=== PATIENT | male | born 1940 | race Caucasian/White ===

== ENCOUNTER 2017-01-26 09:11 | Emergency (ER) | payer OTHER, BC ==
[~2017-01-26] VITALS: Ht 175.3 cm; Wt 82.1 kg
[~2017-01-26 09:11] MED LIST: ASCAUNK PO; ATOR-24 PO; DLN100 PO; DXY100 PO; FINA5TAB PO; FLV1 PO; LISI5TAB3 PO; METO25TA56 PO; NTRGSL/4 UT; OMEG10007 PO; SOLI10TA2 PO
[2017-01-26 09:19] VITALS: TEMP 36.5; Ht 175.3 cm; Wt 82.1 kg
[2017-01-26] MEDS ORDERED: PHN/100 PO (09:37)
[2017-01-26] MEDS ORDERED: FOLI1TAB7 PO (09:37)
[2017-01-26] MEDS ORDERED: LISI-729 PO (09:37)
[2017-01-26] MEDS ORDERED: XYLOCAINE 1%/SOD BICARB 20 ML VIAL INFIL ONE (10:30)
--- NOTE | 2017-01-26 12:14 | EMERGENCY ROOM VISIT NOTE ---
ED Visit Note First contact with patient: 09:59 I have personally seen and evaluated the patient with the physician accounts receivable assistant. I agree with the diagnostic/management decisions and have personally been involved in these decisions and agree with the diagnosis.
[2017-01-26 12:15] VITALS: BP 144/85; PULSE 58; O2SAT 97
--- NOTE | 2017-01-27 13:07 | EMERGENCY ROOM VISIT NOTE ---
ED Visit Note First contact with patient: 09:59 Chief Complaint: I cut my right hand. History of Present Illness: Mr. Rogers is a 78-year-old white male who ambulates into the ED accompanied by his complaining of a laceration on the palmar aspect of the right hand. Patient reports approximately one hour ago he was attempting to pull a plank out from under his lawnmower when he started to lose his balance. He reached for the lawnmower to stable his balance and cut his hand on the low lawnmower handle. Before coming to the ED he did control bleeding and wash the wound with water. Associated with his pain he reports he is having a throbbing and pain pain in the area of his laceration. He rates his discomfort 6/10. The pain is nonradiating. The pain worsens with palpation. He has not identified any alleviating factors related to the pain. He has not taken medications for pain prior to arrival at the hospital. Patient is right-handed. Patient denies any associated symptoms including forearm pain, wrist pain, other hand pain, other finger pain, finger weakness/numbness/tingling. Review of Systems: As noted above in history of present illness. Past Medical History: (1) Aortic valve insufficiency (2) BPH (benign prostatic hypertrophy) (3) CAD (coronary artery disease) (4) Cerebrovascular disease, arteriosclerotic, post-stroke (5) DVT (deep venous thrombosis) (6) Dyslipidemia (7) H/O nonmelanoma skin cancer (8) HTN (hypertension) (9) Hx of sinus bradycardia (10) Malignant neoplasm of kidney (11) OAB (overactive bladder) (12) S/p nephrectomy (13) Seizure disorder (14) Spinal stenosis Surgical Problems: (1) H/O colonoscopy (2) S/P CABG x 4 (3) S/P inguinal hernia repair (4) S/p prostate laser coagulation Current Medications: Medications Dose Route/Sig Max Daily Dose Days Date Category Dilantin (Phenytoin Sodium) 100 Mg Cap 300 Mg PO HS 01/26/17 Reported Zestril (Lisinopril) 5 Mg Tab 5 Mg PO BID 01/26/17 Reported Folvite (Folic Acid) 1 Mg Tab 1 Mg PO BID 01/26/17 Reported Lopressor (Metoprolol Tartrate) 25 Mg Tab 12.5 Mg PO BID 04/04/16 Reported Vesicare (Solifenacin) 10 Mg Tab 10 Mg PO DAILY 11/03/15 Reported Lipitor (Atorvastatin Calcium) 40 Mg Tab 40 Mg PO DAILY 11/26/08 Reported Proscar (Finasteride) 5 Mg Tab 5 Mg PO QAM 05/10/08 Reported [place]-3 (Fish Oil) 1 Ea Cap 1 Cap PO DAILY 05/10/08 Reported Nitrostat (Nitroglycerin) 0.4 Mg Tab 0.4 Mg UT PRN 05/10/08 Reported Allergies to Medications: Patient denies. Social History: Patient is currently retired and lives with his ; he feels safe in his home environment; he denies tobacco use. Tetanus Immunization Status: Patient reports up-to-date. Physical Examination: Vital Signs: Date Time Temp Pulse Resp B/P (MAP) Pulse Ox O2 Delivery O2 Flow Rate FiO2 01/26/17 12:15 58 18 144/85 97 01/26/17 11:30 60 18 142/84 96 01/26/17 09:19 36.5 50 16 154/72 98 Room Air GENERAL: 76-year-old male in mild distress due to pain, nontoxic-appearing, afebrile and hemodynamically stable. NEUROLOGICAL: Awake, alert and oriented to person, place and time. Answering questions appropriately and following commands. SKIN: Warm, dry and pink. Right Hand: Over the palmar surface of the hand patient has a laceration extending just inferior to the webspace between the middle and ring finger laterally into the anterior webspace between the thumb and the index finger. No active bleeding. The wound is 4.5 cm and is full- thickness. Laceration as a flap RIGHT UPPER EXTREMITY: No gross bony deformity. Soft tissue injury as noted above in SKIN. No tenderness in the forearm, wrist or fingers. Full range of motion in all movements of the wrist and fingers against resistance. Throughout the fingers and hand the skin is warm and pink and capillary refill is brisk. He was able to distinguish light sensations to all dermatomes. 4/5 muscle strength in flexion and extension of the MCP, PIP and DIP joints. ED Course: Patient is assessed as noted above. Since medication list was reviewed. Wound Repair: Complexity: Basic Verbal consent was obtained after the risks and benefits were explained. The skin was prepped with betadine and a sterile field set. Wound edges of the wound was anesthetized with 4.8 ml buffered 1% lidocaine. The wound was explored for foreign bodies and none found. Copious irrigation was performed using sterile saline. With direct pressure the bleeding subsided. Debridement was not performed. Wound was sure wasn't 2 steps with the subcuticular layer closed with 6-0 control with a total of 3 simple interrupted stitchs and the external tissues closed with 4-0 Ethilon with a total of 11 simple interrupted sutures. After the suturing was performed a a few strips of Steri-Strips were added to the lacerations for additional support. Hemostasis and excellent approximation was achieved. Sterile dressing applied. No complications and the patient tolerated the procedure well. Patient was educated about tonight's findings and instructed on his treatment plan; he verbalizes understanding and agreement with this plan. Clinical Impression: Laceration of the right hand. Disposition: Patient discharged home in stable condition; prior to departure he was reassessed and subjectively reported he was pain-free. Plan: Comfort measures, wound care, and signs of infection were discussed with the patient. Patient was encouraged to follow-up with PCP or return to the ED for any signs of infection and/or suture removal in 10-12 days.
== END 2017-01-26 12:15 | disposition home or self-care (01) ==
LOC: C.EDB 09:13 → C.EDA 12:15
DX: S61.421A Laceration with foreign body of right hand, initial encounter (principal); W28.XXXA Contact with powered lawn mower, initial encounter

== ENCOUNTER 2017-05-20 05:26 | Observation (INO) | payer OTHER, BC ==
[2017-05-10 09:18] VITALS: Ht 175.3 cm; Wt 82.8 kg
--- NOTE | 2017-05-10 10:04 | PAT Medication Instructions ---
Service Date May 10, 2017. Current Home Medication List Amoxicillin (Amoxil), 4 CAP PO UD PRN for RN Ascorbic Acid (Vitamin C), 100 MG PO BID Aspirin (Aspirin Ec), 81 MG PO QAM Atorvastatin (Lipitor), 40 MG PO QPM [place] (Dolomite), 1 TAB PO PRN Finasteride (Proscar), 5 MG PO QAM Fish Oil ([place]-3), 1 CAP PO QAM Folic Acid (Folvite), 1 MG PO BID Lisinopril (Zestril), 5 MG PO BID Metoprolol Tartrate (Lopressor) (Lopressor), 12.5 MG PO BID Multivitamin (Multivitamin), 1 TAB PO QAM Nitroglycerin (Nitrostat), 0.4 MG UT PRN Phenytoin Sodium (Dilantin), 300 MG PO HS Solifenacin (Vesicare), 10 MG PO QAM Warfarin Sod (Jantoven), 7.5 MG PO 0.5-1 PRN for M Medication Instructions For Your Scheduled Surgery - Continue as directed: Amoxicillin (Amoxil), 4 CAP PO UD PRN for RN (prior to dental procedures) - Check with surgeon and prescribing physician for instructions: Warfarin Sod (Jantoven), 7.5 MG PO 0.5-1 PRN for M Aspirin (Aspirin Ec), 81 MG PO QAM - Hold the following medications starting 05/11/17: Fish Oil ([place]-3), 1 CAP PO QAM - Hold the following medications 24 hours prior to surgery: Lisinopril (Zestril), 5 MG PO BID - Hold the following medications the morning of surgery: Ascorbic Acid (Vitamin C), 100 MG PO BID [place] ([place]), 1 TAB PO PRN Finasteride (Proscar), 5 MG PO QAM Folic Acid (Folvite), 1 MG PO BID Multivitamin (Multivitamin), 1 TAB PO QAM Solifenacin (Vesicare), 10 MG PO QAM - Take the following medications the morning of surgery with a sip of water: Nitroglycerin (Nitrostat), 0.4 MG UT PRN (if needed) Metoprolol Tartrate (Lopressor) (Lopressor), 12.5 MG PO BID - Take the following medications as scheduled the night before surgery: Phenytoin Sodium (Dilantin), 300 MG PO HS Nitroglycerin (Nitrostat), 0.4 MG UT PRN (if needed) Metoprolol Tartrate (Lopressor) (Lopressor), 12.5 MG PO BID Atorvastatin (Lipitor), 40 MG PO QPM Ascorbic Acid (Vitamin C), 100 MG PO BID Dolomite (Dolomite), 1 TAB PO PRN (if needed) If you have any questions please call us at [phone] or [phone] or [phone]
[2017-05-10 10:52] LABS: BASO % 0.5 %; BASO ABS # 0.03 K/uL (0-0.2); EOS % 3.2 %; EOS ABS # 0.18 K/uL (0-0.5); HEMATOCRIT 42.8 % (42-52); HEMOGLOBIN 13.8 g/dL (14.0-18.0); LYMPH % 20.7 %; LYMPH ABS # 1.18 K/uL (1.2-3.4); MEAN CELL VOLUME 95.5 fL (80-100); MEAN CORPUSCULAR HEMOGLOBIN 30.8 pg (25-34); MEAN CORPUSCULAR HGB CONC 32.2 g/dl (32-36); MEAN PLATELET VOLUME 10.7 fL (7.4-10.4); MONO % 11.2 %; MONO ABS # 0.64 K/uL (0.11-0.59); NEUT % 64.4 %; NEUT ABS # 3.66 K/uL (1.4-6.5); PLATELET COUNT 188 K/uL (130-400); RED CELL DISTRIBUTION WIDTH CV 13.7 % (11.5-14.5); RED CELL DISTRIBUTION WIDTH SD 47.6 fL (36.4-46.3); WHITE BLOOD COUNT 5.69 K/uL (4.8-10.8)
--- NOTE | 2017-05-10 11:08 | DIAGNOSTIC IMAGING REPORT ---
CHEST 2 VIEWS ROUTINE HISTORY: Preop. COMPARISON: Chest 04/04/2016. FINDINGS: Punctate calcified granuloma within the left lung apex. No focal lung consolidations to suggest pneumonia. No evidence for pulmonary edema. The heart remains mildly enlarged. There is a tortuous thoracic aorta, unchanged. There are poststernotomy changes. The lungs remain mildly hyperexpanded. IMPRESSION: No significant change compared to the prior study. No acute process. Electronically signed by: Thomas Marrero M.D. 05/10/2017 11:07 AM Dictated Date/Time: 05/10/2017 11:05 AM
[2017-05-10 11:18] LABS: ALBUMIN 3.1 gm/dl (3.4-5.0); ALT/SGPT 29 U/L (12-78); AST/SGOT 27 U/L (15-37); BLOOD UREA NITROGEN 21 mg/dl (7-18); CALCIUM 8.7 mg/dl (8.5-10.1); CARBON DIOXIDE 27 mmol/L (21-32); CREATININE 0.94 mg/dl (0.60-1.40); GLUCOSE 92 mg/dl (70-99); POTASSIUM 5.1 mmol/L (3.5-5.1); SODIUM 140 mmol/L (136-145)
[2017-05-10 11:20] LABS: ALKALINE PHOSPHATASE 99 U/L (45-117); TOTAL PROTEIN 6.2 gm/dl (6.4-8.2)
[2017-05-20] VITALS (11 sets, daily range): BP systolic 145–188; BP diastolic 67–89; PULSE 50–104; TEMP 36.5–36.8; O2SAT 91–96
[~2017-05-20] VITALS: Ht 175.3 cm; Wt 82.8 kg
[~2017-05-20 05:26] MED LIST changes: +AMOX500C3 PO; -ASCAUNK PO; +ASCO100C2 PO; +ASPI81TA28 PO; -DLN100 PO; +DOLO10TA PO; -DXY100 PO; -FLV1 PO; +FOLI1TAB8 PO; +LISI-729 PO; -LISI5TAB3 PO; +MISSING PHYSICIAN SIGNATURE ON ORDER SCH; +MULT-506 PO; +PHN/100 PO; +WARF7.5T4 PO
[2017-05-20] MEDS ORDERED: LACTATED RINGER'S 1000ML 1,000 ML IV SCH ×2 (06:00→09:00)
[2017-05-20] MEDS ORDERED: ENOX60IN SQ (06:23)
[2017-05-20 06:41] LABS: PTT PATIENT 31.2 SECONDS (21.0-31.0)
[2017-05-20] MEDS ORDERED: FENTANYL CITRATE INJ 50 MCG/1 ML 2 ML VIAL ONE (06:51)
[2017-05-20] MEDS ORDERED: MIDAZOLAM HCL 1 MG/ML 2ML VIAL ONE (06:51)
[2017-05-20] MEDS ORDERED: CEFAZOLIN SOD 2000MG/15 ML IV PUSH IV ONE (06:55)
[2017-05-20] MEDS ORDERED: BUPIVACAINE 0.5 % 5 MG/1 ML MPF 30ML VIAL ONE (06:58)
[2017-05-20] MEDS ORDERED: DEXAMETHASONE SOD INJ 4 MG/ML VIAL ONE (07:01)
[2017-05-20] MEDS ORDERED: PROPOFOL IV EMULSION 10 MG/ML 20 ML VIAL IV ONE (07:01)
[2017-05-20] MEDS ORDERED: LIDOCAINE HCL 2% 2 ML VIAL (20MG/ML) ONE (07:01)
[2017-05-20] MEDS ORDERED: ONDANSETRON INJ 2 MG/ML 2 ML VIAL ONE (07:01)
[2017-05-20] MEDS ORDERED: EpHEDrine SULFATE INJ 50 MG/ML AMP IV PRN (07:15)
[2017-05-20] MEDS ORDERED: FENTANYL CITRATE INJ 50 MCG/1 ML 2 ML VIAL IV PRN (07:15)
[2017-05-20] MEDS ORDERED: HYDROmorphone INJ 1 MG/ML SYR IV PRN (07:15)
[2017-05-20] MEDS ORDERED: ONDANSETRON INJ 2 MG/ML 2 ML VIAL IV PRN ×2 (07:15→09:00)
[2017-05-20] MEDS ORDERED: FLUMAZENIL 0.1 MG/1 ML 10 ML VIAL IV PRN (07:15)
[2017-05-20] MEDS ORDERED: MEPERIDINE HCL 25 MG/ML CARP IV PRN (07:15)
[2017-05-20] MEDS ORDERED: ATROPINE SULFATE 0.1 MG/ML 5ML SYR IV PRN (07:15)
[2017-05-20] MEDS ORDERED: LABETALOL HCL IV 5 MG/ML 20ML IV PRN (07:15)
[2017-05-20] MEDS ORDERED: PHENYLEPHRINE 100MCG/ML 5ML SYR IV PRN (07:15)
[2017-05-20] MEDS ORDERED: NALOXONE HCL 0.4 MG/1 ML VIAL/CARP IV PRN (07:15)
--- NOTE | 2017-05-20 07:23 | History & Physical Bridge Note ---
H&P Re-Evaluation Bridge Note: I have examined the patient, reviewed the History & Physical and in the interval since the performance of the History & Physical I have noted the following changes of clinical significance: No changes noted
[2017-05-20] MEDS ORDERED: LIDOCAINE/EPINEPHRINE 1% 20 ML VIAL ONE (07:35)
--- NOTE | 2017-05-20 08:49 | [facility] Post Operative Brief Note ---
Immediate Operative Summary Operative Date May 20, 2017. Pre-Operative Diagnosis Left Inguinal Hernia Post-Operative Diagnosis Left Inguinal Hernia Procedure(s) Performed Open Left Inguinal Hernia Repair with Mesh Surgeon Dr. Gus Garcia Steel Pickler Surgeon(s) None Estimated Blood Loss 3ML Findings indirect hernia and cord lipoma, high ligation of hernia sac, atrium mesh placed. Specimens Permanent Solution: A.) Hernia Sac Drains None Anesthesia LMA Complication(s) None Disposition Recovery Room / PACU
--- NOTE | 2017-05-20 08:55 | [facility] Operative Report ---
Operative Report Operative Date May 20, 2017. Pre-Operative Diagnosis Left Inguinal Hernia Post-Operative Diagnosis indirect left inguinal hernia and cord lipoma Procedure(s) Performed Left inguinal hernia with mesh Surgeon Dr. Gus Garcia Principal Research Economist Surgeon(s) None Estimated Blood Loss 3ML Findings indirect hernia and cord lipoma, high ligation of hernia sac, atrium mesh placed. Specimens Permanent Solution: A.) Hernia Sac Drains None Anesthesia LMA Complication(s) None Disposition Recovery Room / PACU Indications 76-year-old male with multiple medical problems and symptomatic left inguinal hernia. He was deemed a moderate risk for surgery by his incident commander, plan for open left inguinal hernia repair with mesh. The risks of the procedure were discussed, all questions were answered, and the patient agreed to proceed with surgery as planned. Description of Procedure The patient was properly identified, consented, and taken to the operating room where he was placed in the supine position. Laryngeal mask anesthesia was induced. SCDs and a safety belt were placed. Preoperative antibiotics were administered. The patient's groins and abdomen were prepped and draped in the standard sterile fashion. A surgical timeout was performed and all parties were in agreement that this was the correct patient and procedure to be performed and we continued as planned. Local anesthetic was injected along the proposed incision site. An oblique incision was made in the left groin and deepened down to subcutaneous tissue with electrocautery. The aponeurosis of the external oblique muscle was cleared of investing tissue. A small incision was made in the aponeurosis of the external oblique muscle with a knife and lengthened under direct visualization with Metzenbaum scissors. Flaps were raised cephalad and caudad on the posterior portion of the external oblique. The ilioinguinal nerve was identified divided. The cord structures were circumferentially dissected and encircled with a [place] drain. A moderate sized indirect hernia and a cord lipoma were noted. The hernia sac was dissected away from the cord structures. The hernia sac was opened, high ligation was performed, and the hernia sac remnant was reduced back into the abdomen. The hernia sac was sent for pathology. The cord lipoma was ligated and divided and allowed to reduce back into the abdomen. Hemostasis was achieved within the wound. A piece of atrium inguinal hernia mesh was sewn into place using interrupted 0 Nurolon sutures. It was secured to the pubic tubercle medially, the inguinal ligament caudad, and the conjoined tendon cephalad. The internal ring was recreated by securing the tails and could accommodate the tip of the surgeons fifth digit. The wound was irrigated and hemostasis confirmed. The aponeurosis of the external oblique was then closed with a running 3-0 Vicryl suture. The wound was irrigated. Terri's fascia was reapproximated with interrupted 3-0 Vicryl suture. The skin was closed with a running 4-0 Monocryl subcuticular suture, and Dermabond was placed over the incision. The patient was extubated in the operating room and taken to the PACU for recovery without apparent incident. All sponge, instrument, and needle counts were correct at the conclusion of the procedure. The patient tolerated the procedure well. I attest to the content of the Intraoperative Record and any orders documented therein. Any exceptions are noted below.
[2017-05-20] MEDS ORDERED: MoRPHine SULFATE 2 MG/ML CARP IV PRN (09:00)
[2017-05-20] MEDS ORDERED: MoRPHine SULFATE 4 MG/ML 1 ML CARP\\VIAL IV PRN ×2 (09:00)
[2017-05-20] MEDS ORDERED: OXYCODONE/ACETAMINOPHEN 5-325 TAB PO PRN ×2 (09:00)
[2017-05-20] MEDS ORDERED: NITROGLYCERIN 0.4 MG SL PER TAB CHARGE UT PRN (09:15)
--- NOTE | 2017-05-20 09:23 | Anesthesiology Progress Note ---
Anesthesia Post Op Note Date & Time May 20, 2017 at 09:23 Vital Signs Pain Intensity: 0 Vital Signs Past 12 Hours Date Time Temp Pulse Resp B/P (MAP) Pulse Ox O2 Delivery O2 Flow Rate FiO2 05/20/17 09:15 63 15 157/79 99 Oxymask 5 05/20/17 09:05 65 17 159/63 99 Oxymask 10 05/20/17 08:57 36.6 66 14 173/81 100 Oxymask 10 05/20/17 06:07 36.7 67 20 188/83 (118) 91 Room Air Notes Mental Status: alert / awake / arousable, participated in evaluation Pt Amnestic to Procedure: Yes Nausea / Vomiting: adequately controlled Pain: adequately controlled Airway Patency, RR, SpO2: stable & adequate BP & HR: stable & adequate Hydration State: stable & adequate Anesthetic Complications: no major complications apparent The patient is doing well. He is awake, comfortable, and his vitals are stable.
[2017-05-20] MEDS ORDERED: IV FLUIDS COMPLETED PRN (10:00)
--- NOTE | 2017-05-20 10:37 | NUR ---
A Note: Patient arrived to floor at 0945, present with patient, pt resting comfortably in bed, oriented to room, lights and call higgins system, patient instructed to ring for assistance, call higgins in reach, report given to primary nurse to resume care.
[2017-05-20] MEDS ORDERED: WARF7.5T4 PO (11:13)
[2017-05-20] MEDS: KETOROLAC TROMETHAMINE 15 MG/ML VIAL IV SCH ×3 (11:32→23:04)
--- NOTE | 2017-05-20 11:42 | NUR ---
OBS NOTE: pt is alert and oriented x4. vitals stable on room air. tolerating regular diet tray at this time. denies pain. at bedside. voiding in the urinal clear yellow. IV fluids infusing as ordered. call higgins in reach at this time
[2017-05-20] MEDS ORDERED: NURSING VERBAL MED ORDER ONE ×2 (12:45→19:45)
[2017-05-20] MEDS ORDERED: ENOX80IN SQ (13:48)
[2017-05-20] MEDS ORDERED: WARFARIN SOD 7.5 MG TAB PO SCH (16:00)
--- NOTE | 2017-05-20 20:00 | NUR ---
OBS note: pt alert and oriented x4. OOB with 1 assist. Ambulated in the guerrero this shift. Tolerated a regular. Reported pain as tolerable this shift. Dermabond to left lower abdomen is clean and intact. Lungs clear on room air. Pt will continue to be monitored and assessed throughout the shift.
[2017-05-20] MEDS: METOPROLOL TARTRATE 25 MG TAB PO SCH (20:59)
[2017-05-20] MEDS ORDERED: ATORVASTATIN 20 MG TAB PO SCH (21:00)
[2017-05-20] MEDS: LISINOPRIL 5 MG TAB PO SCH (21:00)
[2017-05-20] MEDS ORDERED: PHENYTOIN SODIUM ER 100 MG CAP PO SCH (21:00)
--- NOTE | 2017-05-21 | NUR ---
OBS: Patient resting comfortably at this time. VSS. Denies pain. Ambulates independently without difficulties. SL dry and intact. Will continue to monitor.
[2017-05-21 03:50] VITALS: BP 152/67; PULSE 53; TEMP 36.6; O2SAT 97
--- NOTE | 2017-05-21 04:00 | NUR ---
OBS: Patient asleep at this time. No change in assessment. Will continue to monitor.
--- NOTE | 2017-05-21 05:01 | Discharge Instructions ---
Discharge Instructions Date of Service May 21, 2017. Admission Reason for Admission: Left Inguinal Hernia Discharge Discharge Diagnosis / Problem: Left Inguinal Hernia Discharge Goals Goal(s): Decrease discomfort, Improve function Activity Recommendations Activity Limitations: as noted below Lifting Limitations: no more than 10 pounds, until after follow-up appointment Exercise/Sports Limitations: until after follow-up appointment May Resume Sexual Activity: after follow-up appointment Shower/Bathe: no limitations Driving or Machine Use: resume 3 days after discharge (Please do not drive while using narcotic pain medication) . Instructions / Follow-Up Instructions / Follow-Up You have surgical glue covering your incision. Please allow this to fall off on its own. You have been prescribed Percocet for pain relief as needed. You may alternate this with Ibuprofen for better pain relief as well. You may Ice your incision site as needed to reduce pain and swelling. 20 minutes on, 20 minutes off. Follow up with Dr. Garcia in 1-2 weeks. Please contact our office at to schedule an appointment if you have not done so already. Please contact our office with any questions or concerns. [facility] [address] [place] [id number]. Current Hospital Diet Patient's current hospital diet: Regular Diet Discharge Diet Recommended Diet: Regular Diet Procedures Procedures Performed: Open Left Inguinal Hernia Repair with Mesh Pending Studies Studies pending at discharge: yes List of pending studies: Pathology Medical Emergencies . Who to Call and When: Medical Emergencies: If at any time you feel your situation is an emergency, please call 911 immediately. . Non-Emergent Contact Non-Emergency issues call your: Primary Care Provider, Surgeon Call Non-Emergent contact if: you have a fever, temperature is above 101.5, your pain is not controlled, your pain is worsening, wound has increased drainage, wound has increased redness, you have any medication questions . "Provider Documentation" section prepared by Agusitn Liriano. . VTE Core Measure Inpt VTE Proph given/why not?: Enoxaparin (Lovenox)SQ, Warfarin (Coumadin) [place] Drug Monitoring Program Search Results: patient reviewed within database, no issues identified
[2017-05-21] MEDS: KETOROLAC TROMETHAMINE 15 MG/ML VIAL IV SCH ×2 (05:24→12:00)
--- NOTE | 2017-05-21 06:23 | Surgery Progress Note ---
Surgery Progress Note Date of Service May 21, 2017. Subjective Post OP Day: 1 + feeling well, + ambulating, + flatus, + pain controlled, + diet (Tolerating regular diet), No complaints, No bowel movement, No nausea, No vomiting Objective Vital Signs: Date Time Temp Pulse Resp B/P (MAP) Pulse Ox O2 Delivery O2 Flow Rate FiO2 05/21/17 03:50 36.6 53 18 152/67 (95) 97 Room Air 05/20/17 23:00 Room Air 05/20/17 22:53 36.8 50 16 155/67 (96) 96 Room Air 05/20/17 20:55 64 158/79 (105) 96 Room Air 05/20/17 20:10 36.5 61 18 145/71 (95) 96 Room Air 05/20/17 16:00 Room Air 05/20/17 15:15 36.8 72 18 158/79 (105) 95 Room Air 05/20/17 12:35 66 16 153/67 (95) 95 Room Air 05/20/17 11:45 60 18 177/86 (116) 94 Room Air 05/20/17 11:20 73 16 163/80 (107) 96 Room Air 05/20/17 10:45 65 18 157/79 (105) 94 Room Air 05/20/17 10:15 104 16 159/78 (105) 94 Room Air 05/20/17 09:45 36.5 59 18 173/89 (117) 94 Room Air 05/20/17 09:45 94 Room Air 05/20/17 09:45 94 Room Air 05/20/17 09:25 36.6 63 20 148/80 99 Room Air 05/20/17 09:15 63 15 157/79 99 Oxymask 5 05/20/17 09:05 65 17 159/63 99 Oxymask 10 05/20/17 08:57 36.6 66 14 173/81 100 Oxymask 10 General Appearance: WD/WN, no apparent distress Head: normocephalic, atraumatic Respiratory/Chest: no respiratory distress, no accessory muscle use Abdomen: normal bowel sounds, non distended, soft, no organomegaly, + tenderness Incision(s): clean, dry, intact, no erythema, no drainage Laboratory Results: Results Past 24 Hours Test 05/21/17 04:44 Range/Units Assessment & Plan POD #1 s/p Left inguinal hernia repair with mesh doing well, pain controlled tolerating regular diet - no nausea/vomiting Urinating without trouble, +flatus Anticoagulation plan provided to patient via [facility] anticoagulation clinic. Likely d/c home today.
[2017-05-21] MEDS ORDERED: OXYC-57 PO (06:31)
[2017-05-21 07:32] VITALS: BP 149/73; PULSE 54; TEMP 36.6; O2SAT 97
[2017-05-21] MEDS ORDERED: ENOXAPARIN 80 MG/0.8 ML SYR SQ SCH (08:00)
[2017-05-21] MEDS ORDERED: ENOXAPARIN 60 MG/0.6 ML SYR SQ SCH (08:00)
--- NOTE | 2017-05-21 08:00 | NUR ---
OBS NOTE: pt is alert and oriented x4. ambulating independently. denies pain. saline locked. tolerating diet. Dermabond sites intact to abdomen. call higgins in reach at this time.
--- NOTE | 2017-05-21 08:15 | Anesthesiology Progress Note ---
Anesthesia Post Op Note Date & Time May 21, 2017 at 08:14 Vital Signs Pain Intensity: 0.0 Vital Signs Past 12 Hours Date Time Temp Pulse Resp B/P (MAP) Pulse Ox O2 Delivery O2 Flow Rate FiO2 05/21/17 07:32 36.6 54 17 149/73 (98) 97 Room Air 05/21/17 03:50 36.6 53 18 152/67 (95) 97 Room Air 05/20/17 23:00 Room Air 05/20/17 22:53 36.8 50 16 155/67 (96) 96 Room Air 05/20/17 20:55 64 158/79 (105) 96 Room Air Notes Mental Status: alert / awake / arousable, participated in evaluation Pt Amnestic to Procedure: Yes Nausea / Vomiting: adequately controlled Pain: adequately controlled Airway Patency, RR, SpO2: stable & adequate BP & HR: stable & adequate Hydration State: stable & adequate Anesthetic Complications: no major complications apparent
[2017-05-21] MEDS: LISINOPRIL 5 MG TAB PO SCH (08:28)
[2017-05-21] MEDS: METOPROLOL TARTRATE 25 MG TAB PO SCH (08:29)
[2017-05-21 08:34] VITALS: BP 158/66; PULSE 54
[2017-05-21] MEDS ORDERED: ASPIRIN 81 MG ECTAB PO SCH (09:00)
[2017-05-21] MEDS ORDERED: FINASTERIDE 5 MG TAB PO SCH (09:00)
--- NOTE | 2017-05-21 10:12 | NUR ---
Case Management: Met with pt at bedside. Pt states he lives with his . He is independent with ADLs and ambulation. Pt plans to return home on discharge. No needs identified. Case Management to follow.
--- NOTE | 2017-05-21 12:00 | NUR ---
OBS NOTE: pt is alert and oriented x4. clear lung sounds on room. active bowel sounds. reports he has the presence of flatus. tolerating diet. denies pain. ambulating independently. call higgins in reach. anticipated d/c later this afternoon.
[2017-05-21 12:22] VITALS: BP 158/66; PULSE 54; TEMP 36.6; O2SAT 97
[2017-05-21] MEDS ORDERED: WARFARIN SOD 7.5 MG TAB PO SCH (16:00)
--- NOTE | 2017-05-27 08:13 | Discharge Summary ---
Discharge Summary Date of Service May 27, 2017. Admission Date/Reason May 20, 2017 at 09:06 Left Inguinal Hernia. Discharge Date/Disposition May 21, 2017 Home Diagnosis Principal Diagnosis: Left Inguinal Hernia Procedure(s) Performed Open Left Inguinal Hernia Repair with Mesh- Indirect hernia and cord lipoma, high ligation of hernia sac, atrium mesh placed with Dr. Garcia. Medication Reconciliation Continued Medications: Amoxicillin (Amoxil) 500 Mg Cap 4 CAP PO UD PRN for RN for 10 Days, CAP BEFORE DENTAL WORK Ascorbic Acid (Vitamin C) 100 Mg Chw 100 MG PO BID Aspirin (Aspirin Ec) 81 Mg Tab 81 MG PO QAM Atorvastatin (Lipitor) 40 Mg Tab 40 MG PO QPM Dolomite (Dolomite) 1 Tab Tab 1 TAB PO PRN Enoxaparin (Lovenox) 80 Mg/0.8 Ml Inj 80 MG SQ Q12H, SYR Finasteride (Proscar) 5 Mg Tab 5 MG PO QAM, 0 Refills Fish Oil ([place]-3) 1 Ea Cap 1 CAP PO QAM, CAP Folic Acid (Folvite) 1 Mg Tab 1 MG PO BID, TAB Lisinopril (Zestril) 5 Mg Tab 5 MG PO BID, TAB Metoprolol Tartrate (Lopressor) (Lopressor) 25 Mg Tab 12.5 MG PO BID, TAB Multivitamin (Multivitamin) Tab 1 TAB PO QAM, TAB Nitroglycerin (Nitrostat) 0.4 Mg Tab 0.4 MG UT PRN, 0 Refills Phenytoin Sodium (Dilantin) 100 Mg Cap 300 MG PO HS, CAP Solifenacin (Vesicare) 10 Mg Tab 10 MG PO QAM, TAB Warfarin Sod (Jantoven) 7.5 Mg Tab 7.5 MG PO 2XWK, TAB TAKE 7.5MG TWICE A WEEK ON WEDNESDAY AND WEDNESDAY. ON ALL OTHER DAYS TAKE 3.75MG Warfarin Sod (Jantoven) 7.5 Mg Tab 3.75 MG PO 5XWK, TAB TAKE 3.75MG 5 TIMES A WEEK ON WEDNESDAY, WEDNESDAY, WEDNESDAY, WEDNESDAY AND WEDNESDAY Percocet 5/325 Take 1-2 tab PO every 4-6 hrs PRN pain #30 Admission Physical Exam As per Admitting History & Physical. Hospital Course Patient presented to [facility] for elective Open Left Inguinal Hernia Repair with Mesh with Dr. Garcia- Indirect hernia and cord lipoma, high ligation of hernia sac, atrium mesh placed. Patient was kept overnight under observation. POD #1 patient did well, pain was controlled, no trouble with urination. Patient tolerated diet. Patient was discharged with pain medication. He has a follow-up appointment with Dr. Garcia in the general surgery office. Patient was given both verbal and written discharge instructions. Return precautions discussed with patient. Discharge Instructions Please refer to the electronic Patient Visit Report (Discharge Instructions) for additional information.
[2017-11-24] MEDS ORDERED: ACET-1256 PO (10:45)
[2017-11-24] MEDS ORDERED: DOXY100C76 PO (12:34)
[2017-11-24] MEDS ORDERED: CEPH500C PO (12:34)
[2017-12-13] MEDS ORDERED: DXY100 PO (12:56)
== END 2017-05-21 14:19 | disposition home or self-care (01) ==
LOC: C.ACU 05:26 → C.MSN 09:06 → ENRESERV 09:14
PROVIDERS: ADMIT Surgery; ATTEND Surgery
DX: K40.90 Unilateral inguinal hernia, without obstruction or gangrene, not specified as recurrent (principal); I35.9 Nonrheumatic aortic valve disorder, unspecified; I25.10 Atherosclerotic heart disease of native coronary artery without angina pectoris; N40.1 Benign prostatic hyperplasia with lower urinary tract symptoms; N13.8 Other obstructive and reflux uropathy; E78.5 Hyperlipidemia, unspecified; I10 Essential (primary) hypertension; I25.2 Old myocardial infarction; Z86.718 Personal history of other venous thrombosis and embolism; Z85.828 Personal history of other malignant neoplasm of skin; Z79.82 Long term (current) use of aspirin; Z79.01 Long term (current) use of anticoagulants; Z85.528 Personal history of other malignant neoplasm of kidney; Z90.5 Acquired absence of kidney; Z87.891 Personal history of nicotine dependence

== ENCOUNTER 2017-05-23 20:28 | Emergency (ER) | payer OTHER, BC ==
[~2017-05-23] VITALS: Ht 175.3 cm; Wt 82.7 kg
[~2017-05-23 20:28] MED LIST changes: +ENOX80IN SQ; -MISSING PHYSICIAN SIGNATURE ON ORDER SCH; +OXYC-57 PO
[2017-05-23 20:31] VITALS: TEMP 36.5; Ht 175.3 cm; Wt 82.7 kg
[2017-05-23] MEDS ORDERED: POLYETHYLENE (MIRALAX) 17 GM PACK PO STA (21:28)
[2017-05-23] MEDS ORDERED: MILK AND MOLASSES ENEMA PR STA (21:28)
[2017-05-23] MEDS ORDERED: CYAN10005 PO (21:32)
--- NOTE | 2017-05-23 21:34 | DIAGNOSTIC IMAGING REPORT ---
ABDOMEN 2VIEW W/PA CHEST RTN CLINICAL HISTORY: eval for obstruction pain. Nausea. COMPARISON STUDY: 05/10/2017 FINDINGS: Mild stable cardia megaly. Tortuosity thoracic aorta. Prior median sternotomy. Lungs are considered clear. The bowel pattern is nonobstructive. No significant bowel distention. Mild fecal impaction. IMPRESSION: 1. No acute process the chest. 2. Moderate stable cardiomegaly. 3. Mild fecal impaction The above report was generated using voice recognition software. It may contain grammatical, syntax or spelling errors. Electronically signed by: Edwin Wang M.D. 05/23/2017 9:33 PM Dictated Date/Time: 05/23/2017 9:32 PM
[2017-05-23 23:26] VITALS: BP 133/76; PULSE 77; O2SAT 98
--- NOTE | 2017-05-23 23:44 | EMERGENCY ROOM VISIT NOTE ---
History Report prepared by Edwar: Mary Thorpe Under the Supervision of: Dr. Milton Luis M.D. First contact with patient: 20:40 Chief Complaint: CONSTIPATION Stated Complaint: CONSTIPATION, S/P SURGERY History of Present Illness The patient is a 76 year old male who presents to the Emergency Room with complaints of constant constipation beginning three days ago. The patient had a left inguinal hernia repair by on May 20. He reports he has been unable to had a bowel movement since his surgery. The patient notes taking Dulcolax today with no relief. He denies any vomiting, abdominal pain, or fever. The patient is currently taking oxycodone. He denies taking any laxatives. He has only been taking stool softeners. Source of History: patient Onset: three days ago Position: other (generalized) Quality: other (constipation) Timing: constant Modifying Factors (Relieving): other (none) Associated Symptoms: No fevers, No vomiting, No abdominal pain Review of Systems See HPI for pertinent positives & negatives. A total of 10 systems reviewed and were otherwise negative. Past Medical & Surgical Medical Problems: (1) Aortic valve insufficiency (2) BPH (benign prostatic hypertrophy) (3) CAD (coronary artery disease) (4) Cerebrovascular disease, arteriosclerotic, post-stroke (5) DVT (deep venous thrombosis) (6) Dyslipidemia (7) H/O nonmelanoma skin cancer (8) HTN (hypertension) (9) Hx of sinus bradycardia (10) Malignant neoplasm of kidney (11) OAB (overactive bladder) (12) S/p nephrectomy (13) Seizure disorder (14) Spinal stenosis Surgical Problems: (1) H/O colonoscopy (2) S/P CABG x 4 (3) S/P inguinal hernia repair (4) S/p prostate laser coagulation Family History Patient reports no known family medical history. Social History Smoking Status: Former Smoker Drug Use: none Marital Status: Housing Status: lives with family Occupation Status: retired Current/Historical Medications Scheduled Ascorbic Acid (Vitamin C), 100 MG PO BID Aspirin (Aspirin Ec), 81 MG PO QAM Atorvastatin (Lipitor), 40 MG PO QPM Cyanocobalamin (Vitamin B-12), 1 TAB PO DAILY Dolomite (Dolomite), 1 TAB PO PRN Enoxaparin (Lovenox), 80 MG SQ Q12H Finasteride (Proscar), 5 MG PO QAM Fish Oil ([place]-3), 1 CAP PO QAM Folic Acid (Folvite), 1 MG PO BID Lisinopril (Zestril), 5 MG PO BID Metoprolol Tartrate (Lopressor) (Lopressor), 12.5 MG PO BID Multivitamin (Multivitamin), 1 TAB PO QAM Nitroglycerin (Nitrostat), 0.4 MG UT PRN Phenytoin Sodium (Dilantin), 300 MG PO HS Solifenacin (Vesicare), 10 MG PO QAM Warfarin Sod (Jantoven), 7.5 MG PO 2XWK Warfarin Sod (Jantoven), 3.75 MG PO 5XWK Scheduled PRN Amoxicillin (Amoxil), 4 CAP PO UD PRN for RN Oxycodone/Acetaminophen 5MG/325MG (Percocet 5MG/325MG), 1-2 TABLETS PO Q4H PRN for Pain Allergies Coded Allergies: No Known Allergies (Verified , 05/23/17) Physical Exam Vital Signs Date Time Temp Pulse Resp B/P (MAP) Pulse Ox O2 Delivery O2 Flow Rate FiO2 05/23/17 23:26 77 16 133/76 98 05/23/17 20:31 36.5 117 18 150/65 97 Room Air Physical Exam Constitutional: Vital signs reviewed. Eyes: Pupils are equal round reactive to light. Conjunctiva are noninjected. ENT: Pharynx is clear without erythema or exudate. Mucous membranes are moist. Neck supple without meningeal signs. Respiratory: Clear to auscultation bilaterally. Breath sounds are equal bilaterally. Cardiovascular: Regular rate and rhythm. No rubs or gallops. GI: Soft, nondistended and nontender. Bowel sounds are present. Left lower quadrant incision clean and dry and intact. Ecchymosis to the testicles and left inguinal region. No signs of cellulitis or infection. Musculoskeletal: No peripheral edema. No lower extremity tenderness. Integumentary: No cyanosis. Neurological: The patient is awake and alert. No focal deficits. Psychiatric: Normal affect. Medical Decision & Procedures ER Provider Diagnostic Interpretation: Radiology results as stated below per my review and the radiologist's interpretation: ABDOMEN 2VIEW W/PA CHEST RTN FINDINGS: Mild stable cardia megaly. Tortuosity thoracic aorta. Prior median sternotomy. Lungs are considered clear. The bowel pattern is nonobstructive. No significant bowel distention. Mild fecal impaction. IMPRESSION: 1. No acute process the chest. 2. Moderate stable cardiomegaly. 3. Mild fecal impaction The above report was generated using voice recognition software. It may contain grammatical, syntax or spelling errors. Electronically signed by: Edwin Wang M.D. Medications Administered Medications (Trade) Dose Ordered Sig/Thomas Route Start Time Stop Time Status Last Admin Dose Admin Polyethylene (Miralax Powder Packet) 17 gm NOW STAT PO 05/23/17 21:28 05/23/17 21:29 DC 05/23/17 21:40 17 GM Miscellaneous Medication (Milk And Molasses Enema) 1 ea ONE STAT NC 05/23/17 21:28 05/23/17 21:29 DC 05/23/17 22:22 1 EA ED Course 2042: The patient was evaluated in room C1B. A complete history and physical exam was performed. 2127: Milk and Molasses Enema 1 ea. NC, Polyethylene 17 gm PO. 2223: The patient is getting his enema now. 2318: The patient had a large bowel movement and now feels much better. He is ready to go home. 2324: Upon reevaluation, the patient appeared to have improvement of his symptoms. I discussed jase's findings with the patient. He verbalized agreement of the treatment plan. The patient was discharged home. Medical Decision This is a 76-year-old male who presents with difficulty with bowel movements. Differential diagnosis includes ileus, narcotic induced constipation, fecal impaction, bowel obstruction. I did perform a limited focused review of portions of the patient's old chart on the electronic medical record. The patient had left inguinal by dr trejo May 20 I did evaluate the patient as noted above. Patient is presenting with constipation. He does not have any abdominal pain or tenderness. He is on opiates. I did order and personally review the patient's abdominal and chest x- ray as described above. There is no signs of obstruction. He does have fecal impaction. He was given MiraLAX as well as a milk and molasses enema. He did have a large bowel movement and felt much better. He was discharged home and advised follow with his doctor. Medication Reconcilliation Current Medication List: was personally reviewed by me Blood Pressure Screening Patient's blood pressure: Elevated blood pressure Blood pressure disposition: Referred to PCP Impression Primary Impression: Fecal impaction Additional Impression: Constipation Scribe Attestation The scribe's documentation has been prepared under my direct and personally reviewed by me in its entirety. I confirm that the note above accurately reflects all work, treatment, procedures, and medical decision making performed by me. Departure Information Dispostion Home / Self-Care Referrals Philipp Thurston D.O. (PCP) Forms HOME CARE DOCUMENTATION FORM, IMPORTANT VISIT INFORMATION Patient Instructions ED Constipation, My [facility] Additional Instructions You have been examined and treated today on an emergency basis only. This is not a substitute for, or an effort to provide, complete comprehensive medical care. It is impossible to recognize and treat all injuries or illnesses in a single emergency department visit. It is therefore important that you follow up closely with your physician. Call as soon as possible for an appointment. Return for worsening symptoms or if you develop fever, vomiting, abdominal pain or any other concerning symptoms. Problem Qualifiers Additional Impression: Constipation Constipation type: unspecified constipation type Qualified Codes: K59.00 - Constipation, unspecified
[2017-11-24] MEDS ORDERED: ACET-1256 PO (10:45)
[2017-11-24] MEDS ORDERED: CEPH500C PO (12:34)
[2017-11-24] MEDS ORDERED: DOXY100C76 PO (12:34)
[2017-12-13] MEDS ORDERED: DXY100 PO (12:56)
== END 2017-05-23 23:27 | disposition home or self-care (01) ==
LOC: C.EDB 20:28 → C.EDC 23:27
DX: K59.00 Constipation, unspecified (principal); N40.0 Benign prostatic hyperplasia without lower urinary tract symptoms; I25.10 Atherosclerotic heart disease of native coronary artery without angina pectoris; Z86.718 Personal history of other venous thrombosis and embolism; E78.5 Hyperlipidemia, unspecified; I10 Essential (primary) hypertension; M48.00 Spinal stenosis, site unspecified; G40.909 Epilepsy, unspecified, not intractable, without status epilepticus; I35.1 Nonrheumatic aortic (valve) insufficiency; Z95.1 Presence of aortocoronary bypass graft; Z87.891 Personal history of nicotine dependence; Z79.01 Long term (current) use of anticoagulants; Z79.82 Long term (current) use of aspirin; Z79.899 Other long term (current) drug therapy

== ENCOUNTER → 2017-07-12 | Outpatient (CLI) | payer OTHER, BC ==
[~2017-07-12] MED LIST changes: +CYAN10005 PO; -OXYC-57 PO
--- NOTE | 2017-07-12 11:41 | DIAGNOSTIC IMAGING REPORT ---
ULTRASOUND RIGHT LOWER EXTREMITY VENOUS CLINICAL HISTORY: Right leg pain and swelling. COMPARISON STUDY: Right lower extremity venous ultrasound dated 11/03/2015. TECHNIQUE: Real-time, grayscale, and color Doppler sonography of the deep veins of the right lower extremity was performed from the inguinal crease to the calf. Compression and augmentation were utilized. FINDINGS: There is age indeterminant and nonocclusive deep venous thrombosis seen within the distal superficial femoral vein and the popliteal vein. This likely extends into the peroneal vein in the calf. The, femoral vein and the proximal to mid portions of the superficial femoral vein are patent and normally compressible. The greater saphenous vein and the profunda femoris vein at the junction with the common femoral vein are clear. IMPRESSION: Age indeterminant and nonocclusive deep venous thrombosis as above. Electronically signed by: Thomas Lee M.D. 07/12/2017 11:40 AM Dictated Date/Time: 07/12/2017 11:38 AM
== END | disposition home or self-care (01) ==
LOC: C.ULTRBC 11:05
PROVIDERS: ATTEND Nurse Practitioner
DX: Z86.718 Personal history of other venous thrombosis and embolism (principal); S89.91XA Unspecified injury of right lower leg, initial encounter; M79.661 Pain in right lower leg; M79.89 Other specified soft tissue disorders

== ENCOUNTER 2017-10-13 11:06 | Emergency (ER) | payer OTHER, BC ==
[~2017-10-13] VITALS: Ht 175.3 cm; Wt 83.0 kg
[2017-10-13 11:20] VITALS: TEMP 36.7; Ht 175.3 cm; Wt 83.0 kg
[2017-10-13] MEDS ORDERED: CYAN100T PO (11:47)
[2017-10-13 11:59] LABS: BASO % 0.4 %; BASO ABS # 0.03 K/uL (0-0.2); EOS % 2.2 %; EOS ABS # 0.15 K/uL (0-0.5); HEMATOCRIT 37.8 % (42-52); HEMOGLOBIN 12.1 g/dL (14.0-18.0); IG# 0.01 K/uL (0.00-0.02); LYMPH % 20.2 %; LYMPH ABS # 1.36 K/uL (1.2-3.4); MEAN CELL VOLUME 90.4 fL (80-100); MEAN CORPUSCULAR HEMOGLOBIN 28.9 pg (25-34); MEAN PLATELET VOLUME 9.8 fL (7.4-10.4); MONO % 9.8 %; MONO ABS # 0.66 K/uL (0.11-0.59); NEUT % 67.3 %; NEUT ABS # 4.51 K/uL (1.4-6.5); PLATELET COUNT 209 K/uL (130-400); RED CELL DISTRIBUTION WIDTH CV 13.4 % (11.5-14.5); RED CELL DISTRIBUTION WIDTH SD 43.9 fL (36.4-46.3); WHITE BLOOD COUNT 6.72 K/uL (4.8-10.8)
[2017-10-13 12:09] LABS: INR 1.7 (0.9-1.1); PTT PATIENT 42.9 SECONDS (21.0-31.0)
[2017-10-13 12:15] LABS: CALCIUM 8.3 mg/dl (8.5-10.1); CREATININE 0.97 mg/dl (0.60-1.40); POTASSIUM 4.2 mmol/L (3.5-5.1)
--- NOTE | 2017-10-13 12:15 | DIAGNOSTIC IMAGING REPORT ---
L ANKLE MIN 3 VIEWS ROUTINE CLINICAL HISTORY: Left leg pain following fall. COMPARISON: None FINDINGS: Alignment of the left ankle is anatomic. Talar dome is intact. There is no acute fracture. There is moderate diffuse soft tissue swelling. IMPRESSION: 1. No acute fracture or dislocation of the left ankle. 2. Moderate diffuse ankle soft tissue swelling. Electronically signed by: Stas Oviedo M.D. 10/13/2017 12:14 PM Dictated Date/Time: 10/13/2017 12:13 PM
--- NOTE | 2017-10-13 12:17 | DIAGNOSTIC IMAGING REPORT ---
L TIBIA/FIBULA 2 VIEWS ROUTINE CLINICAL HISTORY: fall; L lower leg, ankle and foot pain COMPARISON: None FINDINGS: No acute fracture of the left tibia or fibula is identified. The distal left tibia and fibula are depicted on the left ankle radiographs which were performed concurrently. Surgical clips medial to the left knee are noted. There is moderate osteophytosis of the left knee. Left lower leg soft tissue swelling is present. IMPRESSION: No acute fracture of the left tibia or fibula. Electronically signed by: Stas Oviedo M.D. 10/13/2017 12:15 PM Dictated Date/Time: 10/13/2017 12:14 PM
--- NOTE | 2017-10-13 12:20 | DIAGNOSTIC IMAGING REPORT ---
L FOOT MIN 3 VIEWS ROUTINE CLINICAL HISTORY: Left leg pain following fall. COMPARISON: None FINDINGS: Tarsometatarsal joints are intact. Alignment of the left foot is anatomic. There is diffuse soft tissue swelling, greater dorsally. No acute fracture within the left foot is identified. Mild osteoarthritis is noted within multiple articulations of the left foot. IMPRESSION: No acute fracture or dislocation within the left foot. Electronically signed by: Stas Oviedo M.D. 10/13/2017 12:19 PM Dictated Date/Time: 10/13/2017 12:17 PM
--- NOTE | 2017-10-13 13:11 | EMERGENCY ROOM VISIT NOTE ---
ED Visit Note First contact with patient: 11:29 The patient was seen and examined with Oswaldo Arauz PA-C. I agree with the history, physical and findings. Please see the note for disposition and details.
[2017-10-13 13:19] VITALS: BP 132/70; PULSE 49; O2SAT 99
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
== END 2017-10-13 13:25 | disposition home or self-care (01) ==
LOC: C.EDB 11:07 → C.EDA 13:25
DX: S80.12XA Contusion of left lower leg, initial encounter (principal); S80.812A Abrasion, left lower leg, initial encounter; W18.41XA Slipping, tripping and stumbling without falling due to stepping on object, initial encounter; R79.1 Abnormal coagulation profile; Z79.01 Long term (current) use of anticoagulants; Z79.82 Long term (current) use of aspirin; G40.909 Epilepsy, unspecified, not intractable, without status epilepticus; I10 Essential (primary) hypertension; E78.5 Hyperlipidemia, unspecified; N40.0 Benign prostatic hyperplasia without lower urinary tract symptoms; Z95.1 Presence of aortocoronary bypass graft

== ENCOUNTER 2017-12-08 14:53 | Inpatient (IN) | payer OTHER, BC ==
[~2017-12-08] VITALS: Ht 175.3 cm; Wt 79.7 kg
[~2017-12-08 14:53] MED LIST changes: +ACET-1256 PO; +CEPH500C PO; -CYAN10005 PO; +CYAN100T PO; +DOXY100C76 PO; -ENOX80IN SQ; -SOLI10TA2 PO
[2017-12-08 16:31] VITALS: BP 158/64; PULSE 87; TEMP 36.5; O2SAT 93; Ht 175.3 cm; Wt 79.7 kg
[2017-12-08] MEDS ORDERED: ACETAMINOPHEN 325 MG TAB PO PRN (16:45)
[2017-12-08] MEDS ORDERED: ONDANSETRON INJ 2 MG/ML 2 ML VIAL IV PRN (16:45)
[2017-12-08] MEDS ORDERED: POLYETHYLENE (MIRALAX) 17 GM PACK PO PRN (16:45)
[2017-12-08] MEDS ORDERED: CYAN10004 PO (17:39)
[2017-12-08] MEDS ORDERED: FRRS300 PO (17:39)
[2017-12-08 17:48] LABS: ALBUMIN 2.8 gm/dl (3.4-5.0); CALCIUM 8.1 mg/dl (8.5-10.1); CREATININE 1.07 mg/dl (0.60-1.40); POTASSIUM 4.3 mmol/L (3.5-5.1); TOTAL PROTEIN 6.2 gm/dl (6.4-8.2)
[2017-12-08 17:49] LABS: BASO % 1.1 %; BASO ABS # 0.07 K/uL (0-0.2); EOS % 3.5 %; EOS ABS # 0.22 K/uL (0-0.5); HEMATOCRIT 34.2 % (42-52); HEMOGLOBIN 10.5 g/dL (14.0-18.0); IG# 0.02 K/uL (0.00-0.02); LYMPH % 23.7 %; LYMPH ABS # 1.49 K/uL (1.2-3.4); MEAN CELL VOLUME 89.5 fL (80-100); MEAN CORPUSCULAR HEMOGLOBIN 27.5 pg (25-34); MEAN CORPUSCULAR HGB CONC 30.7 g/dl (32-36); MEAN PLATELET VOLUME 9.7 fL (7.4-10.4); MONO % 9.5 %; NEUT % 61.9 %; PLATELET COUNT 326 K/uL (130-400); RED CELL DISTRIBUTION WIDTH CV 14.6 % (11.5-14.5); RED CELL DISTRIBUTION WIDTH SD 47.5 fL (36.4-46.3)
[2017-12-08 17:55] LABS: INR 2.9 (0.9-1.1)
[2017-12-08] MEDS ORDERED: NITROGLYCERIN 0.4 MG SL PER TAB CHARGE UT SCH (18:00)
[2017-12-08 18:02] LABS: PTT PATIENT 46.9 SECONDS (21.0-31.0)
[2017-12-08] MEDS ORDERED: CONSULT PHARMACY STA (18:09)
[2017-12-08] MEDS ORDERED: VANCOMYCIN CONSULT ACTIVE PRN (18:30)
[2017-12-08] MEDS ORDERED: VANCOMYCIN IV 2,000 MG in SODIUM CHLORIDE 0.9% 500ML 500 ML IV SCH (18:30)
--- NOTE | 2017-12-08 18:43 | DIAGNOSTIC IMAGING REPORT ---
R TIBIA/FIBULA 2 VIEWS ROUTINE CLINICAL HISTORY: hematoma/cellulitis trauma. Pain. COMPARISON: None. DISCUSSION: Generalized degenerative change of the right lower leg including knee and ankle. Soft tissue edema adjacent to the mid tibia as well as fibula. No acute bony abnormality. IMPRESSION: Focal soft tissue edema mid lower leg. 2. Degenerative change. 3. No acute bony abnormality. The above report was generated using voice recognition software. It may contain grammatical, syntax or spelling errors. Electronically signed by: Edwin Wang M.D. 12/08/2017 6:42 PM Dictated Date/Time: 12/08/2017 6:41 PM
[2017-12-08] MEDS: CEFTRIAXONE SOD INJ 1 GM in DEXTROSE 5% ADD-VANTAGE 50ML 50 ML IV SCH (19:07)
--- NOTE | 2017-12-08 19:36 | History and Physical ---
History & Physical Date & Time of Service: Dec 08, 2017 at 17:41 Chief Complaint: Left Leg Cellulitis Primary Care Physician: Philipp Thurston D.O. History of Present Illness Source: patient, spouse, clinic records, hospital records Pt is 77 y/o M with PMH CAD/P CABG, HTN, dyslipidemia, CVA, seizure disorder, left partial nephrectomy secondary to renal cell CA, chronic hematuria, chronic DVT on Coumadin since 2016, aortic valve regurgitation, mitral valve regurgitation seen as direct admission secondary to right leg hematoma and cellulitis. Patient reports 11/17/17 piece of wood hit his right calf and patient states no open skin at that time however had a lump to leg. He was seen in ER that day and had ultrasound extremity: 6 x 5 x 2.9 cm fluid collection within subcutaneous soft tissue right calf. His INR was 2.1 at that time. 11/21/17 seen in ER again, ultrasound: Age-indeterminate nonocclusive DVT right distal. Her femoral vein, popliteal vein, peroneal vein. INR was 2.7. Compression stocking applied. 11/23/17: Patient reports seeing surgery-Dr. Garcia, no change in treatment plan at that time. 11/24/17: In ER again as patient had bleeding from hematoma site, had I&D, given Rocephin and doxycycline and discharged home on Keflex and doxycycline. Recheck of leg on 11/25/17 and had packing change. Patient reports finishing doxycycline last week, and finishing Keflex approximately 4 days ago. He reports waxing and waning edema and erythema to right lower leg. Initially he was applying ice and heat. Most recently has been applying ice. Initially like was quite painful and he had to use a crutch or walker to help ambulate. Patient states recently with no pain and is able to ambulate without assistance. Patient states over the past week has been keeping legs elevated as much as possible and noticed overall decreased edema. He has noticed some surrounding erythema. Changing dressing daily with some blood noted on dressing. Denies any noted purulent discharge. Today patient seen in wound clinic referred to hospital for further assessment and treatment. Patient denies any chest pains or shortness of breath. He reports is able to walk 2 flights of stairs without SOB/CP. He reports not having to use nitroglycerin for several years. History nuclear stress test 04/2017- negative for ischemia. History echo 08/2017: EF: 55-59%, grade 1 diastolic dysfunction, moderate aortic valve regurgitation, mild mitral valve regurgitation, mild tricuspid regurgitation, aortic root and proximal ascending aorta moderately enlarged (no change from prior). Denies fever/chills, diaphoresis, N/V/D/C, PRIETO, dizziness, syncope, vision changes, neck pain, CP, SOB, orthopnea, palpitations, cough, sore throat, choking, otalgia, rhinorrhea, abdominal pain, paresthesias, other rashes, dysuria, weight changes. Past Medical/Surgical History Medical Problems: (1) Aortic valve insufficiency Status: Chronic (2) BPH (benign prostatic hypertrophy) Status: Chronic (3) CAD (coronary artery disease) Status: Chronic (4) Cerebrovascular disease, arteriosclerotic, post-stroke Status: Chronic (5) DVT (deep venous thrombosis) Status: Chronic (6) Dyslipidemia Status: Chronic (7) H/O nonmelanoma skin cancer Status: Chronic (8) HTN (hypertension) Status: Chronic (9) Hx of sinus bradycardia Status: Chronic (10) Malignant neoplasm of kidney Status: Chronic (11) OAB (overactive bladder) Status: Chronic (12) S/p nephrectomy Status: Chronic (13) Seizure disorder Status: Chronic (14) Spinal stenosis Status: Chronic Surgical Problems: (1) H/O colonoscopy Status: Chronic (2) S/P CABG x 4 Permanent Comment: 10/25/01 Status: Chronic (3) S/P inguinal hernia repair Status: Chronic (4) S/p prostate laser coagulation Status: Chronic Family History Hypertension Social History Smoking Status: Former Smoker Smokeless Tobacco Use: No Alcohol Use: none Drug Use: none Marital Status: Housing status: lives with family Occupational Status: retired Allergies Coded Allergies: No Known Allergies (Verified , 11/21/17) Home Medications Scheduled Ascorbic Acid (Vitamin C), 100 MG PO BID Aspirin (Aspirin Ec), 81 MG PO QAM Atorvastatin (Lipitor), 40 MG PO QPM Cyanocobalamin (Vitamin B-12 1000 Mcg), 1 TAB PO DAILY Dolomite (Dolomite), 1 TAB PO PRN Doxycycline Hyclate (Doxycycline Hyclate), 100 MG PO BID Ferrous Sulfate (Ferrous Sulfate), 1 TAB PO DAILY Finasteride (Proscar), 5 MG PO QAM Fish Oil ([place]-3), 1 CAP PO QAM Folic Acid (Folvite), 1 MG PO BID Lisinopril (Zestril), 5 MG PO BID Metoprolol Tartrate (Lopressor) (Lopressor), 12.5 MG PO BID Multivitamin (Multivitamin), 1 TAB PO QAM Nitroglycerin (Nitrostat), 0.4 MG UT PRN Phenytoin Sodium (Dilantin), 300 MG PO HS Warfarin Sod (Jantoven), 7.5 MG PO WK Warfarin Sod (Jantoven), 3.75 MG PO [id number] Scheduled PRN Acetaminophen (Tylenol), 1,000 MG PO Q6 PRN for Pain or Fever Review of Systems See HPI for pertinent positives & negatives. All other systems reviewed and were otherwise negative Physical Exam Vital Signs Date Time Temp Pulse Resp B/P (MAP) Pulse Ox O2 Delivery O2 Flow Rate FiO2 12/08/17 16:31 36.5 87 16 158/64 93 Room Air General Appearance: WD/WN, no apparent distress Head: normocephalic, atraumatic Eyes: normal inspection, sclerae normal ENT: hearing grossly normal, pharynx normal, + pertinent finding (mucous membranes moist) Neck: supple, trachea midline Respiratory/Chest: lungs clear, normal breath sounds, no respiratory distress Cardiovascular: regular rate, rhythm, normal peripheral pulses Abdomen/GI: normal bowel sounds, non tender, soft Extremities/Musculoskelatal: + pertinent finding (+venous stasis changes noted bilateral lower extremities. RLE: medial calf with small open area scant bloody drainage with palpation with surrounding fluctuant edema, erythema without significant tenderness to palpation, limited flexion R knee, distal pulses palpable, sensation to light touch intact) Skin: warm/dry Diagnostics Laboratory Results Last 24 Hours Test 12/08/17 17:07 White Blood Count 6.30 K/uL Red Blood Count 3.82 M/uL Hemoglobin 10.5 g/dL Hematocrit 34.2 % Mean Corpuscular Volume 89.5 fL Mean Corpuscular Hemoglobin 27.5 pg Mean Corpuscular Hemoglobin Concent 30.7 g/dl Platelet Count 326 K/uL Mean Platelet Volume 9.7 fL Neutrophils (%) (Auto) 61.9 % Lymphocytes (%) (Auto) 23.7 % Monocytes (%) (Auto) 9.5 % Eosinophils (%) (Auto) 3.5 % Basophils (%) (Auto) 1.1 % Neutrophils # (Auto) 3.90 K/uL Lymphocytes # (Auto) 1.49 K/uL Monocytes # (Auto) 0.60 K/uL Eosinophils # (Auto) 0.22 K/uL Basophils # (Auto) 0.07 K/uL RDW Standard Deviation 47.5 fL RDW Coefficient of Variation 14.6 % Immature Granulocyte % (Auto) 0.3 % Immature Granulocyte # (Auto) 0.02 K/uL Prothrombin Time 30.0 SECONDS Prothromb Time International Ratio 2.9 Activated Partial Thromboplast Time 46.9 SECONDS Partial Thromboplastin Ratio 1.8 Sodium Level 141 mmol/L Potassium Level 4.3 mmol/L Chloride Level 108 mmol/L Carbon Dioxide Level 29 mmol/L Anion Gap 4.0 mmol/L Blood Urea Nitrogen 25 mg/dl Creatinine 1.07 mg/dl Est Creatinine Clear Calc Drug Dose 57.8 ml/min Estimated GFR () 77.2 Estimated GFR (Non- 66.6 BUN/Creatinine Ratio 23.2 Random Glucose 79 mg/dl Calcium Level 8.1 mg/dl Total Bilirubin 0.2 mg/dl Aspartate Amino Transf (AST/SGOT) 19 U/L Alanine Aminotransferase (ALT/SGPT) 23 U/L Alkaline Phosphatase 91 U/L Total Protein 6.2 gm/dl Albumin 2.8 gm/dl Globulin 3.4 gm/dl Albumin/Globulin Ratio 0.8 Diagnostic Radiology RIGHT TIB/FIB XRAY: IMPRESSION: 1. Focal soft tissue edema mid lower leg. 2. Degenerative change. 3. No acute bony abnormality. EKG EKG: sinus bradycardia, rate 51 Impression Assessment and Plan Pt is 77 y/o M with PMH CAD/P CABG, HTN, dyslipidemia, CVA, seizure disorder, left partial nephrectomy secondary to renal cell CA, chronic hematuria, chronic DVT on Coumadin since 2016, aortic valve regurgitation, mitral valve regurgitation direct admission secondary to right leg hematoma and cellulitis. Initial injury on 11/17/17. Recurrent [facility] ER visits for this, Had bleeding from area and ultimately had I&D in ER on 11/24/17. Pt finished course doxycycline, keflex with continued edema, erythema and mild bloody drainage. RIGHT LEG HEMATOMA/RLE CELLULITIS Pt afebrile, No leukocytosis. -R tib/fib xray: Focal soft tissue edema mid lower leg. No acute bony abnormality. -pending blood cultures -Rocephin, vancomycin -ortho consult -wound nurse consult CHRONIC RLE DVT ON COUMADIN INR: 2.9 -will hold coumadin dose tonight as pt receiving antibiotics -INR in am CAD S/P CABG x 4 Denies CP, SOB. Has not needed nitro for years. He reports is able to walk 2 flights of stairs without SOB/CP. -Hx nuclear stress test 04/2017- negative for ischemia. -Hx echo 08/2017: EF: 55-59%, grade 1 diastolic dysfunction, moderate aortic valve regurgitation, mild mitral valve regurgitation, mild tricuspid regurgitation, aortic root and proximal ascending aorta moderately enlarged (no change from prior). -continue ASA, atorvastatin, metoprolol HX L RENAL CELL CA S/P PARTIAL NEPHRECTOMY HX SEIZURE DISORDER AFTER CARDIAC ARREST S/P NEPHRECTOMY No recurrent seizures since -pending Dilantin level -continue Dilantin CHRONIC ANEMIA Hgb: 10.5 (has been in 10's since hematoma formation since 11/21/17). (Baseline 12 -13). Slight bleeding noted on dressing at this time. -continue ferrous sulfate, B12, folic acid -monitor H&H Hx CVA No residual effects -continue ASA HTN Stable -continue lisinopril, metoprolol DYSLIPIDEMIA -continue atorvastatin BPH -continue finasteride DVT Prophylaxis -On coumadin -therapeutic INR 2.9 Disposition admit medsur Full Code as per discussion with pt Follows with Dr Thurston for routine care Pt was seen with Dr Galeano. See addendum Attending Addendum Pt was seen andf examined. Agreed with Lazara PAC assessment and plan. 77 y/o M with PMH CAD/P CABG, HTN, dyslipidemia, CVA, seizure disorder, left partial nephrectomy secondary to renal cell CA, chronic hematuria, chronic DVT on Coumadin since 2015, aortic valve regurgitation, mitral valve regurgitation seen as direct admission secondary to right leg hematoma and cellulitis. Will start on Vanco and Rocephin IV. Check blood culture. Hold Coumadin and consult ortho. MD Waleska Advanced Directives Existing Living Will: Yes Existing Power of Nail Making Machine Setter: Yes Resuscitation Status VTE Prophylaxis Will order VTE Prophylaxis: Yes Additional Copies To Philipp Thurston D.O.
[2017-12-08] MEDS: METOPROLOL TARTRATE 25 MG TAB PO SCH (20:29)
[2017-12-08] MEDS: ATORVASTATIN 40 MG TAB PO SCH (20:31)
[2017-12-08] MEDS: PHENYTOIN SODIUM ER 100 MG CAP PO SCH (20:31)
[2017-12-08] MEDS: LISINOPRIL 5 MG TAB PO SCH (20:32)
--- NOTE | 2017-12-08 20:36 | Pharmacy Progress Note ---
Pharmacy Abx Initial Consult Date of Service Dec 08, 2017. Pharmacy Dosing Scope Date of Consult: 12/08/17 Consultation requested by: Dr. Nicholson Pharmacy is consulted to initiate Vancomycin IV dosing therapy, order appropriate labs and adjust drug dose/frequency. Subjective The patient is a 77 year old male admitted on Dec 08, 2017 at 15:49. Objective Height (Feet): 5 Height (Inches): 9.00 Weight (Kilograms): 79.700 (BMI 25.9) Vital Signs (Past 12Hrs) Vital Signs Past 12 Hours Date Time Temp Pulse Resp B/P (MAP) Pulse Ox O2 Delivery O2 Flow Rate FiO2 12/08/17 16:31 36.5 87 16 158/64 93 Room Air Lab Results (24Hrs) Laboratory Tests (24 Hours) Item Value Date Time Creatinine 1.07 mg/dl 12/08/171706 Est Creatinine Clear Calc Drug Dose 57.8 ml/min 12/08/171706 Test 12/08/17 17:07 White Blood Count 6.30 K/uL (4.8-10.8) Red Blood Count 3.82 M/uL (4.7-6.1) L Hemoglobin 10.5 g/dL (14.0-18.0) L Hematocrit 34.2 % (42-52) L Mean Corpuscular Volume 89.5 fL (80-100) Mean Corpuscular Hemoglobin 27.5 pg (25-34) Mean Corpuscular Hemoglobin Concent 30.7 g/dl (32-36) L Platelet Count 326 K/uL (130-400) Mean Platelet Volume 9.7 fL (7.4-10.4) Neutrophils (%) (Auto) 61.9 % Lymphocytes (%) (Auto) 23.7 % Monocytes (%) (Auto) 9.5 % Eosinophils (%) (Auto) 3.5 % Basophils (%) (Auto) 1.1 % Neutrophils # (Auto) 3.90 K/uL (1.4-6.5) Lymphocytes # (Auto) 1.49 K/uL (1.2-3.4) Monocytes # (Auto) 0.60 K/uL (0.11-0.59) H Eosinophils # (Auto) 0.22 K/uL (0-0.5) Basophils # (Auto) 0.07 K/uL (0-0.2) Micro Results Date/Time Source Procedure Growth Status 12/08/17 17:17 Blood Blood Culture Pending Received 12/08/17 17:07 Blood Blood Culture Pending Received Risk Factors for Resistance * Antimicrobial use within the last 90 days Doxycycline/Keflex Assessment & Plan Assessment 77 year old male admitted for small open area on RLE with scant drainage with edema. Has erythema without tenderness. Has had multiple visits over the last month to the ER for problems with edema and erythema to RLE. Has been keeping legs elevated and noticed overall decreased edema. Has been changing the dressing daily with some blood noted on the dressing. No purulent discharge. Seen in wound clinic today and referred to hospital. Plan Vancomycin for treatment of cellulitis Vancomycin IV * Estimated Pkineteics: Vd 0.7 L/kg; Bridger ~0.052 hr-1; T1/2 13.3 hr; CrCl 57.8 * Loading dose: 2000 mg (~25 mg/kg) * Maintenance dose: 1250 mg IV (~15.7 mg/kg) every 16 hours * Goal trough level for cellulitis : 15 to 20 mcg/mL * Trough level ordered for 12/10/17 Pharmacy will continue to follow and will adjust dose/frequency as necessary. Thank you.
[2017-12-08 22:56] VITALS: BP 146/70; PULSE 51; TEMP 36.4; O2SAT 96
[2017-12-09] VITALS (7 sets, daily range): BP systolic 140–156; BP diastolic 63–75; PULSE 50–69; TEMP 36.6–37.1; O2SAT 93–98
[2017-12-09 06:56] LABS: CREATININE 0.85 mg/dl (0.60-1.40)
[2017-12-09] MEDS: FERROUS SULFATE 325 MG TAB PO SCH (08:37)
[2017-12-09] MEDS: CYANOCOBALAMIN 500 MCG TAB (VIT B-12) PO SCH (08:37)
[2017-12-09] MEDS: LISINOPRIL 5 MG TAB PO SCH ×2 (08:37→21:08)
[2017-12-09] MEDS: FINASTERIDE 5 MG TAB PO SCH (08:38)
[2017-12-09] MEDS: METOPROLOL TARTRATE 25 MG TAB PO SCH ×2 (08:41→20:48)
[2017-12-09] MEDS ORDERED: ASPIRIN 81 MG ECTAB PO SCH (09:00)
[2017-12-09 09:27] LABS: INR 2.2 (0.9-1.1)
[2017-12-09] MEDS: VANCOMYCIN IV 1,250 MG in SODIUM CHLORIDE 0.9% 250ML 250 ML IV SCH (11:39)
--- NOTE | 2017-12-09 16:17 | CONSULTATION REPORT ---
DATE OF CONSULTATION: 12/09/2017 CHIEF COMPLAINT: Right calf hematoma. HISTORY OF PRESENT ILLNESS: Toward the end of October, the patient dropped a piece of wood, it bounced up. He states he did not get hit that hard, did not break the skin, but he noticed pain and swelling in his right calf. Patient is chronically on Coumadin. He is not aware what his current INR is. PHYSICAL EXAMINATION: Examination reveals a swollen but minimally tender hematoma on the right calf. ASSESSMENT: Hematoma, right calf. PLAN: Obtain an ultrasound to evaluate the size of the hematoma. Consider reversal of Coumadin, evacuation of hematoma, and placement of a wound VAC. Thank you for the consult.
--- NOTE | 2017-12-09 16:33 | DIAGNOSTIC IMAGING REPORT ---
R EXTREMITY NONVASCULAR LIMITED CLINICAL HISTORY: Recheck size of Right medial calf hematoma/abscess collection TECHNIQUE: Ultrasound COMPARISON STUDY: 11/17/2017 FINDINGS: Complex collection within the soft tissues medial calf. This measures 7 x 6 x 3 cm. No evidence for abnormal vascular flow. This is similar to and are slightly increased in volume from the prior study. IMPRESSION: Complex collection within the soft tissues of the medial calf. Dimensions are slightly increased from the prior exam. The above report was generated using voice recognition software. It may contain grammatical, syntax or spelling errors. Electronically signed by: Edwin Wang M.D. 12/09/2017 4:32 PM Dictated Date/Time: 12/09/2017 4:30 PM
--- NOTE | 2017-12-09 18:15 | Progress Note ---
Medicine Progress Note Date & Time of Visit: Dec 09, 2017 at 18:01. Subjective Pt was seen and examined Lying in bed with no distress Pt said that he does have some discomfort in the right leg Denies any chest pain, palpitation, dizziness, fever, chills and SOB Objective Last 8 Hrs Date Time Temp Pulse Resp B/P (MAP) Pulse Ox O2 Delivery O2 Flow Rate FiO2 12/09/17 15:30 37.1 50 16 156/65 (95) 96 Room Air Physical Exam: General- No acute distress Head- atraumatic Eyes- PERRL, EOMI ENT- oropharynx clear Neck- supple, no JVD Lungs- clear to auscultation Heart- regular rhythm Abdomen- normal bowel sounds, soft Extremities- Open wound in the right calf tenderness with minimal oozing, + tender of the right calf with palpation Neuro- alert, oriented, PERRL, EOMI Skin- warm & dry Laboratory Results: Last 24 Hours Test 12/09/17 05:52 12/09/17 09:01 Creatinine 0.85 mg/dl Est Creatinine Clear Calc Drug Dose 72.8 ml/min Estimated GFR () 97.4 Estimated GFR (Non- 84.0 Prothrombin Time 22.7 SECONDS Prothromb Time International Ratio 2.2 Assessment & Plan RIGHT LEG HEMATOMA/RLE CELLULITIS R tib/fib xray showed focal soft tissue edema mid lower leg. No acute bony abnormality. U/S of the RLE showed complex collection within the soft tissues of the medial calf with slightly increased size from the prior exam. Will continue holding Coumadin for now Will hold aspirin Blood cultures pending Continue Rocephin and vancomycin IV Ortho on board Continue daily wound care CHRONIC RLE DVT ON COUMADIN INR: 2.2 Hold Coumadin due to slightly increase size in the hematoma Continue monitor INR CAD S/P CABG x 4. Had nuclear stress test done on 04/2017- negative for ischemia. Echo on 08/2017 showed EF: 55-59%, grade 1 diastolic dysfunction, moderate aortic valve regurgitation, mild mitral valve regurgitation, mild tricuspid regurgitation, aortic root and proximal ascending aorta moderately enlarged (no change from prior). Continue atorvastatin, metoprolol Will hold aspirin for now due to increase hematoma size HX L RENAL CELL CA S/P PARTIAL NEPHRECTOMY Stable HX SEIZURE DISORDER AFTER CARDIAC ARREST S/P NEPHRECTOMY No recurrent seizures since Continue Dilantin Stable CHRONIC ANEMIA Hgb: 10.5 (has been in 10's since hematoma formation since 11/21/17). (Baseline 12 -13). Continue monitor CBC Hx CVA No residual effects Will hold aspirin HTN Stable continue lisinopril, metoprolol DYSLIPIDEMIA continue atorvastatin BPH continue finasteride DVT Prophylaxis INR 2.2 Hold coumadin due to hematoma SCDs contraindication due to wound in RLE Disposition Discharge once medically stable Current Inpatient Medications: Current Inpatient Medications Medications (Trade) Dose Ordered Sig/Thomas Route Start Time Stop Time Status Last Admin Dose Admin Acetaminophen (Tylenol Tab) 650 mg Q4H PRN PO 12/08/17 16:45 01/07/18 16:44 Polyethylene (Miralax Powder Packet) 17 gm DAILY PRN PO 12/08/17 16:45 01/07/18 16:44 Ondansetron HCl (Zofran Inj) 4 mg Q6H PRN IV 12/08/17 16:45 01/07/18 16:44 Aspirin (Ecotrin Tab) 81 mg QAM PO 12/09/17 09:00 01/08/18 08:59 12/09/17 08:37 81 MG Atorvastatin Calcium (Lipitor Tab) 40 mg QPM PO 12/08/17 21:00 01/07/18 20:59 12/08/17 20:31 40 MG Cyanocobalamin (Vitamin B-12 Tab) 1,000 mcg DAILY PO 12/09/17 09:00 01/08/18 08:59 12/09/17 08:37 1,000 MCG Ferrous Sulfate (Feosol Tab) 325 mg DAILY PO 12/09/17 09:00 01/08/18 08:59 12/09/17 08:37 325 MG Finasteride (Proscar Tab) 5 mg QAM PO 12/09/17 09:00 01/08/18 08:59 12/09/17 08:38 5 MG Folic Acid (Folvite Tab) 1 mg BID PO 12/08/17 21:00 01/07/18 20:59 12/09/17 08:37 1 MG Lisinopril (Zestril Tab) 5 mg BID PO 12/08/17 21:00 01/07/18 20:59 12/09/17 08:37 5 MG Metoprolol Tartrate (Lopressor Tab) 12.5 mg BID PO 12/08/17 21:00 01/07/18 20:59 12/09/17 08:41 12.5 MG Nitroglycerin (Nitrostat Tab) 0.4 mg PRN UT 12/08/17 18:00 01/07/18 17:59 Phenytoin Sodium (Dilantin Er Cap) 300 mg HS PO 12/08/17 21:00 01/07/18 20:59 12/08/17 20:31 300 MG Ceftriaxone Sodium 1 gm/ Dextrose 50 ml @ 100 mls/hr Q24H IV 12/08/17 19:00 12/18/17 18:59 12/08/17 19:07 100 MLS/HR Vancomycin HCl (Consult) 1 ea UD PRN N/A 12/08/17 18:30 01/07/18 18:29 Vancomycin HCl 1250 mg/Sodium Chloride 275 ml @ 125 mls/hr Q16H IV 12/09/17 12:00 12/19/17 11:59 12/09/17 11:39 125 MLS/HR
[2017-12-09] MEDS: CEFTRIAXONE SOD INJ 1 GM in DEXTROSE 5% ADD-VANTAGE 50ML 50 ML IV SCH (18:52)
[2017-12-09] MEDS: ATORVASTATIN 40 MG TAB PO SCH (21:08)
[2017-12-09] MEDS: PHENYTOIN SODIUM ER 100 MG CAP PO SCH (21:08)
[2017-12-10] VITALS (8 sets, daily range): BP systolic 134–176; BP diastolic 60–76; PULSE 47–71; TEMP 36.6–37.2; O2SAT 91–97
[2017-12-10] MEDS: VANCOMYCIN IV 1,250 MG in SODIUM CHLORIDE 0.9% 250ML 250 ML IV SCH ×2 (04:59→20:29)
[2017-12-10 06:14] LABS: HEMATOCRIT 36.5 % (42-52); HEMOGLOBIN 11.2 g/dL (14.0-18.0); MEAN CELL VOLUME 88.4 fL (80-100); MEAN CORPUSCULAR HEMOGLOBIN 27.1 pg (25-34); MEAN CORPUSCULAR HGB CONC 30.7 g/dl (32-36); MEAN PLATELET VOLUME 9.4 fL (7.4-10.4); PLATELET COUNT 276 K/uL (130-400); RED CELL DISTRIBUTION WIDTH CV 14.8 % (11.5-14.5); RED CELL DISTRIBUTION WIDTH SD 47.6 fL (36.4-46.3); WHITE BLOOD COUNT 6.96 K/uL (4.8-10.8)
[2017-12-10 06:20] LABS: INR 1.5 (0.9-1.1)
[2017-12-10 06:42] LABS: CALCIUM 8.5 mg/dl (8.5-10.1); CREATININE 0.97 mg/dl (0.60-1.40); POTASSIUM 4.1 mmol/L (3.5-5.1)
[2017-12-10] MEDS: CYANOCOBALAMIN 500 MCG TAB (VIT B-12) PO SCH (08:02)
[2017-12-10] MEDS: METOPROLOL TARTRATE 25 MG TAB PO SCH ×2 (08:04→20:30)
[2017-12-10] MEDS: LISINOPRIL 5 MG TAB PO SCH ×2 (08:04→20:31)
[2017-12-10] MEDS: FERROUS SULFATE 325 MG TAB PO SCH (08:04)
[2017-12-10] MEDS: FINASTERIDE 5 MG TAB PO SCH (08:05)
[2017-12-10] MEDS ORDERED: FENTANYL CITRATE INJ 50 MCG/1 ML 2 ML VIAL ONE ×2 (14:59→16:58)
[2017-12-10] MEDS ORDERED: MIDAZOLAM HCL 1 MG/ML 2ML VIAL ONE (14:59)
--- NOTE | 2017-12-10 15:36 | Progress Note ---
Medicine Progress Note Date & Time of Visit: Dec 10, 2017 at 15:33. Subjective Pt was seen and examined Lying in bed with no distress with at bedside Pt said that he feels fine Denies any fever, chills, sob, and chest pain Objective Last 8 Hrs Date Time Temp Pulse Resp B/P (MAP) Pulse Ox O2 Delivery O2 Flow Rate FiO2 12/10/17 15:09 36.7 47 16 155/68 (97) 93 Room Air 12/10/17 08:00 Room Air 12/10/17 07:34 36.7 58 18 134/76 (95) 94 Room Air Physical Exam: General- No acute distress Head- atraumatic Eyes- PERRL, EOMI ENT- oropharynx clear Neck- supple, no JVD Lungs- clear to auscultation Heart- regular rhythm Abdomen- normal bowel sounds, soft Extremities- Open wound in the right calf with minimal oozing, dressing on, + tender of the right calf with palpation Neuro- alert, oriented, PERRL, EOMI Skin- warm & dry Laboratory Results: Last 24 Hours Test 12/10/17 05:58 White Blood Count 6.96 K/uL Red Blood Count 4.13 M/uL Hemoglobin 11.2 g/dL Hematocrit 36.5 % Mean Corpuscular Volume 88.4 fL Mean Corpuscular Hemoglobin 27.1 pg Mean Corpuscular Hemoglobin Concent 30.7 g/dl RDW Standard Deviation 47.6 fL RDW Coefficient of Variation 14.8 % Platelet Count 276 K/uL Mean Platelet Volume 9.4 fL Prothrombin Time 16.1 SECONDS Prothromb Time International Ratio 1.5 Sodium Level 141 mmol/L Potassium Level 4.1 mmol/L Chloride Level 109 mmol/L Carbon Dioxide Level 27 mmol/L Anion Gap 6.0 mmol/L Blood Urea Nitrogen 22 mg/dl Creatinine 0.97 mg/dl Est Creatinine Clear Calc Drug Dose 63.8 ml/min Estimated GFR () 86.9 Estimated GFR (Non- 75.0 BUN/Creatinine Ratio 22.2 Random Glucose 84 mg/dl Calcium Level 8.5 mg/dl Assessment & Plan RIGHT LEG HEMATOMA/RLE CELLULITIS R tib/fib xray showed focal soft tissue edema mid lower leg. No acute bony abnormality. U/S of the RLE showed complex collection within the soft tissues of the medial calf with slightly increased size from the prior exam. Hgb stable Continue holding Coumadin Continue holding aspirin Blood cultures no growth Continue Rocephin and vancomycin IV for now Ortho on board case discussed with ortho team, consider draining and lavage of the area Keep pt NPO for now Continue daily wound care CHRONIC RLE DVT ON COUMADIN INR: 1.5 today Coumadin on hold due to slightly increase size in the hematoma Continue monitor INR CAD S/P CABG x 4. Had nuclear stress test done on 04/2017- negative for ischemia. Echo on 08/2017 showed EF: 55-59%, grade 1 diastolic dysfunction, moderate aortic valve regurgitation, mild mitral valve regurgitation, mild tricuspid regurgitation, aortic root and proximal ascending aorta moderately enlarged (no change from prior). Continue atorvastatin, metoprolol Will hold aspirin for now due to increase hematoma size HX L RENAL CELL CA S/P PARTIAL NEPHRECTOMY Stable HX SEIZURE DISORDER AFTER CARDIAC ARREST S/P NEPHRECTOMY No recurrent seizures since Continue Dilantin Stable CHRONIC ANEMIA Hgb: 10.5 (has been in 10's since hematoma formation since 11/21/17). (Baseline 12 -13). Continue monitor CBC Hx CVA No residual effects Will hold aspirin HTN Stable continue lisinopril, metoprolol DYSLIPIDEMIA continue atorvastatin BPH continue finasteride DVT Prophylaxis INR 1.5 Hold coumadin due to hematoma SCDs contraindication due to wound in RLE Disposition Discharge once medically stable Consultants: ortho Current Inpatient Medications: Current Inpatient Medications Medications (Trade) Dose Ordered Sig/Thomas Route Start Time Stop Time Status Last Admin Dose Admin Acetaminophen (Tylenol Tab) 650 mg Q4H PRN PO 12/08/17 16:45 01/07/18 16:44 Polyethylene (Miralax Powder Packet) 17 gm DAILY PRN PO 12/08/17 16:45 01/07/18 16:44 Ondansetron HCl (Zofran Inj) 4 mg Q6H PRN IV 12/08/17 16:45 01/07/18 16:44 Aspirin (Ecotrin Tab) 81 mg QAM PO 12/09/17 09:00 01/08/18 08:59 Future Hold 12/09/17 08:37 81 MG Atorvastatin Calcium (Lipitor Tab) 40 mg QPM PO 12/08/17 21:00 01/07/18 20:59 12/09/17 21:08 40 MG Cyanocobalamin (Vitamin B-12 Tab) 1,000 mcg DAILY PO 12/09/17 09:00 01/08/18 08:59 12/10/17 08:02 1,000 MCG Ferrous Sulfate (Feosol Tab) 325 mg DAILY PO 12/09/17 09:00 01/08/18 08:59 12/10/17 08:04 325 MG Finasteride (Proscar Tab) 5 mg QAM PO 12/09/17 09:00 01/08/18 08:59 12/10/17 08:05 5 MG Folic Acid (Folvite Tab) 1 mg BID PO 12/08/17 21:00 01/07/18 20:59 12/10/17 08:05 1 MG Lisinopril (Zestril Tab) 5 mg BID PO 12/08/17 21:00 01/07/18 20:59 12/10/17 08:04 5 MG Metoprolol Tartrate (Lopressor Tab) 12.5 mg BID PO 12/08/17 21:00 01/07/18 20:59 12/10/17 08:04 12.5 MG Nitroglycerin (Nitrostat Tab) 0.4 mg PRN UT 12/08/17 18:00 01/07/18 17:59 Phenytoin Sodium (Dilantin Er Cap) 300 mg HS PO 12/08/17 21:00 01/07/18 20:59 12/09/17 21:08 300 MG Ceftriaxone Sodium 1 gm/ Dextrose 50 ml @ 100 mls/hr Q24H IV 12/08/17 19:00 12/18/17 18:59 12/09/17 18:52 100 MLS/HR Vancomycin HCl (Consult) 1 ea UD PRN N/A 12/08/17 18:30 01/07/18 18:29 Vancomycin HCl 1250 mg/Sodium Chloride 275 ml @ 125 mls/hr Q16H IV 12/09/17 12:00 12/19/17 11:59 12/10/17 04:59 125 MLS/HR
[2017-12-10] MEDS ORDERED: BACITRACIN 50000 UNIT VIAL ONE (16:00)
[2017-12-10] MEDS ORDERED: BUPIVACAINE/EPINEPHRINE 0.5% MPF 1:200,000 30 ML VIAL ONE (17:04)
[2017-12-10] MEDS ORDERED: ONDANSETRON INJ 2 MG/ML 2 ML VIAL ONE (17:20)
[2017-12-10] MEDS ORDERED: GLYCOPYRROLATE INJ 0.2 MG/ML VIAL ONE (17:20)
[2017-12-10] MEDS ORDERED: DEXAMETHASONE SOD INJ 4 MG/ML VIAL ONE (17:20)
[2017-12-10] MEDS ORDERED: PROPOFOL IV EMULSION 10 MG/ML 20 ML VIAL ONE (17:20)
[2017-12-10] MEDS ORDERED: LIDOCAINE HCL 2% 2 ML VIAL (20MG/ML) ONE (17:20)
--- NOTE | 2017-12-10 17:36 | [facility] Post Operative Brief Note ---
Immediate Operative Summary Operative Date Dec 10, 2017. Pre-Operative Diagnosis Hematoma right medial calf Post-Operative Diagnosis Hematoma right medial calf, Fasciitis gastrocnemius, Muscle necrosis medial gastrocnemius muscle Procedure(s) Performed 1. Incision and drainage right lower leg, 2. Evacuation hematoma right calf 3. Debridement gastrocnemius muscle 4. Debridement Gastrocnemius Fascia Surgeon Dr Giovanny Ayala Loft Patternmaker Surgeon(s) none Estimated Blood Loss 10 ml Findings Consistent with Post-Op Diagnosis Specimens Routine and anaerobic culture, and gram stain right calf hematoma Drains HV x 2 Anesthesia Type General (local) Complication(s) none Disposition Accompanied Pt To Recover: no Disposition: Recovery Room / PACU
[2017-12-10] MEDS ORDERED: MoRPHine SULFATE 2 MG/ML CARP IV PRN (17:45)
[2017-12-10] MEDS ORDERED: FENTANYL CITRATE INJ 50 MCG/1 ML 2 ML VIAL IV PRN (18:00)
[2017-12-10] MEDS ORDERED: ONDANSETRON INJ 2 MG/ML 2 ML VIAL IV PRN (18:00)
[2017-12-10] MEDS ORDERED: ATROPINE SULFATE 0.1 MG/ML 5ML SYR IV PRN (18:00)
[2017-12-10] MEDS ORDERED: EpHEDrine SULFATE INJ 50 MG/ML AMP IV PRN (18:00)
--- NOTE | 2017-12-10 18:01 | Anesthesiology Progress Note ---
Anesthesia Post Op Note Date & Time Dec 10, 2017 at 18:00 Vital Signs Pain Intensity: 0 Vital Signs Past 12 Hours Date Time Temp Pulse Resp B/P (MAP) Pulse Ox O2 Delivery O2 Flow Rate FiO2 12/10/17 17:55 62 20 158/74 98 Nasal Cannula 3 12/10/17 17:45 61 14 170/88 97 Nasal Cannula 3 12/10/17 17:37 36.4 68 16 171/79 97 Nasal Cannula 4 12/10/17 16:00 Room Air 12/10/17 15:48 37.2 63 16 160/60 (93) 95 Room Air 12/10/17 15:09 36.7 47 16 155/68 (97) 93 Room Air 12/10/17 08:00 Room Air 12/10/17 07:34 36.7 58 18 134/76 (95) 94 Room Air Notes Mental Status: alert / awake / arousable, participated in evaluation Pt Amnestic to Procedure: Yes Nausea / Vomiting: adequately controlled Pain: adequately controlled Airway Patency, RR, SpO2: stable & adequate BP & HR: stable & adequate Hydration State: stable & adequate Anesthetic Complications: no major complications apparent
[2017-12-10] MEDS: CEFTRIAXONE SOD INJ 1 GM in DEXTROSE 5% ADD-VANTAGE 50ML 50 ML IV SCH (18:58)
--- NOTE | 2017-12-10 19:06 | OPERATIVE REPORT ---
DATE OF OPERATION: 12/10/2017 PREOPERATIVE DIAGNOSIS: Right medial calf hematoma. POSTOPERATIVE DIAGNOSES: 1. Right medial calf hematoma. 2. Hematoma right lower leg. 3. Fasciitis of the gastrocnemius. 4. Muscle necrosis of the gastrocnemius. PROCEDURES: 1. Incision and drainage of right lower leg. 2. Evacuation of hematoma, right medial calf musculature. 3. Debridement of medial gastrocnemius fascia. 4. Debridement of gastrocnemius muscle. SURGEON: Dr. Ayala. HEAD FIELD HOCKEY COACH: None. ANESTHESIA: General LMA with local. SPECIMENS: Aerobic, anaerobic, Gram stain. DRAINS: Hemovac x2. COMPLICATIONS: None. BLOOD LOSS: 5 mL PERTINENT HISTORY: This is a 77-year-old gentleman who struck his right medial leg while working at home approximately a month ago. He had undergone conservative management for the last several weeks; however, continued to have significant pain. One of the ER physicians tried to mariaa this region and he had scant discharge and drainage, most likely because it became an organized clot. The patient presented again 2 days ago at [facility], under the care of the medical service and after further evaluation today, it was decided patient should benefit from formal incision and drainage with evacuation of hematoma, right medial lower leg. All potential risks, benefits, complications, alternatives, rehab, potential for incomplete relief of symptoms, need for further surgery, DVT, PE, , persistent pain, swelling, scarring, weakness, neurovascular injury, wound complications, and need for further surgery discussed with patient, possible need for skin graft or other soft tissue procedures. DETAILS OF PROCEDURE: Patient was taken to the operative suite, placed supine on the operating room table. After review of the consent and identification of proper operative site, patient was anesthetized, LMA was placed. Tourniquet was placed high on the right thigh over cast padding. Right lower extremity was then elevated and tourniquet inflated to 325 mmHg. There was no exsanguination performed. Next, approximately 15 mL of 0.25% Marcaine with epinephrine was injected around the planned incision site and then a 15 blade scalpel was used to make an incision along the mid lateral line along the medial aspect of the right lower leg down to superior border of the soft tissue collection and presumed hematoma. This incision was deepened to the subcutaneous tissue. Meticulous hemostasis was achieved with electrocautery. Next, through the subcutaneous tissue, the fascia was pierced and then organized clot approximately 150 mL in total was then extruded from the right medial calf. The mass had decreased significantly in size and then a pulsatile lavage of 6 liters with bacitracin was then used to cleanse the right medial calf and lower leg. Upon further inspection, noted to be hematoma and organized clot. This was cultured, aerobic, anaerobic, Gram stain and sent for specimen. Next, the fascia was examined and noted to have some regions of fasciitis and softening of the fascia. There appeared to be no evidence of infection with no hyper-inflammatory response; however, there was some local fasciitis with slight thickening of the fascia. This was debrided carefully back to more healthy-appearing fascia. This was most likely due to just local pressure necrosis from the hematoma. After this was completed with a rongeur, the gastrocnemius muscle was assessed. This was tested for contractility with a Bovie. There were 2 small areas where it appeared to be some muscle necrosis with loss of contractility. At this point, these 2 regions of gastrocnemius along the medial aspect then sharply excised using a 15 blade scalpel and a rongeur. Once this was completed, the rest of the gastroc then contracted accordingly with normal color and consistency. Then further irrigation with pulsatile lavage was performed until clear and then 2 Hemovac drains were then placed, 10 Tajik exiting the anterior medial aspect of the right lower extremity. Next, a loose skin closure was performed with interrupted 3-0 nylon sutures using horizontal mattress fashion and then a sterile compressive dressing was applied to the right lower extremity extending from the knee down to the toes overwrapped with an Rashi wrap. Next, the tourniquet was released, the patient was awakened and taken to recovery in stable condition. I attest to the content of the Intraoperative Record and any orders documented therein. Any exception s are noted below.
[2017-12-10] MEDS ORDERED: VANCOMYCIN TROUGH ONE (19:30)
[2017-12-10] MEDS: OXYCODONE/ACETAMINOPHEN 5-325 TAB PO PRN (20:28)
[2017-12-10] MEDS: PHENYTOIN SODIUM ER 100 MG CAP PO SCH (20:30)
[2017-12-10] MEDS: ATORVASTATIN 40 MG TAB PO SCH (20:30)
--- NOTE | 2017-12-10 21:03 | Pharmacy Progress Note ---
Pharmacy Antibiotic Prog Note Date of Service Dec 10, 2017. Subjective The patient is currently receiving vancomycin 1250 mg iv q 16 hrs The patient is currently on day #3 of IV therapy. Objective Height (Feet): 5 Height (Inches): 9.00 Weight (Kilograms): 79.700 (BMI 25.9) Levels: Item Value Date Time Vancomycin Level Trough 13.3 mcg/ml 12/10/17 1938 Lab Results (24hrs): Test 12/10/17 05:58 12/10/17 19:38 White Blood Count 6.96 K/uL (4.8-10.8) Red Blood Count 4.13 M/uL (4.7-6.1) Hemoglobin 11.2 g/dL (14.0-18.0) Hematocrit 36.5 % (42-52) Mean Corpuscular Volume 88.4 fL (80-100) Mean Corpuscular Hemoglobin 27.1 pg (25-34) Mean Corpuscular Hemoglobin Concent 30.7 g/dl (32-36) RDW Standard Deviation 47.6 fL (36.4-46.3) RDW Coefficient of Variation 14.8 % (11.5-14.5) Platelet Count 276 K/uL (130-400) Mean Platelet Volume 9.4 fL (7.4-10.4) Prothrombin Time 16.1 SECONDS (9.0-12.0) Prothromb Time International Ratio 1.5 (0.9-1.1) Sodium Level 141 mmol/L (136-145) Potassium Level 4.1 mmol/L (3.5-5.1) Chloride Level 109 mmol/L (98-107) Carbon Dioxide Level 27 mmol/L (21-32) Anion Gap 6.0 mmol/L (3-11) Blood Urea Nitrogen 22 mg/dl (7-18) Creatinine 0.97 mg/dl (0.60-1.40) Est Creatinine Clear Calc Drug Dose 63.8 ml/min Estimated GFR () 86.9 Estimated GFR (Non- 75.0 BUN/Creatinine Ratio 22.2 (10-20) Random Glucose 84 mg/dl (70-99) Calcium Level 8.5 mg/dl (8.5-10.1) Vancomycin Level Trough 13.3 mcg/ml (SEE COMMENT) Assessment & Plan Patient on vancomycin and rocephin for a RLE cellulitis. Blood cultures x 2 are no growth. Drainage cultures are still pending. Vancomycin: * Trough level came back slightly subtherapeutic at ~13 mcg/ml (now s/p I&D today), previous dose given late, so actual level possibly lower. Also trough drawn before steady state so not reflective of true trough - previous pharmacokinetic data suggest q14 hr dosing produced therapeutic levels; patient with similar renal function on that regimen * Will adjust to Q14 hr interval to target trough closer to ~15 mcg/ml * Scr continues to be stable today, CrCl ~64 ml/min * Will continue with current regimen for now and await I&D cultures - will plan to reorder trough if vancomycin is to be continued Pharmacy will continue to follow and will adjust dose/frequency as necessary. Thank you
[2017-12-11 02:25] VITALS: BP 128/68; PULSE 60; TEMP 37; O2SAT 96
[2017-12-11] MEDS: OXYCODONE/ACETAMINOPHEN 5-325 TAB PO PRN ×3 (05:22→18:49)
[2017-12-11 06:52] LABS: HEMATOCRIT 35.1 % (42-52); HEMOGLOBIN 10.8 g/dL (14.0-18.0); MEAN CELL VOLUME 88.9 fL (80-100); MEAN CORPUSCULAR HEMOGLOBIN 27.3 pg (25-34); MEAN CORPUSCULAR HGB CONC 30.8 g/dl (32-36); MEAN PLATELET VOLUME 9.9 fL (7.4-10.4); PLATELET COUNT 274 K/uL (130-400); RED CELL DISTRIBUTION WIDTH CV 14.8 % (11.5-14.5); RED CELL DISTRIBUTION WIDTH SD 48.1 fL (36.4-46.3); WHITE BLOOD COUNT 7.53 K/uL (4.8-10.8)
[2017-12-11 07:00] LABS: INR 1.2 (0.9-1.1)
[2017-12-11 07:16] VITALS: BP 118/63; PULSE 60; TEMP 36.9; O2SAT 96
[2017-12-11 07:27] LABS: CREATININE 0.88 mg/dl (0.60-1.40)
[2017-12-11] MEDS: FERROUS SULFATE 325 MG TAB PO SCH (07:51)
[2017-12-11] MEDS: CYANOCOBALAMIN 500 MCG TAB (VIT B-12) PO SCH (07:51)
[2017-12-11] MEDS: LISINOPRIL 5 MG TAB PO SCH ×2 (07:51→20:53)
[2017-12-11] MEDS: FINASTERIDE 5 MG TAB PO SCH (07:51)
[2017-12-11] MEDS: METOPROLOL TARTRATE 25 MG TAB PO SCH ×2 (07:51→20:52)
[2017-12-11 08:00] VITALS: O2SAT 96
--- NOTE | 2017-12-11 10:21 | Orthopedic Progress Note ---
Orthopedic Progress Note Date of Service Dec 11, 2017. Subjective Post OP Day: 1 Reports: feeling well, pain controlled w PO medications, Denies: chest pain, SOB , nausea / vomiting, light headedness, calf pain Objective calves soft nontender, N/V intact, capillary refill less than 2 sec., dressing C /D/I, A&O x3, toes mobile Date Time Temp Pulse Resp B/P (MAP) Pulse Ox O2 Delivery O2 Flow Rate FiO2 12/11/17 08:00 96 Room Air 12/11/17 07:16 36.9 60 18 118/63 (81) 96 Room Air 12/11/17 02:25 37.0 60 20 128/68 (88) 96 Room Air 12/11/17 00:01 Room Air 12/10/17 22:21 37.2 68 16 139/71 (93) 97 Room Air 12/10/17 21:49 36.6 66 16 154/72 (99) 91 Room Air 12/10/17 20:48 36.6 66 16 162/74 (103) 91 Room Air 12/10/17 19:50 36.6 65 16 176/60 (98) 92 Room Air 12/10/17 19:20 36.7 57 16 163/72 (102) 92 Room Air 12/10/17 18:50 36.7 71 16 168/75 (106) 97 Room Air 12/10/17 18:30 57 15 163/91 96 Nasal Cannula 2 12/10/17 18:15 64 18 167/73 96 Nasal Cannula 2 12/10/17 18:05 36.4 59 17 155/68 96 Nasal Cannula 2 12/10/17 17:55 62 20 158/74 98 Nasal Cannula 3 12/10/17 17:45 61 14 170/88 97 Nasal Cannula 3 12/10/17 17:37 36.4 68 16 171/79 97 Nasal Cannula 4 12/10/17 16:00 Room Air 12/10/17 15:48 37.2 63 16 160/60 (93) 95 Room Air 12/10/17 15:09 36.7 47 16 155/68 (97) 93 Room Air Laboratory Results 24 Hours: Test 12/11/17 06:24 Hematocrit 35.1 % Hemoglobin 10.8 g/dL Prothromb Time International Ratio 1.2 Prothrombin Time 12.9 SECONDS Assessment & Plan Assessment: s/p right lower leg I & D Evac hematoma Plan: Plan for drain removal tomorrow am Continue dressing for now. Continue to monitor Cx, no growth at this time DC plan uncertain at this time Inhouse Planning Pain Management: Percocet, PO Tylenol
[2017-12-11] MEDS: VANCOMYCIN IV 1,250 MG in SODIUM CHLORIDE 0.9% 250ML 250 ML IV SCH ×2 (10:23→23:37)
[2017-12-11 15:25] VITALS: BP 133/64; PULSE 54; TEMP 36.9; O2SAT 93
[2017-12-11 16:00] VITALS: BP 133/64; PULSE 54; TEMP 36.9; O2SAT 93
[2017-12-11] MEDS: CEFTRIAXONE SOD INJ 1 GM in DEXTROSE 5% ADD-VANTAGE 50ML 50 ML IV SCH (18:47)
--- NOTE | 2017-12-11 18:49 | Progress Note ---
Medicine Progress Note Date & Time of Visit: Dec 11, 2017 at 18:43. Subjective Pt was seen and examined Lying in bed with no distress Pt said that he feels fine Denies any chest pain, palpitation and SOB Objective Last 8 Hrs Date Time Temp Pulse Resp B/P (MAP) Pulse Ox O2 Delivery O2 Flow Rate FiO2 12/11/17 16:00 36.9 54 18 133/64 (87) 93 Room Air 12/11/17 16:00 Room Air 12/11/17 15:25 36.9 54 18 133/64 (87) 93 Room Air Physical Exam: General- No acute distress Head- atraumatic Eyes- PERRL, EOMI ENT- oropharynx clear Neck- supple, no JVD Lungs- clear to auscultation Heart- regular rhythm Abdomen- normal bowel sounds, soft Extremities- wraps with dressing with hemovac, +tender of the right calf with palpation Neuro- alert, oriented, PERRL, EOMI Skin- warm & dry Laboratory Results: Last 24 Hours Test 12/10/17 19:38 12/11/17 06:24 Vancomycin Level Trough 13.3 mcg/ml White Blood Count 7.53 K/uL Red Blood Count 3.95 M/uL Hemoglobin 10.8 g/dL Hematocrit 35.1 % Mean Corpuscular Volume 88.9 fL Mean Corpuscular Hemoglobin 27.3 pg Mean Corpuscular Hemoglobin Concent 30.8 g/dl RDW Standard Deviation 48.1 fL RDW Coefficient of Variation 14.8 % Platelet Count 274 K/uL Mean Platelet Volume 9.9 fL Prothrombin Time 12.9 SECONDS Prothromb Time International Ratio 1.2 Creatinine 0.88 mg/dl Est Creatinine Clear Calc Drug Dose 70.3 ml/min Estimated GFR () 96.0 Estimated GFR (Non- 82.9 Assessment & Plan RIGHT LEG HEMATOMA/RLE CELLULITIS R tib/fib xray showed focal soft tissue edema mid lower leg. No acute bony abnormality. U/S of the RLE showed complex collection within the soft tissues of the medial calf with slightly increased size from the prior exam. S/P day 1 Incision and drainage of right lower leg performed by Dr. Ayala Hemoglobin stable Will resume Coumadin Continue holding aspirin Blood cultures no growth Wound cx growth staph species Continue Rocephin and vancomycin IV for now Ortho on board Continue daily wound care CHRONIC RLE DVT ON COUMADIN INR: 1.2 today Will resume Coumadin Continue monitor INR CAD S/P CABG x 4. Had nuclear stress test done on 04/2017- negative for ischemia. Echo on 08/2017 showed EF: 55-59%, grade 1 diastolic dysfunction, moderate aortic valve regurgitation, mild mitral valve regurgitation, mild tricuspid regurgitation, aortic root and proximal ascending aorta moderately enlarged (no change from prior). 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 (Baseline 12 -13). Continue monitor CBC Hx CVA No residual effects Will hold aspirin HTN Stable continue lisinopril, metoprolol DYSLIPIDEMIA continue atorvastatin BPH continue finasteride DVT Prophylaxis INR 1.2 Will resume coumadin SCDs contraindication due to wound in RLE Disposition Discharge once medically stable Consultants: ortho Current Inpatient Medications: Current Inpatient Medications Medications (Trade) Dose Ordered Sig/Thomas Route Start Time Stop Time Status Last Admin Dose Admin Acetaminophen (Tylenol Tab) 650 mg Q4H PRN PO 12/08/17 16:45 01/07/18 16:44 Polyethylene (Miralax Powder Packet) 17 gm DAILY PRN PO 12/08/17 16:45 01/07/18 16:44 Ondansetron HCl (Zofran Inj) 4 mg Q6H PRN IV 12/08/17 16:45 01/07/18 16:44 Aspirin (Ecotrin Tab) 81 mg QAM PO 12/09/17 09:00 01/08/18 08:59 Future Hold 12/09/17 08:37 81 MG Atorvastatin Calcium (Lipitor Tab) 40 mg QPM PO 12/08/17 21:00 01/07/18 20:59 12/10/17 20:30 40 MG Cyanocobalamin (Vitamin B-12 Tab) 1,000 mcg DAILY PO 12/09/17 09:00 01/08/18 08:59 12/11/17 07:51 1,000 MCG Ferrous Sulfate (Feosol Tab) 325 mg DAILY PO 12/09/17 09:00 01/08/18 08:59 12/11/17 07:51 325 MG Finasteride (Proscar Tab) 5 mg QAM PO 12/09/17 09:00 01/08/18 08:59 12/11/17 07:51 5 MG Folic Acid (Folvite Tab) 1 mg BID PO 12/08/17 21:00 01/07/18 20:59 12/11/17 07:51 1 MG Lisinopril (Zestril Tab) 5 mg BID PO 12/08/17 21:00 01/07/18 20:59 12/11/17 07:51 5 MG Metoprolol Tartrate (Lopressor Tab) 12.5 mg BID PO 12/08/17 21:00 01/07/18 20:59 12/11/17 07:51 12.5 MG Nitroglycerin (Nitrostat Tab) 0.4 mg PRN UT 12/08/17 18:00 01/07/18 17:59 Phenytoin Sodium (Dilantin Er Cap) 300 mg HS PO 12/08/17 21:00 01/07/18 20:59 12/10/17 20:30 300 MG Ceftriaxone Sodium 1 gm/ Dextrose 50 ml @ 100 mls/hr Q24H IV 12/08/17 19:00 12/18/17 18:59 12/10/17 18:58 100 MLS/HR Vancomycin HCl (Consult) 1 ea UD PRN N/A 12/08/17 18:30 01/07/18 18:29 Oxycodone/ Acetaminophen (Percocet 5-325mg Tab) 1-2 TABLETS 1 TABLET ... Q6H PRN PO 12/10/17 17:45 12/24/17 17:44 12/11/17 12:32 1 TAB Morphine Sulfate (MoRPHine SULFATE INJ) 2 mg Q4HWA PRN IV 12/10/17 17:45 12/24/17 17:44 Vancomycin HCl 1250 mg/Sodium Chloride 275 ml @ 125 mls/hr Q14H IV 12/11/17 10:00 12/19/17 09:59 12/11/17 10:23 125 MLS/HR
[2017-12-11] MEDS ORDERED: WARFARIN SOD 2.5 MG TAB PO ONE (19:00)
[2017-12-11] MEDS: ATORVASTATIN 40 MG TAB PO SCH (20:48)
[2017-12-11 20:51] VITALS: BP 142/69; PULSE 62; O2SAT 91
[2017-12-11] MEDS: PHENYTOIN SODIUM ER 100 MG CAP PO SCH (20:54)
[2017-12-12] VITALS: BP 144/63; PULSE 52; TEMP 36.5; O2SAT 94
[2017-12-12 06:39] LABS: HEMATOCRIT 34.4 % (42-52); HEMOGLOBIN 10.7 g/dL (14.0-18.0); MEAN CELL VOLUME 88.9 fL (80-100); MEAN CORPUSCULAR HEMOGLOBIN 27.6 pg (25-34); MEAN CORPUSCULAR HGB CONC 31.1 g/dl (32-36); MEAN PLATELET VOLUME 9.9 fL (7.4-10.4); PLATELET COUNT 249 K/uL (130-400); RED CELL DISTRIBUTION WIDTH CV 15.1 % (11.5-14.5); RED CELL DISTRIBUTION WIDTH SD 48.5 fL (36.4-46.3); WHITE BLOOD COUNT 6.39 K/uL (4.8-10.8)
[2017-12-12 06:44] LABS: INR 1.2 (0.9-1.1)
[2017-12-12 07:05] VITALS: BP 153/72; PULSE 54; TEMP 36.6; O2SAT 95
[2017-12-12] MEDS: FINASTERIDE 5 MG TAB PO SCH (08:39)
[2017-12-12] MEDS: LISINOPRIL 5 MG TAB PO SCH ×2 (08:39→20:16)
[2017-12-12] MEDS: FERROUS SULFATE 325 MG TAB PO SCH (08:39)
[2017-12-12] MEDS: CYANOCOBALAMIN 500 MCG TAB (VIT B-12) PO SCH (08:39)
[2017-12-12] MEDS: METOPROLOL TARTRATE 25 MG TAB PO SCH ×2 (08:40→20:18)
[2017-12-12 08:41] VITALS: PULSE 62
--- NOTE | 2017-12-12 09:34 | Orthopedic Progress Note ---
Orthopedic Progress Note Date of Service Dec 12, 2017. Subjective Post OP Day: 2 Reports: feeling well, pain controlled w PO medications, Denies: chest pain, SOB , nausea / vomiting, light headedness, calf pain Objective calves soft nontender, N/V intact, capillary refill less than 2 sec., dressing C /D/I, A&O x3, toes mobile Date Time Temp Pulse Resp B/P (MAP) Pulse Ox O2 Delivery O2 Flow Rate FiO2 12/12/17 08:41 62 12/12/17 07:05 36.6 54 16 153/72 (99) 95 Room Air 12/12/17 00:00 36.5 52 20 144/63 (90) 94 Room Air 12/11/17 20:51 62 18 142/69 (93) 91 Room Air 12/11/17 20:00 Room Air 12/11/17 16:00 36.9 54 18 133/64 (87) 93 Room Air 12/11/17 16:00 Room Air 12/11/17 15:25 36.9 54 18 133/64 (87) 93 Room Air Laboratory Results 24 Hours: Test 12/12/17 06:13 Hematocrit 34.4 % Hemoglobin 10.7 g/dL Prothromb Time International Ratio 1.2 Prothrombin Time 12.2 SECONDS Assessment & Plan Assessment: s/p right lower leg I & D Evac hematoma pod #2 Plan: Hemovac removed today and dressing changed. No signs infection, no active drainage Continue to monitor Cx, prelim Staph Inhouse Planning Pain Management: Percocet, PO Tylenol
[2017-12-12] MEDS ORDERED: VANCOMYCIN TROUGH ONE (13:30)
[2017-12-12] MEDS: VANCOMYCIN IV 1,250 MG in SODIUM CHLORIDE 0.9% 250ML 250 ML IV SCH (14:12)
--- NOTE | 2017-12-12 14:31 | Pharmacy Progress Note ---
Pharmacy Abx Dose Short Note Date of Service Dec 12, 2017. Assessment & Plan Assessment 77 year old male receiving Vancomycin & Rocephin for treatment of cellulitis Day # 5 of antimicrobial therapy. Item Value Date Time Vancomycin Level Trough 16.9 mcg/ml 12/12/17 1308 Plan Vancomycin * Trough level of 16.9 mcg/mL is therapeutic * Continue dose of 1250 mg IV every 14 hours * Goal trough level for cellulitis : 15 to 20 mcg/mL * Will check additional trough in 2-3 days if patient remains on Vancomycin Pharmacy will continue to follow and will adjust dose/frequency as necessary. Thank you.
[2017-12-12 15:17] VITALS: BP 127/63; PULSE 48; TEMP 36.7; O2SAT 97
--- NOTE | 2017-12-12 17:16 | Progress Note ---
Medicine Progress Note Date & Time of Visit: Dec 12, 2017 at 17:10. Subjective Pt was seen and examined Lying in bed with no distress talking to his high school friend Pt said that he feels fine Denies any chest pain, palpitation, dizziness and SOB Objective Last 8 Hrs Date Time Temp Pulse Resp B/P (MAP) Pulse Ox O2 Delivery O2 Flow Rate FiO2 12/12/17 16:00 Room Air 12/12/17 15:17 36.7 48 18 127/63 (84) 97 Room Air Physical Exam: General- No acute distress Head- atraumatic Eyes- PERRL, EOMI ENT- oropharynx clear Neck- supple, no JVD Lungs- clear to auscultation Heart- regular rhythm Abdomen- normal bowel sounds, soft Extremities- wraps with dressing with hemovac, +tender of the right calf with palpation Neuro- alert, oriented, PERRL, EOMI Skin- warm & dry Laboratory Results: Last 24 Hours Test 12/12/17 06:13 12/12/17 13:08 White Blood Count 6.39 K/uL Red Blood Count 3.87 M/uL Hemoglobin 10.7 g/dL Hematocrit 34.4 % Mean Corpuscular Volume 88.9 fL Mean Corpuscular Hemoglobin 27.6 pg Mean Corpuscular Hemoglobin Concent 31.1 g/dl RDW Standard Deviation 48.5 fL RDW Coefficient of Variation 15.1 % Platelet Count 249 K/uL Mean Platelet Volume 9.9 fL Prothrombin Time 12.2 SECONDS Prothromb Time International Ratio 1.2 Vancomycin Level Trough 16.9 mcg/ml Assessment & Plan RIGHT LEG HEMATOMA/RLE CELLULITIS R tib/fib xray showed focal soft tissue edema mid lower leg. No acute bony abnormality. U/S of the RLE showed complex collection within the soft tissues of the medial calf with slightly increased size from the prior exam. S/P day 1 Incision and drainage of right lower leg performed by Dr. Ayala Hemoglobin stable Continue Coumadin will resume aspirin in am Blood cultures no growth Wound cx growth gram negative staph species On Rocephin and vancomycin IV Ortho on board Hemovac removed Continue daily wound care CHRONIC RLE DVT ON COUMADIN INR: 1.2 today Continue Coumadin Continue monitor INR CAD S/P CABG x 4. Had nuclear stress test done on 04/2017- negative for ischemia. Echo on 08/2017 showed EF: 55-59%, grade 1 diastolic dysfunction, moderate aortic valve regurgitation, mild mitral valve regurgitation, mild tricuspid regurgitation, aortic root and proximal ascending aorta moderately enlarged (no change from prior). 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 (Baseline 12 -13). Continue monitor CBC Hx CVA No residual effects Will resume aspirin in am HTN Stable continue lisinopril, metoprolol DYSLIPIDEMIA continue atorvastatin BPH continue finasteride DVT Prophylaxis INR 1.2 Continue coumadin SCDs contraindication due to wound in RLE Disposition Discharge once medically stable Consultants: ortho Current Inpatient Medications: Current Inpatient Medications Medications (Trade) Dose Ordered Sig/Thomas Route Start Time Stop Time Status Last Admin Dose Admin Acetaminophen (Tylenol Tab) 650 mg Q4H PRN PO 12/08/17 16:45 01/07/18 16:44 Polyethylene (Miralax Powder Packet) 17 gm DAILY PRN PO 12/08/17 16:45 01/07/18 16:44 Ondansetron HCl (Zofran Inj) 4 mg Q6H PRN IV 12/08/17 16:45 01/07/18 16:44 Aspirin (Ecotrin Tab) 81 mg QAM PO 12/09/17 09:00 01/08/18 08:59 Future Hold 12/09/17 08:37 81 MG Atorvastatin Calcium (Lipitor Tab) 40 mg QPM PO 12/08/17 21:00 01/07/18 20:59 12/11/17 20:48 40 MG Cyanocobalamin (Vitamin B-12 Tab) 1,000 mcg DAILY PO 12/09/17 09:00 01/08/18 08:59 12/12/17 08:39 1,000 MCG Ferrous Sulfate (Feosol Tab) 325 mg DAILY PO 12/09/17 09:00 01/08/18 08:59 12/12/17 08:39 325 MG Finasteride (Proscar Tab) 5 mg QAM PO 12/09/17 09:00 01/08/18 08:59 12/12/17 08:39 5 MG Folic Acid (Folvite Tab) 1 mg BID PO 12/08/17 21:00 01/07/18 20:59 12/12/17 08:39 1 MG Lisinopril (Zestril Tab) 5 mg BID PO 12/08/17 21:00 01/07/18 20:59 12/12/17 08:39 5 MG Metoprolol Tartrate (Lopressor Tab) 12.5 mg BID PO 12/08/17 21:00 01/07/18 20:59 12/12/17 08:40 12.5 MG Nitroglycerin (Nitrostat Tab) 0.4 mg PRN UT 12/08/17 18:00 01/07/18 17:59 Phenytoin Sodium (Dilantin Er Cap) 300 mg HS PO 12/08/17 21:00 01/07/18 20:59 12/11/17 20:54 300 MG Ceftriaxone Sodium 1 gm/ Dextrose 50 ml @ 100 mls/hr Q24H IV 12/08/17 19:00 12/18/17 18:59 12/11/17 18:47 100 MLS/HR Vancomycin HCl (Consult) 1 ea UD PRN N/A 12/08/17 18:30 01/07/18 18:29 Oxycodone/ Acetaminophen (Percocet 5-325mg Tab) 1-2 TABLETS 1 TABLET ... Q6H PRN PO 12/10/17 17:45 12/24/17 17:44 12/11/17 18:49 1 TAB Morphine Sulfate (MoRPHine SULFATE INJ) 2 mg Q4HWA PRN IV 12/10/17 17:45 12/24/17 17:44 Vancomycin HCl 1250 mg/Sodium Chloride 275 ml @ 125 mls/hr Q14H IV 12/11/17 10:00 12/19/17 09:59 12/12/17 14:12 125 MLS/HR
[2017-12-12] MEDS ORDERED: WARFARIN SOD 5 MG TAB PO ONE (17:17)
[2017-12-12] MEDS: CEFTRIAXONE SOD INJ 1 GM in DEXTROSE 5% ADD-VANTAGE 50ML 50 ML IV SCH (18:44)
[2017-12-12] MEDS: PHENYTOIN SODIUM ER 100 MG CAP PO SCH (20:15)
[2017-12-12] MEDS: ATORVASTATIN 40 MG TAB PO SCH (20:15)
[2017-12-12 23:00] VITALS: BP 164/62; PULSE 49; TEMP 36.4; O2SAT 97
[2017-12-13] MEDS: VANCOMYCIN IV 1,250 MG in SODIUM CHLORIDE 0.9% 250ML 250 ML IV SCH (03:25)
[2017-12-13 07:41] LABS: HEMATOCRIT 40.7 % (42-52); HEMOGLOBIN 12.3 g/dL (14.0-18.0); MEAN CELL VOLUME 89.6 fL (80-100); MEAN CORPUSCULAR HEMOGLOBIN 27.1 pg (25-34); MEAN CORPUSCULAR HGB CONC 30.2 g/dl (32-36); MEAN PLATELET VOLUME 10.2 fL (7.4-10.4); PLATELET COUNT 289 K/uL (130-400); RED CELL DISTRIBUTION WIDTH CV 15.2 % (11.5-14.5); RED CELL DISTRIBUTION WIDTH SD 49.4 fL (36.4-46.3); WHITE BLOOD COUNT 7.59 K/uL (4.8-10.8)
[2017-12-13 07:49] VITALS: BP 127/78; PULSE 65; TEMP 36.6; O2SAT 95
[2017-12-13 07:54] LABS: INR 1.1 (0.9-1.1)
--- NOTE | 2017-12-13 08:03 | Anesthesiology Progress Note ---
Anesthesia Post Op Note Date & Time Dec 13, 2017 at 08:01 Vital Signs Pain Intensity: 0.0 Vital Signs Past 12 Hours Date Time Temp Pulse Resp B/P (MAP) Pulse Ox O2 Delivery O2 Flow Rate FiO2 12/13/17 07:49 36.6 65 18 127/78 (94) 95 Room Air 12/13/17 00:00 Room Air 12/12/17 23:00 36.4 49 18 164/62 (96) 97 Room Air Notes Mental Status: alert / awake / arousable, participated in evaluation Pt Amnestic to Procedure: Yes Nausea / Vomiting: adequately controlled Pain: adequately controlled Airway Patency, RR, SpO2: stable & adequate BP & HR: stable & adequate Hydration State: stable & adequate Anesthetic Complications: no major complications apparent
[2017-12-13 08:12] LABS: CREATININE 1.05 mg/dl (0.60-1.40)
[2017-12-13] MEDS: METOPROLOL TARTRATE 25 MG TAB PO SCH (08:21)
[2017-12-13] MEDS: CYANOCOBALAMIN 500 MCG TAB (VIT B-12) PO SCH (08:22)
[2017-12-13] MEDS: LISINOPRIL 5 MG TAB PO SCH (08:22)
[2017-12-13] MEDS: FERROUS SULFATE 325 MG TAB PO SCH (08:22)
[2017-12-13] MEDS: FINASTERIDE 5 MG TAB PO SCH (08:22)
--- NOTE | 2017-12-13 11:20 | Orthopedic Progress Note ---
Orthopedic Progress Note Date of Service Dec 13, 2017. Subjective Post OP Day: 3 Reports: feeling well, complaints, pain controlled w PO medications Objective Dressing removed. Wound benign. Minimal drainage. Minimal erythema. Date Time Temp Pulse Resp B/P (MAP) Pulse Ox O2 Delivery O2 Flow Rate FiO2 12/13/17 08:00 Room Air 12/13/17 07:49 36.6 65 18 127/78 (94) 95 Room Air 12/13/17 00:00 Room Air 12/12/17 23:00 36.4 49 18 164/62 (96) 97 Room Air 12/12/17 16:00 Room Air 12/12/17 15:17 36.7 48 18 127/63 (84) 97 Room Air Laboratory Results 24 Hours: Test 12/13/17 07:18 Hematocrit 40.7 % Hemoglobin 12.3 g/dL Prothromb Time International Ratio 1.1 Prothrombin Time 11.6 SECONDS Assessment & Plan Assessment: s/p right lower leg I & D Evac hematoma pod #3 Plan: Stable per orthopedics Plan to transition to oral antibx as per Dr Galeano [facility] will sign off. Instructions placed in EMR. Inhouse Planning Pain Management: Percocet, PO Tylenol
--- NOTE | 2017-12-13 11:24 | Consultant Recommendations ---
Technician Telecommunication Systems Recommendations Date of Service Dec 13, 2017. Technician [employer]communication Systems Recommendations Daily dressing changes until you have no drainage. You then can change every other day. Do not put any salves or ointment on the wound. No showers until wound drainage has stopped. You can wrap the dressing in plastic wrap or a a garbage bag to shower. Keep dressing clean and dry. Follow up with Dr Ayala in 10-14 days from the day of your surgery. Call for an appointment to see him. [phone].
--- NOTE | 2017-12-13 12:35 | Progress Note ---
Medicine Progress Note Date & Time of Visit: Dec 13, 2017 at 12:22. Subjective Pt was seen and examined Lying in bed with no distress Pt said that he feels fine He said that he does not have any pain Denies any chest pain, palpitation, dizziness and SOB Objective Last 8 Hrs Date Time Temp Pulse Resp B/P (MAP) Pulse Ox O2 Delivery O2 Flow Rate FiO2 12/13/17 08:00 Room Air 12/13/17 07:49 36.6 65 18 127/78 (94) 95 Room Air Physical Exam: General- No acute distress Head- atraumatic Eyes- PERRL, EOMI ENT- oropharynx clear Neck- supple, no JVD Lungs- clear to auscultation Heart- regular rhythm Abdomen- normal bowel sounds, soft Extremities- Wound showed no hematoma collection, no drainage or pus Neuro- alert, oriented, PERRL, EOMI Skin- warm & dry Laboratory Results: Last 24 Hours Test 12/12/17 13:08 12/13/17 07:18 Vancomycin Level Trough 16.9 mcg/ml White Blood Count 7.59 K/uL Red Blood Count 4.54 M/uL Hemoglobin 12.3 g/dL Hematocrit 40.7 % Mean Corpuscular Volume 89.6 fL Mean Corpuscular Hemoglobin 27.1 pg Mean Corpuscular Hemoglobin Concent 30.2 g/dl RDW Standard Deviation 49.4 fL RDW Coefficient of Variation 15.2 % Platelet Count 289 K/uL Mean Platelet Volume 10.2 fL Prothrombin Time 11.6 SECONDS Prothromb Time International Ratio 1.1 Creatinine 1.05 mg/dl Est Creatinine Clear Calc Drug Dose 58.9 ml/min Estimated GFR () 79.0 Estimated GFR (Non- 68.1 Assessment & Plan RIGHT LEG HEMATOMA/RLE CELLULITIS R tib/fib xray showed focal soft tissue edema mid lower leg. No acute bony abnormality. U/S of the RLE showed complex collection within the soft tissues of the medial calf with slightly increased size from the prior exam. S/P day 1 Incision and drainage of right lower leg performed by Dr. Ayala Hemoglobin stable Continue Coumadin will resume aspirin in am Blood cultures no growth Wound cx growth gram negative staph species On Rocephin and vancomycin IV Ortho on board Hemovac removed Continue daily wound care 12/13 No hematoma accumulation Continue daily wound care Will change abx to doxy Follow up with the wound care clinic Case discussed with ortho team and stable from ortho standpoint to d/c Will need to follow with ortho between 7-10 days CHRONIC RLE DVT ON COUMADIN INR: 1.1 today Continue Coumadin Continue monitor INR Follow up with the coag clinic CAD S/P CABG x 4. Had nuclear stress test done on 04/2017- negative for ischemia. Echo on 08/2017 showed EF: 55-59%, grade 1 diastolic dysfunction, moderate aortic valve regurgitation, mild mitral valve regurgitation, mild tricuspid regurgitation, aortic root and proximal ascending aorta moderately enlarged (no change from prior). 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 (Baseline 12 -13). Continue monitor CBC Hx CVA No residual effects Aspirin resumed HTN Stable continue lisinopril, metoprolol DYSLIPIDEMIA continue atorvastatin BPH continue finasteride DVT Prophylaxis INR 1.1 Continue Coumadin SCDs contraindication due to wound in RLE Disposition Discharge home today Consultants: ortho Current Inpatient Medications: Current Inpatient Medications Medications (Trade) Dose Ordered Sig/Thomas Route Start Time Stop Time Status Last Admin Dose Admin Acetaminophen (Tylenol Tab) 650 mg Q4H PRN PO 12/08/17 16:45 01/07/18 16:44 Polyethylene (Miralax Powder Packet) 17 gm DAILY PRN PO 12/08/17 16:45 01/07/18 16:44 Ondansetron HCl (Zofran Inj) 4 mg Q6H PRN IV 12/08/17 16:45 01/07/18 16:44 Aspirin (Ecotrin Tab) 81 mg QAM PO 12/09/17 09:00 01/08/18 08:59 Future hold 12/09/17 08:37 81 MG Atorvastatin Calcium (Lipitor Tab) 40 mg QPM PO 12/08/17 21:00 01/07/18 20:59 12/12/17 20:15 40 MG Cyanocobalamin (Vitamin B-12 Tab) 1,000 mcg DAILY PO 12/09/17 09:00 01/08/18 08:59 12/13/17 08:22 1,000 MCG Ferrous Sulfate (Feosol Tab) 325 mg DAILY PO 12/09/17 09:00 01/08/18 08:59 12/13/17 08:22 325 MG Finasteride (Proscar Tab) 5 mg QAM PO 12/09/17 09:00 01/08/18 08:59 12/13/17 08:22 5 MG Folic Acid (Folvite Tab) 1 mg BID PO 12/08/17 21:00 01/07/18 20:59 12/13/17 08:22 1 MG Lisinopril (Zestril Tab) 5 mg BID PO 12/08/17 21:00 01/07/18 20:59 12/13/17 08:22 5 MG Metoprolol Tartrate (Lopressor Tab) 12.5 mg BID PO 12/08/17 21:00 01/07/18 20:59 12/13/17 08:21 12.5 MG Nitroglycerin (Nitrostat Tab) 0.4 mg PRN UT 12/08/17 18:00 01/07/18 17:59 Phenytoin Sodium (Dilantin Er Cap) 300 mg HS PO 12/08/17 21:00 01/07/18 20:59 12/12/17 20:15 300 MG Ceftriaxone Sodium 1 gm/ Dextrose 50 ml @ 100 mls/hr Q24H IV 12/08/17 19:00 12/18/17 18:59 12/12/17 18:44 100 MLS/HR Vancomycin HCl (Consult) 1 ea UD PRN N/A 12/08/17 18:30 01/07/18 18:29 Oxycodone/ Acetaminophen (Percocet 5-325mg Tab) 1-2 TABLETS 1 TABLET ... Q6H PRN PO 12/10/17 17:45 12/24/17 17:44 12/11/17 18:49 1 TAB Morphine Sulfate (MoRPHine SULFATE INJ) 2 mg Q4HWA PRN IV 12/10/17 17:45 12/24/17 17:44 Vancomycin HCl 1250 mg/Sodium Chloride 275 ml @ 125 mls/hr Q14H IV 12/11/17 10:00 12/19/17 09:59 12/13/17 03:25 125 MLS/HR Warfarin Sodium (Coumadin Tab) 5 mg DAILY@16 PO 12/13/17 16:00 01/12/18 15:59
[2017-12-13] MEDS ORDERED: DXY100 PO (12:56)
--- NOTE | 2017-12-13 13:12 | Discharge Instructions ---
Discharge Instructions Date of Service Dec 13, 2017. Admission Reason for Admission: Left Leg Cellulitis Discharge Discharge Diagnosis / Problem: RIGHT LEG HEMATOMA/Right LOWER CELLULITIS Discharge Goals Goal(s): Decrease discomfort, Improve function, Improve disease control Activity Recommendations Activity Limitations: resume your previous activity (As tolerated) . Instructions / Follow-Up Instructions / Follow-Up Follow up with your primary care provider Dr. Sinclair on 12/17 @ 11:30 AM Follow up with orthopedic Dr. Ayala in 7 to 10 days. Call to schedule for the appointment to see him. [phone] Follow up with wound care clinic ( Please call the wound care clinic at [phone] to schedule for the appointment) Daily dressing changes until you have no drainage. You then can change every other day. Do not put any salves or ointment on the wound. No showers until wound drainage has stopped. You can wrap the dressing in plastic wrap or a a garbage bag to shower. Keep dressing clean and dry. Continue daily wound care Follow up with the Coumadin clinic Continue Coumadin Complete course of antibiotic with doxycycline OK to use Tylenol for pain Current Hospital Diet Patient's current hospital diet: AHA Diet (Heart Healthy) Discharge Diet Recommended Diet: AHA Diet (Heart Healthy) Procedures Procedures Performed: 1. Incision and drainage right lower leg, 2. Evacuation hematoma right calf 3. Debridement gastrocnemius muscle 4. Debridement Gastrocnemius Fascia Pending Studies Studies pending at discharge: no Medical Emergencies . Who to Call and When: Medical Emergencies: If at any time you feel your situation is an emergency, please call 911 immediately. . Non-Emergent Contact Non-Emergency issues call your: Primary Care Provider Call Non-Emergent contact if: you have a fever, your pain is worsening, wound has increased drainage, wound has increased redness, wound has increased pain, you have any medication questions . . "Provider Documentation" section prepared by Lauren Galeano. . Drum Filler Recommendations Drum Filler Recommendations: Daily dressing changes until you have no drainage. You then can change every other day. Do not put any salves or ointment on the wound. No showers until wound drainage has stopped. You can wrap the dressing in plastic wrap or a a garbage bag to shower. Keep dressing clean and dry. Follow up with Dr Ayala in 10-14 days from the day of your surgery. Call for an appointment to see him. [phone].
[2017-12-13] MEDS ORDERED: DOXYCYCLINE HYCLATE 100 MG CAP PO ONE (13:30)
[2017-12-13 15:18] VITALS: BP 127/78; PULSE 65; TEMP 36.6; O2SAT 95
[2017-12-13] MEDS ORDERED: WARFARIN SOD 5 MG TAB PO SCH (16:00)
--- NOTE | 2017-12-13 19:38 | Discharge Summary ---
Discharge Summary Date of Service Dec 13, 2017. Discharge Summary Admission Date: Dec 08, 2017 at 15:49 Discharge Date: Dec 13, 2017 Discharge Disposition: Home Principal Diagnosis: RIGHT LEG HEMATOMA/RLE CELLULITIS Secondary Diagnoses/Problems: CHRONIC RLE DVT ON COUMADIN CAD S/P CABG x 4. 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 Incision and drainage right lower leg, 2. Evacuation hematoma right calf 3. Debridement gastrocnemius muscle 4. Debridement Gastrocnemius Fascia R EXTREMITY NONVASCULAR LIMITED CLINICAL HISTORY: Recheck size of Right medial calf hematoma/abscess collection TECHNIQUE: Ultrasound COMPARISON STUDY: 11/17/2017 FINDINGS: Complex collection within the soft tissues medial calf. This measures 7 x 6 x 3 cm. No evidence for abnormal vascular flow. This is similar to and are slightly increased in volume from the prior study. IMPRESSION: Complex collection within the soft tissues of the medial calf. Dimensions are slightly increased from the prior exam. The above report was generated using voice recognition software. It may contain grammatical, syntax or spelling errors. Electronically signed by: Edwin Wang M.D. 12/09/2017 4:32 PM Dictated Date/Time: 12/09/2017 4:30 PM Consultations: ortho Medication Reconciliation New Medications: Doxycycline Hyclate (Doxycycline Hyclate) 100 Mg Cap 100 MG PO BID for 7 Days, #14 CAP Continued Medications: Acetaminophen (Tylenol) 500 Mg Tab 1000 MG PO Q6 PRN for Pain or Fever, TAB Ascorbic Acid (Vitamin C) 100 Mg Chw 100 MG PO BID Aspirin (Aspirin Ec) 81 Mg Tab 81 MG PO QAM Atorvastatin (Lipitor) 40 Mg Tab 40 MG PO QPM Cyanocobalamin (Vitamin B-12 1000 Mcg) 1,000 Mcg Tab 1 TAB PO DAILY for 30 Days, #30 TAB 2 Refills Dolomite (Dolomite) 1 Tab Tab 1 TAB PO PRN Ferrous Sulfate (Ferrous Sulfate) 325 Mg Tab 1 TAB PO DAILY Finasteride (Proscar) 5 Mg Tab 5 MG PO QAM, 0 Refills Fish Oil ([place]-3) 1 Ea Cap 1 CAP PO QAM, CAP Folic Acid (Folvite) 1 Mg Tab 1 MG PO BID, TAB Lisinopril (Zestril) 5 Mg Tab 5 MG PO BID, TAB Metoprolol Tartrate (Lopressor) (Lopressor) 25 Mg Tab 12.5 MG PO BID, TAB Multivitamin (Multivitamin) Tab 1 TAB PO QAM, TAB Nitroglycerin (Nitrostat) 0.4 Mg Tab 0.4 MG UT PRN, 0 Refills Phenytoin Sodium (Dilantin) 100 Mg Cap 300 MG PO HS, CAP Warfarin Sod (Jantoven) 7.5 Mg Tab 7.5 MG PO WK TAKE 7.5MG ON FRIDAYS ONLY Warfarin Sod (Jantoven) 7.5 Mg Tab 3.75 MG PO 6XWK, TAB TAKE 3.75MG 6 TIMES A WEEK ON WEDNESDAY, WEDNESDAY, WEDNESDAY, WEDNESDAY, WEDNESDAY AND WEDNESDAY Discontinued Medications: Amoxicillin (Amoxil) 500 Mg Cap 4 CAP PO UD PRN for RN for 10 Days, CAP BEFORE DENTAL WORK Admission Information HPI (per Admitting provider): Pt is 77 y/o M with PMH CAD/P CABG, HTN, dyslipidemia, CVA, seizure disorder, left partial nephrectomy secondary to renal cell CA, chronic hematuria, chronic DVT on Coumadin since 2015, aortic valve regurgitation, mitral valve regurgitation seen as direct admission secondary to right leg hematoma and cellulitis. Patient reports 11/17/17 piece of wood hit his right calf and patient states no open skin at that time however had a lump to leg. He was seen in ER that day and had ultrasound extremity: 6 x 5 x 2.9 cm fluid collection within subcutaneous soft tissue right calf. His INR was 2.1 at that time. 11/21/17 seen in ER again, ultrasound: Age-indeterminate nonocclusive DVT right distal. Her femoral vein, popliteal vein, peroneal vein. INR was 2.7. Compression stocking applied. 11/23/17: Patient reports seeing surgery-Dr. Garcia, no change in treatment plan at that time. 11/24/17: In ER again as patient had bleeding from hematoma site, had I&D, given Rocephin and doxycycline and discharged home on Keflex and doxycycline. Recheck of leg on 11/25/17 and had packing change. Patient reports finishing doxycycline last week, and finishing Keflex approximately 4 days ago. He reports waxing and waning edema and erythema to right lower leg. Initially he was applying ice and heat. Most recently has been applying ice. Initially like was quite painful and he had to use a crutch or walker to help ambulate. Patient states recently with no pain and is able to ambulate without assistance. Patient states over the past week has been keeping legs elevated as much as possible and noticed overall decreased edema. He has noticed some surrounding erythema. Changing dressing daily with some blood noted on dressing. Denies any noted purulent discharge. Today patient seen in wound clinic referred to hospital for further assessment and treatment. Patient denies any chest pains or shortness of breath. He reports is able to walk 2 flights of stairs without SOB/CP. He reports not having to use nitroglycerin for several years. History nuclear stress test 04/2017- negative for ischemia. History echo 08/2017: EF: 55-59%, grade 1 diastolic dysfunction, moderate aortic valve regurgitation, mild mitral valve regurgitation, mild tricuspid regurgitation, aortic root and proximal ascending aorta moderately enlarged (no change from prior). Denies fever/chills, diaphoresis, N/V/D/C, PRIETO, dizziness, syncope, vision changes, neck pain, CP, SOB, orthopnea, palpitations, cough, sore throat, choking, otalgia, rhinorrhea, abdominal pain, paresthesias, other rashes, dysuria, weight changes. Physical Exam (per Admitting): General Appearance: WD/WN, no apparent distress Head: normocephalic, atraumatic Eyes: normal inspection, sclerae normal ENT: hearing grossly normal, pharynx normal, + pertinent finding Neck: supple, trachea midline Respiratory/Chest: lungs clear, normal breath sounds, no respiratory distress Cardiovascular: regular rate, rhythm, normal peripheral pulses Abdomen/GI: normal bowel sounds, non tender, soft Extremities/Musculoskelatal: + pertinent finding Skin: warm/dry Hospital Course RIGHT LEG HEMATOMA/RLE CELLULITIS R tib/fib xray showed focal soft tissue edema mid lower leg. No acute bony abnormality. U/S of the RLE showed complex collection within the soft tissues of the medial calf with slightly increased size from the prior exam. S/P day 1 Incision and drainage of right lower leg performed by Dr. Ayala Hemoglobin stable Continue Coumadin will resume aspirin in am Blood cultures no growth Wound cx growth gram negative staph species On Rocephin and vancomycin IV Ortho on board Hemovac removed Continue daily wound care 12/13 No hematoma accumulation Continue daily wound care Will change abx to doxy Follow up with the wound care clinic Case discussed with ortho team and stable from ortho standpoint to d/c Will need to follow with ortho between 7-10 days CHRONIC RLE DVT ON COUMADIN INR: 1.1 today Continue Coumadin Continue monitor INR Follow up with the coag clinic CAD S/P CABG x 4. Had nuclear stress test done on 04/2017- negative for ischemia. Echo on 08/2017 showed EF: 55-59%, grade 1 diastolic dysfunction, moderate aortic valve regurgitation, mild mitral valve regurgitation, mild tricuspid regurgitation, aortic root and proximal ascending aorta moderately enlarged (no change from prior). 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 (Baseline 12 -13). Continue monitor CBC Hx CVA No residual effects Aspirin resumed HTN Stable continue lisinopril, metoprolol DYSLIPIDEMIA continue atorvastatin BPH continue finasteride DVT Prophylaxis INR 1.1 Continue Coumadin SCDs contraindication due to wound in RLE Disposition Discharge home today Total time spent on discharge = 35 minutes This includes examination of the patient, discharge planning, medication reconciliation, and communication with other providers. Discharge Instructions Discharge Instructions Date of Service Dec 13, 2017. Admission Reason for Admission: Left Leg Cellulitis Discharge Discharge Diagnosis / Problem: RIGHT LEG HEMATOMA/Right LOWER CELLULITIS Discharge Goals Goal(s): Decrease discomfort, Improve function, Improve disease control Activity Recommendations Activity Limitations: resume your previous activity (As tolerated) . Instructions / Follow-Up Instructions / Follow-Up Follow up with your primary care provider Dr. Sinclair on 12/17 @ 11:30 AM Follow up with orthopedic Dr. Ayala in 7 to 10 days. Call to schedule for the appointment to see him. [phone] Follow up with wound care clinic ( Please call the wound care clinic at [phone] to schedule for the appointment) Daily dressing changes until you have no drainage. You then can change every other day. Do not put any salves or ointment on the wound. No showers until wound drainage has stopped. You can wrap the dressing in plastic wrap or a a garbage bag to shower. Keep dressing clean and dry. Continue daily wound care Follow up with the Coumadin clinic Continue Coumadin Complete course of antibiotic with doxycycline OK to use Tylenol for pain Current Hospital Diet Patient's current hospital diet: AHA Diet (Heart Healthy) Discharge Diet Recommended Diet: AHA Diet (Heart Healthy) Procedures Procedures Performed: 1. Incision and drainage right lower leg, 2. Evacuation hematoma right calf 3. Debridement gastrocnemius muscle 4. Debridement Gastrocnemius Fascia Pending Studies Studies pending at discharge: no Medical Emergencies . Who to Call and When: Medical Emergencies: If at any time you feel your situation is an emergency, please call 911 immediately. . Non-Emergent Contact Non-Emergency issues call your: Primary Care Provider Call Non-Emergent contact if: you have a fever, your pain is worsening, wound has increased drainage, wound has increased redness, wound has increased pain, you have any medication questions . . "Provider Documentation" section prepared by Lauren Galeano. . Solar Energy Systems Designer Recommendations Solar Energy Systems Designer Recommendations: Daily dressing changes until you have no drainage. You then can change every other day. Do not put any salves or ointment on the wound. No showers until wound drainage has stopped. You can wrap the dressing in plastic wrap or a a garbage bag to shower. Keep dressing clean and dry. Follow up with Dr Ayala in 10-14 days from the day of your surgery. Call for an appointment to see him. [phone]. Additional Copies To Philipp Thurston D.O.
[2017-12-13] MEDS ORDERED: DOXYCYCLINE HYCLATE 100 MG CAP PO SCH (21:00)
== END 2017-12-13 16:15 | disposition home health service (06) | DRG 580 ==
LOC: C.MS2W 15:49
PROVIDERS: ADMIT Family Medicine; ATTEND Internal Medicine
PROC: 0KBS0ZZ Excision of Right Lower Leg Muscle, Open Approach (ICD-10-PCS; principal; 2017-12-10 12:15)
PROC: 0KCS0ZZ Extirpation of Matter from Right Lower Leg Muscle, Open Approach (ICD-10-PCS; principal; 2017-12-10 12:15)
PROC: 0KDS0ZZ Extraction of Right Lower Leg Muscle, Open Approach (ICD-10-PCS; principal; 2017-12-10 12:15)
DX: S80.11XA Contusion of right lower leg, initial encounter (principal); L03.116 Cellulitis of left lower limb; I96 Gangrene, not elsewhere classified; I82.5Z1 Chronic embolism and thrombosis of unspecified deep veins of right distal lower extremity; I25.10 Atherosclerotic heart disease of native coronary artery without angina pectoris; Z95.1 Presence of aortocoronary bypass graft; E78.5 Hyperlipidemia, unspecified; Z86.73 Personal history of transient ischemic attack (TIA), and cerebral infarction without residual deficits; G40.909 Epilepsy, unspecified, not intractable, without status epilepticus; Z85.528 Personal history of other malignant neoplasm of kidney; Z79.01 Long term (current) use of anticoagulants; Z87.891 Personal history of nicotine dependence; I08.0 Rheumatic disorders of both mitral and aortic valves; I10 Essential (primary) hypertension; Z86.74 Personal history of sudden cardiac arrest; B95.8 Unspecified staphylococcus as the cause of diseases classified elsewhere; D64.9 Anemia, unspecified; N40.0 Benign prostatic hyperplasia without lower urinary tract symptoms; W22.8XXA Striking against or struck by other objects, initial encounter; Y92.89 Other specified places as the place of occurrence of the external cause

== ENCOUNTER 2018-12-31 12:20 | Inpatient (IN) ==
[2018-12-31 12:53] LABS: Basophils # (auto) 0.01 K/uL (0-0.2); Basophils % (auto) 0.1 %; Eosinophils # (auto) 0.02 K/uL (0-0.5); Eosinophils % (auto) 0.2 %; Hematocrit (blood only) 35.7 % (42-52); Hemoglobin 11.5 g/dL (14.0-18.0); Immature Granulocytes # (auto) 0.02 K/uL (0.00-0.02); Immature Granulocytes % (auto) 0.2 %; Lymphocytes # (auto) 0.64 K/uL (1.2-3.4); Lymphocytes % (auto) 5.9 %; Mean Corpuscular Hgb Conc 32.2 g/dL (32-36); Mean Corpuscular Volume 94.2 fL (80-100); Mean Platelet Volume 10.5 fL (7.4-10.4); Monocytes # (auto) 0.52 K/uL (0.11-0.59); Monocytes % (auto) 4.8 %; Neutrophils # (auto) 9.55 K/uL (1.4-6.5); Neutrophils % (auto) 88.8 %; Platelet Count 205 K/uL (130-400); RDW Coefficient of Variation 13.9 % (11.5-14.5); RDW Standard Deviation 47.7 fL (36.4-46.3); Red Blood Count 3.79 M/uL (4.7-6.1); White Blood Count 10.76 K/uL (4.8-10.8)
[2018-12-31 13:15] LABS: Albumin Level 2.9 gm/dl (3.4-5.0); BUN Creatinine Ratio 20.3 (10-20); Calcium 8.2 mg/dl (8.5-10.1); Creatinine Clr Calc Pharmacy 54.8 ml/min; Est GFR (African American) 65.4; Est GFR (Non-African American) 56.4; Magnesium 2.1 mg/dl (1.8-2.4); Potassium 4.6 mmol/L (3.5-5.1)
--- NOTE | 2018-12-31 13:20 | XRay Report ---
LEFT FEMUR 3 VIEWS CLINICAL HISTORY: Left leg pain. FINDINGS: AP, frog-leg, and crosstable lateral views of the left femur are obtained. No prior studies are available for comparison at the time of dictation. The skeletal structures are osteopenic. There is no radiographic evidence of left femoral fracture. Mild degenerative joint space narrowing seen i n the left hip. The left knee joint is grossly maintained. The visualized left hemipelvis appears int act. The overlying soft tissues are normal in appearance. Atherosclerotic calcification is noted in t he popliteal artery. Surgical clips are seen posterior to the knee. IMPRESSION: Osteopenia with no radiographic evidence of left femoral fracture. Electronically signed by: Thomas Lee M.D. 12/31/2018 1:19 PM
[2018-12-31 13:26] LABS: Albumin Globulin Ratio 0.9 (0.9-2); Bilirubin,Total 0.4 mg/dl (0.2-1); Globulin 3.2 gm/dl (2.5-4.0); Total Protein 6.1 gm/dl (6.4-8.2); Troponin I 0.016 ng/ml (0-0.045)
--- NOTE | 2018-12-31 13:26 | XRay Report ---
TWO VIEW CHEST CLINICAL HISTORY: Syncope. FINDINGS: AP and lateral chest radiographs are compared to study dated 05/23/2017. The AP view is deg raded by patient rotation. The patient is status post midline sternotomy. The heart is markedly enlar ged and there is atherosclerotic calcification of the thoracic aorta. The pulmonary vasculature is no ncongested. Chronic interstitial thickening is similar to previous. There is bibasilar scarring/atele ctasis. No airspace consolidation or pleural effusion is identified. There is no pneumothorax. The sk eletal structures are osteopenic. Degenerative change is noted in the shoulders and thoracic spine. IMPRESSION: Cardiomegaly with no acute cardiopulmonary abnormality. Electronically signed by: Thomas Lee M.D. 12/31/2018 1:24 PM
[2018-12-31 14:28] LABS: Appearance Urine Clear (Clear); Bacteria Urine Automated Negative (Negative); Bilirubin Urine Negative (Negative); Blood Urine Trace (Negative); Color Urine Dark Yellow; Glucose Urine UA Negative (Negative); Ketones Urine Trace (Negative); Leukocyte Esterase Urine Negative (Negative); Nitrite Urine Positive (Negative); Protein Urine 2+ (Negative); Specific Gravity Urine 1.022 (1.000-1.030); Urobilinogen Urine Negative (Negative)
[2018-12-31 14:38] LABS: Mucus Urine Present (None Prsent)
--- NOTE | 2018-12-31 14:51 | History & Physical Report ---
Date of Service December 31, 2018 Assessment & Plan (1) Postural dizziness with near syncope: Blurred vision with dizziness happening by eating on the ground without any loss of consciousness Blood pressure was noted to be low at presentation Condition seems to be secondary to dehydration and could be cardiac arrhythmias Doubt any seizure and/or neurological events No signs or symptoms of infection Will admit to telemetry unit for observation Intravenous fluid with normal saline and Clinically improving in the emergency room with improvement in blood pressure (2) Seizure disorder: History of seizure disorder We will continue Dilantin Dilantin level is minimally low (3) CAD (coronary artery disease): History of CAD status post CABG x4 Also history of aortic insufficiency Will get echocardiogram to evaluate cardiac function Initial troponin is negative will get serial troponins to rule out any ACS Echocardiogram to evaluate valvular heart disease We will monitor in telemetry (4) S/P CABG x 4: (5) Aortic valve insufficiency: (6) HTN (hypertension): Has been on blood pressure medications We will hold blood pressure for now We will hold beta-gabo Blood pressure has been improving with intravenous fluid DVT prophylaxis Has been on Coumadin INR is 1.9 Continue Coumadin Cortistat Full Discussed with family members. and daughters History of Present Illness Chief Complaint: Dizziness with syncope Primary Care Provider: Philipp Thurston DO Is a 78-year-old male with significant past medical history of CAD status post CABG x4, aortic valve insufficiency, hypertension, seizure disorder and other medical conditions as mentioned in medical history apparently was not brought into the emergency room following an episode of dizziness and presyncope. Apparently he was sitting on the ground for about 15 to 20 minutes in the sun when he noted to have dizziness, he was helped to sit on a chair by the daughter and the dizziness continued with blurred vision he was almost about to fall to wards his left side at that time paramedics came in and he was noted to have a very low blood pressure of systolic around 70 from that point he was rushed to the emergency room. There is no definite loss of consciousness, no seizure-like activities, no fever and/or chills, no chest pain and/or palpitation, no abdominal pain and no nausea or vomiting and no numbness or tingling involving any of the extremities. His blood pressure improved with intravenous fluid in the emergency room. He was noted to be bradycardic without any significant EKG changes. He was admitted to telemetry unit to rule out possible bradyarrhythmia as the cause of syncope. Doubt any neurological events. Allergies Allergy/AdvReac Type Severity Reaction Status Date / Time No Known Allergies Allergy Verified 12/31/18 13:22 Home Medications Home Medications Medication Instructions Recorded Confirmed Type aspirin 81 mg tablet,delayed 81 mg PO QAM tab 01/19/18 12/31/18 History release atorvastatin 40 mg tablet 40 mg PO QPM tab 01/19/18 12/31/18 History cyanocobalamin (vit B-12) 1,000 1,000 mcg PO QAM 01/19/18 12/31/18 History mcg tablet ferrous sulfate 325 mg (65 mg 325 mg PO QAM tab 01/19/18 12/31/18 History iron) tablet,delayed release finasteride 5 mg tablet 5 mg PO QAM tab 01/19/18 12/31/18 History folic acid 1 mg tablet 1 mg PO BID 01/19/18 12/31/18 History lisinopril 5 mg tablet 5 mg PO BID tab 01/19/18 12/31/18 History multivitamin tablet 1 tab PO QAM 01/19/18 12/31/18 History omega-3 fatty acids 1,000 mg 1,000 mg PO QAM 01/19/18 12/31/18 History capsule phenytoin sodium extended 100 mg 300 mg PO HS cap 01/19/18 12/31/18 History capsule warfarin 7.5 mg tablet 3.75 mg PO 6XWK tab 01/19/18 12/31/18 History warfarin 7.5 mg tablet 7.5 mg PO WK tab 01/19/18 12/31/18 History ascorbic acid (vitamin C) [Vitamin 500 mg PO QAM 12/05/18 12/31/18 History C] nitroglycerin [Nitrostat] 0.4 mg SUBLINGUAL UD PRN 12/05/18 12/31/18 History metoprolol tartrate 12.5 mg PO BID 12/09/18 12/31/18 History Past Med/Surg History Medical History ASCVD (arteriosclerotic cardiovascular disease) (Chronic) Aortic valve insufficiency (Chronic) BPH (benign prostatic hyperplasia) (Chronic) CAD (coronary artery disease) (Chronic) CVA (cerebral vascular accident) (Chronic) Cellulitis, leg (Chronic) DVT (deep venous thrombosis) (Chronic) Dyslipidemia (Chronic) H/O nonmelanoma skin cancer (Chronic) H/O sinus bradycardia (Chronic) HTN (hypertension) (Chronic) Hematoma of leg (Chronic) Malignant neoplasm of kidney (Chronic) OAB (overactive bladder) (Chronic) S/p nephrectomy (Chronic) Seizure disorder (Chronic) Spinal stenosis (Chronic) Surgical History H/O colonoscopy (Chronic) S/P CABG x 4 (Chronic) S/P inguinal hernia repair (Chronic) Family History Other No significant family history Social History Preferred Language: Bulgarian Communication Ability: Effective Visual Impairment: Limited Hearing Ability: Normal Medical Observer Required: No Beliefs That Will Affect Care: Scientologist Scientologist Beliefs: Donnie marital status: Current Living Situation: Spouse current occupational status: retired Other Information That Helps Us Care for You: No Feels Safe at Home: Yes Safety Concerns: Feels Safe At This Time Smoking Status: Former smoker Tobacco Type: cigarettes ; Do You Dip or Chew Tobacco: No ; Smoking End Date: 1970 ; Second Hand Exposure: No ; Hx Alcohol Use: No Hx Substance Use: No Childhood Exposure to Second-Hand Smoke: No Review of Systems Review of Systems: All systems reviewed & are unremarkable except as noted in HPI & below Physical Exam Physical Exam: No apparent distress at rest Constitutional: well developed and well nourished; no acute distress Eyes: PERRL, conjunctivae normal, anicteric sclerae ENMT: external ear and nose normal, oropharynx normal Neck: trachea midline, no thyromegaly Respiratory: normal respiratory effort Cardiovascular: Rate/Rhythm: regular rate and regular rhythm Heart Sounds: + murmur (2/6 precordial ejection systolic murmur) Extremities: + edema (Trace edema bilaterally) Gastrointestinal (Abdomen): Inspection/Auscultation: abdomen normal to inspection and normal bowel sounds Percussion/Palpation: abdomen soft Musculoskeletal: No acute arthritis in any joints. Left lateral thigh swelling, minimal likely secondary to edema/hematoma due to fall on 12/30 Neurologic: moves all extremities No focal sensory and/or motor deficit appreciated Lymphatic: no cervical or axillary lymphadenopathy Results & Data Vital Signs (Past 12 Hours) Vital Signs Temp Pulse Resp BP Pulse Ox 12/31/18 12:49 54 L 20 95 12/31/18 12:20 36.6 C 54 L 20 130/57 L 95 Laboratory Results Short CBC 12/31/18 Range/Units 12:44 WBC 10.76 (4.8-10.8) K/uL Hgb 11.5 L (14.0-18.0) g/dL Hct 35.7 L (42-52) % Plt Count 205 (130-400) K/uL BMP 12/31/18 12:44 Sodium 139 Potassium 4.6 Chloride 108 H Carbon Dioxide 26 BUN 25 H Creatinine 1.22 Glucose 137 H Calcium 8.2 L Cardiac Enzymes 12/31/18 Range/Units 12:44 Troponin I 0.016 (0-0.045) ng/ml Liver Function 12/31/18 Range/Units 12:44 Total Bilirubin 0.4 (0.2-1) mg/dl AST 22 (15-37) U/L ALT 25 (12-78) U/L Alkaline Phosphatase 126 H (45-117) U/L Albumin 2.9 L (3.4-5.0) gm/dl Urine 12/31/18 Range/Units 14:00 Urine Color Dark Yellow Urine Appearance Clear (Clear) Urine pH 6.0 (4.5-7.5) Ur Specific [place] 1.022 (1.000-1.030) Urine Protein 2+ H (Negative) Urine Glucose (UA) Negative (Negative) Medications Administered Current Inpatient Medications Heparin Sodium (Porcine) (Heparin Sodium (Porcine)) 5,000 units SQ Q12 REBECCA Stop: 01/30/19 20:59 Sodium Chloride (Nss 1000ml) 1,000 mls @ 125 mls/hr IV .Q8H REBECCA Stop: 01/01/19 14:44 Code Status & VTE Plan VTE Prophylaxis Plan VTE Prophylaxis will be ordered: Yes
[2018-12-31] MEDS ORDERED: NITROGLYCERIN SL 0.4 MG/TAB TAB SL PRN (15:44)
[2018-12-31] MEDS: SODIUM CHLORIDE 0.9% 1000ML 1,000 ML IV SCH ×2 (16:06→23:31)
[2018-12-31 16:24] LABS: Prothrombin Time 38.1 Seconds (9.0-12.0)
[2018-12-31 16:27] LABS: INR 4.1 (0.9-1.1)
[2018-12-31] MEDS: ASCORBIC ACID 500 MG TAB PO SCH (16:39)
[2018-12-31] MEDS: FINASTERIDE 5 MG TAB PO SCH (16:39)
--- NOTE | 2018-12-31 16:56 | Emergency Department Note ---
Entered by Carli Smith acting as a scribe for Milton Luis MD History of Present Illness General Chief complaint: Syncope Stated complaint: syncope Time Seen by Provider: 12/31/18 12:21 Source: patient and EMS Mode of arrival: EMS History of Present Illness Provider complaint: syncope Onset (ago): hour(s) 1 Location: head Pain Consistency: + other (episode ) Associated symptoms: + denies other symptoms (abdominal pain, back pain, black stool, seizure activity) and + other (hematuria, light-headedness); no nausea/vomiting Treatments prior to arrival: other (300cc of normal saline ) The patient is a 78 year old male who presents to the ED via EMS with complaints of an episode of syncope that occurred 1 hour prior to arrival. EMS report that the patient was standing on a fire apparatus when he felt light-headed. They state that the patient sat down and passed out for 5 seconds upon arrival of the EMS. They report that his blood pressure was 70 systolic and it shira to 110 systolic after receiving 300 cc of normal saline. EMS deny that the patient had any seizure activity, chest pain, and shortness of breath. They states that they gave him 300 cc normal saline to improve his blood pressure. They state that his heart rate was in the 50s the entire time. The patient states that he has soreness in his left leg from cutting the wood. He states a piece of wood hit it. He denies any other injuries. The patient states that he is on Coumadin for a history of a deep vein thrombosis. He reports that he has been peeing blood for years. The patient denies chest pain, shortness of breath, palpitations, abdominal pain, back pain, vomiting, diarrhea, and black stool. Home Medications Home Medications Medication Instructions Recorded Confirmed Type aspirin 81 mg tablet,delayed 81 mg PO QAM tab 01/19/18 12/31/18 History release atorvastatin 40 mg tablet 40 mg PO QPM tab 01/19/18 12/31/18 History cyanocobalamin (vit B-12) 1,000 1,000 mcg PO QAM 01/19/18 12/31/18 History mcg tablet ferrous sulfate 325 mg (65 mg 325 mg PO QAM tab 01/19/18 12/31/18 History iron) tablet,delayed release finasteride 5 mg tablet 5 mg PO QAM tab 01/19/18 12/31/18 History folic acid 1 mg tablet 1 mg PO BID 01/19/18 12/31/18 History lisinopril 5 mg tablet 5 mg PO BID tab 01/19/18 12/31/18 History multivitamin tablet 1 tab PO QAM 01/19/18 12/31/18 History omega-3 fatty acids 1,000 mg 1,000 mg PO QAM 01/19/18 12/31/18 History capsule phenytoin sodium extended 100 mg 300 mg PO HS cap 01/19/18 12/31/18 History capsule warfarin 7.5 mg tablet 3.75 mg PO [id number] tab 01/19/18 12/31/18 History warfarin 7.5 mg tablet 7.5 mg PO WK tab 01/19/18 12/31/18 History ascorbic acid (vitamin C) [Vitamin 500 mg PO QAM 12/05/18 12/31/18 History C] nitroglycerin [Nitrostat] 0.4 mg SUBLINGUAL UD PRN 12/05/18 12/31/18 History metoprolol tartrate 12.5 mg PO BID 12/09/18 12/31/18 History Allergies Allergy/AdvReac Type Severity Reaction Status Date / Time No Known Allergies Allergy Verified 12/31/18 13:22 Past Med/Surg History Medical History ASCVD (arteriosclerotic cardiovascular disease) (Chronic) Aortic valve insufficiency (Chronic) BPH (benign prostatic hyperplasia) (Chronic) CAD (coronary artery disease) (Chronic) CVA (cerebral vascular accident) (Chronic) Cellulitis, leg (Chronic) DVT (deep venous thrombosis) (Chronic) Dyslipidemia (Chronic) H/O nonmelanoma skin cancer (Chronic) H/O sinus bradycardia (Chronic) HTN (hypertension) (Chronic) Hematoma of leg (Chronic) Malignant neoplasm of kidney (Chronic) OAB (overactive bladder) (Chronic) S/p nephrectomy (Chronic) Seizure disorder (Chronic) Spinal stenosis (Chronic) Surgical History H/O colonoscopy (Chronic) S/P CABG x 4 (Chronic) S/P inguinal hernia repair (Chronic) Family History Other No significant family history Social History Preferred Language: [place] Communication Ability: Effective Visual Impairment: Limited Hearing Ability: Normal Doctor Assistant Required: No Beliefs That Will Affect Care: Scientologist Scientologist Beliefs: Donnie marital status: Current Living Situation: Spouse current occupational status: retired Other Information That Helps Us Care for You: No Feels Safe at Home: Yes Safety Concerns: Feels Safe At This Time Smoking Status: Former smoker Tobacco Type: cigarettes ; Do You Dip or Chew Tobacco: No ; Smoking End Date: 1970 ; Second Hand Exposure: No ; Hx Alcohol Use: No Hx Substance Use: No Childhood Exposure to Second-Hand Smoke: No Review of Systems See HPI for pertinent positives & negatives. and A total of 10 systems reviewed and were otherwise negative Physical Exam Vital Signs Vital Signs - 24 hr 12/31/18 12:20 12/31/18 12:27 12/31/18 12:49 Temperature 36.6 C Temperature Source Oral Sepsis Recent Fever Within 48 Hours No Sepsis New/Unexplained Change in Mental Status No Sepsis Action Taken by Nursing No Action Required Pulse Rate - Lying Pulse Rate - Sitting Pulse Rate - Standing Pulse Rate 54 L 54 L 54 L Pulse Rate from SpO2 Sensor Pulse Rhythm Regular Respiratory Rate 20 22 20 Respiratory Effort / Characteristics Non-Labored Respiratory Depth Normal Respiratory Pattern Regular Blood Pressure - Lying Blood Pressure - Sitting Blood Pressure- Standing Blood Pressure 130/57 L 130/57 L Blood Pressure Mean 81 81 Pulse Oximetry 95 95 Oxygen Delivery Method Room Air Room Air 12/31/18 13:19 12/31/18 13:30 12/31/18 13:53 Temperature Temperature Source Sepsis Recent Fever Within 48 Hours Sepsis New/Unexplained Change in Mental Status Sepsis Action Taken by Nursing Pulse Rate - Lying 55 L Pulse Rate - Sitting 68 Pulse Rate - Standing 67 Pulse Rate 57 L 51 L Pulse Rate from SpO2 Sensor 57 L 53 L Pulse Rhythm Respiratory Rate 18 16 Respiratory Effort / Characteristics Respiratory Depth Respiratory Pattern Blood Pressure - Lying 122/59 L Blood Pressure - Sitting 128/56 L Blood Pressure- Standing 127/64 Blood Pressure 105/58 L 129/63 Blood Pressure Mean 73 85 Pulse Oximetry 98 96 Oxygen Delivery Method Room Air Room Air 12/31/18 13:54 12/31/18 13:57 12/31/18 14:00 Temperature Temperature Source Sepsis Recent Fever Within 48 Hours Sepsis New/Unexplained Change in Mental Status Sepsis Action Taken by Nursing Pulse Rate - Lying Pulse Rate - Sitting Pulse Rate - Standing Pulse Rate 56 L 63 53 L Pulse Rate from SpO2 Sensor 52 L 54 L Pulse Rhythm Respiratory Rate 24 20 20 Respiratory Effort / Characteristics Respiratory Depth Respiratory Pattern Blood Pressure - Lying Blood Pressure - Sitting Blood Pressure- Standing Blood Pressure 122/59 L 128/56 L 143/70 H Blood Pressure Mean 80 80 94 Pulse Oximetry 96 96 96 Oxygen Delivery Method Room Air Room Air Room Air 12/31/18 14:30 Temperature Temperature Source Sepsis Recent Fever Within 48 Hours Sepsis New/Unexplained Change in Mental Status Sepsis Action Taken by Nursing Pulse Rate - Lying Pulse Rate - Sitting Pulse Rate - Standing Pulse Rate 60 Pulse Rate from SpO2 Sensor 57 L Pulse Rhythm Respiratory Rate 18 Respiratory Effort / Characteristics Respiratory Depth Respiratory Pattern Blood Pressure - Lying Blood Pressure - Sitting Blood Pressure- Standing Blood Pressure 147/66 H Blood Pressure Mean 93 Pulse Oximetry 95 Oxygen Delivery Method Room Air Constitutional: Vital signs reviewed. Eyes: Pupils are equal round reactive to light. Conjunctiva are noninjected. ENT: Pharynx is clear without erythema or exudate. Mucous membranes are moist. Neck supple without meningeal signs. Respiratory: Clear to auscultation bilaterally. Breath sounds are equal bilaterally. Cardiovascular: Regular rate and rhythm. No rubs or gallops. GI: Soft, nondistended and nontender. Bowel sounds are present. Musculoskeletal: No peripheral edema. Tenderness to the anterior upper left thigh with soft tissue. Integumentary: No cyanosis. Neurological: The patient is awake and alert. Cranial nerves II-XII are intact. Motor is 5 out of 5 all extremities. Sensation is intact to light touch all extremities. Normal speech. No pronator drift. Psychiatric: Normal affect. Course 1225: Past medical records reviewed. The patient was evaluated in room C7. A complete history and physical exam was performed. 1342: I reevaluated the patient at this time and he had no complaints. His heart rate was in the 60's and he is stable. I discussed the patient's test results and recommended hospitalization. 1530: I discussed the patients case with Tabitha Roberts PA-C. She informed me that Dr. Rodriguez, [facility], agreed to evaluate the patient for f urther management. Consultations Consultation #1: I discussed the patients case with Tabitha Roberts PA-C. She informed me that Dr. Sinclair, [facility]ist, agreed to evaluate the patient for further management. Time: 15:30 Administered Medications Ascorbic Acid (Vitamin C) 500 mg PO QAM [facility] Stop: 01/30/19 15:43 Last Admin: 12/31/18 16:39 Dose: 500 mg Documented by: [id number] Finasteride (Proscar) 5 mg PO QAM [facility] Stop: 01/30/19 15:43 Last Admin: 12/31/18 16:39 Dose: 5 mg Documented by: [id number] Sodium Chloride (Nss 1000ml) 1,000 mls @ 125 mls/hr IV .Q8H [facility]BECCA Stop: 01/01/19 14:44 Last Admin: 12/31/18 16:06 Dose: 125 mls/hr Documented by: [id number] Medical Decision Making Differential Diagnosis Differentia diagnoses include but are not limited to syncope, bradycardia, dysrhythmia, anemia, dehydration, leg hematoma. Medical Records Attestation: I reviewed the patient's medical records. I did perform a limited focused review of portions of the patient's old chart on the electronic medical record. The patient has had no recent pertinent visits to this hospital. Home Medications Current Medication List: was personally reviewed by me Laboratory Data Attestation: I reviewed the patient's lab results. Result diagrams: 12/31/18 12:44 12/31/18 12:44 Lab Results 12/31/18 12/31/18 12/31/18 Range/Units 12:44 12:44 12:45 WBC 10.76 (4.8-10.8) K/uL RBC 3.79 L (4.7-6.1) M/uL Hgb 11.5 L (14.0-18.0) g/dL Hct 35.7 L (42-52) % MCV 94.2 (80-100) fL MCH 30.3 (25-34) pg MCHC 32.2 (32-36) g/dL RDW Std Deviation 47.7 H (36.4-46.3) fL RDW Coeff of Palmer 13.9 (11.5-14.5) % Plt Count 205 (130-400) K/uL MPV 10.5 H (7.4-10.4) fL Immature Gran % (Auto) 0.2 % Neut % (Auto) 88.8 % Lymph % (Auto) 5.9 % [place] % (Auto) 4.8 % Eos % (Auto) 0.2 % Baso % (Auto) 0.1 % Immature Gran # (Auto) 0.02 (0.00-0.02) K/uL Neut # (Auto) 9.55 H (1.4-6.5) K/uL Lymph # (Auto) 0.64 L (1.2-3.4) K/uL [place] # (Auto) 0.52 (0.11-0.59) K/uL Eos # (Auto) 0.02 (0-0.5) K/uL Baso # (Auto) 0.01 (0-0.2) K/uL PT (9.0-12.0) Seconds INR (0.9-1.1) Sodium 139 (136-145) mmol/L Potassium 4.6 (3.5-5.1) mmol/L Chloride 108 H (98-107) mmol/L Carbon Dioxide 26 (21-32) mmol/L Anion Gap 5.0 (3-11) BUN 25 H (7-18) mg/dl Creatinine 1.22 (0.6-1.4) mg/dl Est Cr Clr Drug Dosing 54.8 ml/min Est GFR ( Amer) 65.4 Est GFR (Non-Af Amer) 56.4 BUN/Creatinine Ratio 20.3 H (10-20) Glucose 137 H (70-99) mg/dl Calcium 8.2 L (8.5-10.1) mg/dl Magnesium 2.1 (1.8-2.4) mg/dl Total Bilirubin 0.4 (0.2-1) mg/dl AST 22 (15-37) U/L ALT 25 (12-78) U/L Alkaline Phosphatase 126 H (45-117) U/L Troponin I 0.016 (0-0.045) ng/ml Total Protein 6.1 L (6.4-8.2) gm/dl Albumin 2.9 L (3.4-5.0) gm/dl Globulin 3.2 (2.5-4.0) gm/dl Albumin/Globulin Ratio 0.9 (0.9-2) TSH 1.020 (0.300-4.500) uIu/ml Urine Color Urine Appearance (Clear) Urine pH (4.5-7.5) Ur Specific [place] (1.000-1.030) Urine Protein (Negative) Urine Glucose (UA) (Negative) Urine Ketones (Negative) Urine Blood (Negative) Urine Nitrite (Negative) Urine Bilirubin (Negative) Urine Urobilinogen (Negative) Ur Leukocyte Esterase (Negative) Urine WBC (Auto) (0-5) /hpf Urine RBC (Auto) (0-4) /hpf U Hyaline Cast (Auto) (0-5) /lpf U Epithel Cells (Auto) (0-5) /lpf Urine Bacteria (Auto) (Negative) Urine Mucus (None Prsent) Urine Yeast Phenytoin 8.9 L (10-20) mcg/ml 12/31/18 12/31/18 Range/Units 12:45 14:00 WBC (4.8-10.8) K/uL RBC (4.7-6.1) M/uL Hgb (14.0-18.0) g/dL Hct (42-52) % MCV (80-100) fL MCH (25-34) pg MCHC (32-36) g/dL RDW Std Deviation (36.4-46.3) fL RDW Coeff of Palmer (11.5-14.5) % Plt Count (130-400) K/uL MPV (7.4-10.4) fL Immature Gran % (Auto) % Neut % (Auto) % Lymph % (Auto) % [place] % (Auto) % Eos % (Auto) % Baso % (Auto) % Immature Gran # (Auto) (0.00-0.02) K/uL Neut # (Auto) (1.4-6.5) K/uL Lymph # (Auto) (1.2-3.4) K/uL [place] # (Auto) (0.11-0.59) K/uL Eos # (Auto) (0-0.5) K/uL Baso # (Auto) (0-0.2) K/uL PT 38.1 H (9.0-12.0) Seconds INR 4.1 H (0.9-1.1) Sodium (136-145) mmol/L Potassium (3.5-5.1) mmol/L Chloride (98-107) mmol/L Carbon Dioxide (21-32) mmol/L Anion Gap (3-11) BUN (7-18) mg/dl Creatinine (0.6-1.4) mg/dl Est Cr Clr Drug Dosing ml/min Est GFR ( Amer) Est GFR (Non-Af Amer) BUN/Creatinine Ratio (10-20) Glucose (70-99) mg/dl Calcium (8.5-10.1) mg/dl Magnesium (1.8-2.4) mg/dl Total Bilirubin (0.2-1) mg/dl AST (15-37) U/L ALT (12-78) U/L Alkaline Phosphatase (45-117) U/L Troponin I (0-0.045) ng/ml Total Protein (6.4-8.2) gm/dl Albumin (3.4-5.0) gm/dl Globulin (2.5-4.0) gm/dl Albumin/Globulin Ratio (0.9-2) TSH (0.300-4.500) uIu/ml Urine Color Dark Yellow Urine Appearance Clear (Clear) Urine pH 6.0 (4.5-7.5) Ur Specific [place] 1.022 (1.000-1.030) Urine Protein 2+ H (Negative) Urine Glucose (UA) Negative (Negative) Urine Ketones Trace H (Negative) Urine Blood Trace H (Negative) Urine Nitrite Positive A (Negative) Urine Bilirubin Negative (Negative) Urine Urobilinogen Negative (Negative) Ur Leukocyte Esterase Negative (Negative) Urine WBC (Auto) 10-30 H (0-5) /hpf Urine RBC (Auto) 5-10 H (0-4) /hpf U Hyaline Cast (Auto) 1-5 (0-5) /lpf U Epithel Cells (Auto) 5-10 H (0-5) /lpf Urine Bacteria (Auto) Negative (Negative) Urine Mucus Present A (None Prsent) Urine Yeast Not Reportable Phenytoin (10-20) mcg/ml Imaging Data Radiologist's Impression: Radiology results as stated below per my review and the radiologist's interpretation: TWO VIEW CHEST CLINICAL HISTORY: Syncope. FINDINGS: AP and lateral chest radiographs are compared to study dated 05/23/2017. The AP view is degraded by patient rotation. The patient is status post midline sternotomy. The heart is markedly enlarged and there is atherosclerotic calcification of the thoracic aorta. The pulmonary vasculature is noncongested. Chronic interstitial thickening is similar to previous. There is bibasilar scarring/atelectasis. No airspace consolidation or pleural effusion is identified. There is no pneumothorax. The skeletal structures are osteopenic. Degenerative change is noted in the shoulders and thoracic spine. IMPRESSION: Cardiomegaly with no acute cardiopulmonary abnormality. Electronically signed by: Thomas Lee M.D. 12/31/2018 1:24 PM LEFT FEMUR 3 VIEWS CLINICAL HISTORY: Left leg pain. FINDINGS: AP, frog-leg, and crosstable lateral views of the left femur are obtained. No prior studies are available for comparison at the time of dictation. The skeletal structures are osteopenic. There is no radiographic evidence of left femoral fracture. Mild degenerative joint space narrowing seen in the left hip. The left knee joint is grossly maintained. The visualized left hemipelvis appears intact. The overlying soft tissues are normal in appearance. Atherosclerotic calcification is noted in the popliteal artery. Surgical clips are seen posterior to the knee. IMPRESSION: Osteopenia with no radiographic evidence of left femoral fracture. Electronically signed by: Thomas Lee M.D. 12/31/2018 1:19 PM ECG Data Attestation: I personally reviewed and interpreted this ECG as follows: Indication: syncope Rate (beats per minute): 54 Rhythm: sinus bradycardia Findings: + PVC (no heart block ); no ST elevation Blood Pressure Blood Pressure Findings: Low blood pressure Blood Pressure Disposition: Referred to patients primary care provider [facility] Narrative I did evaluate the patient as noted above. I did obtain history from the patien t as well as EMS who brought him in apparently had a 5-second LOC with a pressure of 70s systolic. He denies having any chest pain or shortness of breath. His only symptoms are lightheadedness prior to passing out. Currently he has no complaints. His heart rate is in the 50s but his blood pressure is stable. he patient was placed on a continuous cardiac cath lab manager. I did order and personally review the patient's 12-lead EKG as described above. He has sinus bradycardia with PVCs. No evidence of heart block or acute ischemia. I did order and personally reviewed the images of the patient's chest x-ray as described above. There is cardiomegaly but otherwise it is unremarkable. I did order a urine analysis. I did order and review the patient's blood work as noted in the electronic medical record. He is mildly anemic. INR is 4.1. Calcium is 8.2. I did order an x-ray of the femur. I did review the images myself as well as the radiology report as described above. There is no fracture dislocation. I did reassess the patient. His heart rate is in the 60s and his blood pressure remained stable. I did recommend hospitalization for further care and evaluation. I did discuss the case with hospitalist and case resolution specialist. Impression & Plan Syncope, Hypotension, Bradycardia, Injury of left leg, Anemia, Hypocalcemia, Supratherapeutic INR Discharge Plan Visit Data *Final* Discharge Date/Time: 12/31/18 15:33 Chief Complaint: Syncope Stated Complaint: syncope ED Provider: Milton Luis Discharge Problem: Syncope, Hypotension, Bradycardia, Injury of left leg, Anemia, Hypocalcemia, Supratherapeutic INR Patient Disposition: Admitted As Inpatient Discharge Instructions Interventions: ED Discharge Assessment Last Done: 12/31/18 15:33 The scribe's documentation has been prepared under my direction and personally reviewed by me in its entirety. I confirm that the note above accurately reflects all work, treatment, procedures, and medical decision making performed by me.
[2018-12-31] MEDS: ATORVASTATIN 40 MG TAB PO SCH (20:46)
[2018-12-31] MEDS: FOLIC ACID 1 MG TAB PO SCH (20:46)
[2018-12-31] MEDS: PHENYTOIN SODIUM ER 100 MG CAP PO SCH (20:46)
[2018-12-31] MEDS: LISINOPRIL 5 MG TAB PO SCH (20:47)
[2018-12-31] MEDS ORDERED: HEPARIN SOD 5,000 UNIT/0.5 ML VIAL SQ SCH (21:00)
[2019-01-01 07:06] LABS: Basophils # (auto) 0.02 K/uL (0-0.2); Basophils % (auto) 0.2 %; Eosinophils # (auto) 0.07 K/uL (0-0.5); Eosinophils % (auto) 0.8 %; Hematocrit (blood only) 32.8 % (42-52); Hemoglobin 10.7 g/dL (14.0-18.0); Immature Granulocytes # (auto) 0.01 K/uL (0.00-0.02); Immature Granulocytes % (auto) 0.1 %; Lymphocytes % (auto) 13.8 %; Mean Corpuscular Hgb Conc 32.6 g/dL (32-36); Mean Corpuscular Volume 93.2 fL (80-100); Mean Platelet Volume 10.4 fL (7.4-10.4); Monocytes # (auto) 0.87 K/uL (0.11-0.59); Neutrophils % (auto) 75.1 %; Platelet Count 181 K/uL (130-400); RDW Coefficient of Variation 13.8 % (11.5-14.5); RDW Standard Deviation 47.4 fL (36.4-46.3); Red Blood Count 3.52 M/uL (4.7-6.1); White Blood Count 8.67 K/uL (4.8-10.8)
[2019-01-01 07:25] LABS: INR 4.5 (0.9-1.1)
[2019-01-01 07:40] LABS: BUN Creatinine Ratio 19.4 (10-20); Calcium 7.8 mg/dl (8.5-10.1); Creatinine Clr Calc Pharmacy 67.6 ml/min; Est GFR (African American) 94.5; Est GFR (Non-African American) 81.5; Magnesium 1.8 mg/dl (1.8-2.4); Potassium 4.2 mmol/L (3.5-5.1)
[2019-01-01] MEDS: SODIUM CHLORIDE 0.9% 1000ML 1,000 ML IV SCH (07:52)
[2019-01-01] MEDS: CYANOCOBALAMIN 500 MCG TABLET (VITAMIN B-12) PO SCH (07:53)
[2019-01-01] MEDS: ASPIRIN 81 MG ECTAB PO SCH (07:53)
[2019-01-01] MEDS: OMEGA-3 (PURIFIED FISH OIL) 1 GM CAP PO SCH (07:53)
[2019-01-01] MEDS: FERROUS SULFATE 325 MG TAB PO SCH (07:53)
[2019-01-01] MEDS: FOLIC ACID 1 MG TAB PO SCH ×2 (07:54→21:25)
[2019-01-01] MEDS: ASCORBIC ACID 500 MG TAB PO SCH (07:54)
[2019-01-01] MEDS: FINASTERIDE 5 MG TAB PO SCH (07:54)
[2019-01-01] MEDS: LISINOPRIL 5 MG TAB PO SCH ×2 (07:54→21:26)
--- NOTE | 2019-01-01 10:41 | Ultrasound Report ---
US extremity nonvascular CLINICAL HISTORY: 78 years-old Male presenting with Hematoma left thigh. TECHNIQUE: Real-time grayscale ultrasound imaging of the left thigh was performed for a focused evalu ation at the site of clinical concern. Color Doppler ultrasound imaging was also performed. COMPARISON: Correlation made to plain radiographs performed the previous day. FINDINGS: Along the proximal anterior left thigh at the site of clinical interest, a complex collection measuri ng 9.3 x 6.9 x 3.3 cm is evident within the musculature most consistent with intramuscular hematoma. This is avascular on color Doppler. IMPRESSION: 1. 9.3 cm intramuscular hematoma along the anterior left thigh. Electronically signed by: Umang Stewart M.D. 01/01/2019 10:39 AM
[2019-01-01] MEDS ORDERED: PHYTONADIONE 5 MG TAB PO STA (11:35)
--- NOTE | 2019-01-01 11:51 | Hospitalist Progress Note ---
Date of Service January 01, 2019 Assessment & Plan (1) Postural dizziness with near syncope: Blurred vision with dizziness happening by eating on the ground without any loss of consciousness Blood pressure was noted to be low at presentation Condition seems to be secondary to dehydration and could be cardiac arrhythmias Doubt any seizure and/or neurological events No signs or symptoms of infection Will admit to telemetry unit for observation Intravenous fluid with normal saline and Clinically improving in the emergency room with improvement in blood pressure No significant arrhythmia and monitor No ACS as per serial cardiac enzymes and EKG Awaiting echocardiogram (2) Seizure disorder: History of seizure disorder We will continue Dilantin Dilantin level is minimally low (3) Hematoma and contusion: Has had an injury involving the left thigh one day before admission Noted to be soft on examination yesterday in the emergency room Complains of more pain and very firm with tenderness involving the hematoma area of left lateral thigh Ultrasound did show a 9.3 x 6.9 x 3.3 cm hematoma involving the proximal left anterior thigh Will consult orthopedic surgeon for further evaluation and management Hemoglobin is minimally dropped Will give vitamin K 5 mg p.o. as INR is more than 4 Coumadin is on hold (4) CAD (coronary artery disease): History of CAD status post CABG x4 Also history of aortic insufficiency Will get echocardiogram to evaluate cardiac function Initial troponin is negative will get serial troponins to rule out any ACS Echocardiogram to evaluate valvular heart disease We will monitor in telemetry (5) S/P CABG x 4: (6) Aortic valve insufficiency: (7) HTN (hypertension): Has been on blood pressure medications We will hold blood pressure for now We will hold beta-gabo Blood pressure has been improving with intravenous fluid DVT prophylaxis Has been on Coumadin INR is 1.9 Continue Coumadin Cortistat Full Discussed with family members. and daughters Subjective 01/01 The patient was seen and examined in the telemetry unit He complains to have pain and swelling of left thigh Did not have any more dizziness and/or syncopal episode Denies any chest pain and/or shortness of breath, any abdominal pain and no nausea or vomiting No l neurological signs and/or symptoms Review of Systems Review of Systems: All systems reviewed and are unremarkable except as noted below Musculoskeletal: Left lateral thigh hematoma, forearm 1 palpation and mildly tender. No bruising Physical Exam Physical Exam: No apparent distress at rest Constitutional: well developed and well nourished; no acute distress Eyes: PERRL, conjunctivae normal, anicteric sclerae ENMT: external ear and nose normal, oropharynx normal Neck: trachea midline, no thyromegaly Respiratory: normal respiratory effort Cardiovascular: Rate/Rhythm: regular rate and regular rhythm Heart Sounds: + murmur (2/6 precordial ejection systolic murmur) Extremities: + edema (Trace edema bilaterally) Gastrointestinal (Abdomen): Inspection/Auscultation: abdomen normal to inspection and normal bowel sounds Percussion/Palpation: abdomen soft Musculoskeletal: Left lateral thigh hematoma. Forearm to palpate with tenderness. No local bruising Neurologic: patellar DTR's 2+ bilat, sensation intact moves all extremities Lymphatic: no cervical or axillary lymphadenopathy Results & Data Vital Signs (Past 12 Hours) Vital Signs Temp Pulse Pulse Resp BP Pulse Ox 01/01/19 11:10 36.5 C 68 18 150/77 H 94 01/01/19 09:00 61 01/01/19 07:51 36.0 C L 80 20 141/82 H 96 01/01/19 03:52 36.7 C 71 18 138/65 94 Laboratory Results Short CBC 12/31/18 01/01/19 Range/Units 12:44 06:41 WBC 10.76 8.67 (4.8-10.8) K/uL Hgb 11.5 L 10.7 L (14.0-18.0) g/dL Hct 35.7 L 32.8 L (42-52) % Plt Count 205 181 (130-400) K/uL BMP 12/31/18 01/01/19 12:44 06:41 Sodium 139 141 Potassium 4.6 4.2 Chloride 108 H 112 H Carbon Dioxide 26 24 BUN 25 H 17 Creatinine 1.22 0.90 D Glucose 137 H 93 Calcium 8.2 L 7.8 L Cardiac Enzymes 12/31/18 12/31/18 Range/Units 12:44 18:32 Troponin I 0.016 0.017 (0-0.045) ng/ml Liver Function 12/31/18 Range/Units 12:44 Total Bilirubin 0.4 (0.2-1) mg/dl AST 22 (15-37) U/L ALT 25 (12-78) U/L Alkaline Phosphatase 126 H (45-117) U/L Albumin 2.9 L (3.4-5.0) gm/dl Urine 12/31/18 Range/Units 14:00 Urine Color Dark Yellow Urine Appearance Clear (Clear) Urine pH 6.0 (4.5-7.5) Ur Specific [place] 1.022 (1.000-1.030) Urine Protein 2+ H (Negative) Urine Glucose (UA) Negative (Negative) Medications Administered Current Inpatient Medications Ascorbic Acid (Vitamin C) 500 mg PO QAM [facility] Stop: 01/30/19 15:43 Last Admin: 01/01/19 07:54 Dose: 500 mg Documented by: Aspirin (Ecotrin Ectab) 81 mg PO QAM [facility] Stop: 01/31/19 08:59 Last Admin: 01/01/19 07:53 Dose: 81 mg Documented by: Atorvastatin Calcium (Lipitor) 40 mg PO QPM [facility] Stop: 01/30/19 20:59 Last Admin: 12/31/18 20:46 Dose: 40 mg Documented by: Cyanocobalamin (Vitamin B-12) 1,000 mcg PO QAM [facility] Stop: 01/31/19 08:59 Last Admin: 01/01/19 07:53 Dose: 1,000 mcg Documented by: Ferrous Sulfate (Feosol) 325 mg PO QAM [facility] Stop: 01/31/19 08:59 Last Admin: 01/01/19 07:53 Dose: 325 mg Documented by: Finasteride (Proscar) 5 mg PO QAM [facility] Stop: 01/30/19 15:43 Last Admin: 01/01/19 07:54 Dose: 5 mg Documented by: Fish Oil ([place]-3 (Purified Fish Oil)) 1 gm PO QAM [facility] Stop: 01/31/19 08:59 Last Admin: 01/01/19 07:53 Dose: 1 gm Documented by: Folic Acid (Folvite) 1 mg PO BID [facility] Stop: 01/30/19 20:59 Last Admin: 01/01/19 07:54 Dose: 1 mg Documented by: Sodium Chloride (Nss 1000ml) 1,000 mls @ 125 mls/hr IV .Q8H [facility] Stop: 01/01/19 14:44 Last Admin: 01/01/19 07:52 Dose: 125 mls/hr Documented by: Lisinopril (Zestril) 5 mg PO BID [facility] Stop: 01/30/19 20:59 Last Admin: 01/01/19 07:54 Dose: 5 mg Documented by: Nitroglycerin (Nitrostat) 0.4 mg SL UD PRN PRN Reason: Chest Pain Stop: 01/30/19 15:43 Phenytoin Sodium (Dilantin Er) 300 mg PO [facility] Stop: 01/30/19 20:59 Last Admin: 12/31/18 20:46 Dose: 300 mg Documented by: Warfarin Sodium (Coumadin) 1.25 mg PO [id number]@1600 [facility] Stop: 01/31/19 15:59 Warfarin Sodium (Coumadin) 2.5 mg PO [id number] [facility] Stop: 01/31/19 15:59
[2019-01-01 18:24] LABS: Hematocrit (blood only) 33.5 % (42-52); Hemoglobin 10.8 g/dL (14.0-18.0)
--- NOTE | 2019-01-01 19:14 | Consultation Report ---
DATE OF CONSULTATION: 01/01/2019 HISTORY OF PRESENT ILLNESS: This is a 78-year-old gentleman seen at the request of Dr. Rodriguez regarding a left thigh hematoma and contusion. Apparently, the patient was splitting wood and one of the pieces of wood broke and struck him in the left proximal thigh. He had pain and swelling. He had an episode of near syncope and confusion. He was brought to the Emergency Department, stabilized and admitted to the hospital and an orthopedic consultation request was made at that time. 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 He had no recent issues with his thigh. He has had multiple injuries related to minor injuries that had become more of a serious event due to his Coumadin. He says he has been peeing blood for years. PAST MEDICAL HISTORY: Arteriosclerotic vascular disease, aortic valve insufficiency, benign prostatic hyperplasia, coronary artery disease, cerebrovascular accident, cellulitis of the leg, DVT, dyslipidemia, nonmelanoma skin cancer, sinus bradycardia, hypertension, hematoma of leg, malignant neoplasm of kidney, overactive bladder, seizure disorder, spinal stenosis. PAST SURGICAL HISTORY: Nephrectomy, colonoscopy, CABG x4, inguinal hernia repair. ALLERGIES: No known drug allergies. MEDICATIONS: Please note the medications listed in the medical record. SOCIAL HISTORY: He is and lives with his spouse. He is retired. He has a history of tobacco use, denies smokeless tobacco. He stopped smoking in 1970. Denies significant alcohol use. Denies drug use. PHYSICAL EXAMINATION: This is a 78-year-old gentleman who is lying supine in his hospital room bed with his sitting at bedside. He is alert and oriented x3. Speech clear and fluent. Affect is appropriate. He gave a reasonable recounting of his history regarding his thigh. Examination of the thigh demonstrates skin warm, dry and intact. Cap refill less than 2 seconds. Dorsalis pedis and posterior tibial pulses are palpable bilaterally. Feet are warm. He has a large hematoma in the proximal medial thigh in the left lower extremity. He has a contusion, ecchymosis and bruising around the thigh. It is relatively soft. There is no firmness to the compartment; however, there is fullness noted consistent with a hematoma. Upon admission, white count 10.76, hemoglobin 11.5, hematocrit 35.7, platelets 205. PT is 38.1 and INR 4.1. Radiographs demonstrate no evidence of fracture. Ultrasound of the left thigh on 01/01/2019 at 09:09 demonstrates a complex collection measuring 9.3 x 6.9 x 3.3 cm within the medial thigh consistent with intramuscular hematoma. IMPRESSION: 1. Left thigh hematoma. 2. Contusion, left thigh. RECOMMENDATIONS: Continue monitoring, supportive care with alternating heat and icepack as preferred by the patient. Limited weightbearing. Encourage range of motion. Weightbearing with assistance of a walker and electrical assistant x1. Continue to monitor with repeat ultrasound of the left thigh tomorrow on 01/02/2019. We will follow with you. Nonoperative management at this time. Thank you for the opportunity to consult in the care of this patient.
[2019-01-01] MEDS: ATORVASTATIN 40 MG TAB PO SCH (21:25)
[2019-01-01] MEDS: PHENYTOIN SODIUM ER 100 MG CAP PO SCH (21:26)
[2019-01-01] MEDS ORDERED: ACETAMINOPHEN 325 MG TAB PO PRN (21:35)
[2019-01-02 06:53] LABS: Basophils # (auto) 0.03 K/uL (0-0.2); Basophils % (auto) 0.3 %; Eosinophils # (auto) 0.16 K/uL (0-0.5); Eosinophils % (auto) 1.6 %; Hematocrit (blood only) 31.5 % (42-52); Hemoglobin 10.2 g/dL (14.0-18.0); Immature Granulocytes # (auto) 0.02 K/uL (0.00-0.02); Immature Granulocytes % (auto) 0.2 %; Lymphocytes # (auto) 1.16 K/uL (1.2-3.4); Lymphocytes % (auto) 11.5 %; Mean Corpuscular Hgb Conc 32.4 g/dL (32-36); Mean Corpuscular Volume 92.6 fL (80-100); Mean Platelet Volume 10.7 fL (7.4-10.4); Monocytes # (auto) 1.04 K/uL (0.11-0.59); Monocytes % (auto) 10.3 %; Neutrophils % (auto) 76.1 %; Platelet Count 181 K/uL (130-400); RDW Coefficient of Variation 13.8 % (11.5-14.5); RDW Standard Deviation 47.4 fL (36.4-46.3); White Blood Count 10.11 K/uL (4.8-10.8)
[2019-01-02 07:19] LABS: BUN Creatinine Ratio 20.9 (10-20); Calcium 7.9 mg/dl (8.5-10.1); Creatinine Clr Calc Pharmacy 72.5 ml/min; Est GFR (African American) 97.2; Est GFR (Non-African American) 83.9; Magnesium 1.6 mg/dl (1.8-2.4); Potassium 4.2 mmol/L (3.5-5.1)
[2019-01-02 08:00] LABS: INR 1.5 (0.9-1.1); Prothrombin Time 14.5 Seconds (9.0-12.0)
[2019-01-02] MEDS: FERROUS SULFATE 325 MG TAB PO SCH (08:45)
[2019-01-02] MEDS: ASCORBIC ACID 500 MG TAB PO SCH (08:45)
[2019-01-02] MEDS: FOLIC ACID 1 MG TAB PO SCH ×2 (08:45→20:39)
[2019-01-02] MEDS: OMEGA-3 (PURIFIED FISH OIL) 1 GM CAP PO SCH (08:45)
[2019-01-02] MEDS: CYANOCOBALAMIN 500 MCG TABLET (VITAMIN B-12) PO SCH (08:45)
[2019-01-02] MEDS: FINASTERIDE 5 MG TAB PO SCH (08:45)
[2019-01-02] MEDS: LISINOPRIL 5 MG TAB PO SCH ×2 (08:45→20:40)
[2019-01-02] MEDS: ASPIRIN 81 MG ECTAB PO SCH (08:46)
--- NOTE | 2019-01-02 14:42 | Hospitalist Progress Note ---
Date of Service January 02, 2019 Assessment & Plan (1) Postural dizziness with near syncope: Blurred vision with dizziness happening by eating on the ground without any loss of consciousness Blood pressure was noted to be low at presentation Condition seems to be secondary to dehydration and could be cardiac arrhythmias Doubt any seizure and/or neurological events No signs or symptoms of infection Will admit to telemetry unit for observation Intravenous fluid with normal saline and Clinically improving in the emergency room with improvement in blood pressure No significant arrhythmia and monitor No ACS as per serial cardiac enzymes and EKG Echo: Mild concentric LVH, EF 60 to 65%, RV systolic function is normal, left atrium and right atrium are mildly dilated, moderate aortic regurgitation and mild to moderate pulmonic valve regurgitation No more symptoms of dizziness (2) Seizure disorder: History of seizure disorder We will continue Dilantin Dilantin level is minimally low (3) Hematoma and contusion: Has had an injury involving the left thigh one day before admission Noted to be soft on examination yesterday in the emergency room Complains of more pain and very firm with tenderness involving the hematoma area of left lateral thigh Ultrasound did show a 9.3 x 6.9 x 3.3 cm hematoma involving the proximal left anterior thigh Will consult orthopedic surgeon for further evaluation and management Hemoglobin is minimally dropped Will give vitamin K 5 mg p.o. as INR is more than 4 Coumadin is on hold-INR is 1.4 today that is 01/02 Awaiting repeat ultrasound as per Ortho (4) CAD (coronary artery disease): History of CAD status post CABG x4 Also history of aortic insufficiency Will get echocardiogram to evaluate cardiac function Initial troponin is negative will get serial troponins to rule out any ACS Echocardiogram to evaluate valvular heart disease We will monitor in telemetry-no arrhythmias noted (5) S/P CABG x 4: (6) Aortic valve insufficiency: (7) HTN (hypertension): Has been on blood pressure medications We will hold blood pressure for now We will hold beta-gabo Blood pressure has been improving with intravenous fluid DVT prophylaxis Has been on Coumadin INR is 1.9 Coumadin is on hold. Received vitamin K yesterday for possible i & D Cortistat Full Discussed with family members. and daughters Subjective 01/01 The patient was seen and examined in the telemetry unit He complains to have pain and swelling of left thigh Did not have any more dizziness and/or syncopal episode Denies any chest pain and/or shortness of breath, any abdominal pain and no nausea or vomiting No l neurological signs and/or symptoms 01/02 Patient was seen and examined in telemetry unit Denies any more dizziness and no syncope The winter is not showing any arrhythmias Still complains of left thigh swelling and pain Review of Systems Review of Systems: All systems reviewed and are unremarkable except as noted below Musculoskeletal: Left lateral thigh hematoma, forearm 1 palpation and mildly tender. No bruising Physical Exam Physical Exam: No apparent distress at rest-minimal pain left thigh Constitutional: well developed and well nourished; no acute distress Eyes: PERRL, conjunctivae normal, anicteric sclerae ENMT: external ear and nose normal, oropharynx normal Neck: trachea midline, no thyromegaly Respiratory: normal respiratory effort Cardiovascular: Rate/Rhythm: regular rate and regular rhythm Heart Sounds: + murmur (2/6 precordial ejection systolic murmur) Extremities: + edema (Trace edema bilaterally) Gastrointestinal (Abdomen): Inspection/Auscultation: abdomen normal to inspection and normal bowel sounds Percussion/Palpation: abdomen soft Musculoskeletal: Difficult ambulation due to left thigh hematoma Neurologic: patellar DTR's 2+ bilat, sensation intact moves all extremities Lymphatic: no cervical or axillary lymphadenopathy Results & Data Vital Signs (Past 12 Hours) Vital Signs Temp Pulse Pulse Pulse Resp BP BP 01/02/19 11:01 36.5 C 63 22 142/84 H 01/02/19 08:31 70 01/02/19 07:09 36.6 C 66 18 142/75 H 01/02/19 04:27 36.4 C L 70 16 156/71 H Pulse Ox 01/02/19 11:01 96 01/02/19 08:31 01/02/19 07:09 96 01/02/19 04:27 95 Laboratory Results Short CBC 01/01/19 01/02/19 Range/Units 18:04 06:08 WBC 10.11 (4.8-10.8) K/uL Hgb 10.8 L 10.2 L (14.0-18.0) g/dL Hct 33.5 L 31.5 L (42-52) % Plt Count 181 (130-400) K/uL BMP 01/02/19 06:08 Sodium 140 Potassium 4.2 Chloride 109 H Carbon Dioxide 26 BUN 18 Creatinine 0.84 Glucose 95 Calcium 7.9 L Diagnostic Findings Current Inpatient Medications Acetaminophen (Tylenol) 650 mg PO Q4H PRN PRN Reason: Pain Stop: 01/31/19 21:34 Last Admin: 01/01/19 21:59 Dose: 650 mg Documented by: Ascorbic Acid (Vitamin C) 500 mg PO QAM [facility] Stop: 01/30/19 15:43 Last Admin: 01/02/19 08:45 Dose: 500 mg Documented by: Aspirin (Ecotrin Ectab) 81 mg PO QAM [facility] Stop: 01/31/19 08:59 Last Admin: 01/02/19 08:46 Dose: 81 mg Documented by: Atorvastatin Calcium (Lipitor) 40 mg PO QPM [facility] Stop: 01/30/19 20:59 Last Admin: 01/01/19 21:25 Dose: 40 mg Documented by: Cyanocobalamin (Vitamin B-12) 1,000 mcg PO QAM [facility] Stop: 01/31/19 08:59 Last Admin: 01/02/19 08:45 Dose: 1,000 mcg Documented by: Ferrous Sulfate (Feosol) 325 mg PO QAM [facility] Stop: 01/31/19 08:59 Last Admin: 01/02/19 08:45 Dose: 325 mg Documented by: Finasteride (Proscar) 5 mg PO QAM [facility] Stop: 01/30/19 15:43 Last Admin: 01/02/19 08:45 Dose: 5 mg Documented by: Fish Oil ([place]-3 (Purified Fish Oil)) 1 gm PO QAM [facility] Stop: 01/31/19 08:59 Last Admin: 01/02/19 08:45 Dose: 1 gm Documented by: Folic Acid (Folvite) 1 mg PO BID [facility] Stop: 01/30/19 20:59 Last Admin: 01/02/19 08:45 Dose: 1 mg Documented by: Lisinopril (Zestril) 5 mg PO BID [facility] Stop: 01/30/19 20:59 Last Admin: 01/02/19 08:45 Dose: 5 mg Documented by: Nitroglycerin (Nitrostat) 0.4 mg SL UD PRN PRN Reason: Chest Pain Stop: 01/30/19 15:43 Phenytoin Sodium (Dilantin Er) 300 mg PO HS [facility] Stop: 01/30/19 20:59 Last Admin: 01/01/19 21:26 Dose: 300 mg Documented by: Warfarin Sodium (Coumadin) 1.25 mg PO [id number]@1600 [facility] Stop: 01/31/19 15:59 Warfarin Sodium (Coumadin) 2.5 mg PO [id number]@1600 [facility] Stop: 01/31/19 15:59
[2019-01-02] MEDS: WARFARIN SOD 2.5 MG TAB PO SCH (16:36)
[2019-01-02] MEDS: WARFARIN SOD 1.25 MG TAB PO SCH (16:36)
[2019-01-02] MEDS: PHENYTOIN SODIUM ER 100 MG CAP PO SCH (20:39)
[2019-01-02] MEDS: ATORVASTATIN 40 MG TAB PO SCH (20:39)
[2019-01-03 06:40] LABS: Basophils # (auto) 0.02 K/uL (0-0.2); Basophils % (auto) 0.2 %; Eosinophils # (auto) 0.21 K/uL (0-0.5); Eosinophils % (auto) 2.5 %; Hematocrit (blood only) 31.3 % (42-52); Hemoglobin 10.1 g/dL (14.0-18.0); Immature Granulocytes # (auto) 0.02 K/uL (0.00-0.02); Immature Granulocytes % (auto) 0.2 %; Lymphocytes # (auto) 1.12 K/uL (1.2-3.4); Lymphocytes % (auto) 13.5 %; Mean Corpuscular Hgb Conc 32.3 g/dL (32-36); Mean Corpuscular Volume 93.2 fL (80-100); Mean Platelet Volume 10.1 fL (7.4-10.4); Monocytes # (auto) 0.75 K/uL (0.11-0.59); Monocytes % (auto) 9.1 %; Neutrophils # (auto) 6.16 K/uL (1.4-6.5); Neutrophils % (auto) 74.5 %; Platelet Count 181 K/uL (130-400); RDW Coefficient of Variation 13.8 % (11.5-14.5); RDW Standard Deviation 46.9 fL (36.4-46.3); Red Blood Count 3.36 M/uL (4.7-6.1); White Blood Count 8.28 K/uL (4.8-10.8)
[2019-01-03 06:47] LABS: INR 1.1 (0.9-1.1); Prothrombin Time 11.6 Seconds (9.0-12.0)
[2019-01-03 07:10] LABS: Creatinine Clr Calc Pharmacy 77.1 ml/min; Est GFR (African American) 99.7; Magnesium 1.6 mg/dl (1.8-2.4); Potassium 4.2 mmol/L (3.5-5.1)
--- NOTE | 2019-01-03 08:18 | Hospitalist Progress Note ---
Date of Service January 03, 2019 Assessment & Plan (1) Postural dizziness with near syncope: Blurred vision with dizziness happening by eating on the ground without any loss of consciousness Blood pressure was noted to be low at presentation Condition seems to be secondary to dehydration and could be cardiac arrhythmias Doubt any seizure and/or neurological events No signs or symptoms of infection Will admit to telemetry unit for observation Intravenous fluid with normal saline and Clinically improving in the emergency room with improvement in blood pressure No significant arrhythmia and monitor No ACS as per serial cardiac enzymes and EKG Echo: Mild concentric LVH, EF 60 to 65%, RV systolic function is normal, left atrium and right atrium are mildly dilated, moderate aortic regurgitation and mild to moderate pulmonic valve regurgitation No more symptoms of dizziness Will need to have outpatient ZIO Patch on discharge (2) Seizure disorder: History of seizure disorder We will continue Dilantin Dilantin level is minimally low (3) Hematoma and contusion: Has had an injury involving the left thigh one day before admission Noted to be soft on examination yesterday in the emergency room Complains of more pain and very firm with tenderness involving the hematoma area of left lateral thigh Ultrasound did show a 9.3 x 6.9 x 3.3 cm hematoma involving the proximal left anterior thigh Will consult orthopedic surgeon for further evaluation and management Hemoglobin is minimally dropped Will give vitamin K 5 mg p.o. as INR is more than 4 Coumadin is on hold-INR is 1.4 today that is 01/02 Awaiting repeat ultrasound as per Ortho Repeat ultrasound did show improvement of hematoma Ortho advised to have limited weight on left lower extremity Will transfer to medical floor and continue physical therapy (4) CAD (coronary artery disease): History of CAD status post CABG x4 Also history of aortic insufficiency Will get echocardiogram to evaluate cardiac function Initial troponin is negative will get serial troponins to rule out any ACS Echocardiogram to evaluate valvular heart disease We will monitor in telemetry-no arrhythmias noted (5) S/P CABG x 4: (6) Aortic valve insufficiency: (7) HTN (hypertension): Has been on blood pressure medications We will hold blood pressure for now We will hold beta-gabo Blood pressure has been improving with intravenous fluid DVT prophylaxis Has been on Coumadin INR is 1.9 Coumadin is on hold. Received vitamin K yesterday for possible i & D Cortistat Full Discussed with family members. and daughters (8) Acute kidney failure: Subjective 01/01 The patient was seen and examined in the telemetry unit He complains to have pain and swelling of left thigh Did not have any more dizziness and/or syncopal episode Denies any chest pain and/or shortness of breath, any abdominal pain and no nausea or vomiting No l neurological signs and/or symptoms 01/02 Patient was seen and examined in telemetry unit Denies any more dizziness and no syncope The winter is not showing any arrhythmias Still complains of left thigh swelling and pain 01/03 Patient was seen and examined in telemetry unit He has been complaining of pain in the left thigh which is a little bit better today Not yet ready to be a full weight on it Did not have any arrhythmias and/or syncope Review of Systems Review of Systems: All systems reviewed and are unremarkable except as noted below Musculoskeletal: Left lateral thigh hematoma, forearm 1 palpation and mildly tender. No bruising Physical Exam Physical Exam: No apparent distress at rest Constitutional: well developed and well nourished; no acute distress Eyes: PERRL, conjunctivae normal, anicteric sclerae ENMT: external ear and nose normal, oropharynx normal Neck: trachea midline, no thyromegaly Respiratory: normal respiratory effort Cardiovascular: Rate/Rhythm: regular rate and regular rhythm Heart Sounds: + murmur (2/6 precordial ejection systolic murmur) Extremities: + edema (Trace edema bilaterally) Gastrointestinal (Abdomen): Inspection/Auscultation: abdomen normal to inspection and normal bowel sounds Percussion/Palpation: abdomen soft Musculoskeletal: Swelling of the left thigh anterolaterally with tender to palpate Neurologic: patellar DTR's 2+ bilat, sensation intact moves all extremities Lymphatic: no cervical or axillary lymphadenopathy Results & Data Vital Signs (Past 12 Hours) Vital Signs Temp Pulse Pulse Pulse Resp BP Pulse Ox 01/03/19 07:14 36.4 C L 77 17 176/82 H 97 01/03/19 04:14 36.5 C 68 16 135/70 96 01/03/19 00:09 75 01/03/19 00:00 37.0 C 73 18 147/79 H 97 Laboratory Results Short CBC 01/03/19 Range/Units 06:26 WBC 8.28 (4.8-10.8) K/uL Hgb 10.1 L (14.0-18.0) g/dL Hct 31.3 L (42-52) % Plt Count 181 (130-400) K/uL BMP 01/03/19 06:26 Sodium 138 Potassium 4.2 Chloride 106 Carbon Dioxide 26 BUN 15 Creatinine 0.79 Glucose 89 Calcium 8.0 L Medications Administered Current Inpatient Medications Acetaminophen (Tylenol) 650 mg PO Q4H PRN PRN Reason: Pain Stop: 01/31/19 21:34 Last Admin: 01/01/19 21:59 Dose: 650 mg Documented by: Ascorbic Acid (Vitamin C) [facility] [place] Stop: 01/30/19 15:43 Last Admin: 01/03/19 09:20 Dose: 500 mg Documented by: Aspirin (Ecotrin Ectab) 81 [facility] [place] Stop: 01/31/19 08:59 Last Admin: 01/03/19 09:21 Dose: 81 mg Documented by: Atorvastatin Calcium (Lipitor) 40 mg PO QPM [facility] Stop: 01/30/19 20:59 Last Admin: 01/02/19 20:39 Dose: 40 mg Documented by: Cyanocobalamin (Vitamin B-12) 1,000 mcg [facility] [place] Stop: 01/31/19 08:59 Last Admin: 01/03/19 09:21 Dose: 1,000 mcg Documented by: Ferrous Sulfate (Feosol) 325 [facility] [place] Stop: 01/31/19 08:59 Last Admin: 01/03/19 09:19 Dose: 325 mg Documented by: Finasteride (Proscar) 5 [facility] [place] Stop: 01/30/19 15:43 Last Admin: 01/03/19 09:21 Dose: 5 mg Documented by: Fish Oil ([place]-3 (Purified Fish Oil)) 1 gm [facility] [place] Stop: 01/31/19 08:59 Last Admin: 01/03/19 09:20 Dose: 1 gm Documented by: Folic Acid (Folvite) 1 mg PO BID [facility] Stop: 01/30/19 20:59 Last Admin: 01/03/19 09:20 Dose: 1 mg Documented by: Lisinopril (Zestril) 5 mg PO BID [facility] Stop: 01/30/19 20:59 Last Admin: 01/03/19 09:19 Dose: 5 mg Documented by: Nitroglycerin (Nitrostat) 0.4 mg SL UD PRN PRN Reason: Chest Pain Stop: 01/30/19 15:43 Phenytoin Sodium (Dilantin Er) 300 mg PO [facility] Stop: 01/30/19 20:59 Last Admin: 01/02/19 20:39 Dose: 300 mg Documented by: Warfarin Sodium (Coumadin) 1.25 mg PO [id number] [facility] Stop: 01/31/19 15:59 Last Admin: 01/02/19 16:36 Dose: 1.25 mg Documented by: Warfarin Sodium (Coumadin) 2.5 mg PO [id number] [facility] Stop: 01/31/19 15:59 Last Admin: 01/02/19 16:36 Dose: 2.5 mg Documented by:
--- NOTE | 2019-01-03 08:40 | Ultrasound Report ---
US extremity nonvascular CLINICAL HISTORY: US left thigh/recheck hematoma size hematoma COMPARISON STUDY: 01/01/2019 FINDINGS: Improved exam. Current complex/hematoma region measures 6 x 3 x 1 cm. This is diminished 50 % from the prior study in terms of overall volume. IMPRESSION: Improving soft tissue hematoma. Current maximum dimensions are 6 x 3 x 1 cm The above report was generated using voice recognition software. It may contain grammatical, syntax or spelling errors. Electronically signed by: Edwin Wang M.D. 01/03/2019 8:38 AM
[2019-01-03] MEDS: LISINOPRIL 5 MG TAB PO SCH ×2 (09:19→19:43)
[2019-01-03] MEDS: FERROUS SULFATE 325 MG TAB PO SCH (09:19)
[2019-01-03] MEDS: OMEGA-3 (PURIFIED FISH OIL) 1 GM CAP PO SCH (09:20)
[2019-01-03] MEDS: ASCORBIC ACID 500 MG TAB PO SCH (09:20)
[2019-01-03] MEDS: FOLIC ACID 1 MG TAB PO SCH ×2 (09:20→19:44)
[2019-01-03] MEDS: CYANOCOBALAMIN 500 MCG TABLET (VITAMIN B-12) PO SCH (09:21)
[2019-01-03] MEDS: ASPIRIN 81 MG ECTAB PO SCH (09:21)
[2019-01-03] MEDS: FINASTERIDE 5 MG TAB PO SCH (09:21)
--- NOTE | 2019-01-03 09:40 | Orthopedic Consultation ---
Date of Consultation January 03, 2019 History of Present Illness Attending Physician: Lalo Rodriguez MD Allergies Allergy/AdvReac Type Severity Reaction Status Date / Time No Known Allergies Allergy Verified 12/31/18 13:22 Home Medications Home Medications Medication Instructions Recorded Confirmed Type aspirin 81 mg tablet,delayed 81 mg PO QAM tab 01/19/18 12/31/18 History release atorvastatin 40 mg tablet 40 mg PO QPM tab 01/19/18 12/31/18 History cyanocobalamin (vit B-12) 1,000 1,000 mcg PO QAM 01/19/18 12/31/18 History mcg tablet ferrous sulfate 325 mg (65 mg 325 mg PO QAM tab 01/19/18 12/31/18 History iron) tablet,delayed release finasteride 5 mg tablet 5 mg PO QAM tab 01/19/18 12/31/18 History folic acid 1 mg tablet 1 mg PO BID 01/19/18 12/31/18 History lisinopril 5 mg tablet 5 mg PO BID tab 01/19/18 12/31/18 History multivitamin tablet 1 tab PO QAM 01/19/18 12/31/18 History omega-3 fatty acids 1,000 mg 1,000 mg PO QAM 01/19/18 12/31/18 History capsule phenytoin sodium extended 100 mg 300 mg PO HS cap 01/19/18 12/31/18 History capsule warfarin 7.5 mg tablet 3.75 mg PO [id number] tab 01/19/18 12/31/18 History warfarin 7.5 mg tablet 7.5 mg PO WK tab 01/19/18 12/31/18 History ascorbic acid (vitamin C) [Vitamin 500 mg PO QAM 12/05/18 12/31/18 History C] nitroglycerin [Nitrostat] 0.4 mg SUBLINGUAL UD PRN 12/05/18 12/31/18 History metoprolol tartrate 12.5 mg PO BID 12/09/18 12/31/18 History Patient History Medical History ASCVD (arteriosclerotic cardiovascular disease) (Chronic) Aortic valve insufficiency (Chronic) BPH (benign prostatic hyperplasia) (Chronic) CAD (coronary artery disease) (Chronic) CVA (cerebral vascular accident) (Chronic) Cellulitis, leg (Chronic) DVT (deep venous thrombosis) (Chronic) Dyslipidemia (Chronic) H/O nonmelanoma skin cancer (Chronic) H/O sinus bradycardia (Chronic) HTN (hypertension) (Chronic) Hematoma of leg (Chronic) Malignant neoplasm of kidney (Chronic) OAB (overactive bladder) (Chronic) S/p nephrectomy (Chronic) Seizure disorder (Chronic) Spinal stenosis (Chronic) Surgical History H/O colonoscopy (Chronic) S/P CABG x 4 (Chronic) S/P inguinal hernia repair (Chronic) Family History Other No significant family history Social History Preferred Language: Greek Communication Ability: Effective Visual Impairment: Limited Hearing Ability: Normal Teleservices Representative Required: No Beliefs That Will Affect Care: Yazidism Yazidism Beliefs: Episcopalian marital status: Current Living Situation: Spouse current occupational status: retired Other Information That Helps Us Care for You: No Feels Safe at Home: Yes Safety Concerns: Feels Safe At This Time Smoking Status: Former smoker Tobacco Type: cigarettes ; Do You Dip or Chew Tobacco: No ; Smoking End Date: 1970 ; Second Hand Exposure: No ; Hx Alcohol Use: No Hx Substance Use: No Childhood Exposure to Second-Hand Smoke: No Review of Systems Review of Systems: All systems reviewed & are unremarkable except as noted in HPI & below Constitutional: + sweats; no malaise and no weakness Results & Data Vital Signs (Past 12 Hours) Vital Signs Temp Pulse Pulse Pulse Resp BP Pulse Ox 01/03/19 07:14 36.4 C L 77 17 176/82 H 97 01/03/19 04:14 36.5 C 68 16 135/70 96 01/03/19 00:09 75 01/03/19 00:00 37.0 C 73 18 147/79 H 97
--- NOTE | 2019-01-03 10:09 | Orthopedic Progress Note ---
Date of Service January 03, 2019 Assessment & Plan (1) Hematoma: repeat US showing improving soft tissue hematoma, no indication for surgery at this time, continue with conservative measures. alternating heat/ice packs, limited WB, ROM as tolerated. Subjective pain and swelling improving, pain currently 2/10, feels he is able to lift his leg now which he couldnt do at time of admission Review of Systems Review of Systems: All systems reviewed & are unremarkable except as noted in HPI & below Constitutional: no fever and no chills Cardiovascular: no chest pain and no dyspnea Gastrointestinal: no nausea and no vomiting Physical Exam Physical Exam: Vital Signs Temp Pulse Pulse Pulse Resp BP BP 01/03/19 07:14 36.4 C L 77 17 176/82 H 01/03/19 04:14 36.5 C 68 16 135/70 01/03/19 00:09 75 01/03/19 00:00 37.0 C 73 18 147/79 H 01/02/19 19:45 36.8 C 68 18 155/71 H 01/02/19 15:59 36.6 C 78 19 148/70 H 01/02/19 15:53 71 01/02/19 11:01 36.5 C 63 22 142/84 H Pulse Ox 01/03/19 07:14 97 01/03/19 04:14 96 01/03/19 00:09 01/03/19 00:00 97 01/02/19 19:45 95 01/02/19 15:59 96 01/02/19 15:53 01/02/19 11:01 96 Intake and Output 01/02/19 01/03/19 01/03/19 22:59 06:59 14:59 Intake Total 1225 / 2160 250 / 2160 Output Total 1750 / 3950 1250 / 3950 Balance -525 / -1790 -1000 / -1790 Intake: Oral 1225 / 2160 250 / 2160 Output: Urine 1750 / 3950 1250 / 3950 Constitutional: WD/WN, vitals as above no acute distress Musculoskeletal: Examination of the thigh demonstrates skin warm, dry and intact. Cap refill less than 2 seconds. DP +2, there is a palpable hematoma in the proximal medial thigh in the left lower extremity. He has a contusion, ecchymosis and bruising around the thigh, which is improving from prior exam. It is relatively soft. Results & Data Vital Signs (Past 12 Hours) Vital Signs Temp Pulse Pulse Pulse Resp BP Pulse Ox 01/03/19 07:14 36.4 C L 77 17 176/82 H 97 01/03/19 04:14 36.5 C 68 16 135/70 96 01/03/19 00:09 75 01/03/19 00:00 37.0 C 73 18 147/79 H 97 Diagnostic Findings US extremity nonvascular CLINICAL HISTORY: US left thigh/recheck hematoma size hematoma COMPARISON STUDY: 01/01/2019 FINDINGS: Improved exam. Current complex/hematoma region measures 6 x 3 x 1 cm. This is diminished 50% from the prior study in terms of overall volume. IMPRESSION: Improving soft tissue hematoma. Current maximum dimensions are 6 x 3 x 1 cm
[2019-01-03] MEDS: WARFARIN SOD 1.25 MG TAB PO SCH (15:21)
[2019-01-03] MEDS: WARFARIN SOD 2.5 MG TAB PO SCH (15:21)
[2019-01-03] MEDS: ATORVASTATIN 40 MG TAB PO SCH (19:43)
[2019-01-03] MEDS: PHENYTOIN SODIUM ER 100 MG CAP PO SCH (19:44)
[2019-01-04] MEDS: FOLIC ACID 1 MG TAB PO SCH ×2 (08:02→20:38)
[2019-01-04] MEDS: ASPIRIN 81 MG ECTAB PO SCH (08:02)
[2019-01-04] MEDS: LISINOPRIL 5 MG TAB PO SCH ×2 (08:02→20:37)
[2019-01-04] MEDS: FERROUS SULFATE 325 MG TAB PO SCH (08:02)
[2019-01-04] MEDS: OMEGA-3 (PURIFIED FISH OIL) 1 GM CAP PO SCH (08:02)
[2019-01-04] MEDS: CYANOCOBALAMIN 500 MCG TABLET (VITAMIN B-12) PO SCH (08:02)
[2019-01-04] MEDS: FINASTERIDE 5 MG TAB PO SCH (08:02)
[2019-01-04] MEDS: ASCORBIC ACID 500 MG TAB PO SCH (08:02)
[2019-01-04 09:44] LABS: Basophils # (auto) 0.03 K/uL (0-0.2); Basophils % (auto) 0.4 %; Eosinophils # (auto) 0.12 K/uL (0-0.5); Eosinophils % (auto) 1.5 %; Hemoglobin 10.4 g/dL (14.0-18.0); Immature Granulocytes # (auto) 0.02 K/uL (0.00-0.02); Immature Granulocytes % (auto) 0.2 %; Lymphocytes # (auto) 0.97 K/uL (1.2-3.4); Lymphocytes % (auto) 11.8 %; Mean Corpuscular Hgb Conc 32.5 g/dL (32-36); Mean Platelet Volume 10.1 fL (7.4-10.4); Monocytes # (auto) 0.69 K/uL (0.11-0.59); Monocytes % (auto) 8.4 %; Neutrophils # (auto) 6.36 K/uL (1.4-6.5); Neutrophils % (auto) 77.7 %; Platelet Count 214 K/uL (130-400); RDW Coefficient of Variation 13.8 % (11.5-14.5); RDW Standard Deviation 47.1 fL (36.4-46.3); Red Blood Count 3.44 M/uL (4.7-6.1); White Blood Count 8.19 K/uL (4.8-10.8)
[2019-01-04 09:56] LABS: INR 1.2 (0.9-1.1); Prothrombin Time 11.9 Seconds (9.0-12.0)
[2019-01-04 10:02] LABS: Calcium 8.5 mg/dl (8.5-10.1); Creatinine Clr Calc Pharmacy 69.2 ml/min; Est GFR (African American) 95.4; Est GFR (Non-African American) 82.3; Potassium 4.2 mmol/L (3.5-5.1)
--- NOTE | 2019-01-04 10:06 | Orthopedic Progress Note ---
Date of Service January 04, 2019 Assessment & Plan (1) Hematoma: repeat US showing improving soft tissue hematoma, no indication for surgery at this time, continue with conservative measures. alternating heat/ice packs, WBAT, ROM as tolerated. Subjective pain and swelling improving left LE, pain currently 2/10, feels he is able to lift his leg now which he couldnt do at time of admission States he has been ambulating, feels stiff/ sore at first but improves as he continues to move. Denies SOB, CP, N/V, no calf pain. Physical Exam Physical Exam: Left LE with swelling from knee to prox thigh area. No erythema, skin is in tact. PROM at knee 0-45 until he feels stiff. No calf tenderness, negative homans. Toes, ankle actively mobile, distal pulses in tact. Results & Data Vital Signs (Past 12 Hours) Vital Signs Temp Pulse Resp BP Pulse Ox 01/04/19 07:39 36.4 C L 74 18 140/67 98 01/04/19 00:00 36.7 C 60 20 158/70 H 96
[2019-01-04] MEDS: MAGNESIUM OXIDE 400 MG TAB PO SCH ×2 (11:03→20:39)
[2019-01-04] MEDS: WARFARIN SOD 2.5 MG TAB PO SCH (16:42)
[2019-01-04] MEDS: WARFARIN SOD 1.25 MG TAB PO SCH (17:51)
--- NOTE | 2019-01-04 18:58 | Hospitalist Progress Note ---
Date of Service January 04, 2019 Assessment & Plan (1) Postural dizziness with near syncope: Dr. Rodriguez's notes: Blurred vision with dizziness happening by eating on the ground without any loss of consciousness Blood pressure was noted to be low at presentation Condition seems to be secondary to dehydration and could be cardiac arrhythmias Doubt any seizure and/or neurological events No signs or symptoms of infection Will admit to telemetry unit for observation Intravenous fluid with normal saline and Clinically improving in the emergency room with improvement in blood pressure No significant arrhythmia and monitor No ACS as per serial cardiac enzymes and EKG Echo: Mild concentric LVH, EF 60 to 65%, RV systolic function is normal, left atrium and right atrium are mildly dilated, moderate aortic regurgitation and mild to moderate pulmonic valve regurgitation No more symptoms of dizziness Will need to have outpatient ZIO Patch on discharge January 03, 2019 No recurrence of dizziness, presyncope Continue to monitor blood pressure off beta-gabo Continue PT/OT evaluation Monitor (2) Seizure disorder: History of seizure disorder Continue Dilantin Dilantin level is minimally low (3) Hematoma and contusion: Ultrasound: Improving Orthopedic service recommends conservative management Coumadin resumed, hemoglobin remains stable so far Continue to monitor while on Coumadin INR trending up (4) CAD (coronary artery disease): History of CAD status post CABG x4 Also history of aortic insufficiency Troponins negative x3 Echocardiogram noted no arrhythmias on telemetry Outpatient cardiac monitoring (5) S/P CABG x 4: (6) Aortic valve insufficiency: (7) HTN (hypertension): Metoprolol on hold in light of hypotension [employer] has been continued Continue to monitor blood pressure DVT prophylaxis INR is 1.2 Coumadin restarted Code Status Full Disposition pending PT/OT evaluation in progress (8) Acute kidney failure: Subjective Follow-up for presyncope, dehydration Seen resting in bed, comfortable, in good spirits, pleasant He feels improved today compared to yesterday Ambulating in the room with no problems Denies dizziness, headache, chest pain, shortness of breath, palpitations Still has some pain on the left thigh area Otherwise no other signs of bleeding Denies other symptoms Review of Systems Review of Systems: All systems reviewed & are unremarkable except as noted in HPI & below Physical Exam Physical Exam: General- oriented x 3, not in distress, speaks in sentences with no effort or accessory muscle use Head- atraumatic Eyes- PERRL, EOMI, anicteric ENT- oropharynx clear Neck- supple, no JVD, no adenopathy, no thyromegaly; carotids +2/2, no bruits appreciated Lungs- clear to auscultation bilaterally, no rales/wheezes Heart- normal rate, regular rhythm; no murmur, no gallop, no rub appreciated Abdomen- normal bowel sounds, nondistended, soft, nontender, no masses or hepatosplenomegaly Extremities-positive moderate edema, mild tenderness of the left thigh, no erythema/hematoma no pretibial edema, no calf tenderness; peripheral pulses intact Neuro- alert, oriented x 3; CN 2-12 grossly intact; motor 5/5 bilaterally;sensation 100% on all extremities; no other gross focal neurologic deficits Skin- warm & dry Results & Data Vital Signs (Past 12 Hours) Vital Signs Temp Pulse Resp BP Pulse Ox 01/04/19 14:59 36.8 C 69 16 147/66 H 98 01/04/19 07:39 36.4 C L 74 18 140/67 98
[2019-01-04] MEDS: ATORVASTATIN 40 MG TAB PO SCH (20:37)
[2019-01-04] MEDS: PHENYTOIN SODIUM ER 100 MG CAP PO SCH (20:38)
[2019-01-05] MEDS: CYANOCOBALAMIN 500 MCG TABLET (VITAMIN B-12) PO SCH (08:25)
[2019-01-05] MEDS: LISINOPRIL 5 MG TAB PO SCH ×2 (08:25→20:39)
[2019-01-05] MEDS: ASCORBIC ACID 500 MG TAB PO SCH (08:26)
[2019-01-05] MEDS: ASPIRIN 81 MG ECTAB PO SCH (08:26)
[2019-01-05] MEDS: OMEGA-3 (PURIFIED FISH OIL) 1 GM CAP PO SCH (08:26)
[2019-01-05] MEDS: FINASTERIDE 5 MG TAB PO SCH (08:26)
[2019-01-05] MEDS: FOLIC ACID 1 MG TAB PO SCH ×2 (08:27→20:36)
[2019-01-05] MEDS: MAGNESIUM OXIDE 400 MG TAB PO SCH ×2 (08:27→20:33)
[2019-01-05] MEDS: FERROUS SULFATE 325 MG TAB PO SCH (08:51)
[2019-01-05 09:10] LABS: Basophils # (auto) 0.04 K/uL (0-0.2); Basophils % (auto) 0.4 %; Eosinophils # (auto) 0.29 K/uL (0-0.5); Eosinophils % (auto) 3.1 %; Immature Granulocytes # (auto) 0.01 K/uL (0.00-0.02); Immature Granulocytes % (auto) 0.1 %; Lymphocytes # (auto) 1.56 K/uL (1.2-3.4); Lymphocytes % (auto) 16.5 %; Mean Corpuscular Hgb Conc 33.3 g/dL (32-36); Mean Corpuscular Volume 92.2 fL (80-100); Mean Platelet Volume 9.6 fL (7.4-10.4); Monocytes # (auto) 0.79 K/uL (0.11-0.59); Monocytes % (auto) 8.4 %; Neutrophils # (auto) 6.74 K/uL (1.4-6.5); Neutrophils % (auto) 71.5 %; Platelet Count 250 K/uL (130-400); RDW Coefficient of Variation 13.7 % (11.5-14.5); RDW Standard Deviation 46.1 fL (36.4-46.3); Red Blood Count 3.58 M/uL (4.7-6.1); White Blood Count 9.43 K/uL (4.8-10.8)
[2019-01-05 09:19] LABS: INR 1.2 (0.9-1.1); Prothrombin Time 12.5 Seconds (9.0-12.0)
--- NOTE | 2019-01-05 15:13 | Hospitalist Progress Note ---
Date of Service January 05, 2019 Assessment & Plan (1) Postural dizziness with near syncope: Dr. Rodriguez's notes: Blurred vision with dizziness happening by eating on the ground without any loss of consciousness Blood pressure was noted to be low at presentation Condition seems to be secondary to dehydration and could be cardiac arrhythmias Doubt any seizure and/or neurological events No signs or symptoms of infection Will admit to telemetry unit for observation Intravenous fluid with normal saline and Clinically improving in the emergency room with improvement in blood pressure No significant arrhythmia and monitor No ACS as per serial cardiac enzymes and EKG Echo: Mild concentric LVH, EF 60 to 65%, RV systolic function is normal, left atrium and right atrium are mildly dilated, moderate aortic regurgitation and mild to moderate pulmonic valve regurgitation No more symptoms of dizziness Will need to have outpatient ZIO Patch on discharge 01/04/19 ambulating with no problems BP stable overall off Metoprolol PT/OT evaluation in progress (2) Seizure disorder: History of seizure disorder Continue Dilantin Dilantin level is minimally low (3) Hematoma and contusion: Ultrasound: Improving Orthopedic service recommends conservative management Coumadin resumed, hemoglobin remains stable so far Continue to monitor while on Coumadin INR trending up continue ice packs (4) CAD (coronary artery disease): History of CAD status post CABG x4 Also history of aortic insufficiency Troponins negative x3 Echocardiogram noted no arrhythmias on telemetry Outpatient cardiac monitoring (5) S/P CABG x 4: (6) Aortic valve insufficiency: (7) HTN (hypertension): Metoprolol on hold in light of hypotension Lisinopril continued BP stable overall monitor off Metoprolol (8) History of DVT (deep vein thrombosis): Doppler US of the Left LE: no DVT coumadin restarted after being Vit K for elevated INR restarting coumadin cautiously given significant L thigh hematoma today, INR 1.2 give coumadin 4mg today INR daily DVT prophylaxis on coumadin Code Status Full Disposition pending PT/OT evaluation in progress Subjective ff up for presyncope, hypotension seen resting in bed, comfortable states he feels ok today ambulated in the hallways today, no problems denies dizziness, chest pain, shortness of breath still has some left thigh pain- improving no other symptoms Review of Systems Review of Systems: All systems reviewed & are unremarkable except as noted in HPI & below Physical Exam Physical Exam: General- oriented x 3, not in distress, speaks in sentences with no effort or accessory muscle use Eyes- anicteric Neck- no JVD Lungs- clear breath sounds bilaterally Heart- normal rate, regular rhythm; no murmurs Abdomen- normal bowel sounds, nondistended, soft, nontender Extremities- moderate edema of the left lower extremity- improved, (+) mild warmth, no tenderness/erythema right lower ext: essentially normal Neuro- alert, oriented x 3; no gross focal neurologic deficits Skin- warm & dry Results & Data Vital Signs (Past 12 Hours) Vital Signs Temp Pulse Resp BP Pulse Ox 01/05/19 07:51 36.8 C 98 H 18 132/69 96 Laboratory Results Laboratory Results - last 24 hr 01/05/19 01/05/19 08:55 08:55 WBC 9.43 RBC 3.58 L Hgb 11.0 L Hct 33.0 L MCV 92.2 MCH 30.7 MCHC 33.3 RDW Std Deviation 46.1 RDW Coeff of [place] 13.7 Plt Count 250 MPV 9.6 Immature Gran % (Auto) 0.1 Neut % (Auto) 71.5 Lymph % (Auto) 16.5 [place] % (Auto) 8.4 Eos % (Auto) 3.1 Baso % (Auto) 0.4 Immature Gran # (Auto) 0.01 Neut # (Auto) 6.74 H Lymph # (Auto) 1.56 [place] # (Auto) 0.79 H Eos # (Auto) 0.29 Baso # (Auto) 0.04 PT 12.5 H INR 1.2 H
[2019-01-05] MEDS: WARFARIN SOD 4 MG TAB PO SCH (15:35)
[2019-01-05] MEDS ORDERED: WARFARIN SOD 2.5 MG TAB PO SCH (16:00)
--- NOTE | 2019-01-05 16:14 | Ultrasound Report ---
ULTRASOUND LEFT LOWER EXTREMITY VENOUS CLINICAL HISTORY: Left leg pain. COMPARISON STUDY: Bilateral lower extremity venous ultrasound dated 04/06/2016. TECHNIQUE: Real-time, grayscale, and color Doppler sonography of the deep veins of the left lower ext remity was performed from the inguinal crease to the calf. Compression and augmentation were utilized . FINDINGS: There is no sonographic evidence of deep venous thrombosis identified in the left lower ext remity. The common femoral, superficial femoral, and popliteal veins are patent and normally compress ible. The greater saphenous vein and the profunda femoris vein at the junction with the common femora l vein are clear. The visualized calf veins are patent. There is a small complex collection identifie d in the medial thigh at the site of interest. This measures 4.7 x 1.2 x 1.1 cm. IMPRESSION: 1. There is no sonographic evidence of deep venous thrombosis identified in the left lower extremity. 2. There is a small complex collection at the site of interest in the medial thigh. This likely repre sents a small hematoma. Clinical correlation will be required. Electronically signed by: Thomas Lee M.D. 01/05/2019 4:12 PM
[2019-01-05] MEDS: ATORVASTATIN 40 MG TAB PO SCH (20:32)
[2019-01-05] MEDS: PHENYTOIN SODIUM ER 100 MG CAP PO SCH (20:35)
[2019-01-06 06:34] LABS: INR 1.4 (0.9-1.1); Prothrombin Time 13.6 Seconds (9.0-12.0)
[2019-01-06] MEDS: ASPIRIN 81 MG ECTAB PO SCH (07:40)
[2019-01-06] MEDS: LISINOPRIL 5 MG TAB PO SCH (07:41)
[2019-01-06] MEDS: OMEGA-3 (PURIFIED FISH OIL) 1 GM CAP PO SCH (07:41)
[2019-01-06] MEDS: ASCORBIC ACID 500 MG TAB PO SCH (07:41)
[2019-01-06] MEDS: FINASTERIDE 5 MG TAB PO SCH (07:41)
[2019-01-06] MEDS: MAGNESIUM OXIDE 400 MG TAB PO SCH (07:41)
[2019-01-06] MEDS: CYANOCOBALAMIN 500 MCG TABLET (VITAMIN B-12) PO SCH (07:41)
[2019-01-06] MEDS: FOLIC ACID 1 MG TAB PO SCH (07:41)
[2019-01-06] MEDS: FERROUS SULFATE 325 MG TAB PO SCH (08:31)
[2019-01-06] MEDS ORDERED: WARFARIN SOD 7.5 MG TAB PO SCH (16:00)
--- NOTE | 2019-01-06 16:31 | Hospitalist Progress Note ---
Date of Service January 06, 2019 Assessment & Plan (1) Postural dizziness with near syncope: Dr. Rodriguez's notes: Blurred vision with dizziness happening by eating on the ground without any loss of consciousness Blood pressure was noted to be low at presentation Condition seems to be secondary to dehydration Doubt any seizure and/or neurological events No signs or symptoms of infection No significant arrhythmia on Telemetry No ACS as per serial cardiac enzymes and EKG Echo: Mild concentric LVH, EF 60 to 65%, RV systolic function is normal, left atrium and right atrium are mildly dilated, moderate aortic regurgitation and mild to moderate pulmonic valve regurgitation Metoprolol tartrate 12.5mg po BID discontinued to prevent hypotension and bradycardia PT/OT ordered patient gradually improved ambulating with no problems BP stable overall off Metoprolol continue to monitor BP and HR on ff up with PCP Will need to have outpatient ZIO Patch on discharge encouraged to maintain adequate hydration (2) Seizure disorder: History of seizure disorder Continue Dilantin Dilantin level is minimally low (3) Hematoma and contusion: Left Thigh Hematoma, on Coumadin, INR 4.5 patient reports bumping his leg on a wooden furniture Ortho consulted US: 9.3 cm intramuscular hematoma along the anterior left thigh. recommend conservative management repeat Ultrasound: : Improving soft tissue hematoma. Current maximum dimensions are 6 x 3 x 1 cm Coumadin resumed, hemoglobin remains stable so far Continue to monitor while on Coumadin continue ice packs ff up with Ortho in 1-2 weeks (4) CAD (coronary artery disease): History of CAD status post CABG x4 Also history of aortic insufficiency Troponins negative x3 Echocardiogram: EF 60-65%; moderate aortic regurgitation no arrhythmias on telemetry (5) S/P CABG x 4: (6) Aortic valve insufficiency: (7) HTN (hypertension): Metoprolol on hold in light of hypotension Lisinopril continued BP stable overall monitor off Metoprolol (8) History of DVT (deep vein thrombosis): Doppler US of the Left LE: no DVT coumadin restarted after being Vit K for elevated INR restarting coumadin cautiously given significant L thigh hematoma INR 1.4 on discharge discussed with [facility] Pharmacist Aleksandra Pastrana- recommend to resume usual coumadin regimen - 3.25mg po daily except Fri 7.5mg repeat INR on ff up with PCP next week, [facility] will contact patient for advice Ff up with Dr. Lopez next week as outline in discharge summary Ff up with [facility] in 1-2 [facility] will call patient for advice re: INR and coumadin dose Subjective ff up for presyncope, hematoma of the leg seen resting in bed, comfortable in good spirits ambulating with no problems no dizziness,chest pain, dyspnea, palpitations minimal left thigh pain no other symptoms states he is ready for discharge today Review of Systems Review of Systems: All systems reviewed & are unremarkable except as noted in HPI & below Physical Exam Physical Exam: General- oriented x 3, not in distress, speaks in sentences with no effort or accessory muscle use Eyes- anicteric Neck- no JVD Lungs- clear BS BL no rales/wheezing Heart- normal rate, regular rhythm; no murmurs Abdomen- normal bowel sounds, nondistended, soft, nontender Extremities- mild edema of the left thigh, no warmth/tenderness, mild hematoma on the posterior aspect very mild left lower leg edema, no warmth/tenderness right LE essentially normal Neuro- alert, oriented x 3; no gross focal neurologic deficits Skin- warm & dry Results & Data Vital Signs (Past 12 Hours) Vital Signs Temp Pulse Resp BP BP Pulse Ox 01/06/19 15:41 36.6 C 60 17 158/73 H 91 01/06/19 07:23 36.6 C 60 20 125/78 94 Laboratory Results Laboratory Results - last 24 hr 01/06/19 05:44 PT 13.6 H INR 1.4 H
--- NOTE | 2019-01-06 17:06 | Discharge Summary ---
Date of Service January 06, 2019 Admission HPI Per Admitting Provider Is a 78-year-old male with significant past medical history of CAD status post CABG x4, aortic valve insufficiency, hypertension, seizure disorder and other medical conditions as mentioned in medical history apparently was not brought into the emergency room following an episode of dizziness and presyncope. Apparently he was sitting on the ground for about 15 to 20 minutes in the sun when he noted to have dizziness, he was helped to sit on a chair by the daughter and the dizziness continued with blurred vision he was almost about to fall towards his left side at that time paramedics came in and he was noted to have a very low blood pressure of systolic around 70 from that point he was rushed to the emergency room. There is no definite loss of consciousness, no seizure-like activities, no fever and/or chills, no chest pain and/or palpitation, no abdominal pain and no nausea or vomiting and no numbness or tingling involving any of the extremities. His blood pressure improved with intravenous fluid in the emergency room. He was noted to be bradycardic without any significant EKG changes. He was admitted to telemetry unit to rule out possible bradyarrhythmia as the cause of syncope. Doubt any neurological events. Admission Exam Per Admitting Provider Physical Exam: No apparent distress at rest Constitutional: well developed and well nourished; no acute distress Eyes: PERRL, conjunctivae normal, anicteric sclerae ENMT: external ear and nose normal, oropharynx normal Neck: trachea midline, no thyromegaly Respiratory: normal respiratory effort Cardiovascular: Rate/Rhythm: regular rate and regular rhythm Heart Sounds: + murmur (2/6 precordial ejection systolic murmur) Extremities: + edema (Trace edema bilaterally) Gastrointestinal (Abdomen): Inspection/Auscultation: abdomen normal to inspection and normal bowel sounds Percussion/Palpation: abdomen soft Musculoskeletal: No acute arthritis in any joints. Left lateral thigh swelling, minimal likely secondary to edema/hematoma due to fall on 12/30 Neurologic: moves all extremities No focal sensory and/or motor deficit appreciated Lymphatic: no cervical or axillary lymphadenopathy Principal Diagnosis DIZZINESS, PRESYNCOPE LIKELY SECONDARY TO DEHYDRATION; LEFT THIGH HEMATOMA Discharge Data Allergies Allergy/AdvReac Type Severity Reaction Status Date / Time No Known Allergies Allergy Verified 12/31/18 13:22 Consultations 12/31/18 13:55 ED Decision to Admit Stat 01/01/19 11:30 Consult Orthopedic Surgery Routine Ordered Studies LEFT FEMUR 3 VIEWS CLINICAL HISTORY: Left leg pain. FINDINGS: AP, frog-leg, and crosstable lateral views of the left femur are obtained. No prior studies are available for comparison at the time of dictation. The skeletal structures are osteopenic. There is no radiographic evidence of left femoral fracture. Mild degenerative joint space narrowing seen in the left hip. The left knee joint is grossly maintained. The visualized left hemipelvis appears intact. The overlying soft tissues are normal in appearance. Atherosclerotic calcification is noted in the popliteal artery. Surgical clips are seen posterior to the knee. IMPRESSION: Osteopenia with no radiographic evidence of left femoral fracture. 01/01/19 09:09 US extremity nonvascular Routine US extremity nonvascular CLINICAL HISTORY: 78 years-old Male presenting with Hematoma left thigh. TECHNIQUE: Real-time grayscale ultrasound imaging of the left thigh was performed for a focused evaluation at the site of clinical concern. Color Doppler ultrasound imaging was also performed. COMPARISON: Correlation made to plain radiographs performed the previous day. FINDINGS: Along the proximal anterior left thigh at the site of clinical interest, a complex collection measuring 9.3 x 6.9 x 3.3 cm is evident within the musculature most consistent with intramuscular hematoma. This is avascular on color Doppler. IMPRESSION: 1. 9.3 cm intramuscular hematoma along the anterior left thigh. 01/03/19 07:08 US extremity nonvascular Routine [place], [place] [phone] Ultrasound Report Patient: NOAM KAMINSKI DAdcristofer Date: 01/02/19 MR#: [id number] [address] Acct ID:[id number]: [facility]: [facility] Zip: [place] [address] Age: 78Location: 2E Sex: M Room/Bed: [facility] Att Phy: Lalo Rodriguez MDDiagnosis: syncope Alejandra Phy: Philipp Thurston, DOService Date: 01/03/19 Fam Phy: Philipp Thurston, DOInterpreting Phy: Edwin Wang MD Admit Phy: Lalo Rodriguez MD Ordering Phy: Kirill Greene PA-C cc: ~ US extremity nonvascular CLINICAL HISTORY: US left thigh/recheck hematoma size hematoma COMPARISON STUDY: 01/01/2019 FINDINGS: Improved exam. Current complex/hematoma region measures 6 x 3 x 1 cm. This is diminished 50% from the prior study in terms of overall volume. IMPRESSION: Improving soft tissue hematoma. Current maximum dimensions are 6 x 3 x 1 cm 01/05/19 15:07 US venous doppler LE LT Stat IMPRESSION: 1. There is no sonographic evidence of deep venous thrombosis identified in the left lower extremity. 2. There is a small complex collection at the site of interest in the medial thigh. This likely represents a small hematoma. Clinical correlation will be required. Hospital Course (1) Postural dizziness with near syncope: Dr. Rodriguez's notes: Blurred vision with dizziness happening by eating on the ground without any loss of consciousness Blood pressure was noted to be low at presentation Condition seems to be secondary to dehydration Doubt any seizure and/or neurological events No signs or symptoms of infection No significant arrhythmia on Telemetry No ACS as per serial cardiac enzymes and EKG Echo: Mild concentric LVH, EF 60 to 65%, RV systolic function is normal, left atrium and right atrium are mildly dilated, moderate aortic regurgitation and mild to moderate pulmonic valve regurgitation Metoprolol tartrate 12.5mg po BID discontinued to prevent hypotension and bradycardia PT/OT ordered patient gradually improved ambulating with no problems BP stable overall off Metoprolol continue to monitor BP and HR on ff up with PCP Will need to have outpatient ZIO Patch on discharge encouraged to maintain adequate hydration (2) Seizure disorder: History of seizure disorder Continue Dilantin Dilantin level is minimally low (3) Hematoma and contusion: Left Thigh Hematoma, on Coumadin, INR 4.5 patient reports bumping his leg on a wooden furniture Ortho consulted US: 9.3 cm intramuscular hematoma along the anterior left thigh. recommend conservative management repeat Ultrasound: : Improving soft tissue hematoma. Current maximum dimensions are 6 x 3 x 1 cm Coumadin resumed, hemoglobin remains stable so far Continue to monitor while on Coumadin continue ice packs ff up with Ortho in 1-2 weeks (4) CAD (coronary artery disease): History of CAD status post CABG x4 Also history of aortic insufficiency Troponins negative x3 Echocardiogram: EF 60-65%; moderate aortic regurgitation no arrhythmias on telemetry (5) S/P CABG x 4: (6) Aortic valve insufficiency: (7) HTN (hypertension): Metoprolol on hold in light of hypotension Lisinopril continued BP stable overall monitor off Metoprolol (8) History of DVT (deep vein thrombosis): Doppler US of the Left LE: no DVT coumadin restarted after being Vit K for elevated INR restarting coumadin cautiously given significant L thigh hematoma INR 1.4 on discharge discussed with [facility] Pharmacist Aleksandra Pastrana- recommend to resume usual coumadin regimen - 3.25mg po daily except Fri 7.5mg repeat INR on ff up with PCP next week, [facility] will contact patient for advice Ff up with Dr. Lopez next week as outlined in discharge summary Ff up with [facility] in 1-2 weeks [facility] will call patient for advice re: INR and coumadin dose Total Time Total Time Spent Total Time Spent (In Minutes): 60 minutes Discharge Plan Discharge Items Patient Disposition: Home - Home Health Services Reason For Visit: syncope Discharge Diagnosis: PreSyncope, Left Thigh Hematoma Discharge Goals: Diagnostic testing and Therapeutic intervention Activity: As commented below Activity Comment: Always with a walker, Ambulate carefully Lifting: Wait until after follow-up appointment Exercise/Sports: Wait until after follow-up appointment Driving/Machine Use Comment: No driving until re-evaluated by Primary Care Physician Non-emergency contact: Primary Care Provider Call non-emergency contact if: you have any medication questions, your symptoms worsen, your pain is not controlled, your pain is worsening and you have a fever Follow-up/Referrals: Shay Yoder DO [Surgeon] - Rodrigo Lopez MD [Physician] - 01/12/19 11:05 am Diet: Heart Healthy Addtl Provider Instructions: PLEASE ENSURE ADEQUATE DAILY FLUID INTAKE- 6-8 GLASSES OF WATER/DAY. CONTINUE TO APPLY ICE PACK TWICE A DAY ON THE LEFT THIGH. PLEASE CALL PRIMARY CARE PHYSICIAN OR RETURN TO THE ER IMMEDIATELY IF WITH INCREASING LEG SWELLING, HEMATOMA, PAIN/TENDERNESS, REDNESS. FOLLOW UP WITH PRIMARY CARE PHYSICIAN DR. LOPEZ (ASSOCIATE OF DR. THURSTON) Abelino Gustafson OUTLINE ABOVE. FOLLOW UP WITH ORTHOPEDIC SURGEON DR. YODER IN 1-2 WEEKS. PLEASE CALL HIS OFFICE FOR AN APPOINTMENT. CONTACT INFORMATION LISTED ABOVE. THE COUMADIN CLINIC WILL BE CALLING YOU NEXT WEEK FOR ADVICE REGARDING COUMADIN DOSE. Prescriptions: Continued aspirin 81 mg tablet,delayed release (DR/EC) 81 mg PO QAM RF: 0 atorvastatin [Lipitor] 40 mg tablet 40 mg PO QPM RF: 0 cyanocobalamin (vitamin B-12) [Vitamin B-12] 1,000 mcg tablet 1,000 mcg PO QAM RF: 0 ferrous sulfate 325 mg (65 mg iron) tablet,delayed release (DR/EC) 325 mg PO QAM RF: 0 finasteride [Proscar] 5 mg tablet 5 mg PO QAM RF: 0 omega-3 fatty acids [Super Huggins-3] 1,000 mg capsule 1,000 mg PO QAM RF: 0 folic acid 1 mg tablet 1 mg PO BID RF: 0 lisinopril [Zestril] 5 mg tablet 5 mg PO BID RF: 0 multivitamin tablet 1 tab PO QAM RF: 0 phenytoin sodium extended [Dilantin Kapseal] 100 mg capsule 300 mg PO HS RF: 0 warfarin 7.5 mg tablet 3.75 mg PO 6XWK RF: 0 warfarin 7.5 mg tablet 7.5 mg PO WK RF: 0 ascorbic acid (vitamin C) [Vitamin C] 500 mg Tablet 500 mg PO QAM RF: 0 nitroglycerin [Nitrostat] 0.4 mg Tablet, Sublingual 0.4 mg sublingual UD PRN (Reason: Chest Pain) RF: 0 Discontinued metoprolol tartrate 25 mg tablet 12.5 mg PO BID RF: 0 Stand-Alone Forms: [facility] Discharge Orders: Discharge Order (Routine); Ordered 01/06/19 Ordered By: Sridhar Castanon Admission Data Admit Date/Time: 01/02/19 16:05 Attending Provider: Sridhar Castanon Admit Provider: Lalo Rodriguez Primary Care Provider: Philipp Thurston Other Providers: Lalo Rodriguez ; Jayme Tay ; Shay Yoder ; Kirill Greene ; Jacqui Cleaning Thomas J ; Amanda Lowery ; Marcial Lowe ; Edwin Campoverde ; Rick Horan ; Edwin Alonso Andrew J. ; Rick Justin ; Mark Finn ; Geovany Sotomayor ; Stephen Foster ; Umang Small ; Rodrigo Eason ; Amanda Valentin ; Lewis Hart ; Philipp Calderon ; Oswaldo Boyce Service: Medical Other Interventions: Discharge Summary Assessment (RN) Last Done: 01/06/19 16:49
[2019-01-06] MEDS: WARFARIN SOD 4 MG TAB PO SCH (17:08)
== END 2019-01-06 18:32 | disposition home health service (06) | DRG 312 ==
LOC: ED 12:20 → 2E 12:20 → SUATTDRO 01-02 16:05 → 4W 01-03 15:42

== ENCOUNTER 2019-06-24 21:30 | Inpatient (IN) ==
[2019-06-24 22:53] LABS: Hemoglobin 9.5 g/dL (14.0-18.0); Mean Corpuscular Hemoglobin 30.4 pg (25-34); Mean Corpuscular Hgb Conc 32.8 g/dL (32-36); Mean Corpuscular Volume 92.9 fL (80-100); Mean Platelet Volume 10.3 fL (7.4-10.4); Platelet Count 175 K/uL (130-400); RDW Coefficient of Variation 13.9 % (11.5-14.5); RDW Standard Deviation 47.2 fL (36.4-46.3); Red Blood Count 3.12 M/uL (4.7-6.1); White Blood Count 8.54 K/uL (4.8-10.8)
[2019-06-24 23:09] LABS: Basophils # (auto) 0.02 K/uL (0-0.2); Basophils % (auto) 0.2 %; Eosinophils # (auto) 0.05 K/uL (0-0.5); Eosinophils % (auto) 0.6 %; Immature Granulocytes # (auto) 0.01 K/uL (0.00-0.02); Immature Granulocytes % (auto) 0.1 %; Lymphocytes # (auto) 0.78 K/uL (1.2-3.4); Lymphocytes % (auto) 9.1 %; Monocytes # (auto) 0.77 K/uL (0.11-0.59); Neutrophils # (auto) 6.91 K/uL (1.4-6.5); RBC Morphology Unremarkable
[2019-06-24 23:10] LABS: Albumin Level 2.7 gm/dl (3.4-5.0); BUN Creatinine Ratio 25.2 (10-20); Calcium 8.4 mg/dl (8.5-10.1); Creatinine Clr Calc Pharmacy 65.5 ml/min; Est GFR (African American) 90.8; Est GFR (Non-African American) 78.4; Potassium 4.7 mmol/L (3.5-5.1)
[2019-06-24 23:13] LABS: Albumin Globulin Ratio 0.9 (0.9-2); Bilirubin,Total 0.3 mg/dl (0.2-1); Globulin 2.9 gm/dl (2.5-4.0); Total Protein 5.6 gm/dl (6.4-8.2)
[2019-06-24 23:22] LABS: Partial Thromboplastin Ratio 1.8; Prothrombin Time 28.3 Seconds (9.0-12.0)
[2019-06-24 23:24] LABS: Partial Thromboplastin Time 49.8 Seconds (21.0-31.0)
--- NOTE | 2019-06-25 00:22 | CT Scan Report ---
CT SCAN OF THE LEFT FEMUR WITHOUT IV CONTRAST CLINICAL HISTORY: Left leg injury. COMPARISON STUDY: Radiographs of left femur dated 12/31/2018. TECHNIQUE: CT scan of the left femur is performed from the bony pelvis to the knee. Images are review ed in the axial, sagittal, and coronal planes. IV contrast was not administered for this examination. A dose lowering technique was utilized adhering to the principles of ALARA. Note that interpretation is suboptimal without current plain film correlate. CT DOSE: 626.94 mGy.cm FINDINGS: The skeletal structures are osteopenic. There is no evidence of left femoral fracture. The visualized left hemipelvis appears intact. No lytic or blastic lesion is seen. Mild degenerative join t space narrowing is seen in the hips. Arthritic change is noted in the knee. There is no evidence of hip or knee joint effusion. There is mild generalized atrophy of the regional musculature. There is intramuscular edema identified within the left thigh, with a large intramuscular hematoma identified within the quadriceps musculature, predominantly within the rectus femoris. This measures approximate ly 16 x 8.5 x 4.5 cm. Subcutaneous and deep soft tissue edema is present throughout the left thigh. T here is mild atherosclerotic calcification of the femoral artery. The prostate gland is enlarged. The bladder is normal as visualized. There is no left pelvic sidewall or inguinal adenopathy. No subcuta neous emphysema is seen in the left lower extremity. IMPRESSION: 1. There is no evidence of left femoral fracture. 2. There is a large intramuscular hematoma within the left quadriceps musculature as detailed above. 3. Diffuse subcutaneous and deep soft tissue edema is present throughout the left thigh. ACT 112: Negative or not required by law. Electronically signed by: Thomas Lee M.D. 06/25/2019 12:20 AM
[2019-06-25] MEDS ORDERED: PHYTONADIONE 10 MG in SODIUM CHLORIDE 0.9% 50 ML IV ONE (00:41)
[2019-06-25 00:50] LABS: Magnesium 1.9 mg/dl (1.8-2.4)
--- NOTE | 2019-06-25 02:07 | History & Physical Report ---
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 Vitamin K to reverse Coumadin coagulopathy owing to hemoglobin drop from baseline. Trend H&H, transfuse PRBC if hemoglobin less than 8 and or for symptomatic anemia. Patient counseled to avoid woodwork activities at home given bleeding predisposition. Local measures for left lower extremity hematoma Orthopedics consult RE left thigh hematoma Check hemoglobin A1c DVT prophylaxis. SCDs if INR less than 2 while Coumadin on hold Full code History of Present Illness Chief Complaint: Left thigh swelling Primary Care Provider: Philipp Thurston DO History obtained from patient and records. Medical history significant for recurrent DVT on Coumadin, CAD status post CABG, hx VHD (aortic/tricuspid/mitral regurgitation as per records), hypertension, PVD, CVA as per records, L RCCA sp surgery, BPH, history of seizure disorder on Dilantin, skin cancer as per records, chronic anemia (baseline hemoglobin of 11), past tobacco abuse. Recent confinement December 2018 for left thigh hematoma after bumping left leg on wooden furniture. 9.3 cm intramuscular hematoma noted on anterior left thigh. Conservative management recommended. Soft tissue hematoma decreased in size to 6 x 3 x 1 cm on follow-up study. Coumadin resumed on discharge. Outpatient follow-up with Ortho. Patient noted progressive painful left thigh swelling after a piece of wood hit his leg after wood splitting activity at home. No chest pain, no S OB. No black/bloody stools. No recent hematuria. 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 Allergies Allergy/AdvReac Type Severity Reaction Status Date / Time No Known Allergies Allergy Verified 06/24/19 23:58 Home Medications Home Medications Medication Instructions Recorded Confirmed Type aspirin 81 mg tablet,delayed 81 mg PO QAM tab 01/19/18 06/24/19 History release atorvastatin 40 mg tablet 40 mg PO QPM tab 01/19/18 06/24/19 History cyanocobalamin (vitamin B-12) 1,000 mcg PO QAM 01/19/18 06/24/19 History 1,000 mcg tablet ferrous sulfate 325 mg (65 mg 325 mg PO QAM tab 01/19/18 06/24/19 History iron) tablet,delayed release finasteride 5 mg tablet 5 mg PO QAM tab 01/19/18 06/25/19 History folic acid 1 mg tablet 1 mg PO BID 01/19/18 06/24/19 History lisinopril 5 mg tablet 5 mg PO BID tab 01/19/18 06/25/19 History multivitamin 1 tab PO QAM 01/19/18 06/25/19 History omega-3 fatty acids 1,000 mg 1,000 mg PO QAM 01/19/18 06/25/19 History capsule phenytoin sodium extended 100 mg 300 mg PO HS cap 01/19/18 06/25/19 History capsule warfarin 7.5 mg tablet 3.75 mg PO 6XWK tab 01/19/18 06/25/19 History warfarin 7.5 mg tablet 7.5 mg PO WK tab 01/19/18 06/25/19 History ascorbic acid (vitamin C) [Vitamin 500 mg PO QAM 12/05/18 06/24/19 History C] nitroglycerin [Nitrostat] 0.4 mg SUBLINGUAL UD PRN 12/05/18 06/25/19 History Past Med/Surg History Medical History Aortic valve insufficiency (Chronic) ASCVD (arteriosclerotic cardiovascular disease) (Chronic) BPH (benign prostatic hyperplasia) (Chronic) CAD (coronary artery disease) (Chronic) Cellulitis, leg (Chronic) CVA (cerebral vascular accident) (Chronic) DVT (deep venous thrombosis) (Chronic) Dyslipidemia (Chronic) H/O nonmelanoma skin cancer (Chronic) H/O sinus bradycardia (Chronic) Hematoma of leg (Chronic) HTN (hypertension) (Chronic) Malignant neoplasm of kidney (Chronic) OAB (overactive bladder) (Chronic) S/p nephrectomy (Chronic) Seizure disorder (Chronic) Spinal stenosis (Chronic) Surgical History H/O colonoscopy (Chronic) S/P CABG x 4 (Chronic) S/P inguinal hernia repair (Chronic) Family History Other No significant family history Social History Preferred Language: Latvian Communication Ability: Effective Visual Impairment: Limited Hearing Ability: Normal Office Clerk Assistant Required: Yes Beliefs That Will Affect Care: None marital status: Current Living Situation: Spouse current occupational status: retired Other Information That Helps Us Care for You: No Feels Safe at Home: Yes Safety Concerns: Feels Safe At This Time Smoking Status: Former smoker Tobacco Type: cigarettes ; Second Hand Exposure: No ; Hx Alcohol Use: No Hx Substance Use: No Childhood Exposure to Second-Hand Smoke: No Review of Systems Review of Systems: As per HPI, all 10 systems reviewed, all other ROS negative Physical Exam Physical Exam: GENERAL: Comfortable, pleasant, slightly hard of hearing, no respiratory distress SKIN: Pallor , warm HEENT: Pale palpebral conjunctivae, no ptosis, dry buccal mucosa NECK : Supple, no tenderness CHEST : Decreased breath sounds , no tenderness HEART : RRR, diastolic murmur ABDOMEN: Some distention, nontender EXTREMITIES : Left thigh swelling with minimal tenderness , no other conspicuous deformities noted NEUROLOGIC : Coherent, slightly hard of hearing, no facial asymmetry, no other gross focality Results & Data Vital Signs (Past 12 Hours) Vital Signs Temp Pulse Pulse Resp BP BP Pulse Ox 06/25/19 01:18 65 20 148/95 H 98 06/24/19 23:04 65 20 158/64 H 93 06/24/19 21:32 36.6 C 74 16 137/67 94 Laboratory Results Laboratory Results WBC 8.54 K/uL (4.8-10.8) 06/24/19 22:37 RBC 3.12 M/uL (4.7-6.1) L 06/24/19 22:37 Hgb 9.5 g/dL (14.0-18.0) L 06/24/19 22:37 Hct 29.0 % (42-52) L 06/24/19 22:37 MCV 92.9 fL (80-100) 06/24/19 22:37 MCH 30.4 pg (25-34) 06/24/19 22:37 MCHC 32.8 g/dL (32-36) 06/24/19 22:37 RDW Std Deviation 47.2 fL (36.4-46.3) H 06/24/19 22:37 RDW Coeff of Palmer 13.9 % (11.5-14.5) 06/24/19: Plt Count 175 K/uL (130-400) 06/24/19 22:37 MPV 10.3 fL (7.4-10.4) 06/24/19 22:37 Immature Gran % (Auto) 0.1 % 06/24/19 22:37 Neut % (Auto) 81.0 % 06/24/19 22:37 Lymph % (Auto) 9.1 % 06/24/19 22:37 [place] % (Auto) 9.0 % 06/24/19 22:37 Eos % (Auto) 0.6 % 06/24/19 22:37 Baso % (Auto) 0.2 % 06/24/19 22:37 Immature Gran # (Auto) 0.01 K/uL (0.00-0.02) 06/24/19 22:37 Neut # (Auto) 6.91 K/uL (1.4-6.5) H 06/24/19 22:37 Lymph # (Auto) 0.78 K/uL (1.2-3.4) L 06/24/19 22:37 [place] # (Auto) 0.77 K/uL (0.11-0.59) H 06/24/19 22:37 Eos # (Auto) 0.05 K/uL (0-0.5) 06/24/19 22:37 Baso # (Auto) 0.02 K/uL (0-0.2) 06/24/19:37 RBC Morphology Unremarkable 06/24/19 22:37 PT 28.3 Seconds (9.0-12.0) H 06/24/19 22:37 INR 3.0 (0.9-1.1) H 06/24/19 22:37 APTT 49.8 Seconds (21.0-31.0) H* 06/24/19: PTT Ratio 1.8 02/01/20 22:37 Sodium 138 mmol/L (136-145) 06/24/19 22:37 Potassium 4.7 mmol/L (3.5-5.1) 06/24/19 22:37 Chloride 107 mmol/L (98-107) 06/24/19 22:37 Carbon Dioxide 27 mmol/L (21-32) 06/24/19 22:37 Anion Gap 4.0 (3-11) 06/24/19 22:37 BUN 23 mg/dl (7-18) H 06/24/19 22:37 Creatinine 0.93 mg/dl (0.6-1.4) 06/24/19 22:37 Est Cr Clr Drug Dosing 65.5 ml/min 06/24/19 22:37 Est GFR ( Amer) 90.8 06/24/19 22:37 Est GFR (Non-Af Amer) 78.4 06/24/19 22:37 BUN/Creatinine Ratio 25.2 (10-20) H 06/24/19 22:37 Glucose 139 mg/dl (70-99) H 06/24/19 22:37 Calcium 8.4 mg/dl (8.5-10.1) L 06/24/19 22:37 Magnesium 1.9 mg/dl (1.8-2.4) 06/24/19 22:37 Total Bilirubin 0.3 mg/dl (0.2-1) 06/24/19 22:37 AST 18 U/L (15-37) 06/24/19 22:37 ALT 20 U/L (12-78) 06/24/19 22:37 Alkaline Phosphatase 87 U/L (45-117) 06/24/19 22:37 Total Protein 5.6 gm/dl (6.4-8.2) L 06/24/19 22:37 Albumin 2.7 gm/dl (3.4-5.0) L 06/24/19 22:37 Globulin 2.9 gm/dl (2.5-4.0) 06/24/19 22:37 Albumin/Globulin Ratio 0.9 (0.9-2) 06/24/19 22:[address] left femur: 1. There is no evidence of left femoral fracture. 2. There is a large intramuscular hematoma within the left quadriceps musculature as detailed above. 3. Diffuse subcutaneous and deep soft tissue edema is present throughout the left thigh.
[2019-06-25] MEDS ORDERED: PROMETHAZINE HCL 12.5 MG in SODIUM CHLORIDE 0.9% 50 ML IV PRN (02:46)
[2019-06-25] MEDS ORDERED: lisinopriL 5 MG TAB PO SCH (02:46)
[2019-06-25] MEDS ORDERED: OXYCODONE HCL IR 5 MG TAB (IMMEDIATE RELEASE) PO PRN (02:46)
[2019-06-25] MEDS ORDERED: SODIUM CHLORIDE 0.9% 500 ML IV ONE (02:46)
[2019-06-25 03:41] LABS: Basophils # (auto) 0.02 K/uL (0-0.2); Basophils % (auto) 0.2 %; Eosinophils % (auto) 2.3 %; Hematocrit (blood only) 29.2 % (42-52); Hemoglobin 9.5 g/dL (14.0-18.0); Immature Granulocytes # (auto) 0.03 K/uL (0.00-0.02); Immature Granulocytes % (auto) 0.3 %; Lymphocytes # (auto) 1.24 K/uL (1.2-3.4); Lymphocytes % (auto) 14.1 %; Mean Corpuscular Hemoglobin 30.2 pg (25-34); Mean Corpuscular Hgb Conc 32.5 g/dL (32-36); Mean Corpuscular Volume 92.7 fL (80-100); Mean Platelet Volume 10.7 fL (7.4-10.4); Monocytes # (auto) 1.11 K/uL (0.11-0.59); Monocytes % (auto) 12.6 %; Neutrophils % (auto) 70.5 %; Platelet Count 193 K/uL (130-400); RDW Coefficient of Variation 13.9 % (11.5-14.5); RDW Standard Deviation 46.8 fL (36.4-46.3); Red Blood Count 3.15 M/uL (4.7-6.1)
[2019-06-25 04:02] LABS: BUN Creatinine Ratio 24.5 (10-20); Creatinine Clr Calc Pharmacy 74.2 ml/min; Est GFR (African American) 98.2; Est GFR (Non-African American) 84.7; Potassium 4.1 mmol/L (3.5-5.1)
[2019-06-25] MEDS: PHENYTOIN SODIUM ER 100 MG CAP PO SCH ×2 (08:38→20:57)
[2019-06-25] MEDS: lisinopriL 10 MG TAB PO SCH ×2 (08:38→20:57)
[2019-06-25] MEDS: FOLIC ACID 1 MG TAB PO SCH ×2 (08:39→20:56)
[2019-06-25] MEDS: FERROUS SULFATE 325 MG TAB PO SCH (08:39)
[2019-06-25] MEDS: MULTIVITAMIN TAB PO SCH (08:39)
[2019-06-25] MEDS: FINASTERIDE 5 MG TAB PO SCH (08:40)
[2019-06-25 09:35] LABS: Hematocrit (blood only) 30.9 % (42-52); Hemoglobin 9.9 g/dL (14.0-18.0)
[2019-06-25 09:45] LABS: INR 1.4 (0.9-1.1); Prothrombin Time 13.9 Seconds (9.0-12.0)
--- NOTE | 2019-06-25 15:08 | Consultation Report ---
DATE OF CONSULTATION: 06/25/2019 PERTINENT HISTORY: This is a 78-year-old gentleman seen at request of Dr. Castanon regarding a left thigh hematoma measuring 16 x 8.5 x 4.5 cm which he sustained while splitting wood. The patient was in his usual state of health and then he was using a log splitter piece of wood flew off the splint and struck his left leg. This happened on and over the next 48-72 hours, he started having worsening left thigh pain and swelling with difficulty with weightbearing and walking. He then presented to the Emergency Department, he was evaluated by the Emergency Department physician and CT scan demonstrating the above noted size left quadriceps hematoma and he was admitted to the hospital for management due to his persistent coagulopathy and hematoma. The patient had no other injuries. He had a previous episode back in December when he was struck on and bumping his left leg on some wooden furniture. A 9.3 cm mass with intramuscular hematoma in anterior left thigh which was then also resolved. PAST MEDICAL HISTORY: Coumadin coagulopathy, aortic valve insufficiency, arteriosclerotic cardiovascular disease, benign prostatic hyperplasia, coronary artery disease, cellulitis leg, CVA, DVT, dyslipidemia, nonmelanoma skin cancer, sinus bradycardia, hematoma of thigh, hypertension, malignant neoplasm of kidney, overactive bladder, status post nephrectomy, seizure disorder, spinal stenosis. PAST SURGICAL HISTORY: Colonoscopy, CABG x4, inguinal hernia repair, nephrectomy and incision and drainage lower extremity hematoma. ALLERGIES: No known drug allergies. MEDICATIONS: Please see the list noted in medical record. Of note, he is on warfarin daily as well as aspirin daily. SOCIAL HISTORY: Former cigarette smoker, he has quit several years ago. Denies alcohol or drug use. He is retired and lives with his spouse. He is . PHYSICAL EXAMINATION: This is a 78-year-old gentleman, well-nourished, well-hydrated, in no acute distress. He is lying supine in his hospital room bed. He is conversant and oriented. He is wearing glasses. Examination of the left thigh demonstrates a small contusion with bruising, anterolateral thigh measuring approximately 3 cm in diameter. Moderately tender to palpation. He has a larger 50% enlarged left thigh compared to the right in circumference with palpable anterolateral deep intramuscular hematoma within the quadriceps. He has limited strength and limited range of motion of the left thigh and upper thigh due to discomfort and swelling. He has palpable pulses bilateral lower extremities. He has chronic venous stasis changes. Ankles and feet are symmetric for active and passive range of motion. Compartments are soft, upper and lower left leg. LABORATORIES AND DIAGNOSTIC IMAGING: Reviewed. He was noted to have a CT scan with 16 x 8.5 x 4.5 cm intramuscular hematoma within the quadriceps left lower extremity. IMPRESSION: Intramuscular hematoma, left thigh, status post contusion. Coumadin chronic coagulopathy, left thigh contusion, left thigh pain and weakness secondary to above. Gait disturbance secondary to above. RECOMMENDATION: Continued medical management and observation and supportive care. Alternating heat and cold as preferred by the patient, weightbearing as tolerated. Follow up with Dr. Ayala in clinic as an outpatient. Should the hematoma coalesce or attempt to extrude through the skin, then he would be a surgical candidate. However, at this time, will be nonsurgical management. Thank you for the opportunity to consult care of this patient. SELINA
--- NOTE | 2019-06-25 19:44 | Emergency Department Note ---
Entered by Jp Freitas acting as a scribe for History of Present Illness General Chief complaint: Leg Injury/Pain Stated complaint: LEFT LEG PAIN Time Seen by Provider: 06/24/19 21:51 Source: patient History of Present Illness Onset (ago): day(s) 2 Location: lower extremity and left Pain Consistency: + other (worsening) Maximum Pain Intensity: 7 Quality: + other (swelling) Exacerbated By: + movement (walking) Associated symptoms: + denies other symptoms (lightheadedness, numbness to his left leg, rectal bleeding) and + other (weight gain); no chest pain and no shortness of breath The patient is a 78 y/o male who presents to the ED w/ CC of worsening swelling to his left lower extremity beginning two days ago. The patient states he was using a machine to split wood two days ago. He reports the machine shot the wood out, and the wood hit him on the outside of his left thigh. The patient notes over the past two day, his leg has started to swell, and he has been gaining weight. He states his normal body weight is 175lbs, but this morning he weighted 180lbs. The patient reports he is not able to walk without increasing his discomfort, so he must hobble around with a walker. He notes a history of three DVTs, and he is currently on Coumadin. He is unsure of when his last DVT was. The patient denies chest pain, shortness of breath, lightheadedness, numbness to his left leg, rectal bleeding, and a history of a PE. Home Medications Home Medications Medication Instructions Recorded Confirmed Type aspirin 81 mg tablet,delayed 81 mg PO QAM tab 01/19/18 06/24/19 History release atorvastatin 40 mg tablet 40 mg PO QPM tab 01/19/18 06/24/19 History cyanocobalamin (vitamin B-12) 1,000 mcg PO QAM 01/19/18 06/24/19 History 1,000 mcg tablet ferrous sulfate 325 mg (65 mg 325 mg PO QAM tab 01/19/18 06/24/19 History iron) tablet,delayed release finasteride 5 mg tablet 5 mg PO QAM tab 01/19/18 06/25/19 History folic acid 1 mg tablet 1 mg PO BID 01/19/18 06/24/19 History lisinopril 5 mg tablet 5 mg PO BID tab 01/19/18 06/25/19 History multivitamin 1 tab PO QAM 01/19/18 06/25/19 History omega-3 fatty acids 1,000 mg 1,000 mg PO QAM 01/19/18 06/25/19 History capsule phenytoin sodium extended 100 mg 300 mg PO HS cap 01/19/18 06/25/19 History capsule warfarin 7.5 mg tablet 3.75 mg PO [id number] tab 01/19/18 06/25/19 History warfarin 7.5 mg tablet 7.5 mg PO WK tab 01/19/18 06/25/19 History ascorbic acid (vitamin C) [Vitamin 500 mg PO QAM 12/05/18 06/24/19 History C] nitroglycerin [Nitrostat] 0.4 mg SUBLINGUAL UD PRN 12/05/18 06/25/19 History Allergies Allergy/AdvReac Type Severity Reaction Status Date / Time No Known Allergies Allergy Verified 06/24/19 23:58 Past Med/Surg History Medical History Aortic valve insufficiency (Chronic) ASCVD (arteriosclerotic cardiovascular disease) (Chronic) BPH (benign prostatic hyperplasia) (Chronic) CAD (coronary artery disease) (Chronic) Cellulitis, leg (Chronic) CVA (cerebral vascular accident) (Chronic) DVT (deep venous thrombosis) (Chronic) Dyslipidemia (Chronic) H/O nonmelanoma skin cancer (Chronic) H/O sinus bradycardia (Chronic) Hematoma of leg (Chronic) HTN (hypertension) (Chronic) Malignant neoplasm of kidney (Chronic) OAB (overactive bladder) (Chronic) S/p nephrectomy (Chronic) Seizure disorder (Chronic) Spinal stenosis (Chronic) Surgical History H/O colonoscopy (Chronic) S/P CABG x 4 (Chronic) S/P inguinal hernia repair (Chronic) Family History Other No significant family history Social History Preferred Language: Sinhala Communication Ability: Effective Visual Impairment: Limited Hearing Ability: Normal Planner Scheduler Required: Yes Beliefs That Will Affect Care: None marital status: Current Living Situation: Spouse current occupational status: retired Other Information That Helps Us Care for You: No Feels Safe at Home: Yes Safety Concerns: Feels Safe At This Time Smoking Status: Former smoker Tobacco Type: cigarettes ; Second Hand Exposure: No ; Hx Alcohol Use: No Hx Substance Use: No Childhood Exposure to Second-Hand Smoke: No Review of Systems See HPI for pertinent positives & negatives. and A total of 10 systems reviewed and were otherwise negative Physical Exam Vital Signs Vital Signs - 24 hr 06/24/19 21:32 06/24/19 23:04 06/25/19 01:18 Temperature 36.6 C Temperature Source Oral Pulse Rate 74 Pulse Rate [Finger] 65 65 Respiratory Rate 16 20 20 Respiratory Effort / Characteristics Non-Labored Spontaneous Non-Labored Spontaneous Respiratory Depth Normal Normal Respiratory Pattern Regular Blood Pressure 137/67 Blood Pressure [Left Arm] 158/64 H 148/95 H Blood Pressure Mean 90 Blood Pressure Mean [Left Arm] 95 112 Blood Pressure Position Sitting Blood Pressure Position [Left Arm] Lying Pulse Oximetry 94 93 98 Oxygen Delivery Method Room Air Room Air Room Air Sepsis Recent Fever Within 48 Hours No Sepsis Action Taken by Nursing No Action Required Constitutional: Vital signs reviewed. Eyes: Pupils are equal round reactive to light. Conjunctiva are noninjected. ENT: Pharynx is clear without erythema or exudate. Mucous membranes are moist. Neck supple without meningeal signs. Respiratory: Clear to auscultation bilaterally. Breath sounds are equal bilaterally. Cardiovascular: Regular rate and rhythm. No rubs or gallops. GI: Soft, nondistended and nontender. Bowel sounds are present. Musculoskeletal: No peripheral edema. Left thigh has swelling and ecchymosis to the lateral aspect. No evidence of compartment syndrome. NVI. Integumentary: No cyanosis. Neurological: The patient is awake and alert. No focal deficits. Psychiatric: Normal affect. Course Course 2152: Past medical records reviewed. The patient was evaluated in room A10. A complete history and physical exam was performed. 0029: Upon reevaluation, the patient is resting comfortably. I discussed laboratory and radiographic results with him. He verbalized agreement of the treatment plan. The patient will be evaluated for further management and care. 0037: I [facility] the [facility] He will evaluate the patient for further management. Administered Medications Ferrous Sulfate (Feosol) 325 mg PO QAM [facility] Stop: 07/25/19 08:59 Last Admin: 06/25/19 08:39 Dose: 325 mg Documented by: [id number] Finasteride (Proscar) 5 mg PO QAM [facility] Stop: 07/25/19 08:59 Last Admin: 06/25/19 08:40 Dose: 5 mg Documented by: [id number] Folic Acid (Folvite) 1 mg PO BID [facility] Stop: 07/25/19 08:59 Last Admin: 06/25/19 08:39 Dose: 1 mg Documented by: [id number] Lisinopril (Zestril) 10 mg PO BID [facility] Stop: 07/25/19 06:29 Last Admin: 06/25/19 08:38 Dose: 10 mg Documented by: [id number] [facility]ivit[facility] ([facility]ivitamin Tab) [facility] Stop: 07/25/19 08:59 Last Admin: 06/25/19 08:39 Dose: 1 tab Documented by: [id number] Phenytoin Sodium (Dilantin Er) 300 mg PO HS [facility] Stop: 07/25/19 06:29 Last Admin: 06/25/19 08:38 Dose: 300 mg Documented by: [id number] Discontinued Medications Phytonadione 10 mg/ Sodium (Chloride) 51 mls @ 102 mls/hr IV ONE ONE Stop: 06/25/19 01:10 Last Infusion: 06/25/19 01:47 Dose: 0 mls/hr Documented by: [id number] Admin: 06/25/19 01:17 Dose: 102 mls/hr Documented by: [id number] Sodium Chloride (Nss) 500 mls @ 50 mls/hr IV .Q10H ONE Stop: 06/25/19 12:45 Last Infusion: 06/25/19 13:48 Dose: 0 mls/hr Documented by: [id number] Admin: 06/25/19 03:48 Dose: 50 mls/hr Documented by: [id number] Lisinopril (Zestril) 5 mg PO BID [facility] Stop: 07/25/19 02:45 Last Admin: 06/25/19 04:13 Dose: 5 mg Documented by: [id number] Medical Decision Making Differential Diagnosis Differential diagnosis includes: supratherapeutic INR, hematoma, compartment syndrome, anemia, contusion, fracture. Medical Records Attestation: I reviewed the patient's medical records. I did perform a limited focused review of portions of the patient's old chart on the electronic medical record. The patient had a left thigh hematoma in December 2018 and was admitted to the hospitalist after a fall. It was associated with a near syncopal episode. Prior history of DVT and is on Coumadin. Home Medications Current Medication List: was personally reviewed by me Laboratory Data Attestation: I reviewed the patient's lab results. Result diagrams: 06/25/19 09:18 06/25/19 03:15 Lab Results 06/24/19 06/24/19 06/24/19 Range/Units 22:37 22:37 22:37 WBC 8.54 (4.8-10.8) K/uL RBC 3.12 L (4.7-6.1) M/uL Hgb 9.5 L (14.0-18.0) g/dL Hct 29.0 L (42-52) % MCV 92.9 (80-100) fL MCH 30.4 (25-34) pg MCHC 32.8 (32-36) g/dL RDW Std Deviation 47.2 H (36.4-46.3) fL RDW Coeff of Palmer 13.9 (11.5-14.5) % Plt Count 175 (130-400) K/uL MPV 10.3 (7.4-10.4) fL Immature Gran % (Auto) 0.1 % Neut % (Auto) 81.0 % Lymph % (Auto) 9.1 % [place] % (Auto) 9.0 % Eos % (Auto) 0.6 % Baso % (Auto) 0.2 % Immature Gran # (Auto) 0.01 (0.00-0.02) K/uL Neut # (Auto) 6.91 H (1.4-6.5) K/uL Lymph # (Auto) 0.78 L (1.2-3.4) K/uL [place] # (Auto) 0.77 H (0.11-0.59) K/uL Eos # (Auto) 0.05 (0-0.5) K/uL Baso # (Auto) 0.02 (0-0.2) K/uL RBC Morphology Unremarkable PT 28.3 H (9.0-12.0) Seconds INR 3.0 H (0.9-1.1) APTT 49.8 H* (21.0-31.0) Seconds PTT Ratio 1.8 Sodium 138 (136-145) mmol/L Potassium 4.7 (3.5-5.1) mmol/L Chloride 107 (98-107) mmol/L Carbon Dioxide 27 (21-32) mmol/L Anion Gap 4.0 (3-11) BUN 23 H (7-18) mg/dl Creatinine 0.93 (0.6-1.4) mg/dl Est Cr Clr Drug Dosing 65.5 ml/min Est GFR ( Amer) 90.8 Est GFR (Non-Af Amer) 78.4 BUN/Creatinine Ratio 25.2 H (10-20) Glucose 139 H (70-99) mg/dl Calcium 8.4 L (8.5-10.1) mg/dl Magnesium 1.9 (1.8-2.4) mg/dl Total Bilirubin 0.3 (0.2-1) mg/dl AST 18 (15-37) U/L ALT 20 (12-78) U/L Alkaline Phosphatase 87 (45-117) U/L Total Protein 5.6 L (6.4-8.2) gm/dl Albumin 2.7 L (3.4-5.0) gm/dl Globulin 2.9 (2.5-4.0) gm/dl Albumin/Globulin Ratio 0.9 (0.9-2) Blood Type Antibody Screen 06/25/19 Range/Units 00:59 WBC (4.8-10.8) K/uL RBC (4.7-6.1) M/uL Hgb (14.0-18.0) g/dL Hct (42-52) % MCV (80-100) fL MCH (25-34) pg MCHC (32-36) g/dL RDW Std Deviation (36.4-46.3) fL RDW Coeff of Palmer (11.5-14.5) % Plt Count (130-400) K/uL MPV (7.4-10.4) fL Immature Gran % (Auto) % Neut % (Auto) % Lymph % (Auto) % [place] % (Auto) % Eos % (Auto) % Baso % (Auto) % Immature Gran # (Auto) (0.00-0.02) K/uL Neut # (Auto) (1.4-6.5) K/uL Lymph # (Auto) (1.2-3.4) K/uL [place] # (Auto) (0.11-0.59) K/uL Eos # (Auto) (0-0.5) K/uL Baso # (Auto) (0-0.2) K/uL RBC Morphology PT (9.0-12.0) Seconds INR (0.9-1.1) APTT (21.0-31.0) Seconds PTT Ratio Sodium (136-145) mmol/L Potassium (3.5-5.1) mmol/L Chloride (98-107) mmol/L Carbon Dioxide (21-32) mmol/L Anion Gap (3-11) BUN (7-18) mg/dl Creatinine (0.6-1.4) mg/dl Est Cr Clr Drug Dosing ml/min Est GFR ( Amer) Est GFR (Non-Af Amer) BUN/Creatinine Ratio (10-20) Glucose (70-99) mg/dl Calcium (8.5-10.1) mg/dl Magnesium (1.8-2.4) mg/dl Total Bilirubin (0.2-1) mg/dl AST (15-37) U/L ALT (12-78) U/L Alkaline Phosphatase (45-117) U/L Total Protein (6.4-8.2) gm/dl Albumin (3.4-5.0) gm/dl Globulin (2.5-4.0) gm/dl Albumin/Globulin Ratio (0.9-2) Blood Type A Positive Antibody Screen NEGATIVE Imaging Data Radiologist's Impression: Radiology results as stated below per my review and the radiologist's interpretation: CT SCAN OF THE LEFT FEMUR WITHOUT IV CONTRAST CLINICAL HISTORY: Left leg injury. COMPARISON STUDY: Radiographs of left femur dated 12/31/2018. TECHNIQUE: CT scan of the left femur is performed from the bony pelvis to the knee. Images are reviewed in the axial, sagittal, and coronal planes. IV contrast was not administered for this examination. A dose lowering technique was utilized adhering to the principles of ALARA. Note that interpretation is suboptimal without current plain film correlate. CT DOSE: 626.94 mGy.cm FINDINGS: The skeletal structures are osteopenic. There is no evidence of left femoral fracture. The visualized left hemipelvis appears intact. No lytic or blastic lesion is seen. Mild degenerative joint space narrowing is seen in the hips. Arthritic change is noted in the knee. There is no evidence of hip or knee joint effusion. There is mild generalized atrophy of the regional musculature. T here is intramuscular edema identified within the left thigh, with a large intramuscular hematoma identified within the quadriceps musculature, predominantly within the rectus femoris. This measures approximately 16 x 8.5 x 4.5 cm. Subcutaneous and deep soft tissue edema is present throughout the left thigh. There is mild atherosclerotic calcification of the femoral artery. The prostate gland is enlarged. The bladder is normal as visualized. There is no left pelvic sidewall or inguinal adenopathy. No subcutaneous emphysema is seen in the left lower extremity. IMPRESSION: 1. There is no evidence of left femoral fracture. 2. There is a large intramuscular hematoma within the left quadriceps musculature as detailed above. 3. Diffuse subcutaneous and deep soft tissue edema is present throughout the left thigh. ACT 112: Negative or not required by law. Electronically signed by: Thomas Lee M.D. 06/25/2019 12:20 AM Blood Pressure Blood Pressure Findings: Elevated blood pressure Blood Pressure Disposition: further management by hospitalist JOIV Narrative I did evaluate the patient as noted above. The patient is presenting with swelling and pain to his left leg. He injured it recently while using a wood splitter. He has what appears to be a large hematoma to the leg but no signs of compartment syndrome. He is neurovascular intact. He is on Coumadin for an aortic valve. IV access was established. The patient was placed on a continuous conveyor monitor. I did order and review the patient's blood work as noted in the electronic medical record. He does show some anemia as well as a therapeutic INR of 3. I did order a CT of the left femur s. I did review the images myself as well as the radiology report as described above. There is no fracture but he does have a large intramuscular hematoma as described above. I did discuss the test results with the patient. I could not reverse his anticoagulation at this time due to his mechanical valve. I did recommend hospitalization for further care and evaluation and repeat H&H. I did discuss case with hospitalist and correctional counselor/case manager. Impression & Plan Intramuscular hematoma, Anemia, Anticoagulated on warfarin, Injury of left leg Discharge Plan Visit Data *Final* Discharge Date/Time: 06/25/19 02:26 Chief Complaint: Leg Injury/Pain Stated Complaint: LEFT LEG PAIN ED Provider: Milton Luis Discharge Problem: Intramuscular hematoma, Anemia, Anticoagulated on warfarin, Injury of left leg Patient Disposition: Admitted As Inpatient Discharge Instructions Interventions: ED Discharge Assessment Last Done: 06/25/19 02:26 Discharge Problem: Anemia Qualifiers: Anemia type: unspecified type Qualified Code(s): D64.9 - Anemia, unspecified The scribe's documentation has been prepared under my direction and personally reviewed by me in its entirety. I confirm that the note above accurately reflects all work, treatment, procedures, and medical decision making performed by me.
--- NOTE | 2019-06-25 19:49 | Hospitalist Progress Note ---
Date of Service June 25, 2019 Results & Data ([facility]) Vital Signs (Past 12 Hours) Vital Signs Temp Pulse Resp BP Pulse Ox 06/25/19 14:54 36.7 C 61 20 149/67 H 96
[2019-06-25] MEDS: ATORVASTATIN 40 MG TAB PO SCH (20:56)
[2019-06-25] MEDS ORDERED: PHENYTOIN SODIUM ER 100 MG CAP PO SCH (21:00)
[2019-06-26 06:44] LABS: Estimated Average Glucose 105 mg/dl; Hemoglobin A1C 5.3 % (4.5-5.6)
[2019-06-26 07:52] LABS: Basophils # (auto) 0.03 K/uL (0-0.2); Basophils % (auto) 0.4 %; Eosinophils # (auto) 0.37 K/uL (0-0.5); Eosinophils % (auto) 5.4 %; Hematocrit (blood only) 29.1 % (42-52); Hemoglobin 9.4 g/dL (14.0-18.0); Immature Granulocytes # (auto) 0.01 K/uL (0.00-0.02); Immature Granulocytes % (auto) 0.1 %; Lymphocytes # (auto) 1.13 K/uL (1.2-3.4); Lymphocytes % (auto) 16.5 %; Mean Corpuscular Hemoglobin 29.8 pg (25-34); Mean Corpuscular Hgb Conc 32.3 g/dL (32-36); Mean Corpuscular Volume 92.4 fL (80-100); Mean Platelet Volume 9.9 fL (7.4-10.4); Monocytes # (auto) 0.67 K/uL (0.11-0.59); Monocytes % (auto) 9.8 %; Neutrophils # (auto) 4.63 K/uL (1.4-6.5); Neutrophils % (auto) 67.8 %; Platelet Count 193 K/uL (130-400); RDW Coefficient of Variation 13.9 % (11.5-14.5); RDW Standard Deviation 47.2 fL (36.4-46.3); Red Blood Count 3.15 M/uL (4.7-6.1); White Blood Count 6.84 K/uL (4.8-10.8)
[2019-06-26] MEDS: MULTIVITAMIN TAB PO SCH (07:57)
[2019-06-26] MEDS: FINASTERIDE 5 MG TAB PO SCH (07:57)
[2019-06-26] MEDS: FOLIC ACID 1 MG TAB PO SCH ×2 (07:57→20:21)
[2019-06-26] MEDS: lisinopriL 10 MG TAB PO SCH ×2 (07:57→20:22)
[2019-06-26 08:01] LABS: INR 1.1 (0.9-1.1); Prothrombin Time 11.5 Seconds (9.0-12.0)
[2019-06-26] MEDS: FERROUS SULFATE 325 MG TAB PO SCH (09:03)
--- NOTE | 2019-06-26 10:05 | Hospitalist Progress Note ---
Date of Service June 26, 2019 Assessment & Plan (1) Intramuscular hematoma: LLE In the setting of Coumadin therapy hx recurrent DVT on Coumadin --Given vitamin K at the ER INR 1.1 --Hemoglobin remaining stable around 9 since admission --Evaluated by orthopedic service, recommend conservative management at this point Patient denies pain, no recent physical exam, no worsening of edema, no visible hematoma --Observe 1 more day, anticipate discharge the next day if exam remains stable --Will need to hold Coumadin in light of significant intra muscular hematoma Acute on chronic anemia Hemoglobin drop from baseline secondary to above 9.5 --> 9.4 hx CAD status post CABG/CVA/PVD as per records --No cardiac symptoms hx VHD (aortic/tricuspid/mitral regurgitation as per records) hypertension --On lisinopril, monitor L RCCA sp surgery history of seizure disorder -- stable on Dilantin regimen Subjective Follow-up for leg hematoma, in the setting of Coumadin therapy Seen resting in bed, comfortable, reading the newspaper, in good spirits States he feels fine overall Denies pain on his left lower extremity No chest pain, no shortness of breath no dizziness Ambulating to the bathroom with no problems No other symptoms Review of Systems Review of Systems: All systems reviewed & are unremarkable except as noted in HPI & below Physical Exam Physical Exam: General- oriented x 3, not in distress, speaks in sentences with no effort or accessory muscle use Eyes- anicteric Neck- no JVD Lungs- clear breath sounds bilaterally, no rales/wheezes Heart- normal rate, regular rhythm; no murmurs Abdomen- normal bowel sounds, nondistended, soft, nontender Extremities- Left lower extremity: Moderate edema on the thigh, no visible hematoma, erythema, warmth, tenderness Mild edema of the knee and lower leg, but no erythema/warmth/tenderness Right lower extremity: Essentially normal Neuro- alert, oriented x 3; no gross focal neurologic deficits Skin- warm & dry Results & Data ([facility]) Vital Signs (Past 12 Hours) Vital Signs Temp Pulse Resp BP BP Pulse Ox 06/26/19 07:23 36.4 C L 66 20 155/71 H 96 06/25/19 23:45 36.6 C 64 18 141/61 H 94 Laboratory Results All noted and reviewed
[2019-06-26] MEDS: PHENYTOIN SODIUM ER 100 MG CAP PO SCH (20:21)
[2019-06-26] MEDS: ATORVASTATIN 40 MG TAB PO SCH (20:21)
[2019-06-27 08:26] LABS: Hematocrit (blood only) 29.5 % (42-52); Hemoglobin 9.7 g/dL (14.0-18.0)
[2019-06-27] MEDS: MULTIVITAMIN TAB PO SCH (08:26)
[2019-06-27] MEDS: FERROUS SULFATE 325 MG TAB PO SCH (08:26)
[2019-06-27] MEDS: lisinopriL 10 MG TAB PO SCH (08:26)
[2019-06-27] MEDS: FOLIC ACID 1 MG TAB PO SCH (08:26)
[2019-06-27] MEDS: FINASTERIDE 5 MG TAB PO SCH (08:26)
[2019-06-27 08:41] LABS: INR 1.1 (0.9-1.1); Prothrombin Time 10.8 Seconds (9.0-12.0)
--- NOTE | 2019-06-27 08:57 | History & Physical Report ---
Date of Service June 27, 2019 Assessment & Plan (1) Intramuscular hematoma: LLE In the setting of Coumadin therapy hx recurrent DVT on Coumadin --Given vitamin K at the ER INR 1.1 --Hemoglobin remaining stable around 9 since admission --Evaluated by orthopedic service, recommend conservative management at this point Patient denies pain, no recent physical exam, no worsening of edema, no visible hematoma --Observe 1 more day, anticipate discharge the next day if exam remains stable --Will need to hold Coumadin in light of significantintra muscular hematoma Acute on chronic anemia Hemoglobin drop from baseline secondary to above 9.5 --> 9.4 hx CAD status post CABG/CVA/PVD as per records hx VHD (aortic/tricuspid/mitral regurgitation as per records) hypertension, stable L RCCA sp surgery history of seizure disorder, stable on Dilantin regimen Hyperglycemia rule out DM past tobacco abuse GMF Appropriate to hold aspirin/Coumadin for now until hemoglobin stable. Vitamin K to reverse Coumadin coagulopathy owing to hemoglobin drop from baseline. Trend H&H, transfuse PRBC if hemoglobin less than 8 and or for symptomatic anemia. Patient counseled to avoid woodwork activities at home given bleeding predisposition. Local measures for left lower extremity hematoma Orthopedics consult RE left thigh hematoma Check hemoglobin A1c DVT prophylaxis. SCDs if INR less than 2 while Coumadin on hold Full code History of Present Illness Primary Care Provider: Philipp Thurston DO Allergies Allergy/AdvReac Type Severity Reaction Status Date / Time No Known Allergies Allergy Verified 06/24/19 23:58 Home Medications Home Medications Medication Instructions Recorded Confirmed Type aspirin 81 mg tablet,delayed 81 mg PO QAM tab 01/19/18 06/24/19 History release atorvastatin 40 mg tablet 40 mg PO QPM tab 01/19/18 06/24/19 History cyanocobalamin (vitamin B-12) 1,000 mcg PO QAM 01/19/18 06/24/19 History 1,000 mcg tablet ferrous sulfate 325 mg (65 mg 325 mg PO QAM tab 01/19/18 06/24/19 History iron) tablet,delayed release finasteride 5 mg tablet 5 mg PO QAM tab 01/19/18 06/25/19 History folic acid 1 mg tablet 1 mg PO BID 01/19/18 06/24/19 History lisinopril 5 mg tablet 5 mg PO BID tab 01/19/18 06/25/19 History multivitamin 1 tab PO QAM 01/19/18 06/25/19 History omega-3 fatty acids 1,000 mg 1,000 mg PO QAM 01/19/18 06/25/19 History capsule phenytoin sodium extended 100 mg 300 mg PO HS cap 01/19/18 06/25/19 History capsule warfarin 7.5 mg tablet 3.75 mg PO 6XWK tab 01/19/18 06/25/19 History warfarin 7.5 mg tablet 7.5 mg PO WK tab 01/19/18 06/25/19 History ascorbic acid (vitamin C) [Vitamin 500 mg PO QAM 12/05/18 06/24/19 History C] nitroglycerin [Nitrostat] 0.4 mg SUBLINGUAL UD PRN 12/05/18 06/25/19 History Past Med/Surg History Medical History Aortic valve insufficiency (Chronic) ASCVD (arteriosclerotic cardiovascular disease) (Chronic) BPH (benign prostatic hyperplasia) (Chronic) CAD (coronary artery disease) (Chronic) Cellulitis, leg (Chronic) CVA (cerebral vascular accident) (Chronic) DVT (deep venous thrombosis) (Chronic) Dyslipidemia (Chronic) H/O nonmelanoma skin cancer (Chronic) H/O sinus bradycardia (Chronic) Hematoma of leg (Chronic) HTN (hypertension) (Chronic) Malignant neoplasm of kidney (Chronic) OAB (overactive bladder) (Chronic) S/p nephrectomy (Chronic) Seizure disorder (Chronic) Spinal stenosis (Chronic) Surgical History H/O colonoscopy (Chronic) S/P CABG x 4 (Chronic) S/P inguinal hernia repair (Chronic) Family History Other No significant family history Social History Preferred Language: Austrian Communication Ability: Effective Visual Impairment: Limited Hearing Ability: Normal Parts Professional Required: Yes Beliefs That Will Affect Care: None marital status: Current Living Situation: Spouse current occupational status: retired Other Information That Helps Us Care for You: No Feels Safe at Home: Yes Safety Concerns: Feels Safe At This Time Smoking Status: Former smoker Tobacco Type: cigarettes ; Second Hand Exposure: No ; Hx Alcohol Use: No Hx Substance Use: No Childhood Exposure to Second-Hand Smoke: No Results & Data Vital Signs (Past 12 Hours) Vital Signs Temp Pulse Pulse Resp BP BP Pulse Ox 06/27/19 07:30 36.7 C 64 18 155/72 H 95 06/26/19 23:27 37.0 C 69 20 149/60 H 95 Code Status & VTE Plan VTE Prophylaxis Plan VTE Prophylaxis will be ordered: Yes
--- NOTE | 2019-06-27 09:14 | Hospitalist Progress Note ---
Date of Service June 27, 2019 Assessment & Plan (1) Intramuscular hematoma: -LLE -In the setting of Coumadin therapy, history of DVT -Receive vitamin K in the ED -INR 1.1 today -Hgb remaining stable ~ 9.0, 9.7 today -Evaluated by orthopedics, recommend conservative management at this point -On exam today, no worsening pain or edema -Review of records demonstrate that patient had DVT in 2016, with the exception of mildly elevated homocysteine level, hypercoagulable work-up was negative. No history of recurrent DVT, however it is noted the patient has had multiple traumatic hematomas in the past. Will continue to hold Coumadin at discharge and defer resumption to PCP. ACUTE ON CHRONIC ANEMIA -Secondary to intramuscular hematoma -Hgb stable today at 9.7 HISTORY OF CAD, CVA -Aspirin held on admission secondary to hematoma, will resume today -Continue statin HTN -BP stable, continue lisinopril SEIZURE DISORDER -Continue Dilantin DVT PROPHYLAXIS -SCDs due to hematoma Supervising Physician Co-Signing Physician Notes Attending Addendum: care coordinated with MADDISON Brown please refer to her notes for full details, I agree with her notes patient seen and examined, records reviewed by myself as well on exam, patient seen resting in bed, comfortable, not in distress, in good spirits Denies pain on the left lower extremity No shortness of breath, chest pain, palpitations no other symptoms VS noted and reviewed oriented x 3 , not in distress, speaks in sentences with no effort nor accessory muscle use normal rate, regular rhythm, no murmurs clear breath sounds bilaterally non distended, soft, nontender Mild edema left thigh and left lower leg, improved compared to yesterday- tenderness/erythema/warmth no neuro deficits Hg 9.7 inr 1.1 ASSESSMENT AND PLAN Left lower extremity intramuscular hematoma --INR reversed --Improving clinical exam --Okay for discharge today Hold Coumadin until follow-up with primary care physician Hypertension --Lisinopril increased Monitor as outpatient other diagnoses and plan of care as per MADDISON Brown's notes Sridhar Castanon MD Subjective Patient seen and examined. Sitting up in the chair, eating breakfast. Offers no complaints this morning, feeling well. Left thigh pain controlled. Swelling is not worsening. Ambulating with walker without difficulty. Denies chest pain shortness of breath. No lightheadedness or dizziness. Abdominal pain and nausea. Physical Exam Constitutional: no acute distress Sitting up in the chair Respiratory: normal respiratory effort, lungs clear to auscultation Cardiovascular: Rate/Rhythm: regular rate and regular rhythm Vessels: normal peripheral pulses Extremities: no pedal edema Musculoskeletal: Moderate amount of edema noted to left thigh, mostly soft to palpation, no ecchymosis or erythema noted Psychiatric: Orientation: alert and oriented x 3 Results & Data ([facility]) Vital Signs (Past 12 Hours) Vital Signs Temp Pulse Pulse Resp BP BP Pulse Ox 06/27/19 07:30 36.7 C 64 18 155/72 H 95 06/26/19 23:27 37.0 C 69 20 149/60 H 95 Laboratory Results Short CBC 06/27/19 Range/Units 08:12 Hgb 9.7 L (14.0-18.0) g/dL Hct 29.5 L (42-52) %
--- NOTE | 2019-06-27 10:50 | Discharge Summary ---
Date of Service June 27, 2019 Admission HPI Per Admitting Provider Chief Complaint: Left thigh swelling Primary Care Provider: Philipp Thurston DO History obtained from patient and records. Medical history significant for recurrent DVT on Coumadin, CAD status post CABG, hx VHD (aortic/tricuspid/mitral regurgitation as per records), hypertension, PVD, CVA as per records, L RCCA sp surgery, BPH, history of seizure disorder on Dilantin, skin cancer as per records, chronic anemia (baseline hemoglobin of 11), past tobacco abuse. Recent confinement December 2018 for left thigh hematoma after bumping left leg on wooden furniture. 9.3 cm intramuscular hematoma noted on anterior left thigh. Conservative management recommended. Soft tissue hematoma decreased in size to 6 x 3 x 1 cm on follow-up study. Coumadin resumed on discharge. Outpatient follow-up with Ortho. Patient noted progressive painful left thigh swelling after a piece of wood hit his leg after wood splitting activity at home. No chest pain, no S OB. No black/bloody stools. No recent hematuria. Admission Exam Per Admitting Provider GENERAL: Comfortable, pleasant, slightly hard of hearing, no respiratory distress SKIN: Pallor , warm HEENT: Pale palpebral conjunctivae, no ptosis, dry buccal mucosa NECK : Supple, no tenderness CHEST : Decreased breath sounds , no tenderness HEART : RRR, diastolic murmur ABDOMEN: Some distention, nontender EXTREMITIES : Left thigh swelling with minimal tenderness , no other conspicuous deformities noted NEUROLOGIC : Coherent, slightly hard of hearing, no facial asymmetry, no other gross focality Principal Diagnosis LEFT THIGH HEMATOMA Discharge Data Allergies Allergy/AdvReac Type Severity Reaction Status Date / Time No Known Allergies Allergy Verified 06/24/19 23:58 Consultations Orthopedics, Dr. Ayala Ordered Studies FEMUR CT IMPRESSION: 1. There is no evidence of left femoral fracture. 2. There is a large intramuscular hematoma within the left quadriceps musculature as detailed above. 3. Diffuse subcutaneous and deep soft tissue edema is present throughout the left thigh. Hospital Course (1) Intramuscular hematoma: -LLE -Traumatic, in the setting of Coumadin therapy, history of DVT -Receive vitamin K in the ED -Coumadin, aspirin, fish oil all held on admission; will resume aspirin on discharge, continue to hold Coumadin and fish oil until follow-up with PCP -INR 1.1 today -Hgb remaining stable ~ 9.0, 9.7 2/4/20 -Evaluated by orthopedics, recommend conservative management at this point -No worsening pain or edema -Review of records demonstrate that patient had DVT in 2016, with the exception of mildly elevated homocysteine level, hypercoagulable work-up was negative. No history of recurrent DVT, however it is noted the patient has had multiple traumatic hematomas in the past. Will continue to hold Coumadin at discharge and defer resumption to PCP. - Aspirin resumed--> monitor closely - consider referral to Care Center Manager regarding continuation of anticoagulation (in light of mildly elevated homocysteine level from previous work up) and recurrent hematoma from trauma ACUTE ON CHRONIC ANEMIA -Secondary to intramuscular hematoma -Hgb stable at 9.7 HISTORY OF CAD, CVA -Aspirin and Fish Oil held on admission secondary to hematoma, will resume aspirin today; continue to hold fish oil for now -Continue statin HTN -Lisinopril increased on admission to 10 mg twice daily (from 5 mg twice daily) -Systolic BP is 140s-150s, follow up with PCP SEIZURE DISORDER -Continue Dilantin Total Time Total Time Spent Total Time Spent (In Minutes): 40 minutes Discharge Plan Discharge Items Patient Disposition: Home - Self-Care Reason For Visit: LLE HEMATOMA, COAGULOPATHY Discharge Diagnosis: Left Thigh Hematoma Activity: As commented below Activity Comment: Activity as tolerated, walking with precaution to avoid falls or injury Non-emergency contact: Primary Care Provider Call non-emergency contact if: you have any medication questions, your symptoms worsen, your pain is worsening and you have a fever Follow-up/Referrals: Philipp Thurston DO [Primary Care Provider] - 07/04/19 11:20 am Diet: Heart Healthy Ambulatory Orders: Complete Blood Count no Diff (Routine) Timeframe: 1 Week Location: Determined by Patient Ordered By: Daisy Noble Attending Provider Instructions: You were admitted to the hospital for a hematoma (collection of blood) in your thigh after hitting it on a piece of wood. You are on Coumadin and Fish Oil, these were held. Do Not Take Any Coumadin Or Fish Oil Until Instructed By Your PCP. You were evaluated by orthopedics - no surgery is needed at this time. You can continue to alternate heat and cold for pain relief. Weightbearing as tolerated, using the walker if you need to. Your blood pressure was also elevated during your hospital stay and lisinopril was increased to 10mg twice daily. Pending Studies at Discharge: No Stand-Alone Forms: [facility], Smoking Cessation Medications and DC Order Prescriptions: New lisinopril 10 mg Tablet 10 mg PO BID Qty: 20 RF: 0 Continued aspirin 81 mg tablet,delayed release (DR/EC) 81 mg PO QAM RF: 0 atorvastatin [Lipitor] 40 mg tablet 40 mg PO QPM RF: 0 cyanocobalamin (vitamin B-12) [Vitamin B-12] 1,000 mcg tablet 1,000 mcg PO QAM RF: 0 ferrous sulfate 325 mg (65 mg iron) tablet,delayed release (DR/EC) 325 mg PO QAM RF: 0 finasteride [Proscar] 5 mg tablet 5 mg PO QAM RF: 0 folic acid 1 mg tablet 1 mg PO BID RF: 0 multivitamin tablet 1 tab PO QAM RF: 0 phenytoin sodium extended [Dilantin Kapseal] 100 mg capsule 300 mg PO HS RF: 0 ascorbic acid (vitamin C) [Vitamin C] 500 mg Tablet 500 mg PO QAM RF: 0 nitroglycerin [Nitrostat] 0.4 mg Tablet, Sublingual 0.4 mg sublingual UD PRN (Reason: Chest Pain) RF: 0 Discontinued omega-3 fatty acids [[place]-3] 1,000 mg capsule 1,000 mg PO QAM RF: 0 lisinopril [Zestril] 5 mg tablet 5 mg PO BID RF: 0 warfarin 7.5 mg tablet 3.75 mg PO 6XWK RF: 0 warfarin 7.5 mg tablet 7.5 mg PO WK RF: 0 Discharge Orders: Discharge Order (Routine); Ordered 06/27/19 Ordered By: Daisy Brown Admission Data Admit Date/Time: 06/25/19 02:09 Attending Provider: Sridhar Castanon Admit Provider: Rush Hunt Primary Care Provider: Philipp Thurston Other Providers: Rush Hunt ; Shay Ayala Other Interventions: Discharge Summary Assessment (RN) Last Done: 06/27/19 13:37 DC Date/Time DO NOT enter until pt leaves facility: 06/27/19 15:47 Supervising Physician Co-Signing Physician Notes Attending Addendum: care coordinated with MADDISON Brown please refer to her notes for full details, I agree with her notes patient seen and examined, records reviewed by myself as well on exam, patient seen resting in bed, comfortable, not in distress, in good spirits Denies pain on the left lower extremity No shortness of breath, chest pain, palpitations no other symptoms VS noted and reviewed oriented x 3 , not in distress, speaks in sentences with no effort nor accessory muscle use normal rate, regular rhythm, no murmurs clear breath sounds bilaterally non distended, soft, nontender Mild edema left thigh and left lower leg, improved compared to yesterday- tenderness/erythema/warmth no neuro deficits Hg 9.7 inr 1.1 ASSESSMENT AND PLAN Left lower extremity intramuscular hematoma --INR reversed --Improving clinical exam --Okay for discharge today Hold Coumadin until follow-up with primary care physician Hypertension --Lisinopril increased Monitor as outpatient other diagnoses and plan of care as per MADDISON Brown's notes Sridhar Castanon MD
--- NOTE | 2019-06-30 09:02 | Coding Query ---
To promote full compliance with coding requirements relating to patient care, provider participation is requested in all cases of business insight and analytics manager uncertainty. Please assist us with the question(s) below: Coding Question(s): The diagnosis below was documented in the H&P and the 06/25/19 Consultation, then subsequently fell off all further documentation. Please indicate if it is still a possible diagnosis or ruled out. Physician's Response(s): COUMADIN COAGULOPATHY ( ) Diagnosed and POA ( ) Diagnosed and not POA ( X ) Ruled out ( ) Other (please specify) MTDD
== END 2019-06-27 15:47 | disposition home health service (06) | DRG 605 ==
LOC: ED 21:30 → 4W 06-25 02:09

== ENCOUNTER 2025-04-13 13:25 | Inpatient (IN) ==
--- NOTE | 2025-04-13 13:59 | XRay Report ---
XR chest 1V portable CLINICAL HISTORY: Trauma COMPARISON STUDY: 02/20/2024. FINDINGS: Endotracheal tube tip is between the thoracic inlet and the blaine. Stable CABG. Stable pro minent cardiomegaly without pulmonary vascular congestion. No consolidation or pleural effusion seen. No pneumothorax. IMPRESSION: Well-positioned endotracheal tube with well-aerated lungs. ACT 112: Negative or not required by law. Electronically signed by: Gus Marks M.D. 04/13/2025 1:58 PM
--- NOTE | 2025-04-13 14:00 | XRay Report ---
XR pelvis 1-2V routine CLINICAL HISTORY: Trauma COMPARISON: 05/21/2022 FINDINGS: No fracture or dislocation seen. There are minimal degenerative changes at the hips. There are moderate degenerative changes of the lower lumbar spine. IMPRESSION: No pelvic fracture seen. ACT 112: Negative or not required by law. Electronically signed by: Gus Marks M.D. 04/13/2025 1:59 PM
[2025-04-13] MEDS: OPTIRAY 320 100ml IV ONE (14:01)
[2025-04-13 14:05] LABS: Hematocrit (blood only) 43.0 % (42.0-52.0); Hemoglobin 14.3 g/dL (14.0-18.0); Immature Granulocytes # (auto) 0.03 K/uL (0.01-0.20); Immature Granulocytes % (auto) 0.2 %; Mean Corpuscular Hemoglobin 31.6 pg (25.0-34.0); Mean Corpuscular Volume 94.9 fL (80.0-100.0); Platelet Count 195 K/uL (130-400); RDW Standard Deviation 49.7 fL (36.4-46.3); Red Blood Count 4.53 M/uL (4.70-6.10); White Blood Count 12.28 K/ul (4.8-10.8)
[2025-04-13] MEDS: PROPOFOL BOLUS FROM BAG IV PRN (14:18)
[2025-04-13 14:28] LABS: Alanine Aminotransferase 32 U/L (7-52); Albumin Globulin Ratio 1.5 (0.9-2); Albumin Level 4.1 gm/dl (3.4-5.0); Alkaline Phosphatase 105 U/L (34-104); Anion Gap 10 (3-11); Bilirubin,Total 0.5 mg/dl (0.2-1.0); Blood Urea Nitrogen 33 mg/dl (6-23); Calcium 9.3 mg/dl (8.6-10.3); Carbon Dioxide 24 mmol/L (21-32); Chloride 104 mmol/L (98-107); Globulin 2.8 gm/dl (2.5-4.0); Glucose 132 mg/dl (70-99(Fasting)); Lipase 24 U/L (11-82); Potassium 5.0 mmol/L (3.5-5.1); Sodium 138 mmol/L (136-145); Total Protein 6.9 gm/dl (6.0-8.3)
--- NOTE | 2025-04-13 14:31 | CT Scan Report ---
CT lumbar spine w con CLINICAL HISTORY: trauma COMPARISON STUDY: None FINDINGS: There is mild scoliosis. There is severe diffuse lumbar degenerative disc disease. There is mild grade 1 anterolisthesis of L3 on 4. Otherwise normal alignment. No lumbar spine fracture seen. There is lower lumbar facet degeneration with moderate neural foraminal narrowing at L5-S1. There is at least moderate central canal narrowing at L3-4. IMPRESSION: No lumbar spine fracture seen. ACT 112: Negative or not required by law. Electronically signed by: Gus Marks M.D. 04/13/2025 2:30 PM
[2025-04-13 14:32] VITALS: TEMP 98.1
--- NOTE | 2025-04-13 14:35 | CT Scan Report ---
CT SCAN OF THE BRAIN WITHOUT IV CONTRAST CLINICAL HISTORY: Trauma. "Found down". COMPARISON STUDY: CT of the brain dated 02/20/2024. TECHNIQUE: Unenhanced CT scan of the brain is performed from the vertex to the skull base. Images are reviewed in the axial, sagittal, coronal planes. A dose lowering technique was utilized adhering to the principles of ALARA. FINDINGS: Brain parenchyma: There is age-related involutional change noting moderate subcortical and periventri cular microangiopathic disease. There is diffuse loss of robison-white matter differentiation throughout the left MCA and NAOMI territories consistent with large subacute infarcts. There is hemorrhagic conve rsion, with an approximately 3.5 x 1.5 cm hematoma centered in the left basal ganglia. Blood products are also seen in the region of the left temporal lobe. Loss of robison-white matter differentiation is also seen involving the left basal ganglia and caudate head. There is effacement of the left lateral ventricle as well as approximately 5 mm of [id number] midline shift. No extra-axial fluid collecti on is clearly seen. Ventricles, sulci, cisterns: Prominent secondary to involutional change. Intracranial vasculature: There is atherosclerotic calcification of the cavernous carotid and vertebr al arteries. Hyperdense thrombus is suggested within the left middle cerebral artery. Calvarium: The skeletal structures are osteopenic. No depressed calvarial fracture is seen. Soft tissues: There is marked edema/hematoma seen throughout the right frontoparietal scalp. Fluid fi lls the pharynx. Sinuses and mastoids: There is mild mucosal thickening within air-fluid level in the right maxillary antrum. Moderate mucosal thickening is seen within the frontal and ethmoid sinuses. There is trace be cause of thickening in the left maxillary sinus. The mastoid air cells are well pneumatized. Orbits: The bony orbits are grossly intact. There are bilateral ocular lens implants. IMPRESSION: 1. There is diffuse loss of robison-white matter differentiation throughout the left NAOMI and MCA territo rakel consistent with a large subacute territorial infarcts. 2. There is hemorrhagic conversion throughout the left hemisphere as detailed above 3. There is mass effect with effacement of the left lateral ventricle and mild left to right midline shift. 4. Hyperdense thrombus is suggested within the left middle cerebral artery. 5. There is marked edema/hematoma throughout the right frontoparietal scalp. No depressed calvarial f racture is seen. 6. Fluid fills the imaged pharynx. Findings were called to Dr. Paez in the emergency Department at the time of interpretation. ACT 112: Negative or not required by law. Electronically signed by: Thomas Lee M.D. 04/13/2025 2:33 PM
--- NOTE | 2025-04-13 14:38 | CT Scan Report ---
CT SCAN OF THE CERVICAL SPINE CLINICAL HISTORY: Trauma alert. Found down. COMPARISON STUDY: Cervical spine CT February 20, 2024. TECHNIQUE: CT scan of the cervical spine is performed from the skull base to the upper thoracic spine . Images are reviewed in the axial, sagittal, and coronal planes. IV contrast was not administered fo r this examination. A dose lowering technique was utilized adhering to the principles of ALARA. CT DOSE: 3707.84 mGy.cm FINDINGS: Endotracheal tube is partially imaged. This is well positioned within correlating with the chest CT which will be reported separately. Alignment of the cervical spine is unchanged since prior exam. Anterolisthesis of C7 on T1 is unchanged. Severe multilevel facet arthrosis and severe multilev el disc space narrowing within the cervical spine is again noted. There is no acute cervical spine fr acture. There are no suspicious osseous lesions. Facet joints are intact. Central canal and neural fo ramen are suboptimally assessed given CT technique. Diffuse soft tissue edema within the right neck, including mild prevertebral edema is partially imaged on this examination. This represents a nonspeci fic finding. A left pleural effusion is partially imaged. Extensive hypodensity with loss of robison-whi te differentiation in scattered foci of hemorrhage within the left temporal lobes are better depicted on the head CT which will be reported separately. Secretions within the pharynx are likely related t o intubation. There is a small air-fluid level within the right maxillary sinus. IMPRESSION: 1. No acute cervical spine fracture or subluxation. 2. Severe multilevel degenerative changes within the cervical spine. 3. Diffuse right neck soft tissue edema, including prevertebral edema. This represents a nonspecific finding. 4. Partially visualize extensive hypodensity with loss of robison-white differentiation within the left temporal lobe which suggests stroke with hemorrhagic conversion. This is better depicted on the head CT which will be reported separately. ACT 112: Negative or not required by law. Electronically signed by: Stas Oviedo M.D. 04/13/2025 2:37 PM
[2025-04-13] MEDS: STAT IV Infusion **Titration per Protocol STA ×2 (14:41→23:00)
[2025-04-13] MEDS: PROPOFOL IV EMULSION 10 MG/ML 100 ML VIAL IV ONE (14:41)
[2025-04-13 14:46] LABS: INR 1.1 (0.9-1.1); Partial Thromboplastin Time 27 Seconds (21-31); Prothrombin Time 11.6 Seconds (9.0-12.0)
--- NOTE | 2025-04-13 14:46 | CT Scan Report ---
THORACIC SPINE CT WITH CONTRAST CLINICAL HISTORY: Trauma. COMPARISON STUDY: Chest CT December 10, 2023. TECHNIQUE: Axial images of the thoracic spine were obtained following intravenous injection of 94 cc of Optiray 320 IV. Sagittal and coronal reformats were viewed. A dose lowering technique was utilized adhering to the principles of ALARA. FINDINGS: Slight increased kyphosis of the thoracic spine is noted. Mild anterior wedging of the T5 v ertebral body is chronic. No acute thoracic spine fractures are present. There are no suspicious osse ous lesions. There is moderate facet arthrosis and mild degenerative disc disease within the thoracic spine. Central canal and neural foramen are suboptimally assessed given CT technique. A left pleural effusion and extensive left lower lobe airspace opacity are better depicted on the chest CT which wi ll be reported separately. There is underlying emphysema. Mild interlobular septal thickening is note d. An 8 mm right upper lobe nodule on image [id number] of December 10, 2023. This aure ins indeterminate. Multiple old posterior right-sided rib fractures are present. No acute fractures w ithin the visualized posterior ribs are identified. IMPRESSION: 1. No acute thoracic spine fracture or subluxation. 2. Small left pleural effusion and left lower lobe airspace opacity which favors pneumonia or aspirat ion pneumonitis. These findings are better depicted on the chest CT which will be reported separately . ACT 112: Negative or not required by law. Electronically signed by: Stas Oviedo M.D. 04/13/2025 2:44 PM
[2025-04-13 14:48] LABS: Appearance Urine Clear (Clear); Bacteria Urine Automated 1+ (None Seen); Epithelial Cell Urine Auto 0-2 /hpf (0-2); Glucose Urine UA Negative (Negative); RBC Urine Automated >20 /hpf (0-2); WBC Urine Automated 21-50 /hpf (0-5)
--- NOTE | 2025-04-13 14:49 | CT Scan Report ---
CHEST CT WITH CONTRAST; CT ABDOMEN AND PELVIS WITH IV CONTRAST ONLY HISTORY: Acute trauma patient Trauma TECHNIQUE: Multiaxial CT images of the chest were performed following the IV administration of 94 cc of Optiray. A dose lowering technique was utilized adhering to the principles of ALARA. COMPARISON: CT thoracic and lumbar spine studies of same day, CT chest, abdomen and pelvis 12/10/2023 FINDINGS: CT CHEST: Subcentimeter hypodense right-sided thyroid nodule. Enlarged mediastinal lymph nodes with s ubcarinal adenopathy measuring up to 1.3 cm appears unchanged from prior. Supraclavicular lymph nodes on the right measure up to 10 mm. No new or progressive lymphadenopathy of the chest. Moderate cardi omegaly with moderate to extensive coronary artery calcifications. Atherosclerosis of the thoracic ao rta without aneurysm or dissection. Prior median sternotomy an CABG. Descending thoracic aortic tortu osity. No pulmonary emboli identified. No pneumothorax. Mild emphysema with interlobular septal thickening and mild dependent consolidation, most pronounced in the basal left lower lobe. Trace right and small left pleural effusions. 7 mm irr egular nodule in the right upper lobe on image 78 series 12 appears to be generally stable. Smaller s olid pulmonary nodules measure up to approximately 3-4 mm. Endotracheal tube in place which appears t o be in satisfactory positioning. Mild generalized body wall edema. There are several chronic appeari ng right-sided rib fractures. Degenerative changes of shoulders and spine. Ununited chronic slightly displaced fracture of the posterior right 11th rib. Mild superior endplate compression of the T4 and T5 segments is unchanged and chronic. Body wall edema. Gynecomastia. CT ABDOMEN/PELVIS: There is no pneumatosis or pneumoperitoneum. Unremarkable spleen, bladder, adrenal glands and liver. 12 mm cystic focus in the pancreatic neck redemonstrated suggestive of a sidebranc h IPMN. Diffuse cortical thinning of the kidneys again noted without hydronephrosis. The kidneys enha nce symmetrically. There is a solid and cystic mass in the posterior interpolar right kidney on image 110 which measures up to approximately 3.2 cm, unchanged. A complex lesion in the lower pole of the right kidney on image 148 contains calcified septations rand measures up to 3.5 cm, previously 3.3 cm . there is a 3.1 cm lesion in the interpolar left kidney on image #101 which contains thick enhancing septations and measures 3.1 cm which is also unchanged. Additional smaller cysts and cortical hyperd ensities are noted in both kidneys. Foci of cortical scarring are seen in the left kidney. Prostamega ly. Urinary bladder wall thickening. There is advanced atherosclerotic calcification and ectasia of the abdominal aorta. An infrarenal abd ominal aneurysm measures up to 3.2 cm in diameter. There is ectasia of the common iliac arteries whic h measure up to 1.8 cm bilaterally. 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 There is no bowel obstruction or bowel wall thickening identified. Moder ate colonic fecal retention. Mild generalized body wall edema. Degenerative changes of the spine, pel vis and hips. No acute fracture identified. Mild lumbar levoscoliosis. Unchanged chronic small fractu re of the sacrum at S4. IMPRESSION: 1. Cardiomegaly with mild interstitial pulmonary edema, trace right and small left pleural effusions. 2. Asymmetric left basilar opacities are suspicious for pneumonia. Atelectasis could appear similarly . 3. 7 mm irregular solid nodule of the right upper lobe is similar to slightly decreased in size from 12/10/2023. 4. There is no acute posttraumatic intrathoracic, intra-abdominal or intrapelvic abnormality identifi ed. 5. Bilateral simple and complex cysts with suspicious renal lesions again noted. Follow-up CT or MRI renal protocol study recommended in order to exclude renal cell carcinoma. 6. 3.2 cm infrarenal abdominal aortic aneurysm without rupture. 7. Incidental findings as above. ACT 112: Negative or not required by law. Electronically signed by: Faisal Chilel M.D. 04/13/2025 2:48 PM
--- NOTE | 2025-04-13 14:54 | XRay Report ---
XR chest 1V portable CLINICAL HISTORY: OG placement COMPARISON STUDY: Earlier today FINDINGS: Endotracheal tube tip is stable between the thoracic inlet and the blaine. Orogastric tube tip is off the field of view inferiorly. Stable CABG. Stable cardiomegaly without pulmonary vascular congestion. No consolidation or pleural effusion. No pneumothorax. IMPRESSION: 1. Interval orogastric tube tip is off the field of view inferiorly. 2. Well-positioned endotracheal tube with well-aerated lungs. ACT 112: Negative or not required by law. Electronically signed by: Gus Marks M.D. 04/13/2025 2:53 PM
[2025-04-13 15:24] LABS: iSTAT Art Bld Gas Base Excess -2.0 mmol/L (-9-1.8); iSTAT Art Bld Gas pCO2 Correct 38 mmHg (35-46); iSTAT Art Bld Gas pH Corrected 7.380 (7.35-7.45); iSTAT Arterial Blood Gas pO2 C 42
[2025-04-13 15:33] LABS: Amphetamines+Metham, Urine Neg (Neg); MDMA (Ecstacy), Urine Neg (Neg); Marijuana, Urine Neg (Neg)
--- NOTE | 2025-04-13 15:53 | Emergency Department Note ---
History of Present Illness General Chief complaint: Trauma Stated complaint: STROKE ALERT Time Seen by Provider: 04/13/25 13:40 Source: EMS Mode of arrival: EMS Limitations: clinical acuity History of Present Illness Patient is an 84-year-old male with history of atrial fibrillation on Coumadin, seizure disorder, renal cell carcinoma, hypertension, CVA, aortic valve insufficiency, BPH, CAD status post CABG, DVT who was found down today by a billing representative while in the bathroom. Obvious bleeding noted around the scalp. Last known well time of 2300 yesterday. Patient was placed on a nonrebreather by EMS. Not responding to stimuli per EMS. Bleeding from the scalp controlled prior to arrival. EMS notes he was not moving his right side at all for them. Home Medications Medication Instructions Recorded Confirmed Type aspirin 81 mg tablet,delayed 81 mg PO QAM 01/19/18 04/13/25 History release folic acid 1 mg tablet 1 mg PO BID 01/19/18 04/13/25 History phenytoin sodium extended 100 mg 300 mg PO HS 01/19/18 04/13/25 History capsule (Dilantin Kapseal) nitroglycerin 0.4 mg sublingual 0.4 mg sublingual UD PRN Chest Pain 12/05/18 04/13/25 History tablet (Nitrostat) ascorbic acid (vitamin C) 100 mg 100 mg PO QAM 03/12/22 04/13/25 History tablet (Vitamin C) cholecalciferol (vitamin D3) 50 50 mcg PO QAM 03/12/22 04/13/25 History mcg (2,000 unit) tablet (Vitamin D3) dutasteride 0.5 mg capsule 0.5 mg PO QAM 03/12/22 04/13/25 History furosemide 40 mg tablet 40 mg PO QAM 03/12/22 04/13/25 History metolazone 2.5 mg tablet 2.5 mg PO WK 03/12/22 04/13/25 History metoprolol succinate 25 mg 37.5 mg PO QAM 03/12/22 04/13/25 History tablet,extended release 24 hr [id number] acid-vit 1 tab PO QAM 03/12/22 04/13/25 History K-lycop 400 mcg-20 mcg-370 mcg tablet (Men's 50 Plus Multivitamin) tamsulosin 0.4 mg capsule 0.4 mg PO QAM 03/12/22 04/13/25 History warfarin 3 mg tablet 3 mg PO UD 03/12/22 04/13/25 History acetaminophen 500 mg tablet 1,000 mg PO Q8H PRN PAIN, 04/13/25 04/13/25 History (Tylenol Extra Strength) MODERATE, MILD atorvastatin 80 mg tablet 80 mg PO QAM 04/13/25 04/13/25 History divalproex 250 mg tablet,delayed 250 mg PO BID 04/13/25 04/13/25 History release ezetimibe 10 mg tablet 10 mg PO QAM 04/13/25 04/13/25 History lisinopril 5 mg tablet 5 mg PO DIRECTED 04/13/25 04/13/25 History memantine 10 mg tablet 10 mg PO BIDM 04/13/25 04/13/25 History potassium chloride 20 mEq 20 meq PO WK 04/13/25 04/13/25 History tablet,extended release Allergies Allergy/AdvReac Type Severity Reaction Status Date / Time pollen extracts Allergy Mild Sneezing Verified 04/13/25 14:56 Past Med/Surg History Problem List (Updated 04/13/25 @ 16:48 by Agustin Paez MD) Cerebral edema (Acute) Ischemic cerebrovascular accident (CVA) (Acute) Encounter for pre-operative examination Chronic venous insufficiency Injury of left leg (Acute) Anticoagulated on warfarin (Acute) Anemia (Acute) Intramuscular hematoma (Acute) History of DVT (deep vein thrombosis) Hematoma Acute kidney failure Hematoma and contusion Supratherapeutic INR (Acute) Hypocalcemia (Acute) Anemia (Acute) Injury of left leg (Acute) Bradycardia (Acute) Hypotension (Acute) Syncope (Acute) Postural dizziness with near syncope Traumatic wound (Acute) Hematoma of leg DVT (deep venous thrombosis) (Chronic) Cellulitis, leg S/P inguinal hernia repair (Chronic) H/O colonoscopy (Chronic) S/P CABG x 4 (Chronic) "10/25/01" CAD (coronary artery disease) (Chronic) Hx of sinus bradycardia (Chronic) S/p nephrectomy (Chronic) OAB (overactive bladder) (Chronic) H/O nonmelanoma skin cancer (Chronic) Seizure disorder (Chronic) Malignant neoplasm of kidney (Chronic) Dyslipidemia (Chronic) HTN (hypertension) (Chronic) Cerebrovascular disease, arteriosclerotic, post-stroke (Chronic) Aortic valve insufficiency (Chronic) BPH (benign prostatic hypertrophy) (Chronic) Spinal stenosis (Chronic) Medical History Sleep apnea CPAP History of COVID-19 05/2022, home test, not hosp; mild symptoms>resolved Hx of myocardial infarction 28 years ago, taken to [facility], had heart cath CAD (coronary artery disease) H/O sinus bradycardia S/p nephrectomy partial H/O nonmelanoma skin cancer removed OAB (overactive bladder) Malignant neoplasm of kidney Aortic valve insufficiency Dyslipidemia Seizure disorder hx-7 seizures in 1 hour when being released from [facility] from kidney surgery; went into cardiac arrest-"had to be shocked back to life"; f/u neuro at [facility] HTN (hypertension) ASCVD (arteriosclerotic cardiovascular disease) CVA (cerebral vascular accident) 42 years ago, was reaching for something went numb and fell, taken to [facility] by ambulance; no residual effects from stroke BPH (benign prostatic hyperplasia) Spinal stenosis Hematoma of leg sx to remove DVT (deep venous thrombosis) x2, most recent 11/2017; currently taking Coumadin Surgical History History of left cataract surgery Hx of cardiac catheterization 28 years ago, [facility], no stents; f/u Dr. Gomez, [facility] S/P inguinal hernia repair H/O colonoscopy S/P CABG x 4 ~23-24 years ago, failed stress test, [facility] (he thinks); f/u Dr. Gomez, [facility] Family History Other No significant family history Social History Smoking Status: Unknown if ever smoked Second Hand Exposure: No; Do You Dip or Chew Tobacco: No; Hx Alcohol Use: No Hx Substance Use: No Preferred Language: Upper Sorbian Communication Ability: Effective Visual Impairment: Limited Hearing Ability: Normal Rebeamer Required: No Beliefs That Will Affect Care: Restoration Restoration Beliefs: Donnie marital status: Current Living Situation: Spouse current occupational status: retired Feels Safe at Home: Yes Childhood Exposure to Second-Hand Smoke: No Assistive Devices: CPAP and Glasses Review of Systems Review of systems negative outside of positive findings mentioned in HPI. Physical Exam Vital Signs Vital Signs - 24 hr 04/13/25 13:36 04/13/25 13:38 04/13/25 13:38 Temperature Temperature Source Pulse Rate 94 H Pulse Rate from SpO2 Sensor Respiratory Rate 20 Blood Pressure 169/116 H 169/116 H Blood Pressure Mean 144 144 Pulse Oximetry 100 Oxygen Delivery Method Oxygen Flow Rate Fraction of Inspired Oxygen 40 Sepsis Recent Fever Within 48 Hours Sepsis New/Unexplained Change in Mental Status Sepsis Action Taken by Nursing End-Tidal CO2 32 04/13/25 13:38 04/13/25 13:40 04/13/25 13:40 Temperature 36.7 C Temperature Source Bateman Cath ( Temp Sensing) Pulse Rate 103 H Pulse Rate from SpO2 Sensor Respiratory Rate Blood Pressure 169/116 H Blood Pressure Mean 144 Pulse Oximetry Oxygen Delivery Method Oxygen Flow Rate Fraction of Inspired Oxygen Sepsis Recent Fever Within 48 Hours No Sepsis New/Unexplained Change in Mental Status N/A Sepsis Action Taken by Nursing No Action Required End-Tidal CO2 04/13/25 13:40 04/13/25 13:40 04/13/25 13:42 Temperature Temperature Source Pulse Rate 90 Pulse Rate from SpO2 Sensor 104 H Respiratory Rate 30 H Blood Pressure Blood Pressure Mean Pulse Oximetry 100 Oxygen Delivery Method Mechanical Vent Mechanical Vent Non-rebreather Oxygen Flow Rate Fraction of Inspired Oxygen Sepsis Recent Fever Within 48 Hours Sepsis New/Unexplained Change in Mental Status Sepsis Action Taken by Nursing End-Tidal CO2 04/13/25 13:45 04/13/25 13:45 04/13/25 13:46 Temperature 36.7 C Temperature Source Pulse Rate 93 H 88 Pulse Rate from SpO2 Sensor 93 H Respiratory Rate 22 19 Blood Pressure 164/106 H 164/106 H Blood Pressure Mean 118 Pulse Oximetry 92 Oxygen Delivery Method Mechanical Vent Oxygen Flow Rate 20 Fraction of Inspired Oxygen Sepsis Recent Fever Within 48 Hours Sepsis New/Unexplained Change in Mental Status Sepsis Action Taken by Nursing End-Tidal CO2 34 04/13/25 13:46 04/13/25 13:46 04/13/25 13:46 Temperature Temperature Source Pulse Rate Pulse Rate from SpO2 Sensor Respiratory Rate Blood Pressure 164/106 H 164/106 H 164/106 H Blood Pressure Mean 118 118 118 Pulse Oximetry Oxygen Delivery Method Oxygen Flow Rate Fraction of Inspired Oxygen Sepsis Recent Fever Within 48 Hours Sepsis New/Unexplained Change in Mental Status Sepsis Action Taken by Nursing End-Tidal CO2 04/13/25 13:46 04/13/25 14:12 04/13/25 14:12 Temperature Temperature Source Pulse Rate Pulse Rate from SpO2 Sensor Respiratory Rate Blood Pressure 164/106 H 179/114 H 179/114 H Blood Pressure Mean 118 127 127 Pulse Oximetry Oxygen Delivery Method Oxygen Flow Rate Fraction of Inspired Oxygen Sepsis Recent Fever Within 48 Hours Sepsis New/Unexplained Change in Mental Status Sepsis Action Taken by Nursing End-Tidal CO2 04/13/25 14:12 04/13/25 14:12 04/13/25 14:15 Temperature Temperature Source Pulse Rate 83 Pulse Rate from SpO2 Sensor 85 Respiratory Rate 21 Blood Pressure 179/114 H 187/118 H Blood Pressure Mean 127 150 Pulse Oximetry 100 Oxygen Delivery Method Oxygen Flow Rate Fraction of Inspired Oxygen Sepsis Recent Fever Within 48 Hours Sepsis New/Unexplained Change in Mental Status Sepsis Action Taken by Nursing End-Tidal CO2 31 04/13/25 14:15 04/13/25 14:15 04/13/25 14:15 Temperature Temperature Source Pulse Rate 81 Pulse Rate from SpO2 Sensor 80 Respiratory Rate 20 Blood Pressure 187/118 H 187/118 H Blood Pressure Mean 150 150 Pulse Oximetry 100 Oxygen Delivery Method Oxygen Flow Rate Fraction of Inspired Oxygen Sepsis Recent Fever Within 48 Hours Sepsis New/Unexplained Change in Mental Status Sepsis Action Taken by Nursing End-Tidal CO2 32 04/13/25 14:18 04/13/25 14:18 04/13/25 14:18 Temperature Temperature Source Pulse Rate 88 Pulse Rate from SpO2 Sensor 92 H Respiratory Rate 20 Blood Pressure 199/117 H 199/117 H Blood Pressure Mean 156 156 Pulse Oximetry 100 Oxygen Delivery Method Oxygen Flow Rate Fraction of Inspired Oxygen Sepsis Recent Fever Within 48 Hours Sepsis New/Unexplained Change in Mental Status Sepsis Action Taken by Nursing End-Tidal CO2 33 04/13/25 14:18 04/13/25 14:18 04/13/25 14:21 Temperature Temperature Source Pulse Rate 92 H Pulse Rate from SpO2 Sensor 94 H Respiratory Rate 22 Blood Pressure 199/117 H 199/117 H Blood Pressure Mean 156 156 Pulse Oximetry 100 Oxygen Delivery Method Oxygen Flow Rate Fraction of Inspired Oxygen Sepsis Recent Fever Within 48 Hours Sepsis New/Unexplained Change in Mental Status Sepsis Action Taken by Nursing End-Tidal CO2 38 04/13/25 14:22 04/13/25 14:22 04/13/25 14:22 Temperature Temperature Source Pulse Rate Pulse Rate from SpO2 Sensor Respiratory Rate Blood Pressure 186/121 H 186/121 H 186/121 H Blood Pressure Mean 157 157 157 Pulse Oximetry Oxygen Delivery Method Oxygen Flow Rate Fraction of Inspired Oxygen Sepsis Recent Fever Within 48 Hours Sepsis New/Unexplained Change in Mental Status Sepsis Action Taken by Nursing End-Tidal CO2 04/13/25 14:24 04/13/25 14:25 04/13/25 14:25 Temperature Temperature Source Pulse Rate 80 Pulse Rate from SpO2 Sensor 80 Respiratory Rate 20 Blood Pressure 188/93 H 188/93 H Blood Pressure Mean 132 132 Pulse Oximetry 100 Oxygen Delivery Method Oxygen Flow Rate Fraction of Inspired Oxygen Sepsis Recent Fever Within 48 Hours Sepsis New/Unexplained Change in Mental Status Sepsis Action Taken by Nursing End-Tidal CO2 35 04/13/25 14:25 04/13/25 14:25 04/13/25 14:25 Temperature Temperature Source Pulse Rate Pulse Rate from SpO2 Sensor Respiratory Rate Blood Pressure 188/93 H 188/93 H 188/93 H Blood Pressure Mean 132 132 132 Pulse Oximetry Oxygen Delivery Method Oxygen Flow Rate Fraction of Inspired Oxygen Sepsis Recent Fever Within 48 Hours Sepsis New/Unexplained Change in Mental Status Sepsis Action Taken by Nursing End-Tidal CO2 04/13/25 14:30 04/13/25 14:30 04/13/25 14:30 Temperature Temperature Source Pulse Rate Pulse Rate from SpO2 Sensor Respiratory Rate Blood Pressure 186/103 H 186/103 H 186/103 H Blood Pressure Mean 125 125 125 Pulse Oximetry Oxygen Delivery Method Oxygen Flow Rate Fraction of Inspired Oxygen Sepsis Recent Fever Within 48 Hours Sepsis New/Unexplained Change in Mental Status Sepsis Action Taken by Nursing End-Tidal CO2 04/13/25 14:30 04/13/25 14:30 04/13/25 14:30 Temperature Temperature Source Pulse Rate 73 Pulse Rate from SpO2 Sensor 79 Respiratory Rate 20 Blood Pressure 186/103 H 186/103 H Blood Pressure Mean 125 125 Pulse Oximetry 100 Oxygen Delivery Method Oxygen Flow Rate Fraction of Inspired Oxygen Sepsis Recent Fever Within 48 Hours Sepsis New/Unexplained Change in Mental Status Sepsis Action Taken by Nursing End-Tidal CO2 33 04/13/25 14:33 04/13/25 14:35 04/13/25 14:35 Temperature Temperature Source Pulse Rate 72 Pulse Rate from SpO2 Sensor 71 Respiratory Rate 20 Blood Pressure 177/92 H 177/92 H Blood Pressure Mean 122 122 Pulse Oximetry 100 Oxygen Delivery Method Oxygen Flow Rate Fraction of Inspired Oxygen Sepsis Recent Fever Within 48 Hours Sepsis New/Unexplained Change in Mental Status Sepsis Action Taken by Nursing End-Tidal CO2 34 04/13/25 14:35 04/13/25 14:35 04/13/25 14:35 Temperature Temperature Source Pulse Rate Pulse Rate from SpO2 Sensor Respiratory Rate Blood Pressure 177/92 H 177/92 H 177/92 H Blood Pressure Mean 122 122 122 Pulse Oximetry Oxygen Delivery Method Oxygen Flow Rate Fraction of Inspired Oxygen Sepsis Recent Fever Within 48 Hours Sepsis New/Unexplained Change in Mental Status Sepsis Action Taken by Nursing End-Tidal CO2 04/13/25 14:35 04/13/25 14:36 04/13/25 14:39 Temperature Temperature Source Pulse Rate 80 76 Pulse Rate from SpO2 Sensor 79 73 Respiratory Rate 23 20 Blood Pressure 177/92 H Blood Pressure Mean 122 Pulse Oximetry 100 99 Oxygen Delivery Method Oxygen Flow Rate Fraction of Inspired Oxygen Sepsis Recent Fever Within 48 Hours Sepsis New/Unexplained Change in Mental Status Sepsis Action Taken by Nursing End-Tidal CO2 34 35 04/13/25 14:40 04/13/25 14:40 04/13/25 14:40 Temperature Temperature Source Pulse Rate Pulse Rate from SpO2 Sensor Respiratory Rate Blood Pressure 180/94 H 180/94 H 180/94 H Blood Pressure Mean 113 113 113 Pulse Oximetry Oxygen Delivery Method Oxygen Flow Rate Fraction of Inspired Oxygen Sepsis Recent Fever Within 48 Hours Sepsis New/Unexplained Change in Mental Status Sepsis Action Taken by Nursing End-Tidal CO2 04/13/25 14:40 04/13/25 14:40 04/13/25 14:42 Temperature Temperature Source Pulse Rate 76 Pulse Rate from SpO2 Sensor 75 Respiratory Rate 21 Blood Pressure 180/94 H 180/94 H Blood Pressure Mean 113 113 Pulse Oximetry 97 Oxygen Delivery Method Oxygen Flow Rate Fraction of Inspired Oxygen Sepsis Recent Fever Within 48 Hours Sepsis New/Unexplained Change in Mental Status Sepsis Action Taken by Nursing End-Tidal CO2 35 04/13/25 14:45 04/13/25 14:45 04/13/25 14:45 Temperature Temperature Source Pulse Rate 76 Pulse Rate from SpO2 Sensor 73 Respiratory Rate 21 Blood Pressure 170/93 H 170/93 H Blood Pressure Mean 155 155 Pulse Oximetry 99 Oxygen Delivery Method Oxygen Flow Rate Fraction of Inspired Oxygen Sepsis Recent Fever Within 48 Hours Sepsis New/Unexplained Change in Mental Status Sepsis Action Taken by Nursing End-Tidal CO2 35 04/13/25 14:45 04/13/25 14:45 04/13/25 14:45 Temperature Temperature Source Pulse Rate Pulse Rate from SpO2 Sensor Respiratory Rate Blood Pressure 170/93 H 170/93 H 170/93 H Blood Pressure Mean 155 155 155 Pulse Oximetry Oxygen Delivery Method Oxygen Flow Rate Fraction of Inspired Oxygen Sepsis Recent Fever Within 48 Hours Sepsis New/Unexplained Change in Mental Status Sepsis Action Taken by Nursing End-Tidal CO2 04/13/25 14:48 04/13/25 14:50 04/13/25 14:50 Temperature Temperature Source Pulse Rate 80 Pulse Rate from SpO2 Sensor 76 Respiratory Rate 21 Blood Pressure 176/104 H 176/104 H Blood Pressure Mean 135 135 Pulse Oximetry 100 Oxygen Delivery Method Oxygen Flow Rate Fraction of Inspired Oxygen Sepsis Recent Fever Within 48 Hours Sepsis New/Unexplained Change in Mental Status Sepsis Action Taken by Nursing End-Tidal CO2 36 04/13/25 14:50 04/13/25 14:50 04/13/25 14:50 Temperature Temperature Source Pulse Rate Pulse Rate from SpO2 Sensor Respiratory Rate Blood Pressure 176/104 H 176/104 H 176/104 H Blood Pressure Mean 135 135 135 Pulse Oximetry Oxygen Delivery Method Oxygen Flow Rate Fraction of Inspired Oxygen Sepsis Recent Fever Within 48 Hours Sepsis New/Unexplained Change in Mental Status Sepsis Action Taken by Nursing End-Tidal CO2 04/13/25 14:51 04/13/25 14:54 04/13/25 14:55 Temperature Temperature Source Pulse Rate 76 75 Pulse Rate from SpO2 Sensor 77 81 Respiratory Rate 20 21 Blood Pressure 173/98 H Blood Pressure Mean 128 Pulse Oximetry 99 98 Oxygen Delivery Method Oxygen Flow Rate Fraction of Inspired Oxygen Sepsis Recent Fever Within 48 Hours Sepsis New/Unexplained Change in Mental Status Sepsis Action Taken by Nursing End-Tidal CO2 35 35 04/13/25 14:55 04/13/25 14:55 04/13/25 14:55 Temperature Temperature Source Pulse Rate Pulse Rate from SpO2 Sensor Respiratory Rate Blood Pressure 173/98 H 173/98 H 173/98 H Blood Pressure Mean 128 128 128 Pulse Oximetry Oxygen Delivery Method Oxygen Flow Rate Fraction of Inspired Oxygen Sepsis Recent Fever Within 48 Hours Sepsis New/Unexplained Change in Mental Status Sepsis Action Taken by Nursing End-Tidal CO2 04/13/25 14:55 04/13/25 15:00 04/13/25 15:00 Temperature Temperature Source Pulse Rate 78 Pulse Rate from SpO2 Sensor 80 Respiratory Rate 20 Blood Pressure 173/98 H 161/84 H Blood Pressure Mean 128 104 Pulse Oximetry 99 Oxygen Delivery Method Oxygen Flow Rate Fraction of Inspired Oxygen Sepsis Recent Fever Within 48 Hours Sepsis New/Unexplained Change in Mental Status Sepsis Action Taken by Nursing End-Tidal CO2 35 04/13/25 15:00 04/13/25 15:00 04/13/25 15:00 Temperature Temperature Source Pulse Rate Pulse Rate from SpO2 Sensor Respiratory Rate Blood Pressure 161/84 H 161/84 H 161/84 H Blood Pressure Mean 104 104 104 Pulse Oximetry Oxygen Delivery Method Oxygen Flow Rate Fraction of Inspired Oxygen Sepsis Recent Fever Within 48 Hours Sepsis New/Unexplained Change in Mental Status Sepsis Action Taken by Nursing End-Tidal CO2 04/13/25 15:00 04/13/25 15:03 04/13/25 15:05 Temperature Temperature Source Pulse Rate 79 Pulse Rate from SpO2 Sensor 77 Respiratory Rate 20 Blood Pressure 161/84 H 158/125 H Blood Pressure Mean 104 136 Pulse Oximetry 98 Oxygen Delivery Method Oxygen Flow Rate Fraction of Inspired Oxygen Sepsis Recent Fever Within 48 Hours Sepsis New/Unexplained Change in Mental Status Sepsis Action Taken by Nursing End-Tidal CO2 33 04/13/25 15:05 04/13/25 15:05 04/13/25 15:05 Temperature Temperature Source Pulse Rate Pulse Rate from SpO2 Sensor Respiratory Rate Blood Pressure 158/125 H 158/125 H 158/125 H Blood Pressure Mean 136 136 136 Pulse Oximetry Oxygen Delivery Method Oxygen Flow Rate Fraction of Inspired Oxygen Sepsis Recent Fever Within 48 Hours Sepsis New/Unexplained Change in Mental Status Sepsis Action Taken by Nursing End-Tidal CO2 04/13/25 15:05 Temperature Temperature Source Pulse Rate Pulse Rate from SpO2 Sensor Respiratory Rate Blood Pressure 158/125 H Blood Pressure Mean 136 Pulse Oximetry Oxygen Delivery Method Oxygen Flow Rate Fraction of Inspired Oxygen Sepsis Recent Fever Within 48 Hours Sepsis New/Unexplained Change in Mental Status Sepsis Action Taken by Nursing End-Tidal CO2 Primary Survey Airway: Intact Breathing: Agonal breathing Circulation: Skin warm, well perfused, capillary refill less than 2 seconds Disability Pupils: Equal, non-reactive, 2mm b/l GCS: 3 Secondary Survey GENERAL: Acute distress HEAD: Dried blood with hematoma noted to the R parietal region EYE EXAM: Normal conjunctiva. pupils non-reactive b/l OROPHARYNX: Moist mucus membranes. Grossly normal dentition. NECK: Supple, trachea midline, no midline C spine TTP. Chest: No reproducible chest wall pain. LUNGS:Shallow respirations, Diffuse rhonchi HEART: NSR, no MRG. ABDOMEN: Abdomen soft, no obvious bruising, no masses BACK: No step-offs noted. SKIN: No rashes and no bruising, multiple abrasions UPPER EXTREMITIES: Upper extremities are grossly normal. Well-perfused and compartments are soft throughout. LOWER EXTREMITIES: Grossly normal, no edema. Well-perfused and compartments are soft throughout. NEURO EXAM: GCS of 3. Procedures Intubation Time out performed: No sedative: Etomidate Mg Given: 30 paralytic: Rocuronium Mg Given: 80 Laryngoscope: fiber optic video scope ET Tube Size: 7.5 ET Tube Uncuffed: No Tube Secured Depth (cm): 25 Tube Secured Location: teeth Tube Placement Confirmation: visualized tube passing through cords, equal breath sounds bilaterally, no breath sounds over epigastrium and confirmation by capnometry Patient Tolerated Procedure: well Intubation Complications: none Additional Comments: ET was advanced 2cm after initial CXR Course Administered Medications Propofol (Diprivan) 1,000 mg in 100 mls @ 17.485 mls/hr IV .[id number] [facility]; Protocol Stop: 04/16/25 13:44 Last Titration: 04/13/25 14:57 Dose: 34.93 mcg/kg/min, 17.5 mls/hr Documented By: Titration: 04/13/25 14:43 Dose: 30 mcg/kg/min, 15 mls/hr Documented By: Titration: 04/13/25 14:13 Dose: 25 mcg/kg/min, 12.5 mls/hr Documented By: Admin: 04/13/25 13:45 Dose: 20 mcg/kg/min, 10 mls/hr Documented By: ML Co-signed By: ELIO Propofol (Propofol Bolus From Bag) 20 mg IV Q5M PRN PRN Reason: Sedation Stop: 04/16/25 13:39 Last Admin: 04/13/25 14:40 Dose: 20 mg Documented By: ML Co-signed By: MADDIE Admin: 04/13/25 14:18 Dose: 20 mg Documented By: HAL Co-signed By: MADDIE Discontinued Medications Ioversol (Optiray 320 100ml) 94 ml IV ONCE ONE Stop: 04/13/25 14:02 Last Admin: 04/13/25 14:01 Dose: 94 ml Documented By: FARZANEH Miscellaneous (Stat Iv Infusion Titration Per Protocol) 1 each N/A NOW STA Stop: 04/13/25 13:41 Last Admin: 04/13/25 14:41 Dose: Not Given Documented By: ML Propofol (Propofol Iv Emulsion 10 Mg/Ml 100 Ml Vial) Confirm Administered Dose 1,000 mg IV .STK-MED ONE Stop: 04/13/25 13:41 Last Admin: 04/13/25 14:41 Dose: Not Given Documented By: ML Medical Decision Making Differential Diagnosis DDx includes but not limited to: Ischemic CVA with hemorrhagic conversion, acute respiratory failure, cerebral edema Medical Records Attestation: I reviewed the patient's medical records. Home Medications Current Medication List: was personally reviewed by me Laboratory Data Attestation: I reviewed the patient's lab results. 04/13/25 13:34 04/13/25 13:34 Lab Results 04/13/25 04/13/25 04/13/25 Range/Units 13:34 13:35 14:26 WBC 12.28 H (4.8-10.8) K/ul RBC 4.53 L (4.70-6.10) M/uL Hgb 14.3 (14.0-18.0) g/dL POC Hgb 14.6 (14.0-18.0) g/dl Hct 43.0 (42.0-52.0) % POC Hct 43 (42-52) % MCV 94.9 (80.0-100.0) fL MCH 31.6 (25.0-34.0) pg MCHC 33.3 (32.0-36.0) g/dL RDW Std Deviation 49.7 H (36.4-46.3) fL RDW Coeff of Palmer 14.4 (11.5-14.5) % Plt Count 195 (130-400) K/uL MPV 10.8 (9.4-12.4) fL Immature Gran % (Auto) 0.2 % Neut % (Auto) 87.2 % Lymph % (Auto) 4.0 % Grainger % (Auto) 8.5 % Eos % (Auto) 0.0 % Baso % (Auto) 0.1 % Neut # (Auto) 10.71 H (1.40-6.50) K/uL Lymph # (Auto) 0.49 L (1.20-3.40) K/uL Grainger # (Auto) 1.04 H (0.11-0.59) K/uL Eos # (Auto) 0.00 (0.00-0.50) K/uL Baso # (Auto) 0.01 (0.00-0.20) K/uL Immature Gran # (Auto) 0.03 (0.01-0.20) K/uL Absolute Nucleated RBC 0.02 (0.00-0.12) K/uL Nucleated RBC % (auto) 0.2 % PT 11.6 (9.0-12.0) Seconds INR 1.1 (0.9-1.1) APTT 27 (21-31) Seconds PTT Ratio 1.0 Specimen Type Sample Site POC pH (7.35-7.45) POC pCO2 (35-46) mmHg POC pO2 (80-95) mmHg POC HCO3 (19-24) mmol/L POC Base Excess (-9-1.8) mmol/L O2 Sat Pulse Oximetry ABG pH (Temp Correct) (7.35-7.45) ABG pCO2 (Temp Corrct (35-46) mmHg POC ABG pO2 at Pt Temp POC ABG O2 Sat (90-95) % Bello Test VBG pH VBG pCO2 VBG pO2 VBG HCO3 VBG O2 Saturation VBG Base Excess Barometric Pressure O2 Delivery Device Vent Mode POC FiO2 % End Tidal CO2 POC Sodium 139 (135-144) mmol/L Sodium 138 (136-145) mmol/L POC Potassium 4.8 (3.3-5.0) mmol/L Potassium 5.0 (3.5-5.1) mmol/L POC Chloride 103 (101-112) mmol/L Chloride 104 (98-107) mmol/L Carbon Dioxide 24 (21-32) mmol/L POC Total CO2 23 L (24-31) mmol/L Anion Gap 10 (3-11) POC Anion Gap 19.0 (16-25) mmol/L POC BUN 34 H (7-18) mg/dl BUN 33 H (6-23) mg/dl Creatinine 1.11 (0.6-1.4) mg/dl POC Creatinine 1.1 (0.6-1.3) mg/dl Est Cr Clr Drug Dosing Not Reportable eGFR 65.48 BUN/Creatinine Ratio 29.7 H (10-20) Glucose 132 H (70-99(Fasting)) mg/dl POC Glucose (other) 133 H (70-99) mg/dl Calcium 9.3 (8.6-10.3) mg/dl POC Ioniz Calcium Adam 1.21 (1.12-1.32) mmol/l Total Bilirubin 0.5 (0.2-1.0) mg/dl AST 58 H (13-39) U/L ALT 32 (7-52) U/L Alkaline Phosphatase 105 H (34-104) U/L Total Protein 6.9 (6.0-8.3) gm/dl Albumin 4.1 (3.4-5.0) gm/dl Globulin 2.8 (2.5-4.0) gm/dl Albumin/Globulin Ratio 1.5 (0.9-2) Lipase 24 (11-82) U/L Urine Color Yellow Urine Appearance Clear (Clear) Urine pH 6.0 (4.5-7.5) Ur Specific [place] 1.022 (1.000-1.030) Urine Protein 4+ H (Negative) Urine Glucose (UA) Negative (Negative) Urine Ketones Negative (Negative) Urine Blood 3+ H (Negative) Urine Nitrite Positive A (Negative) Urine Bilirubin Negative (Negative) Urine Urobilinogen Negative (Negative) Ur Leukocyte Esterase Trace H (Negative) Urine WBC (Auto) 21-50 H (0-5) /hpf Urine RBC (Auto) >20 H (0-2) /hpf U Hyaline Cast (Auto) 6-10 H (0-2) /lpf U Epithel Cells (Auto) 0-2 (0-2) /hpf Urine Bacteria (Auto) 1+ H (None Seen) Urine Comment Urine Opiates Screen Neg (Neg) Ur Methadone, Qual Neg (Neg) Urine Fentanyl Screen Neg (Neg) Urine Barbiturates Neg (Neg) Ur Phencyclidine (PCP) Neg (Neg) U Amphetamin/Meth Scrn Neg (Neg) MDMA (Ecstasy) Screen Neg (Neg) U Benzodiazepines Scrn Neg (Neg) Ur Cocaine Metabolite Neg (Neg) U Marijuana (THC) Screen Neg (Neg) Ethyl Alcohol mg/dL (<10.0) mg/dl Blood Type A Positive Antibody Screen NEGATIVE 04/13/25 04/13/25 Range/Units 14:33 15:10 WBC (4.8-10.8) K/ul RBC (4.70-6.10) M/uL Hgb (14.0-18.0) g/dL POC Hgb 13.6 L (14.0-18.0) g/dl Hct (42.0-52.0) % POC Hct 40 L (42-52) % MCV (80.0-100.0) fL MCH (25.0-34.0) pg MCHC (32.0-36.0) g/dL RDW Std Deviation (36.4-46.3) fL RDW Coeff of Palmer (11.5-14.5) % Plt Count (130-400) K/uL MPV (9.4-12.4) fL Immature Gran % (Auto) % Neut % (Auto) % Lymph % (Auto) % Grainger % (Auto) % Eos % (Auto) % Baso % (Auto) % Neut # (Auto) (1.40-6.50) K/uL Lymph # (Auto) (1.20-3.40) K/uL Grainger # (Auto) (0.11-0.59) K/uL Eos # (Auto) (0.00-0.50) K/uL Baso # (Auto) (0.00-0.20) K/uL Immature Gran # (Auto) (0.01-0.20) K/uL Absolute Nucleated RBC (0.00-0.12) K/uL Nucleated RBC % (auto) % PT (9.0-12.0) Seconds INR (0.9-1.1) APTT (21-31) Seconds PTT Ratio Specimen Type MOI Sample Site L Radial POC pH 7.38 (7.35-7.45) POC pCO2 38 (35-46) mmHg POC pO2 42 L (80-95) mmHg POC HCO3 23 (19-24) mmol/L POC Base Excess -2.0 (-9-1.8) mmol/L O2 Sat Pulse Oximetry 97 ABG pH (Temp Correct) 7.380 (7.35-7.45) ABG pCO2 (Temp Corrct 38 (35-46) mmHg POC ABG pO2 at Pt Temp 42 POC ABG O2 Sat 77.0 L (90-95) % Bello Test NA VBG pH Cancelled VBG pCO2 Cancelled VBG pO2 Cancelled VBG HCO3 Cancelled VBG O2 Saturation Cancelled VBG Base Excess Cancelled Barometric Pressure Cancelled O2 Delivery Device Ventilator Vent Mode AC POC FiO2 30 % End Tidal CO2 34 POC Sodium 140 (135-144) mmol/L Sodium (136-145) mmol/L POC Potassium 3.8 (3.3-5.0) mmol/L Potassium (3.5-5.1) mmol/L POC Chloride (101-112) mmol/L Chloride (98-107) mmol/L Carbon Dioxide (21-32) mmol/L POC Total CO2 24 (24-31) mmol/L Anion Gap (3-11) POC Anion Gap (16-25) mmol/L POC BUN (7-18) mg/dl BUN (6-23) mg/dl Creatinine (0.6-1.4) mg/dl POC Creatinine (0.6-1.3) mg/dl Est Cr Clr Drug Dosing eGFR BUN/Creatinine Ratio (10-20) Glucose (70-99(Fasting)) mg/dl POC Glucose (other) (70-99) mg/dl Calcium (8.6-10.3) mg/dl POC Ioniz Calcium Adam (1.12-1.32) mmol/l Total Bilirubin (0.2-1.0) mg/dl AST (13-39) U/L ALT (7-52) U/L Alkaline Phosphatase (34-104) U/L Total Protein (6.0-8.3) gm/dl Albumin (3.4-5.0) gm/dl Globulin (2.5-4.0) gm/dl Albumin/Globulin Ratio (0.9-2) Lipase (11-82) U/L Urine Color Urine Appearance (Clear) Urine pH (4.5-7.5) Ur Specific [place] (1.000-1.030) Urine Protein (Negative) Urine Glucose (UA) (Negative) Urine Ketones (Negative) Urine Blood (Negative) Urine Nitrite (Negative) Urine Bilirubin (Negative) Urine Urobilinogen (Negative) Ur Leukocyte Esterase (Negative) Urine WBC (Auto) (0-5) /hpf Urine RBC (Auto) (0-2) /hpf U Hyaline Cast (Auto) (0-2) /lpf U Epithel Cells (Auto) (0-2) /hpf Urine Bacteria (Auto) (None Seen) Urine Comment Urine Opiates Screen (Neg) Ur Methadone, Qual (Neg) Urine Fentanyl Screen (Neg) Urine Barbiturates (Neg) Ur Phencyclidine (PCP) (Neg) U Amphetamin/Meth Scrn (Neg) MDMA (Ecstasy) Screen (Neg) U Benzodiazepines Scrn (Neg) Ur Cocaine Metabolite (Neg) U Marijuana (THC) Screen (Neg) Ethyl Alcohol mg/dL < 10.0 (<10.0) mg/dl Blood Type Antibody Screen Imaging Data Radiologist's Impression: Chest X-Ray 04/13/25 13:40 XR chest 1V portable CLINICAL HISTORY: Trauma COMPARISON STUDY: 02/20/2024. FINDINGS: Endotracheal tube tip is between the thoracic inlet and the blaine. Stable CABG. Stable prominent cardiomegaly without pulmonary vascular congestion. No consolidation or pleural effusion seen. No pneumothorax. IMPRESSION: Well-positioned endotracheal tube with well-aerated lungs. ACT 112: Negative or not required by law. Electronically signed by: Gus Marks M.D. 04/13/2025 1:[address] 04/13/25 13:40 CT lumbar spine w con CLINICAL HISTORY: trauma COMPARISON STUDY: None FINDINGS: There is mild scoliosis. There is severe diffuse lumbar degenerative disc disease. There is mild grade 1 anterolisthesis of L3 on 4. Otherwise normal alignment. No lumbar spine fracture seen. There is lower lumbar facet degeneration with moderate neural foraminal narrowing at L5-S1. There is at least moderate central canal narrowing at L3-4. IMPRESSION: No lumbar spine fracture seen. ACT 112: Negative or not required by law. Electronically signed by: Gus Marks M.D. 04/13/2025 2:30 PM Pelvis X-Ray 04/13/25 13:40 XR pelvis 1-2V routine CLINICAL HISTORY: Trauma COMPARISON: 05/21/2022 FINDINGS: No fracture or dislocation seen. There are minimal degenerative changes at the hips. There are moderate degenerative changes of the lower lumbar spine. IMPRESSION: No pelvic fracture seen. ACT 112: Negative or not required by law. Electronically signed by: Gus Marks M.D. 04/13/2025 1:59 PM Abdomen/Pelvis CT 04/13/25 13:[address] WITH CONTRAST; CT ABDOMEN AND PELVIS WITH IV CONTRAST ONLY HISTORY: Acute trauma patient Trauma TECHNIQUE: Multiaxial CT images of the chest were performed following the IV administration of 94 cc of Optiray. A dose lowering technique was utilized adhering to the principles of ALARA. COMPARISON: CT thoracic and lumbar spine studies of same day, CT chest, abdomen and pelvis 12/10/2023 FINDINGS: CT CHEST: Subcentimeter hypodense right-sided thyroid nodule. Enlarged mediastinal lymph nodes with subcarinal adenopathy measuring up to 1.3 cm appears unchanged from prior. Supraclavicular lymph nodes on the right measure up to 10 mm. No new or progressive lymphadenopathy of the chest. Moderate cardiomegaly with moderate to extensive coronary artery calcifications. Atherosclerosis of the thoracic aorta without aneurysm or dissection. Prior median sternotomy an CABG. Descending thoracic aortic tortuosity. No pulmonary emboli identified. No pneumothorax. Mild emphysema with interlobular septal thickening and mild dependent consolidation, most pronounced in the basal left lower lobe. Trace right and small left pleural effusions. 7 mm irregular nodule in the right upper lobe on image 78 series 12 appears to be generally stable. Smaller solid pulmonary nodules measure up to approximately 3-4 mm. Endotracheal tube in place which appears to be in satisfactory positioning. Mild generalized body wall edema. There are several chronic appearing right-sided rib fractures. Degenerative changes of shoulders and spine. Ununited chronic slightly displaced fracture of the posterior right 11th rib. Mild superior endplate compression of the T4 and T5 segments is unchanged and chronic. Body wall edema. Gynecomastia. CT ABDOMEN/PELVIS: There is no pneumatosis or pneumoperitoneum. Unremarkable spleen, bladder, adrenal glands and liver. 12 mm cystic focus in the pancreatic neck redemonstrated suggestive of a sidebranch IPMN. Diffuse cortical thinning of the kidneys again noted without hydronephrosis. The kidneys enhance symmetrically. There is a solid and cystic mass in the posterior interpolar right kidney on image 110 which measures up to approximately 3.2 cm, unchanged. A complex lesion in the lower pole of the right kidney on image 148 contains calcified septations rand measures up to 3.5 cm, previously 3.3 cm. there is a 3.1 cm lesion in the interpolar left kidney on image #101 which contains thick enhancing septations and measures 3.1 cm which is also unchanged. Additional smaller cysts and cortical hyperdensities are noted in both kidneys. Foci of cortical scarring are seen in the left kidney. Prostamegaly. Urinary bladder wall thickening. There is advanced atherosclerotic calcification and ectasia of the abdominal aorta. An infrarenal abdominal aneurysm measures up to 3.2 cm in diameter. There is ectasia of the common iliac arteries which measure up to 1.8 cm bilaterally. 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 There is no bowel obstruction or bowel wall thickening identified. Moderate colonic fecal retention. Mild generalized body wall edema. Degenerative changes of the spine, pelvis and hips. No acute fracture identified. Mild lumbar levoscoliosis. Unchanged chronic small fracture of the sacrum at S4. IMPRESSION: 1. Cardiomegaly with mild interstitial pulmonary edema, trace right and small left pleural effusions. 2. Asymmetric left basilar opacities are suspicious for pneumonia. Atelectasis could appear similarly. 3. 7 mm irregular solid nodule of the right upper lobe is similar to slightly decreased in size from 12/10/2023. 4. There is no acute posttraumatic intrathoracic, intra-abdominal or intrapelvic abnormality identified. 5. Bilateral simple and complex cysts with suspicious renal lesions again noted. Follow-up CT or MRI renal protocol study recommended in order to exclude renal cell carcinoma. 6. 3.2 cm infrarenal abdominal aortic aneurysm without rupture. 7. Incidental findings as above. ACT 112: Negative or not required by law. Electronically signed by: Faisal Chilel M.D. 04/13/2025 2:[address] 04/13/25 13:41 CT SCAN OF THE CERVICAL SPINE CLINICAL HISTORY: Trauma alert. Found down. COMPARISON STUDY: Cervical spine CT February 20, 2024. TECHNIQUE: CT scan of the cervical spine is performed from the skull base to the upper thoracic spine. Images are reviewed in the axial, sagittal, and coronal planes. IV contrast was not administered for this examination. A dose lowering technique was utilized adhering to the principles of ALARA. CT DOSE: 3707.84 mGy.cm FINDINGS: Endotracheal tube is partially imaged. This is well positioned within correlating with the chest CT which will be reported separately. Alignment of the cervical spine is unchanged since prior exam. Anterolisthesis of C7 on T1 is unchanged. Severe multilevel facet arthrosis and severe multilevel disc space narrowing within the cervical spine is again noted. There is no acute cervical spine fracture. There are no suspicious osseous lesions. Facet joints are intact. Central canal and neural foramen are suboptimally assessed given CT technique. Diffuse soft tissue edema within the right neck, including mild prevertebral edema is partially imaged on this examination. This represents a nonspecific finding. A left pleural effusion is partially imaged. Extensive hypodensity with loss of robison-white differentiation in scattered foci of hemorrhage within the left temporal lobes are better depicted on the head CT which will be reported separately. Secretions within the pharynx are likely related to intubation. There is a small air-fluid level within the right maxillary sinus. IMPRESSION: 1. No acute cervical spine fracture or subluxation. 2. Severe multilevel degenerative changes within the cervical spine. 3. Diffuse right neck soft tissue edema, including prevertebral edema. This represents a nonspecific finding. 4. Partially visualize extensive hypodensity with loss of robison-white differentiation within the left temporal lobe which suggests stroke with hemorrhagic conversion. This is better depicted on the head CT which will be reported separately. ACT 112: Negative or not required by law. Electronically signed by: Stas Oviedo M.D. 04/13/2025 2:[address] 04/13/25 13:[address] WITH CONTRAST; CT ABDOMEN AND PELVIS WITH IV CONTRAST ONLY HISTORY: Acute trauma patient Trauma TECHNIQUE: Multiaxial CT images of the chest were performed following the IV administration of 94 cc of Optiray. A dose lowering technique was utilized adhering to the principles of ALARA. COMPARISON: CT thoracic and lumbar spine studies of same day, CT chest, abdomen and pelvis 12/10/2023 FINDINGS: CT CHEST: Subcentimeter hypodense right-sided thyroid nodule. Enlarged mediastinal lymph nodes with subcarinal adenopathy measuring up to 1.3 cm appears unchanged from prior. Supraclavicular lymph nodes on the right measure up to 10 mm. No new or progressive lymphadenopathy of the chest. Moderate cardiomegaly with moderate to extensive coronary artery calcifications. Atherosclerosis of the thoracic aorta without aneurysm or dissection. Prior median sternotomy an CABG. Descending thoracic aortic tortuosity. No pulmonary emboli identified. No pneumothorax. Mild emphysema with interlobular septal thickening and mild dependent consolidation, most pronounced in the basal left lower lobe. Trace right and small left pleural effusions. 7 mm irregular nodule in the right upper lobe on image 78 series 12 appears to be generally stable. Smaller solid pulmonary nodules measure up to approximately 3-4 mm. Endotracheal tube in place which appears to be in satisfactory positioning. Mild generalized body wall edema. There are several chronic appearing right-sided rib fractures. Degenerative changes of shoulders and spine. Ununited chronic slightly displaced fracture of the posterior right 11th rib. Mild superior endplate compression of the T4 and T5 segments is unchanged and chronic. Body wall edema. Gynecomastia. CT ABDOMEN/PELVIS: There is no pneumatosis or pneumoperitoneum. Unremarkable spleen, bladder, adrenal glands and liver. 12 mm cystic focus in the pancreatic neck redemonstrated suggestive of a sidebranch IPMN. Diffuse cortical thinning of the kidneys again noted without hydronephrosis. The kidneys enhance symmetrically. There is a solid and cystic mass in the posterior interpolar right kidney on image 110 which measures up to approximately 3.2 cm, unchanged. A complex lesion in the lower pole of the right kidney on image 148 contains calcified septations rand measures up to 3.5 cm, previously 3.3 cm. there is a 3.1 cm lesion in the interpolar left kidney on image #101 which contains thick enhancing septations and measures 3.1 cm which is also unchanged. Additional smaller cysts and cortical hyperdensities are noted in both kidneys. Foci of cortical scarring are seen in the left kidney. Prostamegaly. Urinary bladder wall thickening. There is advanced atherosclerotic calcification and ectasia of the abdominal aorta. An infrarenal abdominal aneurysm measures up to 3.2 cm in diameter. There is ectasia of the common iliac arteries which measure up to 1.8 cm bilaterally. 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 There is no bowel obstruction or bowel wall thickening identified. Moderate colonic fecal retention. Mild generalized body wall edema. Degenerative changes of the spine, pelvis and hips. No acute fracture identified. Mild lumbar levoscoliosis. Unchanged chronic small fracture of the sacrum at S4. IMPRESSION: 1. Cardiomegaly with mild interstitial pulmonary edema, trace right and small left pleural effusions. 2. Asymmetric left basilar opacities are suspicious for pneumonia. Atelectasis could appear similarly. 3. 7 mm irregular solid nodule of the right upper lobe is similar to slightly decreased in size from 12/10/2023. 4. There is no acute posttraumatic intrathoracic, intra-abdominal or intrapelvic abnormality identified. 5. Bilateral simple and complex cysts with suspicious renal lesions again noted. Follow-up CT or MRI renal protocol study recommended in order to exclude renal cell carcinoma. 6. 3.2 cm infrarenal abdominal aortic aneurysm without rupture. 7. Incidental findings as above. ACT 112: Negative or not required by law. Electronically signed by: Faisal Chilel M.D. 04/13/2025 2:[address] 04/13/25 13:41 CT SCAN OF THE BRAIN WITHOUT IV CONTRAST CLINICAL HISTORY: Trauma. "Found down". COMPARISON STUDY: CT of the brain dated 02/20/2024. TECHNIQUE: Unenhanced CT scan of the brain is performed from the vertex to the skull base. Images are reviewed in the axial, sagittal, coronal planes. A dose lowering technique was utilized adhering to the principles of ALARA. FINDINGS: Brain parenchyma: There is age-related involutional change noting moderate subcortical and periventricular microangiopathic disease. There is diffuse loss of robison-white matter differentiation throughout the left MCA and NAOMI territories consistent with large subacute infarcts. There is hemorrhagic conversion, with an approximately 3.5 x 1.5 cm hematoma centered in the left basal ganglia. Blood products are also seen in the region of the left temporal lobe. Loss of robison- white matter differentiation is also seen involving the left basal ganglia and caudate head. There is effacement of the left lateral ventricle as well as approximately 5 mm of [id number] midline shift. No extra-axial fluid collection is clearly seen. Ventricles, sulci, cisterns: Prominent secondary to involutional change. Intracranial vasculature: There is atherosclerotic calcification of the cavernous carotid and vertebral arteries. Hyperdense thrombus is suggested within the left middle cerebral artery. Calvarium: The skeletal structures are osteopenic. No depressed calvarial fracture is seen. Soft tissues: There is marked edema/hematoma seen throughout the right frontoparietal scalp. Fluid fills the pharynx. Sinuses and mastoids: There is mild mucosal thickening within air-fluid level in the right maxillary antrum. Moderate mucosal thickening is seen within the frontal and ethmoid sinuses. There is trace because of thickening in the left maxillary sinus. The mastoid air cells are well pneumatized. Orbits: The bony orbits are grossly intact. There are bilateral ocular lens implants. IMPRESSION: 1. There is diffuse loss of robison-white matter differentiation throughout the left NAOMI and MCA territories consistent with a large subacute territorial infarcts. 2. There is hemorrhagic conversion throughout the left hemisphere as detailed above 3. There is mass effect with effacement of the left lateral ventricle and mild left to right midline shift. 4. Hyperdense thrombus is suggested within the left middle cerebral artery. 5. There is marked edema/hematoma throughout the right frontoparietal scalp. No depressed calvarial fracture is seen. 6. Fluid fills the imaged pharynx. Findings were called to Dr. Paez in the emergency Department at the time of interpretation. ACT 112: Negative or not required by law. Electronically signed by: Thomas Lee M.D. 04/13/2025 2:[address] 04/13/25 13:[address] WITH CONTRAST CLINICAL HISTORY: Trauma. COMPARISON STUDY: Chest CT December 10, 2023. TECHNIQUE: Axial images of the thoracic spine were obtained following intravenous injection of 94 cc of Optiray 320 IV. Sagittal and coronal reformats were viewed. A dose lowering technique was utilized adhering to the principles of ALARA. FINDINGS: Slight increased kyphosis of the thoracic spine is noted. Mild anterior wedging of the T5 vertebral body is chronic. No acute thoracic spine fractures are present. There are no suspicious osseous lesions. There is moderate facet arthrosis and mild degenerative disc disease within the thoracic spine. Central canal and neural foramen are suboptimally assessed given CT technique. A left pleural effusion and extensive left lower lobe airspace opacity are better depicted on the chest CT which will be reported separately. There is underlying emphysema. Mild interlobular septal thickening is noted. An 8 mm right upper lobe nodule on image [id number] of December 10, 2023. This remains indeterminate. Multiple old posterior right-sided rib fractures are present. No acute fractures within the visualized posterior ribs are identified. IMPRESSION: 1. No acute thoracic spine fracture or subluxation. 2. Small left pleural effusion and left lower lobe airspace opacity which favors pneumonia or aspiration pneumonitis. These findings are better depicted on the chest CT which will be reported separately. ACT 112: Negative or not required by law. Electronically signed by: Stas Oviedo M.D. 04/13/2025 2:44 PM Chest X-Ray 04/13/25 14:31 XR chest 1V portable CLINICAL HISTORY: OG placement COMPARISON STUDY: Earlier today FINDINGS: Endotracheal tube tip is stable between the thoracic inlet and the blaine. Orogastric tube tip is off the field of view inferiorly. Stable CABG. Stable cardiomegaly without pulmonary vascular congestion. No consolidation or pleural effusion. No pneumothorax. IMPRESSION: 1. Interval orogastric tube tip is off the field of view inferiorly. 2. Well-positioned endotracheal tube with well-aerated lungs. ACT 112: Negative or not required by law. Electronically signed by: Gus Marks M.D. 04/13/2025 2:53 PM MDM Narrative Patient is an 84-year-old male who presents today after being found down for unknown period of time. Significantly decreased LOC on arrival. GCS of 3 from September with nonreactive pupils bilaterally. Evidence of trauma to the scalp is noted. Patient was intubated upon arrival for airway protection. Trauma scans were ordered. CT of the head shows a large ischemic stroke with involvement of of and majority of the left hemisphere likely secondary for occlusion of left NAOMI or MCA. Hemorrhagic conversion noted. Unfortunately due to the ischemic conversion already noted to the brain tissue he is not a candidate for endovascular therapy. I discussed the case with neurology and neurovascular team at [facility]. Patient would need transfer for hemicraniotomy for any chance of survival however long-term outlook is poor and he would likely need trach and PEG as well as have significant neurologic deficits. I discussed this overall poor prognosis with the family including daughter and daughter's who understand the severity of the situation and do not wish to put the patient through transfer and surgical intervention in the setting of poor outlook. Decision was made by family to transition patient to comfort measures. Patient was terminally extubated in ED. Morphine gtt ordered per comfort measure protocol. Authorized and Performed by: Total critical care time: Approximately 45 CC diagnosis: Due to a high probability of clinically significant, life threatening deterioration, the patient required my highest level of preparedness to intervene emergently and I personally spent this critical care time directly and personally managing the patient. This critical care time included obtaining a history; examining the patient; pulse oximetry; ordering and review of studies; arranging urgent treatment with development of a management plan; evaluation of patient's response to treatment; frequent reassessment; and, discussions with other providers. This critical care time was performed to assess and manage the high probability of imminent, life-threatening deterioration that could result in multi-organ failure. It was exclusive of separately billable procedures and treating other patients and teaching time. Please see MDM section and the rest of the note for further information on patient assessment and treatment. Impression & Plan Ischemic cerebrovascular accident (CVA), Cerebral edema Discharge Plan Visit Data Chief Complaint: Trauma Stated Complaint: STROKE ALERT ED Provider: Agustin Paez Discharge Problem: Ischemic cerebrovascular accident (CVA), Cerebral edema Patient Disposition: Admitted As Inpatient Condition: Critical Forms Stand Alone Forms: [facility] Prescriptions Prescriptions: No Action aspirin 81 mg tablet,delayed release (DR/EC) 81 mg PO QAM folic acid 1 mg tablet 1 mg PO BID phenytoin sodium extended [Dilantin Kapseal] 100 mg capsule 300 mg PO HS nitroglycerin [Nitrostat] 0.4 mg Tablet, Sublingual 0.4 mg sublingual UD PRN (Reason: Chest Pain) metoprolol succinate 25 mg tablet extended release 24 hr 37.5 mg PO QAM tamsulosin 0.4 mg capsule 0.4 mg PO QAM cholecalciferol (vitamin D3) [Vitamin D3] 50 mcg (2,000 unit) Tablet 50 mcg PO QAM Men's 50 Plus Multivitamin 400-20-370 mcg Tablet 1 tab PO QAM Vitamin C 100 mg Tablet 100 mg PO QAM furosemide 40 mg tablet 40 mg PO QAM metolazone 2.5 mg tablet 2.5 mg PO WK Rx Instructions: THURSDAYS warfarin 3 mg tablet 3 mg PO UD Rx Instructions: WEDNESDAYS TAKES 6 MG, THEN TAKES 3 MG ALL OTHER DAYS. dutasteride 0.5 mg capsule 0.5 mg PO QAM atorvastatin 80 mg tablet 80 mg PO QAM divalproex 250 mg tablet,delayed release (DR/EC) 250 mg PO BID acetaminophen [Tylenol Extra Strength] 500 mg Tablet 1,000 mg PO Q8H PRN (Reason: PAIN, MODERATE, MILD) lisinopril 5 mg tablet 5 mg PO DIRECTED Rx Instructions: TAKES 5 MG ON THURSDAYS ONLY, THEN TAKES 10 MG ALL OTHER DAYS. ezetimibe 10 mg tablet 10 mg PO QAM memantine 10 mg tablet 10 mg PO BIDM potassium chloride 20 mEq tablet extended release 20 meq PO WK Rx Instructions: THURSDAYS WHEN TAKES METOLAZONE Referrals Referrals: Edwin Gomez [Primary Care Provider] -
[2025-04-13] MEDS: MoRPHine SULF 100 MG/100 ML BAG IV SCH (16:41)
[2025-04-13] MEDS: MoRPHine SULFATE 10 MG/ML CARP/VIAL IV STA (16:42)
--- NOTE | 2025-04-13 17:18 | History & Physical Report ---
Date of Service April 13, 2025 Assessment & Plan (1) Ischemic cerebrovascular accident (CVA): Plan: History of prior stroke and also significant past medical history as mentioned below was found on the floor by the caregiver this afternoon He was on nonrebreather put by the EMS and not not responding. He was intubated in the emergency room and also orogastric tube Put in CT of the head showed diffuse loss of robison-white matter throughout left NAOMI and MCA distribution consistent with large subacute territorial infarct with associated hemorrhagic conversion throughout the left hemisphere and also evidence of midline shift The case was discussed with the neurology service in [place] and later on the patient was extubated and made comfort care only after discussion with the family members He is labs and imaging studies reviewed Remains on morphine drip and unconscious Will be admitted to medical floor with comfort care only Discussed with the family members (2) Cerebral edema: (3) Acute cerebral hemorrhage: (4) Seizure disorder: (5) Malignant neoplasm of kidney: (6) Cerebrovascular disease, arteriosclerotic, post-stroke: (7) Aortic valve insufficiency: (8) S/P CABG x 4: (9) HTN (hypertension): History of Present Illness Chief Complaint: Brought in unconscious following found down on bathroom floor by the roofer vinyl coating Primary Care Provider: Edwin Gomez he is an 84-year-old male significant past medical history of atrial fibrillation on Coumadin, seizure disorder, renal cell carcinoma, hypertension, history of CVA, aortic valve insufficiency, BPH, CAD status post CABG and history of DVT was found by the roofer vinyl coating on the bathroom floor today. He was noted to be well at 11 PM last night. Patient was on nonrebreather by EMS and was not responding to stimuli per EMS. Bleeding from the scalp noted prior to arrival and EMS noted that he was not moving his right side at all. He was intubated in the emergency room and also orogastric tube was put in. CT scan of the head showed diffuse loss of robison-white matter throughout left NAOMI and MCA territories consistent with large subacute territorial infarct with associated hemorrhagic conversion throughout the left hemisphere with associated mass effect and effacement of the left lateral ventricle and mid left to right midline shift. [place] neurologist was consulted by the ER physician and the patient was made comfort care following discussion with the family members. He will be admitted to medical floor on comfort measures only. Allergies Allergy/AdvReac Type Severity Reaction Status Date / Time pollen extracts Allergy Mild Sneezing Verified 04/13/25 14:56 Home Medications Medication Instructions Recorded Confirmed Type aspirin 81 mg tablet,delayed 81 mg PO QAM 01/19/18 04/13/25 History release folic acid 1 mg tablet 1 mg PO BID 01/19/18 04/13/25 History phenytoin sodium extended 100 mg 300 mg PO HS 01/19/18 04/13/25 History capsule (Dilantin Kapseal) nitroglycerin 0.4 mg sublingual 0.4 mg sublingual UD PRN Chest Pain 12/05/18 04/13/25 History tablet (Nitrostat) ascorbic acid (vitamin C) 100 mg 100 mg PO QAM 03/12/22 04/13/25 History tablet (Vitamin C) cholecalciferol (vitamin D3) 50 50 mcg PO QAM 03/12/22 04/13/25 History mcg (2,000 unit) tablet (Vitamin D3) dutasteride 0.5 mg capsule 0.5 mg PO QAM 03/12/22 04/13/25 History furosemide 40 mg tablet 40 mg PO QAM 03/12/22 04/13/25 History metolazone 2.5 mg tablet 2.5 mg PO WK 03/12/22 04/13/25 History metoprolol succinate 25 mg 37.5 mg PO QAM 03/12/22 04/13/25 History tablet,extended release 24 hr [id number] acid-vit 1 tab PO QAM 03/12/22 04/13/25 History K-lycop 400 mcg-20 mcg-370 mcg tablet (Men's 50 Plus Multivitamin) tamsulosin 0.4 mg capsule 0.4 mg PO QAM 03/12/22 04/13/25 History warfarin 3 mg tablet 3 mg PO UD 03/12/22 04/13/25 History acetaminophen 500 mg tablet 1,000 mg PO Q8H PRN PAIN, 04/13/25 04/13/25 History (Tylenol Extra Strength) MODERATE, MILD atorvastatin 80 mg tablet 80 mg PO QAM 04/13/25 04/13/25 History divalproex 250 mg tablet,delayed 250 mg PO BID 04/13/25 04/13/25 History release ezetimibe 10 mg tablet 10 mg PO QAM 04/13/25 04/13/25 History lisinopril 5 mg tablet 5 mg PO DIRECTED 04/13/25 04/13/25 History memantine 10 mg tablet 10 mg PO BIDM 04/13/25 04/13/25 History potassium chloride 20 mEq 20 meq PO WK 04/13/25 04/13/25 History tablet,extended release Past Med/Surg History Problem List (Updated 04/13/25 @ 17:27 by Lalo Rodriguez MD) Acute cerebral hemorrhage Cerebral edema (Acute) Ischemic cerebrovascular accident (CVA) (Acute) Encounter for pre-operative examination Chronic venous insufficiency Injury of left leg (Acute) Anticoagulated on warfarin (Acute) Anemia (Acute) Intramuscular hematoma (Acute) History of DVT (deep vein thrombosis) Hematoma Acute kidney failure Hematoma and contusion Supratherapeutic INR (Acute) Hypocalcemia (Acute) Anemia (Acute) Injury of left leg (Acute) Bradycardia (Acute) Hypotension (Acute) Syncope (Acute) Postural dizziness with near syncope Traumatic wound (Acute) Hematoma of leg DVT (deep venous thrombosis) (Chronic) Cellulitis, leg S/P inguinal hernia repair (Chronic) H/O colonoscopy (Chronic) S/P CABG x 4 (Chronic) "10/25/01" CAD (coronary artery disease) (Chronic) Hx of sinus bradycardia (Chronic) S/p nephrectomy (Chronic) OAB (overactive bladder) (Chronic) H/O nonmelanoma skin cancer (Chronic) Seizure disorder (Chronic) Malignant neoplasm of kidney (Chronic) Dyslipidemia (Chronic) HTN (hypertension) (Chronic) Cerebrovascular disease, arteriosclerotic, post-stroke (Chronic) Aortic valve insufficiency (Chronic) BPH (benign prostatic hypertrophy) (Chronic) Spinal stenosis (Chronic) Medical History Sleep apnea CPAP History of COVID-19 05/2022, home test, not hosp; mild symptoms>resolved Hx of myocardial infarction 28 years ago, taken to [facility], had heart cath CAD (coronary artery disease) H/O sinus bradycardia S/p nephrectomy partial H/O nonmelanoma skin cancer removed OAB (overactive bladder) Malignant neoplasm of kidney Aortic valve insufficiency Dyslipidemia Seizure disorder hx-7 seizures in 1 hour when being released from [facility] from kidney surgery; went into cardiac arrest-"had to be shocked back to life"; f/u neuro at [facility] HTN (hypertension) ASCVD (arteriosclerotic cardiovascular disease) CVA (cerebral vascular accident) 42 years ago, was reaching for something went numb and fell, taken to [facility] by ambulance; no residual effects from stroke BPH (benign prostatic hyperplasia) Spinal stenosis Hematoma of leg sx to remove DVT (deep venous thrombosis) x2, most recent 11/2017; currently taking Coumadin Surgical History History of left cataract surgery Hx of cardiac catheterization 28 years ago, [facility], no stents; f/u Dr. Gomez, [facility] S/P inguinal hernia repair H/O colonoscopy S/P CABG x 4 ~23-24 years ago, failed stress test, [facility] (he thinks); f/u Dr. Gomez, [facility] Family History Other No significant family history Social History Smoking Status: Unknown if ever smoked Second Hand Exposure: No; Do You Dip or Chew Tobacco: No; Hx Alcohol Use: No Hx Substance Use: No Preferred Language: Vietnamese Communication Ability: Effective Visual Impairment: Limited Hearing Ability: Normal Insurance Coordinator Required: No Beliefs That Will Affect Care: Baptism Baptism Beliefs: Donnie marital status: Current Living Situation: Spouse current occupational status: retired Feels Safe at Home: Yes Childhood Exposure to Second-Hand Smoke: No Assistive Devices: CPAP and Glasses Review of Systems Review of Systems: Unobtainable due to reduced consciousness Physical Exam Physical Exam: Lying in bed unconscious with moaning at times Constitutional: + ill appearing Eyes: closed ENMT: cervical collar in situ Neck: cervical collar in situ Respiratory: no respiratory distress Auscultation: + diminished lung sounds Cardiovascular: Rate/Rhythm: regular rate and regular rhythm; not tachycardic Gastrointestinal (Abdomen): Inspection/Auscultation: normal bowel sounds; abdomen not distended Neurologic: Remains unconscious with occasional moaning. seems to be not in any acute distress Results & Data Results & Data Vital Signs (Past 12 Hours) Vital Signs Temp Pulse Resp BP Pulse Ox O2 Del Method O2 Flow Rate 04/13/25 15:05 158/125 H 04/13/25 15:05 158/125 H 04/13/25 15:05 158/125 H 04/13/25 15:05 158/125 H 04/13/25 15:05 158/125 H 04/13/25 15:03 79 20 98 04/13/25 15:00 161/84 H 04/13/25 15:00 161/84 H 04/13/25 15:00 161/84 H 04/13/25 15:00 161/84 H 04/13/25 15:00 161/84 H 04/13/25 15:00 78 20 99 04/13/25 14:55 173/98 H 04/13/25 14:55 173/98 H 04/13/25 14:55 173/98 H 04/13/25 14:55 173/98 H 04/13/25 14:55 173/98 H 04/13/25 14:54 75 21 98 04/13/25 14:51 76 20 99 04/13/25 14:50 176/104 H 04/13/25 14:50 176/104 H 04/13/25 14:50 176/104 H 04/13/25 14:50 176/104 H 04/13/25 14:50 176/104 H 04/13/25 14:48 80 21 100 04/13/25 14:45 170/93 H 04/13/25 14:45 170/93 H 04/13/25 14:45 170/93 H 04/13/25 14:45 170/93 H 04/13/25 14:45 170/93 H 04/13/25 14:45 76 21 99 04/13/25 14:42 76 21 97 04/13/25 14:40 180/94 H 04/13/25 14:40 180/94 H 04/13/25 14:40 180/94 H 04/13/25 14:40 180/94 H 04/13/25 14:40 180/94 H 04/13/25 14:39 76 20 99 04/13/25 14:36 80 23 100 04/13/25 14:35 177/92 H 04/13/25 14:35 177/92 H 04/13/25 14:35 177/92 H 04/13/25 14:35 177/92 H 04/13/25 14:35 177/92 H 04/13/25 14:35 177/92 H 04/13/25 14:33 72 20 100 04/13/25 14:30 73 20 100 04/13/25 14:30 186/103 H 04/13/25 14:30 186/103 H 04/13/25 14:30 186/103 H 04/13/25 14:30 186/103 H 04/13/25 14:30 186/103 H 04/13/25 14:25 188/93 H 04/13/25 14:25 188/93 H 04/13/25 14:25 188/93 H 04/13/25 14:25 188/93 H 04/13/25 14:25 188/93 H 04/13/25 14:24 80 20 100 04/13/25 14:22 186/121 H 04/13/25 14:22 186/121 H 04/13/25 14:22 186/121 H 04/13/25 14:21 92 H 22 100 04/13/25 14:18 199/117 H 04/13/25 14:18 199/117 H 04/13/25 14:18 199/117 H 04/13/25 14:18 199/117 H 04/13/25 14:18 88 20 100 04/13/25 14:15 81 20 100 04/13/25 14:15 187/118 H 04/13/25 14:15 187/118 H 04/13/25 14:15 187/118 H 04/13/25 14:12 83 21 100 04/13/25 14:12 179/114 H 04/13/25 14:12 179/114 H 04/13/25 14:12 179/114 H 04/13/25 13:46 164/106 H 04/13/25 13:46 164/106 H 04/13/25 13:46 164/106 H 04/13/25 13:46 164/106 H 04/13/25 13:46 164/106 H 04/13/25 13:45 88 19 92 04/13/25 13:45 36.7 C 93 H 22 164/106 H Mechanical Vent 20 04/13/25 13:42 90 30 H 100 04/13/25 13:40 Mechanical Vent, Non-rebreather 04/13/25 13:40 Mechanical Vent 04/13/25 13:40 36.7 C 04/13/25 13:40 103 H 04/13/25 13:38 169/116 H 04/13/25 13:38 169/116 H 04/13/25 13:38 169/116 H 04/13/25 13:36 94 H 20 100 FiO2 04/13/25 15:05 04/13/25 15:05 04/13/25 15:05 04/13/25 15:05 04/13/25 15:05 04/13/25 15:03 04/13/25 15:00 04/13/25 15:00 04/13/25 15:00 04/13/25 15:00 04/13/25 15:00 04/13/25 15:00 04/13/25 14:55 04/13/25 14:55 04/13/25 14:55 04/13/25 14:55 04/13/25 14:55 04/13/25 14:54 04/13/25 14:51 04/13/25 14:50 04/13/25 14:50 04/13/25 14:50 04/13/25 14:50 04/13/25 14:50 04/13/25 14:48 04/13/25 14:45 04/13/25 14:45 04/13/25 14:45 04/13/25 14:45 04/13/25 14:45 04/13/25 14:45 04/13/25 14:42 04/13/25 14:40 04/13/25 14:40 04/13/25 14:40 04/13/25 14:40 04/13/25 14:40 04/13/25 14:39 04/13/25 14:36 04/13/25 14:35 04/13/25 14:35 04/13/25 14:35 04/13/25 14:35 04/13/25 14:35 04/13/25 14:35 04/13/25 14:33 04/13/25 14:30 04/13/25 14:30 04/13/25 14:30 04/13/25 14:30 04/13/25 14:30 04/13/25 14:30 04/13/25 14:25 04/13/25 14:25 04/13/25 14:25 04/13/25 14:25 04/13/25 14:25 04/13/25 14:24 04/13/25 14:22 04/13/25 14:22 04/13/25 14:22 04/13/25 14:21 04/13/25 14:18 04/13/25 14:18 04/13/25 14:18 04/13/25 14:18 04/13/25 14:18 04/13/25 14:15 04/13/25 14:15 04/13/25 14:15 04/13/25 14:15 04/13/25 14:12 04/13/25 14:12 04/13/25 14:12 04/13/25 14:12 04/13/25 13:46 04/13/25 13:46 04/13/25 13:46 04/13/25 13:46 04/13/25 13:46 04/13/25 13:45 04/13/25 13:45 04/13/25 13:42 04/13/25 13:40 04/13/25 13:40 04/13/25 13:40 04/13/25 13:40 04/13/25 13:38 04/13/25 13:38 04/13/25 13:38 04/13/25 13:36 40 Laboratory Results Short CBC 04/13/25 Range/Units 13:34 WBC 12.28 H (4.8-10.8) K/ul Hgb 14.3 (14.0-18.0) g/dL Hct 43.0 (42.0-52.0) % Plt Count 195 (130-400) K/uL BMP 04/13/25 13:34 Sodium 138 Potassium 5.0 Chloride 104 Carbon Dioxide 24 BUN 33 H Creatinine 1.11 Glucose 132 H Calcium 9.3 Liver Function 04/13/25 Range/Units 13:34 Total Bilirubin 0.5 (0.2-1.0) mg/dl AST 58 H (13-39) U/L ALT 32 (7-52) U/L Alkaline Phosphatase 105 H (34-104) U/L Albumin 4.1 (3.4-5.0) gm/dl Urine 04/13/25 Range/Units 14:26 Urine Color Yellow Urine Appearance Clear (Clear) Urine pH 6.0 (4.5-7.5) Ur Specific [place] 1.022 (1.000-1.030) Urine Protein 4+ H (Negative) Urine Glucose (UA) Negative (Negative) Medications Administered Current Inpatient Medications Propofol (Diprivan) 1,000 mg in 100 mls @ 17.485 mls/hr IV .Q5H44M [facility]; Protocol Stop: 04/16/25 13:44 Last Titration: 04/13/25 16:30 Dose: Infused Morphine Sulfate (Morphine Sulf) 100 mg in 100 mls @ 1 mls/hr IV .Q96H [facility]; Protocol Stop: 04/27/25 16:29 Last Admin: 04/13/25 16:41 Dose: 1 mg/hr, 1 mls/hr Morphine Sulfate (Morphine Bolus From Bag) 1 mg IV Q15M PRN PRN Reason: Comfort Care Parameters Stop: 04/27/25 16:23 Last Admin: 04/13/25 17:13 Dose: 1 mg Propofol (Propofol Bolus From Bag) 20 mg IV Q5M PRN PRN Reason: Sedation Stop: 04/16/25 13:39 Last Admin: 04/13/25 14:40 Dose: 20 mg Code Status & VTE Plan VTE Prophylaxis Plan VTE Prophylaxis will be ordered: No Reason for no VTE drug order: Contraindicated
[2025-04-13] MEDS ORDERED: PROMETHAZINE 12.5 MG/50.5 ML BAG IV PRN (17:32)
[2025-04-13] MEDS ORDERED: STAT IV Infusion **Titration per Protocol STA (17:32)
[2025-04-13] MEDS ORDERED: ONDANSETRON INJ 2 MG/ML 2 ML VIAL IV PRN (17:32)
[2025-04-13] MEDS ORDERED: LORazepam Inj 0.5 MG in SYRINGE 0.25 ML IV PRN (17:32)
[2025-04-13] MEDS ORDERED: MoRPHine SULF 100 MG/100 ML BAG IV SCH (17:45)
[2025-04-13 18:24] VITALS: BP 165/92; PULSE 78; RESP 13; O2SAT 93
[2025-04-13] MEDS ORDERED: ETOMIDATE 2 MG/ML 20 ML VIAL IV ONE (22:29)
[2025-04-13] MEDS ORDERED: ROCURONIUM BROMIDE 10 MG/ML 5 ML VIAL IV ONE (22:29)
[2025-04-13] MEDS: ATROPINE SULFATE 1% OP SOLN 5 ML BTL SL PRN (22:45)
[2025-04-13] MEDS: LORazepam Inj 0.5 MG in SYRINGE 0.25 ML IV PRN (22:46)
[2025-04-13] MEDS: RAPID SEQUENCE INDUCTION BAG ONE (23:01)
--- NOTE | 2025-04-14 11:05 | Hospitalist Progress Note ---
Date of Service April 14, 2025 Assessment & Plan (1) Ischemic cerebrovascular accident (CVA): Plan: Patient was brought to the hospital after he was found down on the floor by the caregiver Was intubated in the ED CT head without contrast showed diffuse loss of grade as white matter throughout the left NAOMI and MCA distribution consistent with large subacute territorial infarct with associated hemorrhagic conversion throughout the left hemisphere and also evidence of midline shift The case was discussed with the neurology service in [place] and later on the patient was extubated and made comfort care only after discussion with the family members Continue comfort care measures; titrate morphine drip as per comfort As needed Lisha Jose (2) Cerebral edema: (3) Acute cerebral hemorrhage: (4) Seizure disorder: (5) Malignant neoplasm of kidney: (6) Cerebrovascular disease, arteriosclerotic, post-stroke: (7) Aortic valve insufficiency: (8) S/P CABG x 4: (9) HTN (hypertension): Admission and Anticipated Discharge Date Admission Date: April 13, 2025 Subjective Patient seen at bedside. He appears comfortable; not in any distress. Family at bedside Review of Systems Review of Systems: All systems reviewed & are unremarkable except as noted in Subjective Physical Exam Physical Exam: Constitutional: Sleeping; appears comfortable. Respiratory: Bilateral basal breath sound Neuro; sedated; on morphine drip Results & Data Results & Data Vital Signs (Past 12 Hours) Vital Signs O2 Del Method 04/14/25 07:20 Room Air
--- NOTE | 2025-04-14 17:41 | Electrocardiogram Report ---
Test Reason : Blood Pressure : */* mmHG Vent. Rate : 102 BPM Atrial Rate : * BPM P-R Int : * ms QRS Dur : 158 ms QT Int : 420 ms P-R-T Axes : * 97 41 degrees QTcB Int : 547 ms Atrial fibrillation with rapid ventricular response Right bundle branch block Abnormal ECG When compared with ECG of 20-Feb-2024 17:00, Nonspecific T wave abnormality has replaced inverted T waves in Inferior leads QT has lengthened Septal ST depression is more pronounced than on prior ECG Confirmed by Lynette Pérez (Iz[place]) on 04/14/2025 5:40:37 PM Referred By: REFERRED SELF Confirmed By: Lynette Pérez
--- NOTE | 2025-04-15 07:16 | Death Pronouncement Note ---
Date of Service April 14, 2025 Pronouncement Note Admission Date April 13, 2025 Date and Time of Date of : 04/14/25 Time of : 21:05 Additional Data Confirmation of : no pulse, no respirations, no heart sounds and pupils fixed and dilated Pronouncement Performed By: Attending Physician Family: at bedside Attending physician: Jonh Walters MD
--- NOTE | 2025-04-15 10:58 | Discharge Summary ---
Date of Service April 14, 2025 Admission HPI Per Admitting Provider he is an 84-year-old male significant past medical history of atrial fibrillation on Coumadin, seizure disorder, renal cell carcinoma, hypertension, history of CVA, aortic valve insufficiency, BPH, CAD status post CABG and history of DVT was found by the weight reducing technician on the bathroom floor today. He was noted to be well at 11 PM last night. Patient was on nonrebreather by EMS and was not responding to stimuli per EMS. Bleeding from the scalp noted prior to arrival and EMS noted that he was not moving his right side at all. He was intubated in the emergency room and also orogastric tube was put in. CT scan of the head showed diffuse loss of robison-white matter throughout left NAOMI and MCA territories consistent with large subacute territorial infarct with associated hemorrhagic conversion throughout the left hemisphere with associated mass effect and effacement of the left lateral ventricle and mid left to right midline shift. [place] neurologist was consulted by the ER physician and the patient was made comfort care following discussion with the family members. He will be admitted to medical floor on comfort measures only. Admission Exam Per Admitting Provider Physical Exam: Lying in bed unconscious with moaning at times Constitutional: + ill appearing Eyes: closed ENMT: cervical collar in situ Neck: cervical collar in situ Respiratory: no respiratory distress Auscultation: + diminished lung sounds Cardiovascular: Rate/Rhythm: regular rate and regular rhythm; not tachycardic Gastrointestinal (Abdomen): Inspection/Auscultation: normal bowel sounds; abdomen not distended Neurologic: Remains unconscious with occasional moaning. seems to be not in any acute distress Principal Diagnosis (1) Ischemic cerebrovascular accident (CVA): Discharge Exam Patient on April 14, 2025 at 9:05 PM. Discharge Data Allergies Allergy/AdvReac Type Severity Reaction Status Date / Time pollen extracts Allergy Mild Sneezing Verified 04/13/25 14:56 Consultations 04/13/25 16:56 ED Decision to Admit Stat Ordered Studies 04/13/25 13:40 CT lumbar spine w con Stat 04/13/25 13:41 CT abd pelvis IV con only Stat CT cervical spine wo con Stat CT chest diagnostic w con Stat CT head/brain wo con Stat CT thoracic spine w con Stat Hospital Course (1) Ischemic cerebrovascular accident (CVA): (2) Cerebral edema: (3) Acute cerebral hemorrhage: (4) Seizure disorder: (5) Malignant neoplasm of kidney: (6) Cerebrovascular disease, arteriosclerotic, post-stroke: (7) Aortic valve insufficiency: (8) S/P CABG x 4: (9) HTN (hypertension): Plan Patient was brought to the hospital after he was found down on the floor by the caregiver Was intubated in the ED CT head without contrast showed diffuse loss of grade as white matter throughout the left NAOMI and MCA distribution consistent with large subacute territorial infarct with associated hemorrhagic conversion throughout the left hemisphere and also evidence of midline shift The case was discussed with the neurology service in [place] and later on the patient was extubated and made comfort care only after discussion with the family members Patient was admitted to medical floor for comfort care measures. He on April 14, 2025 at 9:05 PM. Total Time Total Time Spent Total Time Spent (In Minutes): 45 Total Time Includes: Examination of the Patient, Discharge Planning, Medication Reconciliation, Communication With Other Providers and Other Discharge Plan Discharge Items Patient Disposition: Other Date/Time: 04/14/25 21:05
== END 2025-04-14 22:30 | disposition expired | DRG 64 ==
LOC: ED 13:25 → 3W 17:10 → SUATTDRO 17:10 → 3W 18:23